=== PATIENT | female | born 1955 | race Caucasian/White ===

== ENCOUNTER 2018-04-19 16:49 | Inpatient (IN) ==
[2018-04-19] MEDS ORDERED: DUONEB (A & A) INH ONE (17:56)
[2018-04-19] MEDS ORDERED: NS 1,000 ML IV ONE (17:56)
[2018-04-19] MEDS ORDERED: LEVAQUIN 500 MG/D5W 500 MG/100 ML IVPB IV ONE (17:57)
[2018-04-19] MEDS ORDERED: SOLU-MEDROL IV ONE (17:58)
--- NOTE | 2018-04-19 19:28 | Diag Imaging Result Doc PS360 ---
EXAM: CHEST-2 VIEWS INDICATION: cough TECHNIQUE: 2 views COMPARISON: 03/04/2018 FINDINGS: The right chest port is in stable position. There is an old central line on the left that is unchanged in position. There is an opacity projecting of the posterior lung bases. It is unclear if this represents a focal consolidation or a sclerotic lesion within the lower thoracic spine. There is no discrete pleural fluid collection or pneumothorax. The cardiomediastinal silhouette and central vasculature are grossly unremarkable. IMPRESSION: Focal consolidation at the lung bases posteriorly on the lateral view versus a sclerotic lesion in the spine. Electronically signed by Abhay Baer 04/19/2018 7:26 PM
[2018-04-19 20:20] LABS: BASO# 0.01 X1000 (0.0-0.2); BASO% 0.1 % (0.0-0.8); EOS# 0.05 X1000 (0.0-0.7); EOS% 0.5 % (0.0-10.0); HEMATOCRIT 42.1 % (37.0-47.0); HEMOGLOBIN 13.7 g/dL (12.0-16.0); IMM GRAN# 0.03 X1000 (0.0-0.04); IMM GRAN% 0.3 % (0.0-0.5); LYMPH# 0.75 X1000 (1.2-3.4); MCH 28.9 PG (27-31); MCHC 32.5 g/dL (33-37); MCV 88.8 FL (81-99); MONO# 0.81 X1000 (0.11-0.59); MONO% 8.7 % (1.7-9.3); MPV 10.9 FL (7.4-10.4); NEUT# 7.69 X1000 (1.4-6.5); NEUT% 82.4 % (42.2-75.2); PLT 140 X1000 (130-400); RBC 4.74 XMIL (4.2-5.4); RDW 14.8 % (11.5-14.5); WBC 9.34 X1000 (4.8-10.8)
[2018-04-19 20:33] LABS: AGAP 11; ALB/GLOB RATIO 0.6; ALBUMIN 2.7 g/dL (3.5-5.0); ALKALINE PHOSPHATASE 204 U/L (32-104); BUN 11 mg/dL (8-22); CALCIUM 8.3 mg/dL (8.8-10.2); CHLORIDE 94 mmol/L (98-107); COSMO 267; CREATININE 0.6 mg/dL (0.5-0.9); ESTIMATED GFR > 60; GLUCOSE 121 mg/dL (70-104); GOT 37 U/L (10-30); GPT 25 U/L (10-36); SODIUM 133 mmol/L (136-145); TCO2 28 mmol/L (25-35); TOTAL BILIRUBIN 1.12 mg/dL (0.20-1.00); TOTAL PROTEIN 7.6 g/dL (6.3-8.3)
--- NOTE | 2018-04-19 21:15 | PROVIDER DOCUMENTATION ---
This chart was entered by Rosario Heath Scribe, acting as scribe for Kelvin Sutton MD. HPI-General Adult - General Chief Complaint: Shortness of Breath Stated Complaint: NAUSEA/ACCERATED HR/LOW O2 Time Seen by Provider: 04/19/18 17:35 Source: patient Allergies/Adverse Reactions: Patient Allergies Allergy/AdvReac Type Severity Reaction Status Date / Time morphine AdvReac ITCHING Verified 04/19/18 17:13 Home Medications: Home Medication List Medication Instructions Recorded Confirmed Last Taken Type Atenolol 50 mg PO DAILY MDD 50 08/02/14 05/06/17 05/05/17 10:00 History Citalopram [Celexa] 40 mg PO DAILY MDD 40 08/02/14 05/06/17 05/05/17 10:00 History Clonazepam [Klonopin] 1 mg PO BID 08/02/14 05/06/17 05/05/17 22:00 History Eszopiclone [Lunesta] 3 mg PO QHS 08/02/14 05/06/17 05/05/17 22:00 History Omeprazole [Prilosec] 20 mg PO DAILY PRN 08/06/16 05/06/17 1 Week Ago History ~04/29/17 Polyethylene Glycol 3350 [Miralax] 1 cap PO DAILY PRN 08/06/16 05/06/17 10:00 History Amphet Asp/Amphet/D-Amphet 10 mg PO BID 05/06/17 05/06/17 05/05/17 10:00 History [Adderall 10 mg Tablet] Promethazine [Phenergan] 25 mg PO Q6H PRN PRN 05/06/17 05/06/17 05/05/17 22:00 History Levofloxacin [Levaquin] 500 mg PO DAILY #20 tab 05/08/17 Unknown Rx Nicotine Patch [Nicoderm Patch] 21 mg TD DAILY #14 patch.td24 05/11/17 Unknown Rx Sulfamethoxazole/Tmp D.s. [Septra 1 ea PO 0800,1999 #50 tab 05/11/17 Unknown Rx Ds] Sulfamethoxazole/Tmp D.s. [ 1 ea PO BID #40 tab 05/11/17 Unknown Rx Ds] - History of Present Illness -Gen Adult Nature of Presenting Problems: 62 y/o female presents to ED with weakness, productive cough, SOB, and nausea onset 1 week ago. Pt reports she has adrenal cancer and lung cancer. Pt is alert and oriented. Location of Pain/Injury: reports: none Pain Radiation: reports: no radiation Quality of Pain: reports: none Severity: reports: mild Onset/Duration: reports: 1 week ago Timing: reports: still present Context/Activities at Onset: reports: none Modifying Factors: improves with: nothing Associated Symptoms: reports: cough (prod), nausea, shortness of breath, weakness Similar Symptoms Previously?: No Recently seen or treated by another doctor?: No Review of Systems - Adult - REVIEW OF SYSTEMS - ADULT Constitutional: denies: chills, fever Eyes: reports: no symptoms reported Ears, Nose, Mouth & Throat: reports: no symptoms reported Cardiovascular: denies: chest pain, palpitations Respiratory: reports: cough (prod), pleurisy Gastrointestinal: reports: nausea. denies: abdominal pain, diarrhea, vomiting Genitourinary: reports: no symptoms reported Musculoskeletal: denies: back pain, joint pain Integumentary: reports: no symptoms reported Neurological: reports: other (weakness). denies: dizziness/vertigo, seizure Psychiatric: reports: no symptoms reported Endocrine: reports: no symptoms reported Hematologic/Lymphatic: reports: no symptoms reported Allergic/Immunologic: reports: no symptoms reported All Other Systems: Reviewed and Negative Past History - Adult - PAST MEDICAL HISTORY-ADULT Review of Records: reports: Old Records Reviewed, Nursing Assessment Review, Medications Reviewed Major Childhood Illnesses: reports: denies history Cardiovascular: reports: HTN Respiratory: reports: asthma, COPD, cancer (Stage IV Lung ca) Gastrointestinal: reports: cancer (liver), liver disease (liver cancer) Obstetrical/Gynecological: reports: denies history Genitourinary: reports: denies history Musculoskeletal: reports: other (broken right knee) Neurological: reports: Seizures/Epilepsy Endocrine/Immune: reports: denies history, cancer (adrenal) Other Conditions: reports: other cancer (adrenal cancer) Additional History: non small cell lung ca 5 years out - PRIOR SURGERIES/PROCEDURES Surgical/Procedure History: reports: BTL, indwelling device (port insertion), other (lung biopsy) - IMMUNIZATION STATUS Childhood Immunizations: UTD Flu Vaccine: UTD - FAMILY HISTORY Family History: reviewed, not pertinent - SOCIAL HISTORY Smoking: less than 1 pack/day Provider spent 3-5 mins advising pt. on dangers of tobacco.: Discussed manners to quit use, and f/u contacts for add'l counseling. Substance Use: none/never Alcohol Use Frequency: never Living Situation: family Physical Exam-General - PHYSICAL EXAM-ADULT Initial Vital Signs Reviewed: Yes - CONSTITUTIONAL General Appearance: alert, no apparent distress, other (ill appearing) - EYES Eyes: PERRL/EOMI, pink conjunctivae - HEAD, EARS, NOSE, MOUTH & THROAT HENMT: normocephalic/atraumatic, moist mucous membranes, normal ENT inspection - NECK Neck: non-tender, full range of motion - RESPIRATORY Respiratory: chest non-tender, no respiratory distress, decreased breath sounds , rales, rhonchi. negative: lungs clear, normal breath sounds, no pleuratic chest pain - CARDIOVASCULAR Cardiovascular: normal peripheral pulses, regular rate, rhythm - GASTROINTESTINAL (ABDOMEN) Abdominal Exam: normal bowel sounds, non tender, soft. negative: guarding, rigid, rebound, tenderness - MUSCULOSKELETAL Back Exam: normal inspection, no CVA tenderness Extremity: normal range of motion, non-tender, normal gait - SKIN Integumentary: normal color, warm/dry - NEUROLOGIC Neurologic: grossly normal - PSYCHIATRIC Psych/Mental Status: normal mood/affect, normal thought content, normal thought process Progress - PLAN OF CARE/RESULTS Progress/Plan/Lab Results: Vital Signs - 8 hr 04/19/18 17:08 Temperature 99.2 F Pulse Rate 121 H Respiratory Rate 20 Blood Pressure 124/60 O2 Sat by Pulse Oximetry 89 L Result Diagrams: 04/19/18 20:08 04/19/18 20:08 - CONSULTS/PCP/HOSPITALIST Notification #1 *Consult/PCP/Hospitalist*: Dr Trujillo Time Discussed: 21:14 Consult Disposition: Admit Departure - Departure Date of Disposition Decision: 04/19/18 Time of Disposition Decision: 21:14 DIAGNOSIS: Pneumonia Disposition: ADMITTED INPATIENT 09 Certified Medical Emergency: Emergent Condition: Fair Referrals and Follow-Ups: None,PCP [Primary Care Provider] - Discharge Education: Steps to Quit Smoking, [id number] - Critical Care Note This patient required my direct & personal management of CC.: No Attestation - Physician/ NUBIA Attestation Patient care was provided by Advanced Practice Provider:: No The physician spent face to face time with patient:: Yes Advanced Practice Provider documentation review:: Supervising physician onsite and consulted in the evaluation and care of this patient. The physician did have a face to face encounter with the patient. This chart was documented by the indicated scribe, (Rosario Heath, Eugenia) and accurately reflects the services I performed and decisions made by me, Kelvin Sutton MD, as attested by the provider's signature.
[2018-04-19] MEDS ORDERED: DUONEB (A & A) INH PRN (23:01)
[2018-04-20] MEDS: MAXIPIME 1 GM in NS 50 ML IV SCH ×2 (00:55→14:21)
[2018-04-20] MEDS: NICODERM PATCH TD SCH (00:55)
[2018-04-20 01:25] LABS: INR 1.11; PROTIME 15.2 Seconds (11.0-16.0)
[2018-04-20 01:26] LABS: PTT 44.5 Seconds (22.3-41.8)
--- NOTE | 2018-04-20 01:50 | HISTORY AND PHYSICAL ---
ADDENDUM: CHIEF COMPLAINT: Cough, congestion. HISTORY: The patient was seen and examined by myself. Full note dictated and discussed with nurse practitioner while the patient was in the ER. The patient states she has got a several day history of cough, congestion, shortness of breath continues to worsen. She has a known history of adrenal cancer and lung cancer. She is currently receiving treatments and is also on a pain pump secondary to chronic pain. She has stage IV lung disease. She was noted to be febrile. She does have pneumonia. We will admit her to the hospital, place her on antibiotics. I did discuss with the patient the importance of stopping smoking as well as the importance of attempting to wean down her chronic pain medication. Please see full note. cc: Sid Berg MD
[2018-04-20] MEDS: DUONEB (A & A) INH SCH ×6 (03:36→20:02)
--- NOTE | 2018-04-20 06:40 | HISTORY AND PHYSICAL ---
PRIMARY CARE PROVIDER: Dr. Bari Molina. DATE AND TIME: 04/19/2018 at 2230. CHIEF COMPLAINT: Productive cough. HISTORY OF PRESENT ILLNESS: Ms. Georges is a 62-year-old, female, who has a history of metastatic lung cancer with metastases to liver and adrenal glands. She is followed by Dr. Molina for this. She is receiving chemotherapy at this time. She reports her last treatment was last 04/09/2018. She denies any recent diagnosis of pneumonia or being admitted to the hospital in the last 3-4 months. She reports that for approximately a week now that she has had productive cough with yellowish sputum. She states it started out thin though has worsened and has become more thick. She also reports associated fever and some weakness as well. She stated that her fever at home had been as high as 103.0 degrees Fahrenheit. She also has had body aches and chills. She had reported some dizziness as well. The patient does have COPD and does wear 2 L nasal cannula at home as needed. She is denying any shortness of breath at this time. She also denies any chest pain. The patient does have chronic abdominal pain secondary to her cancer that she has been on long-term pain medications for. Currently at this time she is on a Dilaudid pain pump. She also reports that she has chronic constipation secondary to this. Her last bowel movement was approximately [id number]. She states this is a little longer than her normal, though she did say that she had not been taking her MiraLAX since she has been sick. She has had some nausea. She denied any vomiting. Denies any hematochezia or melena, dysuria, urinary retention, or any pain, numbness, tingling or swelling in extremities. Upon evaluation in the ER, she did have a low grade fever upon arrival of 99.2 degrees Fahrenheit and was tachycardic at 121, and did have an oxygen saturation of 89% nasal cannula at 2 L. Chest x-ray did show focal consolidation at the lung bases posteriorly. The lateral view there is a sclerotic lesion of the spine. Though given the patient's reported symptoms, we will go ahead and admit her for treatment and evaluation of pneumonia. REVIEW OF SYSTEMS: A 14 point review of systems was conducted with the patient and all were negative except pertinent positives mentioned above in HPI. PAST MEDICAL HISTORY: 1. Metastatic lung cancer with metastases to liver and adrenal glands. Followed by Dr. Molina. Receiving chemotherapy at this time. 2. Chronic obstructive pulmonary disease. On home oxygen as needed nasal cannula at 2 L. 3. Obstructive sleep apnea. 4. Hypertension. 5. Nicotine dependence. 6. Chronic pain. 7. Chronic constipation. PAST SURGICAL HISTORY: 1. Hysterectomy. 2. Lung biopsy. 3. Left chest port placement. SOCIAL HISTORY: The patient is currently still smoking. She states that she has smoked since she was a teenager at approximately a pack a day. At this time, she did not express that she had any plans to quit. She denied any alcohol or illicit drug use. FAMILY HISTORY: Positive for mother having a history of heart failure. Her dad secondary to brain cancer. ALLERGIES: Morphine. HOME MEDICATIONS: We are still awaiting her home medications to be reconciled at this time. The patient could tell me that she does take: 1. Adderall. 2. Klonopin. 3. Lunesta. 4. MiraLAX. 5. Phenergan at home. 6. She is also on a Dilaudid pain pump. She does have a bag with the pump at bedside, which reports that she gets 4.6 mg of Dilaudid per hour with a possible bolus of 1.2 mg every 20 minutes. DIAGNOSTIC DATA/LABORATORY RESULTS: White blood cell count 9340, hemoglobin 13.7, hematocrit 42.1, platelet count 140,000. Sodium 133, potassium 4.0, chloride 94, BUN 11, creatinine 0.6, glucose 121, calcium 8.3. Total bilirubin is 1.12, AST 37, ALT 25, alkaline phosphatase 204. Chest x-ray did show focal consolidation at the lung bases posteriorly on the lateral view versus a sclerotic lesion inside. We are awaiting EKG to be performed at this time. Other pending diagnostic studies include blood cultures and sputum culture. PHYSICAL EXAMINATION: VITAL SIGNS: Temperature 99.2 degrees Fahrenheit, heart rate 100, respirations 18, blood pressure 106/54. Oxygen saturation 92% nasal cannula at 2 L. GENERAL: Ms. Georges is a pleasant 62-year-old, female. She was resting on the ER stretcher. She was in no acute distress. She was awake, alert, and able to answers questions appropriately. Though she was somewhat of a poor historian pertaining to her medical history and medications. HEENT: Head: Atraumatic, normocephalic. Eyes: Pupils are equal, round and reactive to light and 3 mm bilaterally and brisk. ENT: Oral mucosa is moist, though she did have oral thrush noted as well. NECK: Supple. Trachea is midline. CARDIOVASCULAR: The patient has S1, S2 present. She does have a systolic murmur noted as well. She does have a regular rate and rhythm. PULMONARY: The patient has symmetrical chest expansion bilaterally. Lung sounds in bilateral full rust did sound slightly coarse. She does have an expiratory wheeze. ABDOMEN: Soft, nontender. Does not appear to be distended, but the patient does have a protuberant abdomen noted. Bowel sounds are present though were hypoactive. EXTREMITIES: No cyanosis, clubbing or edema noted. Pulse, motor and sensory intact in all extremities. Radial pulses and pedal pulses were 2+ bilaterally. Capillary refill less than 3. INTEGUMENTARY: The patient's skin is pink, warm and dry. NEUROLOGIC: The patient is alert and oriented to person, place, time and situation. There does not appear to be any focal neurological deficits noted. IMPRESSION AND PLAN: 1. Pneumonia. Chest x-ray did note there was a focal consolidation at the lung bases posteriorly on the lateral view versus a sclerotic lesion in the spine. Though the patient has had fever and reported productive cough that has worsened. She has had body aches, chills, nausea and weakness. Given this we are going to go ahead and cover with antibiotic of Maxipime 1 g q.12 hours. We have obtained blood cultures and sputum cultures. One of these will be drawn off her port. We will continue with aggressive pulmonary toilet with scheduled DuoNeb treatments, incentive spirometry. Encouragement of frequent turns, cough, and deep breathing - as well as Mucinex. She will also be placed on continuous cardiac telemetry and pulse oximetry given her symptoms. As well, the patient does have a Dilaudid pain pump. We will continue to follow. 2. Metastatic lung cancer with metastases to liver and adrenal glands. Receiving chemotherapy. Followed by Dr. Molina. We have placed a consult with Dr. Molina and we await their evaluation and further recommendations for management. 3. Chronic obstructive pulmonary disease. We will continue the treatment as mentioned above for #1. 4. Nicotine dependence. We have counseled the patient on the importance of smoking cessation for several minutes, though at this time the patient did not express that she had any plans to quit. We will continue to encourage her to stop smoking. We have placed an order for a nicotine patch. 5. Hypertension. At this time, the patient's blood pressure is within normal limits. We will continue to monitor this. We are awaiting her home medications to be reconciled at this time. 6. Chronic pain. This is secondary to her cancer. The patient is on Dilaudid pump at 4.6 mg per hour with a possible 1.2 mg every 20 minute bolus. We have continued this. As previously mentioned, the patient will be placed on continuous cardiac telemetry and pulse oximetry. 7. Chronic constipation. This is likely secondary to her pain medication. We will continue her MiraLAX. And we will add on Colace as well. 8. Oral candidiasis. We have placed the patient with Nystatin solution. 9. DVT prophylaxis. She will be provided with Lovenox 40 mg subcutaneous q.24 hours. The patient has been placed on the medical floor with telemetry. She will have vital signs q.4 hours. We will do strict intake and output. We will repeat a chest x-ray in the morning as well as CBC and BMP. Further orders and recommendations pending hospital course, diagnostic studies, and physician evaluation. Dictated by RAMILA Posey for Sid Berg MD cc: MD Bari Hayward MD [facility]
[2018-04-20] MEDS: LOVENOX SUBQ SCH (07:01)
[2018-04-20 07:07] LABS: BASO# 0.01 X1000 (0.0-0.2); BASO% 0.2 % (0.0-0.8); HEMATOCRIT 41.9 % (37.0-47.0); HEMOGLOBIN 13.4 g/dL (12.0-16.0); LYMPH# 0.51 X1000 (1.2-3.4); MCH 28.6 PG (27-31); MCV 89.3 FL (81-99); MONO# 0.15 X1000 (0.11-0.59); MONO% 3.2 % (1.7-9.3); NEUT# 3.96 X1000 (1.4-6.5); NEUT% 85.6 % (42.2-75.2); PLT 157 X1000 (130-400); RBC 4.69 XMIL (4.2-5.4); RDW 14.7 % (11.5-14.5); WBC 4.63 X1000 (4.8-10.8)
[2018-04-20] MEDS ORDERED: PATIENT'S OWN MED SCH (07:15)
[2018-04-20 07:30] LABS: AGAP 8; BUN 9 mg/dL (8-22); CALCIUM 8.3 mg/dL (8.8-10.2); CHLORIDE 101 mmol/L (98-107); COSMO 278; CREATININE 0.4 mg/dL (0.5-0.9); ESTIMATED GFR > 60; GLUCOSE 189 mg/dL (70-104); POTASSIUM 4.2 mmol/L (3.5-5.1); SODIUM 137 mmol/L (136-145); TCO2 28 mmol/L (25-35)
[2018-04-20 07:31] LABS: BANDS 14 % (0-1); HYPOCHROM 1+; LYMPHS 2 % (21-51); MONO 2 % (1-9); SEGS 82 % (42-75)
--- NOTE | 2018-04-20 08:17 | Diag Imaging Result Doc PS360 ---
EXAM: CHEST-PORTABLE INDICATION: PNA,Metastatic Lung CA TECHNIQUE: One view COMPARISON: 04/19/2018 FINDINGS: Support tubes and lines are in stable positions. The lungs are grossly clear. The opacity at the posterior lung base that was seen on the lateral projection of the previous radiograph is not visible on this single frontal radiograph. No new consolidation is identified. Cardiac silhouette is stable. IMPRESSION: Grossly stable chest given differences in technique. Electronically signed by Abhay Baer 04/20/2018 8:14 AM
--- NOTE | 2018-04-20 09:21 | EKG Report ---
Test Performed on : 04/20/2018 01:36:46 AM Test Reason : PNA,Metastatic Lung CA Blood Pressure : / mmHG Vent. Rate : 080 BPM Atrial Rate : 080 BPM P-R Int : 134 ms QRS Dur : 084 ms QT Int : 374 ms P-R-T Axes : 080 058 058 degrees QTc Int : 431 ms Normal sinus rhythm. Normal ECG When compared with ECG of 06-AUG-2016 13:05, No significant change was found Confirmed by Stephen NEELY, Mehran Fitzgerald ([id number]) on 04/20/2018 1:12:26 PM
[2018-04-20] MEDS: MUCINEX PO SCH ×2 (11:03→22:21)
[2018-04-20] MEDS: MYCOSTATIN SUSP PO SCH ×4 (11:03→22:21)
[2018-04-20] MEDS: COLACE PO SCH ×2 (11:04→22:21)
[2018-04-20] MEDS: MIRALAX PO SCH (11:04)
--- NOTE | 2018-04-20 14:23 | HEMO/ONC CONSULTATION ---
DATE: 04/20/2018 REQUESTING PHYSICIAN: Hospitalist service. REASON FOR CONSULTATION: Metastatic lung cancer, patient known. HISTORY OF PRESENT ILLNESS: Ms. Georges is a 62-year-old, female who is known to our practice as she is currently being treated for metastatic lung cancer by Dr. Molina. It appears that the patient actually contacted our office on 04/19/2018 via her home health nurse for low O2 saturations as well as a fever and tachycardia. The patient was advised to go to the emergency department for further evaluation. Upon presentation she is found to have pneumonia. She has now been admitted to receive care and treatment. Patient has been receiving Opdivo in our clinic now. She has actually received 17 cycles. She is due for cycle #18 on 04/19/2018. The patient is also due to have a PET scan earlier in March 2018, but was unable to get that done. Seems to be tolerating Opdivo relatively well according to her latest office note. The patient currently reports that she is feeling better than upon presentation. She is resting comfortably and is in no acute distress. PAST MEDICAL HISTORY: 1. Metastatic lung cancer. Currently receiving Opdivo. Past due for restaging scans and those will have to be rescheduled once she is discharged. 2. COPD. Patient is on home O2 as needed. 3. Obstructive sleep apnea. 4. Hypertension. 5. Nicotine dependence. 6. Chronic pain. 7. Chronic constipation. PAST SURGICAL HISTORY: 1. Hysterectomy. 2. Lung biopsy. 3. Left chest port placement. SOCIAL HISTORY: Patient is a daily smoker and has been smoking for several years. She denies any alcohol or illicit drug use. She has home health coming to her home. FAMILY HISTORY: Positive for heart failure and brain cancer. REVIEW OF SYSTEMS: Twelve point review of systems has been completely negative except for as in HPI. PHYSICAL EXAMINATION: Vital Signs: Temperature 97.4, heart rate 81, respirations 15, blood pressure 104/78, O2 saturation 94% on 2 L nasal cannula. General: This is a pleasant female lying in hospital bed. There is no one at bedside. She is in no acute distress. HEENT: Head normocephalic, atraumatic. Eyes: Pupils equal, round, reactive. Ears, Nose, Throat, Neck and Mouth: Oral mucosa is normal. Cardiovascular: S1, S2 heard. Regular rate and rhythm. Respiratory: Coarse breath sounds bilaterally. Some scant wheezing. No rhonchi or rales noted. Gastrointestinal: Abdomen is obese. Positive bowel sounds noted. Nontender. Musculoskeletal: No bony abnormalities. Extremities: Trace ankle edema noted. Neurologic: Patient is alert and oriented, with no focal motor deficits noted. LABS AND STUDIES: White blood cells 4.63, hemoglobin 13.4, hematocrit 41.9, platelet count 157,000. Sodium 137, potassium 4.2, chloride 101, BUN 9, creatinine 0.4, glucose 189. Chest x-ray done on 04/19/2018 shows focal consolidation at the lung base posteriorly on the lateral view. Repeat scan done today is essentially stable. ASSESSMENT AND PLAN: 1. Metastatic non-small cell lung cancer. Patient is currently receiving Opdivo. She is past due for cycle #18. She is also past due for restaging PET scan. Both will be rescheduled once patient is out of the hospital. 2. Pneumonia. Patient's symptoms have already improved since her admission. Continue current management with IV steroids, inhaled steroids, IV antibiotics and supplemental O2. 3. Tobacco dependence. The patient expresses no interest in smoking cessation. NicoDerm patch has been ordered. 4. Chronic obstructive pulmonary disease with acute exacerbation. Treatment as per above. 5. Chronic pain. Seems to be well managed. She will continue with her Dilaudid pump as prescribed. Thank you for consulting us on Ms. Georges while she is here at [facility]. We will continue to follow along and adjust our treatment plan per her hospital course. Dictated by FARHAD Brasher for Azalia Huber MD cc: Azalia Huber MD I have seen and examined the patient and the above note reflects my history, physical, assessment and plan. Azalia SHAIKH
--- NOTE | 2018-04-20 15:26 | PROGRESS NOTE ---
DATE: 04/20/2018 SUBJECTIVE: Patient resting comfortably in bed. OBJECTIVE: Vital Signs: Temperature 97.4, pulse 101, blood pressure 104/78. Oxygen saturation 94%. HEENT: Patient is atraumatic, normocephalic. Cardiovascular: S1, S2. Respiratory: Has evidence of good entry bilaterally. Abdomen is soft, nontender. No masses felt. Extremities: No evidence of edema. Central Nervous System. No obvious focal deficits noted. LABORATORY DATA: Labs are as follows: hematocrit is 41.9 with a platelet count of 157,000. INR 1.11. Sodium is 137, potassium 4.2, chloride 101, bicarb 28. BUN is 9, creatinine 0.4. Today's chest x-ray shows lungs grossly clear. Opacity in the posterior lung base that was seen on the posterior projection of the previous radiograph is not visible on today's x-ray. ASSESSMENT AND PLAN: 1. Probable community-acquired pneumonia. Continue antibiotics. Follow up on blood cultures as well as sputum cultures. 2. Metastatic lung cancer with metastasis to liver and adrenal glands. Oncology consulted. 3. Chronic obstructive pulmonary disease. Use nebulized bronchodilators as needed. No need for steroids at this time. 4. Nicotine dependence. I recommend nicotine patch. 5. Hypertension. Optimize blood pressure control using current antihypertensive medications. 6. Deep vein thrombosis prophylaxis; Lovenox. 7. Gastrointestinal prophylaxis; proton pump inhibitor. cc: Ta Cortez MD [facility]
[2018-04-21] MEDS: DUONEB (A & A) INH SCH ×7 (00:08→23:40)
[2018-04-21] MEDS: MAXIPIME 1 GM in NS 50 ML IV SCH ×2 (01:30→13:24)
[2018-04-21] MEDS: NICODERM PATCH TD SCH (03:08)
[2018-04-21] MEDS: LOVENOX SUBQ SCH (06:46)
[2018-04-21] MEDS: PROTONIX PO SCH (06:46)
[2018-04-21] MEDS ORDERED: NARCAN IV PRN (09:05)
[2018-04-21] MEDS: COLACE PO SCH ×2 (09:19→21:45)
[2018-04-21] MEDS: MYCOSTATIN SUSP PO SCH ×4 (09:19→21:45)
[2018-04-21] MEDS: MUCINEX PO SCH ×2 (09:19→21:45)
[2018-04-21] MEDS: MIRALAX PO SCH (09:19)
[2018-04-21] MEDS ORDERED: LR 1,000 ML ONE (09:57)
[2018-04-21] MEDS: DILAUDID PCA VIAL IV PRN ×3 (10:12→22:38)
--- NOTE | 2018-04-21 14:22 | PROGRESS NOTE ---
DATE: 04/21/2018 SUBJECTIVE: The patient resting comfortably in bed. OBJECTIVE: Vital Signs: Vital signs as follows: Temperature 97.6 degrees, pulse 126, respirations 22, blood pressure 106/51, oxygen saturation 97%. HEENT: Atraumatic, normocephalic. Cardiovascular system: S1, S2. Respiratory system: Has evidence of good air entry bilaterally. Abdomen: Soft, nontender. No masses felt. Extremities: No evidence of significant edema in the lower extremities. Central nervous system: No obvious focal deficits noted. LABS: Labs as follows: None. ASSESSMENT AND PLAN: 1. Community-acquired pneumonia. Continue antibiotics. Follow up on blood, as well as follow up on sputum cultures. 2. Metastatic lung cancer with metastasis to liver and adrenal glands. Oncology consult. 3. Chronic obstructive pulmonary disease. Use nebulized bronchodilators. Dialysis as needed. 4. Nicotine dependence. I recommend nicotine patch. 5. Hypertension. Optimize blood pressure control using current antihypertensive regimen. 6. Deep vein thrombosis prophylaxis with Lovenox. 7. Gastrointestinal prophylaxis with proton pump inhibitor. cc: Ta Cortez MD
[2018-04-22] MEDS: MAXIPIME 1 GM in NS 50 ML IV SCH ×2 (00:29→13:15)
[2018-04-22] MEDS: NICODERM PATCH TD SCH ×2 (02:36→23:21)
[2018-04-22] MEDS: DILAUDID PCA VIAL IV PRN ×2 (05:16→20:49)
[2018-04-22] MEDS: DUONEB (A & A) INH SCH ×6 (06:07→22:59)
[2018-04-22] MEDS: LOVENOX SUBQ SCH (06:13)
[2018-04-22] MEDS: PROTONIX PO SCH (06:13)
[2018-04-22] MEDS: MIRALAX PO SCH (10:41)
[2018-04-22] MEDS: MYCOSTATIN SUSP PO SCH ×4 (10:41→22:18)
[2018-04-22] MEDS: MUCINEX PO SCH ×2 (10:42→22:18)
[2018-04-22] MEDS: COLACE PO SCH ×2 (10:42→22:18)
--- NOTE | 2018-04-22 11:27 | HEMO/ONC PROGRESS NOTE ---
DATE: 04/21/2018 CHIEF COMPLAINT: "I'm breathing better now." OBJECTIVE: Vital signs: Temp 99.0, blood pressure is 91/50, heart rate 122, respirations are 20, O2 saturation is 98% on 2 L nasal cannula O2. HEENT: Normocephalic, atraumatic. Mucous membranes pink and moist. Sclera is anicteric. Extraocular movements intact. Neck: Supple. Lungs: Clear to auscultation bilaterally with decreased breath sounds in the bases. CV: S1, S2 is heard without murmur, rub, or gallop. Abdomen: Nondistended. Extremities: Without clubbing or cyanosis. The patient does have trace bilateral lower extremity edema. Dermatologic: No rashes, bruises, or lesions. Neuro: The patient is awake, alert, oriented x3. She has no focal motor deficit. LABORATORY DATA: Hemoglobin 13.4, hematocrit 41.9, white blood cell count 4.6, platelets are 157. Sodium 137, potassium 4.2, chloride 101, and CO2 is 28, BUN 9, creatinine 0.4, and glucose is 189, calcium is 8.3, and bilirubin 1.12, alkaline phosphatase 204, AST 37, ALT is 25. ASSESSMENT AND PLAN: 1. Metastatic [id number]-rxrb lung cancer, currently on Opdivo. The patient is past due cycle 18, and she is also past due restaging PET scan. Both will be scheduled after the patient's acute illness resolves. 2. Bilateral lower lobe pneumonia. The patient is currently on intravenous antibiotics with supplemental O2. 3. Tobacco dependence. The patient continues to express no interest in cessation. 4. Chronic obstructive pulmonary disease with acute exacerbation, treatment per primary care, stable at this time. 5. Chronic pain. The patient is on a Dilaudid pump at home. She will continue with Dilaudid as an inpatient. 6. We will follow along with you and make further recommendations pending outcomes. The above reflects the history, exam, assessment, and plan of Dr. Huber. Dictated by RAMILA Caballero for Azalia Huber MD cc: RAMILA Caballero MD I have seen and examined the patient and the above note reflects my history, physical , and assessment and plan. Azalia SHAIKH
--- NOTE | 2018-04-22 14:48 | PROGRESS NOTE ---
DATE: 04/22/2018 SUBJECTIVE: Patient resting in bed. OBJECTIVE: Vital signs are as follows: Temperature 98.2, pulse is 130, respirations 17, blood pressure is 190/68, oxygen is 98%. HEENT: Atraumatic, normocephalic. Cardiovascular System: S1, S2. Respiratory System has evidence of good air entry bilaterally. Abdomen is soft, nontender. No masses felt. Extremities: No evidence of edema. Central Nervous System No obvious focal deficits noted. LABORATORIES: Blood cultures positive for gram-negative rods. ASSESSMENT AND PLAN: 1. Community-acquired pneumonia. Continue antibiotics. 2. Gram-negative bacteremia. Maintain patient on antibiotics and schedule the patient for transesophageal echo to rule out any vegetations involving the heart valves. 3. Chronic obstructive pulmonary disease. Use nebulized bronchodilators. 4. Nicotine dependence. Nicotine patch recommended. 5. Hypertension. Continue current antihypertensive regimen. 6. Deep vein thrombosis prophylaxis; Lovenox. 7. Gastrointestinal prophylaxis; proton pump inhibitor. cc: Ta Cortez MD
[2018-04-22] MEDS ORDERED: NS 250 ML IV ONE (15:55)
[2018-04-23] MEDS ORDERED: TORADOL IV ONE
[2018-04-23] MEDS: MAXIPIME 1 GM in NS 50 ML IV SCH ×2 (00:15→13:27)
[2018-04-23] MEDS: DILAUDID PCA VIAL IV PRN ×4 (02:35→23:04)
[2018-04-23] MEDS: DUONEB (A & A) INH SCH ×6 (03:33→23:35)
--- NOTE | 2018-04-23 04:42 | CARDIOLOGY CONSULTATION ---
DATE: 04/22/2018 CHIEF COMPLAINT ON PRESENTATION: Fever and cough. HISTORY OF PRESENT ILLNESS: Ms. Georges is a 62-year-old female with a history of lung cancer, followed by Dr. Molina. Apparently over the last 3 to 4 days, to possibly a week, she has had a productive cough and fever at home. The patient is not able to provide much history as there seems to be some confusion about her recent symptoms. Granddaughter says she has had productive cough, shortness of breath, and a fever up to 100.3 at home. The patient has been compliant with her medications. She was admitted to the hospital and a chest x-ray was obtained that demonstrates bibasilar infiltrates suggesting pneumonia. There was no mention of any sort of embolic type phenomenon. PAST MEDICAL HISTORY: 1. Significant for metastatic lung cancer, currently on Opdivo. 2. COPD. 3. Sleep apnea. 4. Hypertension. SOCIAL HISTORY: The patient is a daily smoker and she continues to do so. No alcohol or illicit drugs. FAMILY HISTORY: Significant for heart failure and some sort of neurologic malignancy. REVIEW OF SYSTEMS: A 10-system review of systems is negative except for those things mentioned in the HPI. PHYSICAL EXAMINATION: Vital signs: She is afebrile. Her heart rates have been quite erratic, jumping anywhere from the 70s to the 120s. Blood pressure 97/49. Systolics are anywhere from the 90s to the 110s. General: She is in no acute distress. HEENT: Oropharynx moist. Poor dentition. Eye examination shows pink conjunctivae, white sclerae. Neck: Examination shows no obvious thyromegaly or thyroid tenderness. Cardiovascular: She sounds to be in a regular rate and rhythm. She has no murmurs. She has no S3. She has no lower extremity edema. Chest: Exam demonstrates bibasilar rales with mild reduction in breath sounds. She has no increased work of breathing. Abdomen: Soft, nontender, nondistended. She has no obvious organomegaly. Skin Exam: Warm and dry throughout without any rashes. Neurological: She is moving all extremities well. She has no lateralizing deficits. Psychiatric: She is alert, oriented, and pleasant. Normal mood and affect. PERTINENT DATA: Chest x-ray shows evidence for focal consolidation at the lung bases posteriorly suggesting pneumonia. Lab data shows a white count of 4.6, hematocrit 41, platelet count 157,000. Sodium 137, potassium 4.2, BUN 9, creatinine 0.4. ASSESSMENT: Ms. Georges is a 62-year-old female with a history of lung cancer who presented with what sounds like bibasilar pneumonia. PLAN: At this point, the patient's cultures have shown gram-negative rods in the blood. This is only 1 set. This is suggested to have a pulmonary source. She does not have a chest x-ray or any sort of imaging study that suggests embolic type phenomenon. She has not been febrile during this hospitalization. Her white count has been relatively unremarkable, although she does have a 14% bandemia. At this point, I would not recommend pursuing a transesophageal echo as the patient does not seem to have convincing evidence of endocarditis. She seems to have a clear infectious source being her pneumonia. She has not had repetitive fevers nor has she had repetitively positive cultures. If we can be of further assistance with the patient, please contact us. cc: Scott Wheat MD MTDD
[2018-04-23] MEDS: PHENERGAN IV PRN (06:30)
[2018-04-23] MEDS: PROTONIX PO SCH (06:30)
[2018-04-23] MEDS: LOVENOX SUBQ SCH (06:30)
[2018-04-23] MEDS: LR 1,000 ML IV SCH (06:36)
--- NOTE | 2018-04-23 06:51 | Diag Imaging Result Doc PS360 ---
EXAM: CHEST-1 VIEW HISTORY: pneumonia TECHNIQUE: Chest single view COMPARISON: 04/20/2018 FINDINGS: No change in the right jugular line or left subclavian line. No pneumothoraces. The heart is not enlarged. The lungs are well expanded. No pulmonary edema. Minimal atelectasis versus a small infiltrate in the lung bases. No pleural effusions identified. IMPRESSION: Development of atelectasis versus small basilar infiltrates. Electronically signed by Houston Caldera 04/23/2018 6:48 AM
[2018-04-23 07:48] LABS: BASO# 0.04 X1000 (0.0-0.2); BASO% 0.3 % (0.0-0.8); EOS# 0.19 X1000 (0.0-0.7); EOS% 1.6 % (0.0-10.0); HEMATOCRIT 37.3 % (37.0-47.0); HEMOGLOBIN 11.7 g/dL (12.0-16.0); IMM GRAN# 0.09 X1000 (0.0-0.04); IMM GRAN% 0.7 % (0.0-0.5); LYMPH% 10.8 % (20.5-51.1); MCH 28.6 PG (27-31); MCHC 31.4 g/dL (33-37); MCV 91.2 FL (81-99); MONO# 0.61 X1000 (0.11-0.59); MPV 11.3 FL (7.4-10.4); NEUT# 9.85 X1000 (1.4-6.5); NEUT% 81.6 % (42.2-75.2); PLT 160 X1000 (130-400); RBC 4.09 XMIL (4.2-5.4); RDW 15.2 % (11.5-14.5); WBC 12.08 X1000 (4.8-10.8)
[2018-04-23 07:50] LABS: AGAP 8; ALB/GLOB RATIO 0.7; ALBUMIN 2.4 g/dL (3.5-5.0); ALKALINE PHOSPHATASE 154 U/L (32-104); BUN 9 mg/dL (8-22); CALCIUM 8.2 mg/dL (8.8-10.2); CHLORIDE 93 mmol/L (98-107); COSMO 267; CREATININE 0.8 mg/dL (0.5-0.9); ESTIMATED GFR > 60; GLUCOSE 135 mg/dL (70-104); GOT 25 U/L (10-30); GPT 33 U/L (10-36); POTASSIUM 3.8 mmol/L (3.5-5.1); SODIUM 133 mmol/L (136-145); TCO2 32 mmol/L (25-35); TOTAL BILIRUBIN 1.36 mg/dL (0.20-1.00); TOTAL PROTEIN 5.7 g/dL (6.3-8.3)
[2018-04-23 08:18] LABS: BANDS 7 % (0-1); LYMPHS 10 % (21-51); MONO 3 % (1-9); OVALOCYTES 1+; SEGS 80 % (42-75)
[2018-04-23] MEDS: MIRALAX PO SCH (09:26)
[2018-04-23] MEDS: MUCINEX PO SCH ×2 (09:27→20:46)
[2018-04-23] MEDS: COLACE PO SCH ×2 (09:27→20:46)
[2018-04-23] MEDS: MYCOSTATIN SUSP PO SCH ×4 (09:27→20:46)
[2018-04-23] MEDS ORDERED: DILAUDID PCA VIAL IV PRN (13:35)
--- NOTE | 2018-04-23 14:01 | PROGRESS NOTE ---
DATE: 04/23/2018 SUBJECTIVE: The patient is resting comfortably in bed. Not in any obvious distress. OBJECTIVE: Vital signs: Temperature is 97.4, pulse 112, respirations 18, blood pressure 101/52, oxygen saturation is 95%. HEENT: Atraumatic and normocephalic. Cardiovascular: S1, S2. Respiratory: Has evidence of good air entry bilaterally. Abdomen: Soft, nontender. No masses felt. Extremities: No evidence of edema. Central nervous system: No obvious focal deficits noted. DIAGNOSTIC DATA: WBC is 12.08, hematocrit 37.3 with a platelet count of 160. Sodium is 133, potassium 3.8, chloride is 93, bicarb 32, BUN is 9, creatinine 0.8. Blood cultures 2 of 2 sets positive for gram-negative rods. X-ray of chest shows development of atelectasis with a small basilar infiltrate. ASSESSMENT AND PLAN: 1. Community acquired pneumonia. Continue antibiotics. Follow up on sputum cultures as well as a chest x-ray. 2. Gram-negative bacteremia. Continue antibiotics. The patient will need transesophageal echocardiogram. The patient does have 2 of 2 sets of blood cultures positive, and she has been febrile, temperature of 100.8 degrees Fahrenheit recorded on 04/22/2018. In addition, the patient's white count has been elevated at 12.08. We will need to ensure that the patient does not have any vegetations involving the cardiac valves. 3. Chronic obstructive pulmonary disease. Continue use of nebulized bronchodilators as needed. 4. Nicotine dependence. Nicotine patch recommended. 5. Hypertension. Continue current antihypertensive regimen. 6. Deep vein thrombosis. Lovenox. 7. GI prophylaxis. PPI. cc: Ta Cortez MD
--- NOTE | 2018-04-23 14:22 | HEMO/ONC PROGRESS NOTE ---
DATE: 04/23/2018 CHIEF COMPLAINT: "I'm feeling better." OBJECTIVE: Vital signs: Temperature 97.9, blood pressure 101/52, heart rate 112, respirations 17, O2 saturation 94% on nasal cannula O2. HEENT: Normocephalic, atraumatic. Mucous membranes are pink and moist. Sclerae anicteric. Extraocular movements intact. Neck: Supple. Lungs: Clear to auscultation bilaterally with decreased breath sounds in the bases. Chest expansion equal bilaterally. CV: S1, S2 is heard. No murmurs, rubs or gallops. Abdomen: Nondistended. Extremities: No clubbing, cyanosis. She does have trace bilateral lower extremity edema. Dermatologic: No rashes, bruises or lesions. Neurologic: The patient is awake, alert, and oriented x3. She has no focal deficits. LABORATORY DATA: Hemoglobin 11.7, hematocrit 37.3, white blood cell count of 12.08, platelets 160. Sodium 133, potassium 3.8, chloride 93, CO2 is 32. BUN 9, creatinine 0.8 , and glucose is 135. ASSESSMENT AND PLAN: 1. Metastatic non-small cell lung cancer currently on Opdivo. She will be scheduled cycle 18 and a PET scan for restaging upon discharge. 2. Bilateral lower lobe pneumonia on intravenous antibiotics and supplemental oxygen. 3. Chronic obstructive pulmonary disease with acute exacerbation, improved at this time. 4. Chronic pain. The patient is on a Dilaudid pump at home. She will continue Dilaudid pump as an inpatient. 5. We will follow along with you and make further recommendations pending outcomes. The above reflects the history, exam, assessment and plan of Dr. Huber. Dictated by RAMILA Caballero for Azalia Huber MD cc: RAMILA Caballero MD I have seen and examined the patient and the above note reflects my history, physical exam and assessment and plan. Azalia Huber MD [facility]OSPITALBrittany
[2018-04-24] MEDS: MAXIPIME 1 GM in NS 50 ML IV SCH ×2 (01:06→13:30)
[2018-04-24] MEDS: DUONEB (A & A) INH SCH ×6 (03:40→23:12)
[2018-04-24] MEDS: PHENERGAN IV PRN ×4 (04:32→23:01)
[2018-04-24] MEDS: SODIUM CHLORIDE 0.9% INJ PRN ×2 (04:35→23:04)
[2018-04-24] MEDS: LOVENOX SUBQ SCH (05:12)
[2018-04-24] MEDS: NICODERM PATCH TD SCH (05:12)
[2018-04-24] MEDS: PROTONIX PO SCH (06:57)
[2018-04-24] MEDS: MUCINEX PO SCH ×2 (08:32→20:04)
[2018-04-24] MEDS: COLACE PO SCH ×2 (08:32→20:04)
[2018-04-24] MEDS: MYCOSTATIN SUSP PO SCH ×4 (08:32→20:04)
[2018-04-24] MEDS: MIRALAX PO SCH (08:33)
[2018-04-24] MEDS: DILAUDID PCA VIAL IV PRN ×2 (08:51→18:24)
[2018-04-24] MEDS: LR 1,000 ML IV SCH (11:51)
[2018-04-24] MEDS: LEVAQUIN 750 MG in NS 150 ML IV SCH (11:51)
--- NOTE | 2018-04-24 13:22 | PROGRESS NOTE ---
DATE: 04/24/2018 SUBJECTIVE: Patient notes overall that she is okay. She denies any current chest pains or palpitations. She is currently sitting up in the chair. EXAM: Vital Signs: Temperature 98, pulse 102, respiratory rate 20, BP 105/50. General: Patient is very pleasant to talk with. HEENT: Normocephalic. Neck: Supple. CARDIOVASCULAR: Regular rate, no murmurs. Chest: Positive rhonchi, no crackles, no wheezing. Abdomen: Soft, nondistended. Extremities: Moves all extremities. Neurologic: No focal deficit. She is awake, alert, oriented. ASSESSMENT: 1. Community-acquired pneumonia. 2. Bacteremia with Burkholderia, sensitive to Levaquin and cephalosporins. 3. Chronic obstructive pulmonary disease. 4. Mild hyponatremia. 5. Metastatic non-small cell lung cancer. 6. Hypertension. 7. Chronic nicotine abuse. PLAN: We will continue cefepime. Continue physical therapy. Continue to follow. Further orders as needed. cc: Sid Berg MD
[2018-04-24] MEDS ORDERED: CALMOSEPTINE OINTMENT TOP PRN (22:20)
[2018-04-25] MEDS: DILAUDID PCA VIAL IV PRN ×4 (00:36→21:47)
[2018-04-25] MEDS: MAXIPIME 1 GM in NS 50 ML IV SCH ×3 (02:02→13:47)
[2018-04-25] MEDS: DUONEB (A & A) INH SCH ×6 (03:25→22:54)
[2018-04-25] MEDS: PHENERGAN IV PRN ×2 (06:18→18:13)
[2018-04-25] MEDS: SODIUM CHLORIDE 0.9% INJ PRN (06:20)
[2018-04-25] MEDS: PROTONIX PO SCH (06:21)
[2018-04-25] MEDS: LOVENOX SUBQ SCH (06:21)
[2018-04-25] MEDS: NICODERM PATCH TD SCH (06:21)
[2018-04-25] MEDS: MUCINEX PO SCH ×2 (08:15→20:32)
[2018-04-25] MEDS: MYCOSTATIN SUSP PO SCH ×4 (08:15→20:32)
[2018-04-25] MEDS: MIRALAX PO SCH (08:15)
[2018-04-25] MEDS: LR 1,000 ML IV SCH (08:15)
[2018-04-25] MEDS: COLACE PO SCH ×2 (08:15→20:32)
[2018-04-25] MEDS: LEVAQUIN 750 MG in NS 150 ML IV SCH (10:39)
--- NOTE | 2018-04-25 19:33 | PROGRESS NOTE ---
DATE: 04/25/2018 INTERVAL HISTORY: Dyspnea, much improved. No new complaints. No acute events overnight. Afebrile. REVIEW OF SYSTEMS: Twelve point review of systems negative except as per interval history. VITALS: T-max 98.3, pulse 93, respirations 16, blood pressure 119/51, O2 sat 100% on 2 L by nasal cannula. PHYSICAL EXAMINATION: General: No acute distress. VITALS: As above. HEENT: Normocephalic, atraumatic. Moist mucous membranes. No JVD, no cervical adenopathy. Cardiovascular: Regular rate and rhythm. No murmurs, rubs or gallops. Pulmonary: Clear to auscultation bilaterally at this point. Abdomen: Soft, nontender, nondistended. Bowel sounds positive. Extremities: Peripheral pulses intact. No clubbing, cyanosis or edema. Neurologic: Cranial nerves 2-12 are grossly intact. No focal motor sensory deficits. Psychiatric: Normal mood and affect. Awake, alert and oriented x 3. Skin: No new rashes or lesions identified. ASSESSMENT AND PLAN: 1. Community acquired pneumonia. Symptomatically essentially resolved at this point on antibiotics with cefepime and Levaquin. We will likely discharge on Levaquin if repeat blood cultures remain negative. 2. Bacteremia. Initial blood cultures growing out Burkholderia sensitive to cefepime, ceftazidime, Levaquin, Bactrim. Repeat blood cultures drawn and pending. On Levaquin and cefepime as above. Will likely discharge on Levaquin if repeat blood cultures remain negative. Likely pulmonary source. 3. Chronic obstructive pulmonary disease. No wheezing and no signs of exacerbation at this time. Continue nebulizer treatments as needed. 4. Nicotine abuse. Nicotine patch offered. Counseled on cessation. 5. Hypertension, reasonable control off of home medication. Will consider restarting home atenolol if elevation in blood pressure develops. 6. Hyponatremia, mild asymptomatic. Continue to monitor labs. 7. Chronic pain. Patient on Dilaudid pump at home. 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 8. Stage IV lung cancer with mets, followed by Dr. Molina. No acute intervention at this time. 9. DVT prophylaxis. Lovenox.
[2018-04-26] MEDS: MAXIPIME 1 GM in NS 50 ML IV SCH (01:03)
[2018-04-26] MEDS: DUONEB (A & A) INH SCH ×4 (03:22→19:40)
[2018-04-26] MEDS: NICODERM PATCH TD SCH (05:58)
[2018-04-26] MEDS: LOVENOX SUBQ SCH (05:58)
[2018-04-26] MEDS: PROTONIX PO SCH (06:00)
[2018-04-26] MEDS: LR 1,000 ML IV SCH (06:01)
[2018-04-26] MEDS: DILAUDID PCA VIAL IV PRN ×3 (06:56→23:35)
[2018-04-26] MEDS: MIRALAX PO SCH (08:56)
[2018-04-26] MEDS: MUCINEX PO SCH ×2 (08:56→21:06)
[2018-04-26] MEDS: COLACE PO SCH ×2 (08:57→21:06)
[2018-04-26] MEDS: MYCOSTATIN SUSP PO SCH ×4 (08:57→21:06)
[2018-04-26] MEDS ORDERED: NS 1,000 ML IV SCH (11:30)
[2018-04-26] MEDS: NS 1,000 ML IV SCH (12:31)
[2018-04-26] MEDS: LEVAQUIN 750 MG in NS 150 ML IV SCH (12:31)
--- NOTE | 2018-04-26 13:07 | PROGRESS NOTE ---
DATE: 04/26/2018 SUBJECTIVE: Patient resting. The patient would like to be discharged home. OBJECTIVE: Vital signs: Temperature 97.7 degrees, pulse 95, respiratory rate 17, blood pressure 122/58, oxygen saturation 98%. HEENT: Atraumatic, normocephalic. Cardiovascular: S1, S2. Respiratory: Evidence of good air entry bilaterally. Abdomen: Soft, nontender. No masses felt. Extremities: No evidence of edema. Central nervous system: No obvious focal deficits noted. LABORATORY DATA: None. ASSESSMENT AND PLAN: 1. Community-acquired pneumonia. Continue antibiotics. 2. Burkholderia cepacia bacteremia. Continue antibiotics. Consult with Infectious Disease. 3. Chronic obstructive pulmonary disease. Nebulized bronchodilators as needed. 4. Hypertension. Continue current antihypertensive regimen. 5. Nicotine dependence. Continue nicotine patch. 6. Deep vein thrombosis prophylaxis. Lovenox. 7. Gastrointestinal prophylaxis. Proton pump inhibitor. cc: Ta Cortez MD
[2018-04-26] MEDS: MAXIPIME 2 GM in NS 100 ML IV SCH (15:12)
--- NOTE | 2018-04-26 15:19 | INFECTIOUS DISEASE CONSULT REP ---
DATE: 04/26/2018 CONCLUSION: I agree with Dr. Cortez that the patient has a Burkholderia cepacia bacteremia which originates from the patient's right-sided Port-A-Cath. RECOMMENDATIONS: I agree with treating with both cefepime and Levaquin. I have increased the dose of cefepime to 2 g IV every 12 hours. Again, I also agree with Dr. Cortez that the patient's Port-A-Cath needs to be removed. I have put in a consult for Dr. Hopkins, who is the surgeon social professionals today, to remove the Port-A-Cath and culture the tip. I suggest waiting 2 days after the Port-A-Cath has been removed and then we can repeat the patient's blood cultures. If they are negative, then the patient can have another long-term vascular catheter inserted. I ordered a UA and urine C&S. DISCUSSION: The patient initially came in the hospital with some cough and fever. She initially was coughing up some green sputum but that has all cleared. She has had blood cultures drawn which grew Burkholderia cepacia. That was on the april. Repeat blood cultures drawn yesterday, on the 25 of April, 1 of the 2 is growing a gram-negative zayra which I think will be identified as Burkholderia. Chest x-ray shows small bibasilar atelectasis vs.infiltrates. PAST MEDICAL HISTORY/REVIEW OF SYSTEMS: Eyes and ears: She does not have any problem hearing or seeing. Neck: No stiffness. Respiratory: See present illness. GI: No nausea, vomiting, or diarrhea. : No dysuria or flank pain. Bones, joints, muscles: No swollen joints or muscle aches. Endocrine: The patient does not have diabetes or thyroid disease. Neurologic: Patient does not have seizures or loss of motor function. 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 PREVIOUS HOSPITALIZATIONS AND OPERATIONS: Patient has had 4 labor and deliveries, 2 miscarriages, a Port-A-Cath placed on the left side which required removal because bacteremia originated from it. She has had a new Port-A-Cath placed on the right side. The patient also was admitted the hospital because of carbon monoxide poisoning. She also had a fracture of her right leg and she has had a Port-A-Cath placed in the hospital. MEDICAL DISEASES: Positive for metastatic lung cancer. Negative for diabetes mellitus and hypertension. INFECTIOUS DISEASE HISTORY: Positive for pneumonia and infected Port-A-Cath and urinary tract infection. FAMILY HISTORY: Positive for diabetes mellitus, hypertension, and cancer. SOCIAL HISTORY: [place] is [place]. She lives with some of her family members. She does not have any pets. ALLERGIES: She is allergic to morphine. HOME MEDICATIONS: Include the following. Adderall, atenolol, Celexa, Klonopin , Lunesta, Prilosec, MiraLAX, and Phenergan. PHYSICAL EXAMINATION: Vital Signs: Temperature is 97.7 degrees, pulse 95, respirations 17, blood pressure 122/58. General: This is a somewhat ill-appearing, middle-aged female. She is in no acute distress. Head, eyes, ears, nose, and throat: She can hear my spoken words and see near objects. No drainage noted from the nose or ears. She does not have any white patches on her tongue. Neck: No meningismus. Thorax: The patient has a Port-A-Cath present on the right side. The site is not erythematous or draining. The left side where she previously had a Port-A-Cath removed is not swollen or tender. Cardiovascular: Heart rate is regular. Lungs: Clear to auscultation. Abdomen: Soft and nontender. Neurologic: The patient is alert. She can move her extremities. There is no tremor. Her sensation is intact to touch. Her memory as regarding her medical history appears intact. Integument: No rash noted. Thank you for the consult. cc: Arsalan Robertson MD [facility]
[2018-04-26] MEDS: PHENERGAN IV PRN ×2 (17:17→21:06)
[2018-04-26] MEDS: SODIUM CHLORIDE 0.9% INJ PRN (21:07)
--- NOTE | 2018-04-26 23:35 | GENERAL SURGERY CONSULTATION ---
DATE: 04/26/2018 HPI: This is a 62-year-old female known to me. She has a history of small cell lung carcinoma, been treated for this chronically. She had 1 year ago bacteremia related to a left subclavian indwelling port. This was removed but was lodged between the clavicle and a rib and sternum. This catheter was placed at an outside facility. We had to leave the distal aspect. Her blood cultures cleared and we replaced a port on the right side and she has done well for a year, developed respiratory symptoms been treated for pneumonia been bacteremic now with a different organism it was Acinetobacter now it is Burkholderia and cultures from the 1st were positive x2 and she has had cultures again drawn on the 6th that are positive for gram-negative rods. She is afebrile. She is feeling better. She reports been functioning normally. She has no upper extremity swelling and really has done okay last year. I do not see any fevers documented last 24 hours, pulse 92, blood pressure 125, oxygen saturation 93%. MEDICAL HISTORY: 1. Small cell lung carcinoma. 2. Diabetes. 3. Hypertension. SURGICAL HISTORY: History pneumonia, history of left Port-A-Cath infection, urinary tract infection. FAMILY HISTORY: Diabetes, hypertension. SOCIAL HISTORY: History of smoking, single. MEDICATIONS: Negative for anticoagulants. EXAM: General: She is alert. HEENT: No scleral icterus. No cervical masses. Cardiovascular: Normal rate. Pulmonary: She is on nasal cannula O2 but no increased work of breathing. Somewhat of a cachectic thorax. Abdomen: Soft, nontender, nondistended. Integument: Warm, dry without jaundice. Psychiatric: Appropriate affect. Neurologic: No gross deficits . Peripheral vascular: No upper extremity swelling. Her left subclavian incision is healed. Her right port is in place. It is access with no erythema, no purulence. Lymphatic: I do not feel any cervical, supra, infraclavicular adenopathy. LAB: White count elevated at 12, hematocrit 37, INR is 1.11, creatinine 0.8, glucose is 135, bilirubin is 1.36, AST and ALT are normal alkaline phosphatase 154,, albumin is 2.4. ASSESSMENT AND PLAN: A 62-year-old female with bacteremia. She has indwelling catheter in her left subclavian as well as well as a right-sided port. We discussed these matters, is complicated by the fact she has a lodged catheter in the left subclavian location. Will remove her port tomorrow and possibly place central line based off her access and follow her blood cultures. She is able to clear this will replace the port but in all likelihood she will need Interventional Radiology to remove the residual catheter left subclavian location. We discussed risk of bleeding, infection, vascular injury, pneumothorax, catheter fracture, dislodgement. She understands all this and consents. We made her NPO at midnight. cc: Shaista Hopkins MD
[2018-04-27] MEDS: DUONEB (A & A) INH SCH ×7 (00:43→23:11)
[2018-04-27] MEDS: MAXIPIME 2 GM in NS 100 ML IV SCH ×2 (02:32→19:17)
[2018-04-27] MEDS: NICODERM PATCH TD SCH (05:38)
[2018-04-27] MEDS: LOVENOX SUBQ SCH (05:38)
[2018-04-27 07:42] LABS: BASO# 0.01 X1000 (0.0-0.2); BASO% 0.1 % (0.0-0.8); EOS# 0.33 X1000 (0.0-0.7); EOS% 4.9 % (0.0-10.0); HEMATOCRIT 36.5 % (37.0-47.0); HEMOGLOBIN 11.1 g/dL (12.0-16.0); IMM GRAN# 0.04 X1000 (0.0-0.04); IMM GRAN% 0.6 % (0.0-0.5); LYMPH# 1.12 X1000 (1.2-3.4); LYMPH% 16.5 % (20.5-51.1); MCH 27.8 PG (27-31); MCHC 30.4 g/dL (33-37); MCV 91.5 FL (81-99); MONO# 0.76 X1000 (0.11-0.59); MONO% 11.2 % (1.7-9.3); MPV 10.2 FL (7.4-10.4); NEUT# 4.53 X1000 (1.4-6.5); NEUT% 66.7 % (42.2-75.2); PLT 259 X1000 (130-400); RBC 3.99 XMIL (4.2-5.4); RDW 14.9 % (11.5-14.5); WBC 6.79 X1000 (4.8-10.8)
[2018-04-27 08:08] LABS: AGAP 9; ALB/GLOB RATIO 0.8; ALBUMIN 2.5 g/dL (3.5-5.0); ALKALINE PHOSPHATASE 118 U/L (32-104); BUN 6 mg/dL (8-22); CALCIUM 8.2 mg/dL (8.8-10.2); CHLORIDE 103 mmol/L (98-107); COSMO 284; CREATININE 0.5 mg/dL (0.5-0.9); ESTIMATED GFR > 60; GLUCOSE 115 mg/dL (70-104); GOT 17 U/L (10-30); GPT 21 U/L (10-36); POTASSIUM 3.8 mmol/L (3.5-5.1); SODIUM 143 mmol/L (136-145); TCO2 31 mmol/L (25-35); TOTAL BILIRUBIN 0.39 mg/dL (0.20-1.00); TOTAL PROTEIN 5.7 g/dL (6.3-8.3)
[2018-04-27] MEDS: MYCOSTATIN SUSP PO SCH ×4 (09:00→20:48)
[2018-04-27] MEDS: MUCINEX PO SCH ×2 (09:00→20:48)
[2018-04-27] MEDS: COLACE PO SCH ×2 (09:00→20:48)
[2018-04-27] MEDS: PROTONIX PO SCH (09:00)
[2018-04-27] MEDS: MIRALAX PO SCH (09:00)
[2018-04-27] MEDS: DILAUDID PCA VIAL IV PRN ×2 (09:08→19:45)
[2018-04-27] MEDS: NS 1,000 ML IV SCH ×2 (09:13→19:11)
[2018-04-27] MEDS: SODIUM CHLORIDE 0.9% INJ PRN (11:50)
[2018-04-27] MEDS: PHENERGAN IV PRN (11:50)
[2018-04-27] MEDS ORDERED: XYLOCAINE 1%/EPI 1:100,000 ONE (12:00)
[2018-04-27] MEDS ORDERED: XYLOCAINE-MPF 2% ONE (12:14)
[2018-04-27] MEDS ORDERED: DIPRIVAN 1% ONE (12:14)
[2018-04-27] MEDS: LEVAQUIN 750 MG in NS 150 ML IV SCH (12:34)
[2018-04-27] MEDS ORDERED: FENTANYL ONE (12:38)
[2018-04-27] MEDS ORDERED: VERSED ONE (12:39)
--- NOTE | 2018-04-27 14:04 | OPERATIVE NOTE ---
PROCEDURE DATE: 04/27/2018 PREOPERATIVE DIAGNOSIS: 1. Bacteremia. 2. Small cell lung cancer. POSTOPERATIVE DIAGNOSES: 1. Bacteremia. 2. Small cell lung cancer. PROCEDURES PERFORMED: 1. Ultrasound-guided right femoral vein triple-lumen catheter placement. 2. Removal of right internal jugular vein port. ESTIMATED BLOOD LOSS: 5 mL. SPECIMEN: Catheter tip for culture. ANESTHESIA: MAC with local. INDICATIONS FOR PROCEDURE: This is a 62-year-old female who has a history of metastatic small- cell lung cancer. She has had a port in place approximately 1 year ago and has developed bacteremia refractory to antibiotics. OPERATIVE FINDINGS: There was a well encapsulated port. There was a small perforation in the skin overlying it related to her chronic access at this site with some exposure of the port itself, but it was removed intact with no gross purulence. Ultrasound of the right groin showed a compressible femoral vein with no evidence of intraluminal thrombus. Otherwise, normal vascular anatomy. OPERATIVE NOTE: The risks, benefits, and alternatives were discussed with the patient. She consented to the procedure. She was seen preoperatively. Surgical site was confirmed and marked. She was taken to the operating room and placed in the supine position. IV anesthesia was administered. Her right groin was prepped with chlorhexidine solution and draped in the usual fashion. After a time out, focused ultrasound of the right groin was performed. Local anesthetic was infiltrated, and the femoral vein was accessed on first pass. Dark nonpulsatile venous blood was noted on return. The wire threaded easily and was confirmed to course directly into the vein with ultrasound. A skin talat was made. The tract was dilated. A pre-flushed 7-[place] catheter was advanced. All ports withdrew blood and flushed without resistance. It was secured with a silk suture. A sterile dressing was applied. She tolerated this well with no identified complications. At this point, her right neck and chest were prepped with Betadine and draped in the usual fashion. Another time out was performed. We made an incision through the previous scar after injecting local anesthetic, and I removed the port in its entirety, holding pressure at the venotomy site in the neck for several minutes. Hemostasis was noted. We closed the deep dermis loosely with interrupted 3-0 Vicryl sutures. A gauze Medipore dressing was applied. She tolerated it well, was woken and transferred to recovery. There was no family available. cc: Shaista Hopkins MD
[2018-04-27 17:45] LABS: URINE SOURCE VOIDED
[2018-04-27 17:51] LABS: BILIRUBIN URINE NEGATIVE (NEGATIVE); BLOOD URINE NEGATIVE (NEGATIVE); COLOR YELLOW; GLUCOSE URINE NEGATIVE (NEGATIVE); KETONE URINE NEGATIVE (NEGATIVE); LEUKOCYTES URINE NEGATIVE (NEGATIVE); NITRITE URINE NEGATIVE (NEGATIVE); PROTEIN URINE NEGATIVE (NEGATIVE); TURBIDITY URINE CLEAR (CLEAR); UR EPITHELIAL CELLS <10 /HPF (<10); URINE BACTERIA NEGATIVE /HPF; URINE RBC <10 /HPF (<10); URINE WBC <10 /HPF (<10); UROBILINOGEN URINE NORMAL (NORMAL)
--- NOTE | 2018-04-27 19:19 | PROGRESS NOTE ---
DATE: 04/27/2018 SUBJECTIVE: The patient is resting comfortably. No acute events noted. OBJECTIVE: Vital signs: Temperature 98.6 degrees, blood pressure 129/65, heart rate 100, respirations 22, O2 saturation 99% on room air. General: An elderly female lying in bed in no acute distress. Heart: S1, S2 normal. Tachycardic. Lungs: Clear to auscultation bilaterally. Abdomen: Positive bowel sounds. Soft, nontender, nondistended. Extremities: No edema, no cyanosis. Neuro: The patient is alert and oriented x3. LABS: Reviewed. ASSESSMENT AND PLAN: 1. Bacteremia. Continue with antibiotic therapy as directed by Dr. Robertson. 2. Status post infected Port-A-Cath removal. Aware. 3. Pneumonia. Continue with antibiotic therapy as directed by Dr. Robertson. 4. Chronic obstructive pulmonary disease. Stable. Continue with bronchodilator therapy. 5. Metastatic lung cancer. Management as per the oncologist. 6. Chronic pain syndrome. Continue with the Dilaudid FIELD REPRESENTATIVE/HEALTH EDUCATION. 7. Hypertension. Stable. cc: Marie Cleveland MD
--- NOTE | 2018-04-27 19:29 | INFECTIOUS DISEASE PROGRESS NO ---
DATE: 04/27/2018 PRESENT ILLNESS: The patient has a Burkholderia cepacia bacteremia which I think originates from the patient's right-sided Port-A-Cath. The Port-A-Cath was removed yesterday by Dr. Hopkins. MEDICATIONS: The patient is receiving a combination of cefepime and Levaquin. PHYSICAL EXAMINATION: Vital Signs: Temperature is 97.8 degrees, pulse 97, respirations 19, blood pressure 124/85. General: This is a fairly healthy-appearing middle-aged female. She is in no acute distress. Head, eyes, ears, nose, and throat: She can hear my spoken words and see near objects. She does not have any white coating on her tongue. Neck: No meningismus. Thorax: The patient's site where the Port-A-Cath removed has a dressing over it. The dressing is intact. Lungs: Clear to auscultation. Cardiovascular: Regular heart rate. Abdomen: Soft and nontender. Pelvis: The patient in the right groin area has a triple lumen IV catheter placed. The site is not erythematous or draining. Neurologic: The patient is awake. She can move her extremities. There is no tremor. LAB AND X-RAY: There is no new radiographic study. CBC shows a white count of 6790, hemoglobin 11.1 and platelet count 259,000. Creatinine is 0.5. GFR is greater than 60. Liver function studies are normal. ASSESSMENT AND PLAN: The patient has focal heard and has Burkholderia bacteremia. I plan to continue treatment with both cefepime and Levaquin and repeat the blood cultures tomorrow. If the repeat blood cultures are sterile then the patient will be able to have a more permanent IV access implanted. COMORBIDITIES: The patient has metastatic lung cancer. She also uses a pain pump continuously. cc: Arsalan Robertson MD
[2018-04-28] MEDS: DUONEB (A & A) INH SCH ×7 (02:55→23:15)
[2018-04-28] MEDS: DILAUDID PCA VIAL IV PRN ×3 (03:00→18:54)
[2018-04-28] MEDS: MAXIPIME 2 GM in NS 100 ML IV SCH ×2 (03:00→15:20)
[2018-04-28] MEDS: PROTONIX PO SCH (06:20)
[2018-04-28] MEDS: NICODERM PATCH TD SCH (06:20)
[2018-04-28] MEDS: LOVENOX SUBQ SCH (06:20)
[2018-04-28 07:33] LABS: BASO# 0.02 X1000 (0.0-0.2); BASO% 0.3 % (0.0-0.8); EOS# 0.23 X1000 (0.0-0.7); EOS% 3.4 % (0.0-10.0); HEMATOCRIT 34.6 % (37.0-47.0); HEMOGLOBIN 10.5 g/dL (12.0-16.0); IMM GRAN# 0.04 X1000 (0.0-0.04); IMM GRAN% 0.6 % (0.0-0.5); LYMPH# 1.21 X1000 (1.2-3.4); LYMPH% 17.9 % (20.5-51.1); MCH 27.9 PG (27-31); MCHC 30.3 g/dL (33-37); MONO# 0.73 X1000 (0.11-0.59); MONO% 10.8 % (1.7-9.3); MPV 10.1 FL (7.4-10.4); NEUT# 4.52 X1000 (1.4-6.5); PLT 258 X1000 (130-400); RBC 3.76 XMIL (4.2-5.4); RDW 14.9 % (11.5-14.5); WBC 6.75 X1000 (4.8-10.8)
[2018-04-28 07:42] LABS: AGAP 6; BUN 6 mg/dL (8-22); CALCIUM 8.3 mg/dL (8.8-10.2); CHLORIDE 102 mmol/L (98-107); COSMO 276; CREATININE 0.5 mg/dL (0.5-0.9); ESTIMATED GFR > 60; GLUCOSE 147 mg/dL (70-104); POTASSIUM 4.2 mmol/L (3.5-5.1); SODIUM 138 mmol/L (136-145); TCO2 30 mmol/L (25-35)
[2018-04-28] MEDS: MUCINEX PO SCH ×2 (10:59→20:01)
[2018-04-28] MEDS: COLACE PO SCH ×2 (10:59→20:01)
[2018-04-28] MEDS: NS 1,000 ML IV SCH ×2 (11:01→18:49)
[2018-04-28] MEDS: LEVAQUIN 750 MG in NS 150 ML IV SCH (11:02)
[2018-04-28] MEDS: MYCOSTATIN SUSP PO SCH ×4 (11:04→20:01)
[2018-04-28] MEDS: MIRALAX PO SCH (11:04)
--- NOTE | 2018-04-28 11:40 | GENERAL SURGERY PROGRESS NOTE ---
DATE: 04/28/2018 SUBJECTIVE: Doing okay, feels well, no wound issues. Central line is functioning well. OBJECTIVE: Vital signs: No fevers. Pulse 92, blood pressure 112/49. Her dressing is clean. LABORATORY DATA: Her catheter tip cultures are pending. Repeat blood cultures have not been drawn. I have reviewed her labs. ASSESSMENT AND PLAN: A 62-year-old female status post port removal for bacteremia. She does have residual catheter on the left side from a prior port. We will monitor this for now. Otherwise, continue antibiotics per Infectious Disease. cc: Shaista Hopkins MD
[2018-04-28] MEDS: PHENERGAN IV PRN ×2 (14:28→20:08)
[2018-04-28] MEDS: SODIUM CHLORIDE 0.9% INJ PRN (20:08)
[2018-04-29] MEDS: DILAUDID PCA VIAL IV PRN ×3 (02:36→19:11)
--- NOTE | 2018-04-29 02:57 | PROGRESS NOTE ---
DATE: 04/28/2018 SUBJECTIVE: The patient is resting comfortably. No acute events noted overnight. OBJECTIVE: Vital Signs: Temperature 97.9 degrees, blood pressure 116/52, heart rate 100, respirations 18, O2 saturation is 97% on 3 L nasal cannula. General: This is an elderly female sitting up in bed in no acute distress. Heart: S1, S2 normal. Tachycardic. Lungs: Clear to auscultation bilaterally. Abdomen: Positive bowel sounds. Soft, nontender, and nondistended. Extremities: No edema, no cyanosis. Neurologic: The patient is alert and oriented x3. LABORATORY DATA: Reviewed. ASSESSMENT AND PLAN: 1. Bacteremia. The 2nd set of blood cultures are growing out Burkholderia cepacia. Further management as per Dr. Robertson. 2. Status post Port-A-Cath removal. Stable. 3. Pneumonia. Continue with intravenous antibiotic therapy. 4. Chronic obstructive pulmonary disease. Stable. Continue with bronchodilator therapy. 5. Chronic pain syndrome. Continue with the Dilaudid patient controlled analgesia pump. 6. Metastatic lung cancer. Aware. Management as per the oncologist. 7. Hypertension. Stable. 8. Deep vein thrombosis prophylaxis. Continue on Lovenox. cc: Marie Cleveland MD
--- NOTE | 2018-04-29 03:25 | INFECTIOUS DISEASE PROGRESS NO ---
DATE: 04/28/2018 PRESENT ILLNESS: Ms. Georges has a Burkholderia cepacia bacteremia that most likely originates from her right Port-A-Cath, which has been removed by Dr. Hopkins. MEDICATIONS: She is receiving cefepime 2 g IV every 12 hours and Levaquin 750 mg IV every 24 hours. PHYSICAL EXAMINATION: Vital Signs: Temperature is 97.9 degrees, pulse rate 100 , respiratory rate 18, blood pressure 116/52, O2 saturation is 97% on room air. General: This is a chronically ill- appearing, middle-aged female. She is sitting up in bed, in no acute distress. HEENT: Atraumatic, normocephalic. Oral mucous membranes are pink and moist. Conjunctivae are pink. Neck: Supple. Trachea is midline. Cardiovascular: Heart rate and rhythm are regular. Pedal and radial pulses are palpable bilaterally. Respiratory: Lung sounds are clear to auscultation. Abdomen: Soft, round, and nontender. Bowel sounds are active. There is a right groin triple- lumen catheter with an occlusive dressing. No apparent edema, erythema, or drainage. Neurologic: She is awake, alert, oriented, and able to move her extremities independently without tremor or focal deficit. Integumentary: She has a dressing in place to the right chest where the previous Port-A-Cath has been removed. LABORATORY AND X-RAY: Today, her white count is 6.75, hemoglobin 10.5, platelet count 258,000. Creatinine is 0.5. Estimated GFR is greater than 60. Two separate blood cultures have grown Burkholderia cepacia group. Her urine culture done yesterday so far has shown no growth but it is preliminary. Also, no growth to the right chest from yesterday's surgery to remove the Port-A- Cath. These are also preliminary results. No imaging reports today. ASSESSMENT AND PLAN: Ms. Georges has a Burkholderia bacteremia and has had her Port-A-Cath on the right removed. Unfortunately, she does have some residual parts of the previous Port-A-Cath on the left side which could not be removed. It is possible that this area has been seeded with Burkholderia. We are hoping for negative blood cultures, which we have yet to obtain. I have put in a set of blood cultures to be drawn tomorrow afternoon, which is approximately 48 hours after the Port-A -Cath on the right was removed. For now, we will continue the cefepime and Levaquin as ordered. These plans have been discussed with and recommended by Dr. Robertson. COMORBIDITIES: For Ms. Georges include metastatic lung cancer with metastasis to the liver and adrenal glands, cigarette smoking with COPD, obstructive sleep apnea, and chronic pain. Dictated by RAMILA Thakur for Arsalan Robertson MD This chart was documented by, RAMILA Thakur and accurately reflects the services performed, treatment plan and medical decisions as attested by the providers signature Arsalan Robertson MD. cc: Arsalan Robertson MD [facility] HOSPITALBrittany
[2018-04-29] MEDS: DUONEB (A & A) INH SCH ×6 (03:48→23:18)
[2018-04-29] MEDS: MAXIPIME 2 GM in NS 100 ML IV SCH ×2 (04:00→16:23)
[2018-04-29] MEDS: SODIUM CHLORIDE 0.9% INJ PRN (05:08)
[2018-04-29] MEDS: PHENERGAN IV PRN ×2 (05:08→11:41)
[2018-04-29] MEDS: NICODERM PATCH TD SCH (05:09)
[2018-04-29] MEDS: PROTONIX PO SCH ×2 (05:09→06:04)
[2018-04-29] MEDS: LOVENOX SUBQ SCH (06:48)
[2018-04-29 07:09] LABS: BASO# 0.02 X1000 (0.0-0.2); BASO% 0.3 % (0.0-0.8); EOS# 0.24 X1000 (0.0-0.7); EOS% 3.5 % (0.0-10.0); HEMATOCRIT 37.9 % (37.0-47.0); HEMOGLOBIN 11.5 g/dL (12.0-16.0); IMM GRAN# 0.04 X1000 (0.0-0.04); IMM GRAN% 0.6 % (0.0-0.5); LYMPH# 1.23 X1000 (1.2-3.4); LYMPH% 18.1 % (20.5-51.1); MCH 28.3 PG (27-31); MCHC 30.3 g/dL (33-37); MCV 93.1 FL (81-99); MONO# 0.67 X1000 (0.11-0.59); MONO% 9.9 % (1.7-9.3); MPV 9.9 FL (7.4-10.4); NEUT# 4.59 X1000 (1.4-6.5); NEUT% 67.6 % (42.2-75.2); PLT 309 X1000 (130-400); RBC 4.07 XMIL (4.2-5.4); RDW 14.9 % (11.5-14.5); WBC 6.79 X1000 (4.8-10.8)
--- NOTE | 2018-04-29 07:09 | Diag Imaging Result Doc PS360 ---
EXAM: CHEST-PORTABLE 04/29/2018 HISTORY: pneumonia TECHNIQUE: AP portable at 0536 COMMENT: There are ill-defined opacities present in the lung bases bilaterally which have not changed significantly since 04/23/2018. The left-sided opacity is worse than on 04/20/2018. IMPRESSION: Bibasilar atelectasis versus bronchopneumonia. Electronically signed by Uday Del Cid 04/29/2018 7:07 AM
[2018-04-29 07:29] LABS: AGAP 8; BUN 5 mg/dL (8-22); CALCIUM 8.7 mg/dL (8.8-10.2); CHLORIDE 103 mmol/L (98-107); COSMO 283; CREATININE 0.5 mg/dL (0.5-0.9); ESTIMATED GFR > 60; GLUCOSE 119 mg/dL (70-104); POTASSIUM 4.5 mmol/L (3.5-5.1); SODIUM 143 mmol/L (136-145); TCO2 32 mmol/L (25-35)
[2018-04-29] MEDS: LEVAQUIN 750 MG in NS 150 ML IV SCH (11:17)
[2018-04-29] MEDS: MIRALAX PO SCH (11:38)
[2018-04-29] MEDS: MYCOSTATIN SUSP PO SCH ×4 (11:38→20:21)
[2018-04-29] MEDS: MUCINEX PO SCH ×2 (11:38→20:21)
[2018-04-29] MEDS: COLACE PO SCH ×2 (11:38→20:21)
[2018-04-29] MEDS: NS 1,000 ML IV SCH (11:52)
--- NOTE | 2018-04-29 13:56 | PROGRESS NOTE ---
DATE: 04/29/2018 SUBJECTIVE: The patient is resting comfortably in bed. No acute events noted overnight. OBJECTIVE: Vital Signs: Temperature 97.2, blood pressure 127/60, heart rate 102 , respiratory rate 22, O2 saturation is 100% on room air. General: This is an elderly female lying in bed in no acute distress. Heart: S1, S2 normal. Regular rate and rhythm. Lungs: Coarse breath sounds. Abdomen: Positive bowel sounds. Soft, nontender, nondistended. Extremities: No edema. No cyanosis. Neurologic: The patient is alert and oriented x3. LABORATORY DATA: Reviewed. ASSESSMENT AND PLAN: 1. Bacteremia. Continue with IV antibiotic therapy as directed by Dr. Robertson. 2. Pneumonia. Continue with IV antibiotic therapy and bronchodilator therapy. 3. Chronic obstructive pulmonary disease, stable. 4. Metastatic lung cancer. Aware. 5. Hypertension. Stable. 6. Status post Port-A-Cath removal. Stable. 7. Deep vein thrombosis prophylaxis. Continue on Lovenox. cc: Marie Cleveland MD MTDD
[2018-04-30] MEDS: MAXIPIME 2 GM in NS 100 ML IV SCH ×2 (02:31→16:07)
[2018-04-30] MEDS: DUONEB (A & A) INH SCH ×6 (03:31→23:13)
[2018-04-30] MEDS: DILAUDID PCA VIAL IV PRN ×3 (03:51→20:48)
--- NOTE | 2018-04-30 04:53 | INFECTIOUS DISEASE PROGRESS NO ---
DATE: 04/29/2018 PRESENT ILLNESS: Ms. Georges has a Burkholderia cepacia bacteremia most likely originating from the right Port-A-Cath, which has been removed. There was also bibasilar atelectasis versus bronchopneumonia on her chest x-ray. MEDICATIONS: Today is day 3 of cefepime 2 g IV every 12 hours and Levaquin 750 mg IV every 24 hours. PHYSICAL EXAMINATION: Vital Signs: Temperature is 97.2 degrees, pulse rate 85 , respiratory rate 18, blood pressure 127/60. O2 saturation is 95% on room air. General: This is a chronically ill-appearing, middle-aged female. She is sitting up in the bed, currently in no acute distress. HEENT: Atraumatic, normocephalic. Oral mucous membranes are pink and moist. Conjunctivae are pink. Neck: Supple. Trachea is midline. Respiratory: Lung sounds are clear in the upper lobes, diminished in the bases. Respiratory excursion is normal and symmetric. Cardiovascular: Heart rate and rhythm are regular. Pedal and radial pulses are palpable bilaterally. There is 1+ edema noted pretibially. Abdomen: Soft, round, and nontender. Bowel sounds are active. Integumentary: There is a right groin triple-lumen catheter with an occlusive dressing in place, without any apparent edema, erythema, or drainage around that site. She also has a dressing dry and intact to the right chest where her Port-A-Cath has been removed. Neurologic: She is awake, alert, and oriented and able to move her extremities independently in the bed. No tremor is noted. LABORATORY AND X-RAY: Today her white count is 6.79, hemoglobin 11.5, platelet count 309,000. Creatinine is 0.5. Estimated GFR is greater than 60. She has had blood cultures drawn this afternoon which are preliminary. Previously, her 2 other blood cultures have grown a Burkholderia cepacia. Urine culture has shown no growth on the final report. Chest x-ray today shows bibasilar atelectasis versus bronchopneumonia. ASSESSMENT AND PLAN: Ms. Georges has a Burkholderia cepacia bacteremia and has had her right Port- A-Cath removed. At this point, we are just hoping for a set of negative blood cultures after 2 sets have been positive. Unfortunately, it is possible that she has had some seeding from the left Port-A-Cath that was had been removed previously where part of the catheter is still in her chest. For now, we will continue her on the cefepime and Levaquin until we see the results of these cultures. These plans have been discussed with and recommended by Dr. Robertson. COMORBIDITIES: for Ms. Georges include metastatic lung cancer with metastasis to the liver and adrenal glands, obstructive sleep apnea, cigarette smoking with COPD, and chronic pain with narcotic use. Dictated by RAMILA Thakur for Arsalan Robertson MD This chart was documented by, RAMILA Thakur and accurately reflects the services performed, treatment plan and medical decisions as attested by the providers signature Arsalan Robertson MD. cc: Arsalan Robertson MD MTDD
[2018-04-30] MEDS: LOVENOX SUBQ SCH (06:13)
[2018-04-30] MEDS: PROTONIX PO SCH (06:13)
[2018-04-30] MEDS: NICODERM PATCH TD SCH (06:13)
[2018-04-30] MEDS: MIRALAX PO SCH (10:58)
[2018-04-30] MEDS: MYCOSTATIN SUSP PO SCH ×4 (10:58→21:48)
[2018-04-30] MEDS: COLACE PO SCH ×2 (10:58→21:48)
[2018-04-30] MEDS: MUCINEX PO SCH ×2 (10:58→21:48)
[2018-04-30] MEDS: LEVAQUIN 750 MG in NS 150 ML IV SCH (11:29)
--- NOTE | 2018-04-30 11:59 | PROGRESS NOTE ---
DATE: 04/30/2018 SUBJECTIVE: The patient is sitting up in bed. She has no complaints at this time. No acute events noted overnight. OBJECTIVE: Vital Signs: Temperature 98.1, blood pressure 118/53, heart rate 99, respirations 17, O2 saturations 100% on room air. General: This is an elderly female sitting up in bed in no acute distress. Heart: S1, S2 normal. Tachycardic. Lungs: Equal air entry bilaterally. No crackles. No rales. Abdomen: Positive bowel sounds. Soft, nontender, nondistended. Extremities: No edema. No cyanosis. Neurologic: The patient is alert and oriented x3. LABORATORY DATA: White blood cell count 6.7, hemoglobin 11, hematocrit 37, platelets 309,000. Sodium 143, potassium 4.5, chloride 103, CO2 of 32. BUN 5, creatinine 0.5. Glucose 119. ASSESSMENT AND PLAN: 1. 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 Continue on antibiotic therapy as directed by Dr. Robertson. Repeat blood cultures were drawn yesterday. 2. Pneumonia. Continue with antibiotic therapy. 3. Chronic obstructive pulmonary disease, stable. 4. Metastatic lung cancer, aware. Management as per the oncologist. 5. Hypertension, stable. 6. Status post infected Port-A-Cath removal. Stable. 7. Gastrointestinal prophylaxis. The patient is on Protonix. 8. Deep vein thrombosis prophylaxis. The patient is on Lovenox. cc: Marie Cleveland MD
[2018-04-30] MEDS: SODIUM CHLORIDE 0.9% INJ PRN (12:29)
[2018-04-30] MEDS: PHENERGAN IV PRN ×2 (12:29→20:48)
[2018-04-30] MEDS: ZOFRAN IV PRN (16:05)
[2018-04-30] MEDS: NS 1,000 ML IV SCH (16:54)
--- NOTE | 2018-04-30 21:59 | INFECTIOUS DISEASE PROGRESS NO ---
DATE: 04/30/2018 PRESENT ILLNESS: Ms. 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 The source of her infection was most likely the right Port-A-Cath which has been removed. There is also a possible bronchopneumonia on the chest x-ray. MEDICATIONS: She is on day 4 of cefepime 2 g IV every 12 hours and Levaquin 750 mg IV every 24 hours. PHYSICAL EXAMINATION: Vital Signs: Temperature is 98 degrees, pulse rate 107, respiratory rate 17, blood pressure 127/92, O2 saturation 95% on room air. General: This is a chronically ill- appearing middle-aged female. She is lying in bed currently in no acute distress. HEENT: Atraumatic, normocephalic. Oral mucous membranes are pink and moist. Conjunctivae are pink. Neck: Supple. Trachea is midline. Cardiovascular: Heart rate is regular. Radial and pedal pulses are palpable bilaterally. There is a 1+ edema noted pretibially. Respiratory: Lung sounds are clear in the upper lobes, diminished with some mild rhonchi noted in bases. Abdomen: Soft, round, and mildly tender, bowel sounds are active. Integumentary: The dressing is dry and intact to her right chest and right groin where she has a triple-lumen catheter. Neurologic: She is awake, alert, and oriented and able to move all extremities independently in the bed. LABORATORY AND X-RAY: No blood work today. Blood cultures are still preliminary, previous blood cultures grew a Burkholderia cepacia. No imaging reports today. ASSESSMENT AND PLAN: Ms. Georges has a Burkholderia bacteremia. She is receiving Levaquin and cefepime which we will continue. We are hoping that the most recent blood cultures will be negative in order to have a baseline start of treatment. For now we will continue the cefepime and Levaquin as ordered. She is complaining of multiple sticks and would rather have the nurses take the blood out of her central line. I will put an order in to that affect. These plans have been discussed with and recommended by Dr. Robertson. COMORBIDITIES: Include metastatic lung cancer, obstructive sleep apnea, cigarette smoking with COPD and chronic pain with narcotic use. Dictated by RAMILA Thakur for Arsalan Robertson MD This chart was documented by, RAMILA Thakur and accurately reflects the services performed, treatment plan and medical decisions as attested by the providers signature Arsalan Robertson MD. cc: Arsalan Robertson MD [facility]
[2018-05-01] MEDS: DUONEB (A & A) INH SCH ×6 (03:27→23:44)
[2018-05-01] MEDS: PHENERGAN IV PRN ×2 (03:56→18:03)
[2018-05-01] MEDS: PROTONIX PO SCH ×2 (03:56→06:32)
[2018-05-01] MEDS: NICODERM PATCH TD SCH ×2 (03:56→05:05)
[2018-05-01] MEDS: MAXIPIME 2 GM in NS 100 ML IV SCH ×3 (03:56→17:52)
[2018-05-01] MEDS: LOVENOX SUBQ SCH ×2 (03:56→05:04)
[2018-05-01] MEDS: DILAUDID PCA VIAL IV PRN ×3 (05:15→21:39)
[2018-05-01 07:12] LABS: BASO# 0.03 X1000 (0.0-0.2); BASO% 0.5 % (0.0-0.8); EOS# 0.17 X1000 (0.0-0.7); IMM GRAN# 0.04 X1000 (0.0-0.04); IMM GRAN% 0.7 % (0.0-0.5); LYMPH# 0.77 X1000 (1.2-3.4); LYMPH% 13.8 % (20.5-51.1); MCH 28.7 PG (27-31); MCHC 31.4 g/dL (33-37); MCV 91.4 FL (81-99); MONO# 0.66 X1000 (0.11-0.59); MONO% 11.8 % (1.7-9.3); NEUT# 3.91 X1000 (1.4-6.5); NEUT% 70.2 % (42.2-75.2); PLT 299 X1000 (130-400); RBC 3.83 XMIL (4.2-5.4); RDW 14.6 % (11.5-14.5); WBC 5.58 X1000 (4.8-10.8)
--- NOTE | 2018-05-01 10:32 | Diag Imaging Result Doc PS360 ---
CHEST-2 VIEWS - 05/01/2018 INDICATION: pneumonia COMPARISON: 04/29/2018 FINDINGS: Stable left central catheter. Stable trace left pleural effusion. Stable hazy infiltrate in the left base. No new infiltrates. Heart size and pulmonary vascularity is normal. IMPRESSION: Stable minimal left basilar infiltrate and trace pleural effusion. Electronically signed by Cassius Carter 05/01/2018 10:29 AM
[2018-05-01] MEDS: MYCOSTATIN SUSP PO SCH ×4 (12:30→21:18)
[2018-05-01] MEDS: MUCINEX PO SCH ×2 (12:40→21:18)
[2018-05-01] MEDS: COLACE PO SCH ×2 (12:40→21:18)
[2018-05-01] MEDS: LEVAQUIN 750 MG in NS 150 ML IV SCH (12:40)
[2018-05-01] MEDS: MIRALAX PO SCH (12:40)
--- NOTE | 2018-05-01 13:37 | PROGRESS NOTE ---
DATE: 05/01/2018 SUBJECTIVE: The patient is sitting up in bed. She states that she did not sleep well yesterday. OBJECTIVE: Vital Signs: Temperature 98.6, blood pressure 107/52, heart rate 99 , respirations 17, O2 sat 92% on room air. General: This is a chronically ill-appearing elderly female sitting up in bed in no acute distress. Heart: S1, S2 normal. Tachycardic. Lungs: Equal air entry bilaterally. No crackles. Abdomen: Positive bowel sounds. Soft, nontender, nondistended. Extremities: No edema. No cyanosis. Neuro: The patient is alert and oriented x3. LABORATORY DATA: White blood cell count 5.5, hemoglobin 11, hematocrit 35, platelets 299,000. ASSESSMENT AND PLAN: 1. 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 Continue on IV antibiotic therapy. So far, the repeat blood cultures remain negative. 2. Pneumonia. Continue with antibiotic therapy. This appears to be improving. 3. Chronic obstructive pulmonary disease, stable. 4. Metastatic lung cancer, aware. 5. Hypertension, controlled. 6. Removal of infected Port-A-Cath, stable. 7. Gastrointestinal prophylaxis. Continue on Protonix. 8. Deep vein thrombosis prophylaxis. Continue on Lovenox. cc: Marie Cleveland MD MTDD
[2018-05-01] MEDS ORDERED: NS 1,000 ML ONE (14:37)
[2018-05-01] MEDS: MUCOMYST 20% INH SCH (20:25)
[2018-05-01] MEDS: ZOFRAN IV PRN (21:18)
[2018-05-02] MEDS: DUONEB (A & A) INH SCH ×6 (03:28→23:05)
[2018-05-02] MEDS: DILAUDID PCA VIAL IV PRN ×3 (05:00→22:02)
[2018-05-02] MEDS: LOVENOX SUBQ SCH (06:29)
[2018-05-02] MEDS: MAXIPIME 2 GM in NS 100 ML IV SCH ×2 (06:29→16:02)
[2018-05-02] MEDS: NICODERM PATCH TD SCH (06:29)
[2018-05-02] MEDS: PROTONIX PO SCH (06:29)
[2018-05-02] MEDS: MUCOMYST 20% INH SCH ×3 (08:06→19:40)
[2018-05-02] MEDS: MIRALAX PO SCH (08:18)
[2018-05-02] MEDS: MUCINEX PO SCH ×2 (08:18→20:19)
[2018-05-02] MEDS: MYCOSTATIN SUSP PO SCH ×4 (08:18→20:19)
[2018-05-02] MEDS: COLACE PO SCH ×2 (08:19→20:19)
[2018-05-02 08:45] LABS: HEMATOCRIT 34.4 % (37.0-47.0); HEMOGLOBIN 10.7 g/dL (12.0-16.0); MCH 28.5 PG (27-31); MCHC 31.1 g/dL (33-37); MCV 91.5 FL (81-99); MPV 9.8 FL (7.4-10.4); RBC 3.76 XMIL (4.2-5.4); RDW 15.1 % (11.5-14.5); WBC 4.55 X1000 (4.8-10.8)
[2018-05-02 09:09] LABS: AGAP 7; BUN 7 mg/dL (8-22); CALCIUM 8.3 mg/dL (8.8-10.2); CHLORIDE 98 mmol/L (98-107); COSMO 271; CREATININE 0.5 mg/dL (0.5-0.9); ESTIMATED GFR > 60; GLUCOSE 122 mg/dL (70-104); POTASSIUM 4.6 mmol/L (3.5-5.1); SODIUM 136 mmol/L (136-145); TCO2 31 mmol/L (25-35)
[2018-05-02] MEDS: LEVAQUIN 750 MG in NS 150 ML IV SCH ×2 (11:23→12:00)
[2018-05-02 11:45] LABS: ALBUMIN 2.8 g/dL (3.5-5.0); DIRECT BILIRUBIN 0.1 mg/dL (0.00-0.20); TOTAL BILIRUBIN 0.24 mg/dL (0.20-1.00); TOTAL PROTEIN 5.7 g/dL (6.3-8.3)
--- NOTE | 2018-05-02 16:00 | INFECTIOUS DISEASE PROGRESS NO ---
DATE: 05/02/2018 PRESENT ILLNESS: The patient has a Burkholderia cepacia bacteremia with the source being most likely the right-sided Port-A-Cath which has been removed. This is day 3 of treatment of the infection with day 1 being the first day that the repeat blood cultures were sterile. The patient also has a minimal left lower lobe infiltrate and effusion. MEDICATIONS: This is day 3 of treatment with cefepime and Levaquin both being given intravenously with day 1 being the first day that the patient's blood cultures were sterile. PHYSICAL EXAMINATION: Vital Signs: Temperature is 98.4 degrees, pulse 101, respirations 16, blood pressure 110/41. General: This is a ill-appearing middle-aged female. She is in no acute distress. Head/eyes/ears/nose/throat: She can hear my spoken words and see near objects. She does not have any white coating of her tongue. Neck: No stiffness. Thorax: The patient's Port- A-Cath sites are not swollen or red. Lungs: Clear to auscultation. Cardiovascular: Regular heart rate. Abdomen: Soft and nontender. Neurologic: Patient is awake. She can move her extremities. There is no tremor. Integument: The right groin the patient has a triple-lumen catheter placed. The site is not swollen or tender. LAB AND X-RAY: The patient's CBC today shows a white count of 4550, hemoglobin 10.7, and platelet count 280,000. Creatinine is 0.5. GFR is greater than 60. Alkaline phosphatase is 121. Repeat blood cultures from 3 days ago are negative. Chest x-ray shows a minimal left lower lobe infiltrate and effusion. ASSESSMENT AND PLAN: Patient has Burkholderia bacteremia. The plan is to continue Levaquin and cefepime for a total of 14 days. She has had 3 days of treatment so far. I am going to notify Dr. Hopkins that he can reinsert another Port-A-Cath for the patient since her repeat blood cultures are sterile. COMORBIDITIES: Metastatic lung cancer, obstructive sleep apnea, cigarette smoking, chronic obstructive pulmonary disease, chronic pain with narcotic use. cc: Arsalan Robertson MD
[2018-05-02] MEDS ORDERED: NS 1,000 ML ONE (16:12)
--- NOTE | 2018-05-02 18:54 | PROGRESS NOTE ---
DATE: 05/02/2018 SUBJECTIVE: The patient is sitting up in bed, she complains of abdominal pain but otherwise she has been having regular bowel movements. OBJECTIVE: Vital Signs: Temperature 98.8 degrees, blood pressure 94/49, heart rate 95, respirations 16, O2 saturation 92% on room air. General: This is a chronically ill-appearing elderly female sitting up in bed in no acute distress. Heart: S1, S2 normal. Regular rate and rhythm. Lungs: Equal air entry bilaterally. No crackles, no rales. Abdomen: Positive bowel sounds, soft, nontender, nondistended. Extremities: No edema, no cyanosis. Neuro: The patient is alert and oriented x3. LABS: White blood cell count 4.5, hemoglobin 10, hematocrit 34, platelets 280,000, sodium 136, potassium 4.6, chloride 98, CO2 31, BUN 7, creatinine 0.5, glucose 122, alkaline phosphatase 121. ASSESSMENT AND PLAN: 1. Bacteremia secondary to be Burkholderia cepacia. The patient's repeat blood cultures remain negative. Continue with IV antibiotic therapy. Further management as per Dr. Robertson. 2. Pneumonia. Improved. Continue with antibiotic therapy as ordered. 3. Chronic obstructive pulmonary disease. Stable. 4. Metastatic lung cancer. Aware. 5. Hypertension. Controlled. 6. Removal of the infected Port-A-Cath. Stable. The patient is ready for a new Port-A-Cath to be inserted. 7. Gastrointestinal prophylaxis. Continue on Protonix. 8. Deep vein thrombosis prophylaxis. Will hold the Lovenox. cc: Marie Cleveland MD
[2018-05-02] MEDS: PHENERGAN IV PRN (21:55)
[2018-05-02 22:18] LABS: URINE SOURCE CLEAN CATCH
[2018-05-02 22:21] LABS: BILIRUBIN URINE NEGATIVE (NEGATIVE); BLOOD URINE NEGATIVE (NEGATIVE); COLOR YELLOW; GLUCOSE URINE NEGATIVE (NEGATIVE); KETONE URINE NEGATIVE (NEGATIVE); LEUKOCYTES URINE NEGATIVE (NEGATIVE); NITRITE URINE NEGATIVE (NEGATIVE); PH URINE 6.5; PROTEIN URINE NEGATIVE (NEGATIVE); SP GRAVITY URINE 1.001; TURBIDITY URINE CLEAR (CLEAR); UR EPITHELIAL CELLS <10 /HPF (<10); URINE BACTERIA NEGATIVE /HPF; URINE RBC <10 /HPF (<10); URINE WBC <10 /HPF (<10); UROBILINOGEN URINE NORMAL (NORMAL)
[2018-05-03] MEDS: DUONEB (A & A) INH SCH ×6 (03:35→23:15)
[2018-05-03] MEDS: NICODERM PATCH TD SCH (05:53)
[2018-05-03] MEDS: MAXIPIME 2 GM in NS 100 ML IV SCH ×2 (05:53→18:17)
[2018-05-03] MEDS: PROTONIX PO SCH (06:04)
[2018-05-03] MEDS: PHENERGAN IV PRN ×2 (06:44→21:16)
[2018-05-03 07:10] LABS: HEMATOCRIT 34.7 % (37.0-47.0); HEMOGLOBIN 10.8 g/dL (12.0-16.0); MCH 28.6 PG (27-31); MCHC 31.1 g/dL (33-37); MCV 91.8 FL (81-99); MPV 9.7 FL (7.4-10.4); RBC 3.78 XMIL (4.2-5.4); RDW 15.2 % (11.5-14.5); WBC 4.61 X1000 (4.8-10.8)
[2018-05-03 07:51] LABS: AGAP 9; BUN 8 mg/dL (8-22); CALCIUM 8.3 mg/dL (8.8-10.2); CHLORIDE 95 mmol/L (98-107); COSMO 266; CREATININE 0.5 mg/dL (0.5-0.9); ESTIMATED GFR > 60; GLUCOSE 90 mg/dL (70-104); POTASSIUM 4.3 mmol/L (3.5-5.1); SODIUM 134 mmol/L (136-145); TCO2 30 mmol/L (25-35)
[2018-05-03] MEDS: MUCOMYST 20% INH SCH ×2 (07:59→19:35)
[2018-05-03] MEDS: DILAUDID PCA VIAL IV PRN ×2 (08:19→21:04)
[2018-05-03] MEDS: MYCOSTATIN SUSP PO SCH ×4 (08:20→21:18)
[2018-05-03] MEDS: MIRALAX PO SCH (08:20)
[2018-05-03] MEDS: MUCINEX PO SCH ×2 (08:20→21:18)
[2018-05-03] MEDS: COLACE PO SCH ×2 (08:20→21:17)
[2018-05-03] MEDS: LEVAQUIN 750 MG in NS 150 ML IV SCH (11:18)
--- NOTE | 2018-05-03 12:18 | PROGRESS NOTE ---
DATE: 05/03/2018 SUBJECTIVE: The patient is sitting up in bed. No acute events noted overnight. OBJECTIVE: Vital Signs: Temperature 98.4 degrees, blood pressure 108/58, heart rate 98, respirations 16, O2 saturation 95% on 2 L nasal cannula. General: This is a chronically ill- appearing elderly female lying in bed in no acute distress. Heart: S1, S2 normal. Tachycardic. Lungs: Clear to auscultation. No wheezing. No rales. No rhonchi. Abdomen: Positive bowel sounds. Soft, nontender, nondistended. Extremities: No edema, no cyanosis. Neurologic: The patient is alert and oriented x4. LABS: Reviewed. ASSESSMENT AND PLAN: 1. 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 We will continue with intravenous antibiotic therapy. The patient is scheduled to undergo insertion of a Port-A-Cath today. Further management as per Dr. Robertson. 2. Pneumonia. Continue with antibiotic therapy. 3. Chronic obstructive pulmonary disease. Stable. 4. Metastatic lung cancer. Aware. 5. Hypertension. Controlled. 6. Status post removal of an infected Port-A-Cath. Stable. 7. Gastroesophageal reflux disease. Continue on Protonix. 8. Deep vein thrombosis prophylaxis. The patient's Lovenox is on hold. cc: Marie Cleveland MD
[2018-05-03] MEDS: NS 1,000 ML ONE (18:22)
--- NOTE | 2018-05-03 23:44 | INFECTIOUS DISEASE PROGRESS NO ---
DATE: 05/03/2018 PRESENT ILLNESS: Ms. Georges has a Burkholderia cepacia bacteremia, with the origin most likely being her right sided Port-A-Cath, which has been removed. There was also a mild left lower lobe infiltrate noted on previous chest x-ray. MEDICATIONS: Based on her sterile blood cultures, today is day 4 of treatment with cefepime 2 g IV every 12 hours, and Levaquin 750 mg IV daily. PHYSICAL EXAMINATION: Vital Signs: Temperature is 97.9, pulse rate 102, respiratory rate 16, blood pressure 111/52, oxygen saturation 95% on 2 L nasal cannula. General: This is a chronically ill-appearing, middle-aged female. She is sitting up in the bed, in no acute distress. HEENT: Atraumatic, normocephalic. Oral mucous membranes are pink and moist. Conjunctivae are pink. Neck: Supple. Trachea is midline. Cardiovascular: Heart rate is regular. Radial and pedal pulses are palpable bilaterally. She has edema pretibially, which is 1+. Respiratory: Lung sounds are clear in the upper lobes. Some rales and diminished to the bases. Abdomen: Soft, round, and nontender. Bowel sounds are active. Integumentary: She has a dressing which is dry and intact to her right chest, and the dressing to her right groin central line has a small amount of bloody drainage, but no erythema or edema. Neurologic: She is awake, alert, and oriented, able to move independently in the bed. LABORATORY AND X-RAY: Today, her white count is 4.61, hemoglobin 10.8, platelet count 266,000. Creatinine is 0.5. Estimated GFR is greater than 60. A urinalysis done yesterday was negative for bacteria, and less than 10 WBCs. Blood cultures have been sterile since April 29. No imaging reports today. ASSESSMENT AND PLAN: Ms. Georges is being treated for a Burkholderia bacteremia and a mild pneumonia. She will need to continue cefepime and Levaquin for a total of 14 days. Today is day 4. The patient states that the plan is for her to have her Port-A-Cath put back in on Thursday of this week. At that point, she should be able to be discharged home to finish the IV antibiotics on the of this month. Tomorrow I will put in orders for [facility] to be consulted for IV therapy at home. These plans have been discussed with and recommended by Dr. Robertson. COMORBIDITIES: Metastatic lung cancer, cigarette smoking and COPD, obstructive sleep apnea, and chronic pain with narcotic use. Dictated by RAMILA Thakur for Arsalan Robertson MD This chart was documented by, RAMILA Thakur and accurately reflects the services performed, treatment plan and medical decisions as attested by the providers signature Arsalan Robertson MD. cc: Arsalan Robertson MD [facility]
[2018-05-04] MEDS: DUONEB (A & A) INH SCH ×6 (03:20→23:41)
[2018-05-04] MEDS: PROTONIX PO SCH (06:25)
[2018-05-04] MEDS: NICODERM PATCH TD SCH (06:25)
[2018-05-04] MEDS: MAXIPIME 2 GM in NS 100 ML IV SCH ×2 (06:25→17:36)
[2018-05-04] MEDS: LOVENOX SUBQ SCH (06:43)
[2018-05-04 07:14] LABS: AGAP 6; BUN 7 mg/dL (8-22); CALCIUM 7.3 mg/dL (8.8-10.2); CHLORIDE 100 mmol/L (98-107); COSMO 273; CREATININE 0.6 mg/dL (0.5-0.9); ESTIMATED GFR > 60; GLUCOSE 118 mg/dL (70-104); POTASSIUM 4.4 mmol/L (3.5-5.1); SODIUM 137 mmol/L (136-145); TCO2 31 mmol/L (25-35)
[2018-05-04 07:32] LABS: HEMATOCRIT 33.8 % (37.0-47.0); HEMOGLOBIN 10.4 g/dL (12.0-16.0); MCH 28.3 PG (27-31); MCHC 30.8 g/dL (33-37); MCV 92.1 FL (81-99); RBC 3.67 XMIL (4.2-5.4); RDW 15.2 % (11.5-14.5); WBC 3.11 X1000 (4.8-10.8)
[2018-05-04] MEDS: DILAUDID PCA VIAL IV PRN ×2 (07:35→16:25)
[2018-05-04] MEDS: MUCOMYST 20% INH SCH ×2 (07:57→19:54)
[2018-05-04] MEDS: ZOFRAN IV PRN (08:05)
[2018-05-04] MEDS: MIRALAX PO SCH (08:05)
[2018-05-04] MEDS: COLACE PO SCH ×2 (08:05→20:31)
[2018-05-04] MEDS: MUCINEX PO SCH ×2 (08:05→20:30)
[2018-05-04] MEDS: MYCOSTATIN SUSP PO SCH ×4 (10:05→20:31)
[2018-05-04] MEDS: LEVAQUIN 750 MG in NS 150 ML IV SCH (11:05)
--- NOTE | 2018-05-04 13:30 | PROGRESS NOTE ---
DATE: 05/04/2018 SUBJECTIVE: Patient of Dr. Bari Molina, does not have a primary care physician, came in with productive cough. A 62-year-old female with history of metastatic lung cancer with metastasis to the liver and adrenal glands. She is followed by Dr. Molina. She is receiving chemotherapy. Reports treatment was the Thursday before admission, 04/09/2018. Denied any diagnosis of pneumonia or admitted in the hospital recently. But admission diagnosis, she looked like she had pneumonia. Chest x-ray focal consolidation at the lung bases posterior on the lateral view versus sclerotic lesions, metastatic lung cancer, metastasis to liver and adrenal glands, and chemotherapy and underlying COPD, nicotine dependence. OBJECTIVE: General: Today, she seems to be comfortable and breathing comfortably. Vital signs: Temp 97.1 degrees, pulse 103, respirations 18, blood pressure 91/48. Eyes: Pupils are equal and round. Lungs: Clear in all lung rust. Cardiovascular: Regular rate without murmur or S3. Abdomen: Soft. Skin: Warm and dry. Understanding is that she is supposed to get a port today or tomorrow. ASSESSMENT AND PLAN: 1. She has Burkholderia cepacia bacteremia, origin most likely right-sided Port-A-Cath, which has been removed. She has a middle and left lower lobe infiltrate on previous chest x-ray. Based on sterile blood cultures, today is day 5 of cefepime 2 grams q.12 and Levaquin 750 mg IV daily. I think plan is to put in a new port tomorrow and then see if she can maybe go home. 2. Chronic obstructive pulmonary disease exacerbation. 3. Metastatic colon cancer. 4. Hypertension. 5. Status post removal of infected Port-A-Cath. 6. Continue gastrointestinal prophylaxis and deep venous thrombosis prophylaxis. 7. She has metastatic avt-rjnue-zutl-lung cancer. She is currently on Opdivo, past due cycle 18, and she is also past do restaging PET scan. cc: Mehran Mitchell MD
[2018-05-04] MEDS: PHENERGAN IV PRN (18:04)
[2018-05-04] MEDS: NS 1,000 ML ONE (20:32)
[2018-05-04] MEDS ORDERED: NS 1,000 ML ONE (20:42)
--- NOTE | 2018-05-04 20:59 | GENERAL SURGERY CONSULTATION ---
DATE: 05/04/2018 SUBJECTIVE: Doing well. Blood cultures have been clear. No fevers documented. OBJECTIVE: On exam she is alert and moving about the room. Her right chest dressing is intact. LABS: White count 3, hematocrit 33, creatinine 0.6. ASSESSMENT AND PLAN: A 62-year-old female with bacteremia related to a right port infection. We removed this and we will plan on replacing it tomorrow. We discussed risks of bleeding, infection, damage to surrounding structures, she consents to ports placement,. She is being set up for home health antibiotics. cc: Shaista Hopkins MD MTDD
--- NOTE | 2018-05-04 21:06 | INFECTIOUS DISEASE PROGRESS NO ---
DATE: 05/04/2018 PRESENT ILLNESS: The patient has a Burkholderia cepacia bacteremia which originated from her right-sided Port-A-Cath which has been removed. The patient also has a left lower lobe pneumonia. MEDICATIONS: The patient is receiving a combination of cefepime and Levaquin. This is day 5 of treatment with both agents. PHYSICAL EXAMINATION: Vital Signs: Temperature is 97.1 degrees, pulse 103, respirations 20, blood pressure 91/48. General: This is an ill-appearing middle-aged female she is in no acute distress. Head/eyes/ears/nose/throat: She can hear my spoken words and see near objects. She does not have any white coating on her tongue. Neck: No meningismus. Lungs: Clear to auscultation. Cardiovascular: Regular heart rate. Thorax: The patient's right-sided chest wound where she previously had her Port-A-Cath is not swollen or draining. Abdomen: Soft and nontender. The patient has a triple-lumen catheter in the right groin area. The site is not tender and there is no drainage coming from it. Neurologic: Patient is alert. She can walk without difficulty. There is no tremor. LAB AND X-RAY: The CBC for today shows a white count of 3110, hemoglobin 10.4, and platelet count 233,000. Creatinine is 0.6. GFR is greater than 60. The patient's does not have any new microbiology results. There also is no new radiographic study today. ASSESSMENT AND PLAN: Tomorrow patient is to get her Port-A-Cath put back in. Hopefully she will be discharged tomorrow on the combination of intravenous cefepime and the Levaquin this time will be taken p.o. and the dose will be 500 mg per day. This is day 5 of treatment with both agents and will be seeing the patient in the office around the 13 of May which will complete her 2 week treatment. COMORBIDITIES: Metastatic lung cancer, cigarette smoking, COPD, obstructive sleep apnea, and chronic pain and use of narcotics. cc: Arsalan Robertson MD
[2018-05-05] MEDS: DILAUDID PCA VIAL IV PRN ×2 (02:40→14:55)
[2018-05-05] MEDS: DUONEB (A & A) INH SCH ×4 (03:36→17:42)
[2018-05-05] MEDS: MAXIPIME 2 GM in NS 100 ML IV SCH (04:25)
[2018-05-05] MEDS: PROTONIX PO SCH (05:59)
[2018-05-05] MEDS: MUCOMYST 20% INH SCH (07:44)
--- NOTE | 2018-05-05 09:10 | GENERAL SURGERY CONSULTATION ---
DATE: 05/05/2018 SUBJECTIVE: No events overnight. No fevers. OBJECTIVE: On exam, her right subclavian incision is healing well with no erythema. LABORATORY DATA: I reviewed her labs and her blood cultures. ASSESSMENT AND PLAN: This is a 62-year-old female with bacteremia, history of lung cancer, and recent port removal. She is doing well. Since her cultures have been negative, we will replace her port today. We discussed risks of bleeding, infection, damage to surrounding structures, and malfunction of the catheter. She understands and consents, and will go to the operating room. cc: Shaista Hopkins MD
[2018-05-05] MEDS: PHENERGAN IV PRN (09:47)
[2018-05-05] MEDS: SODIUM CHLORIDE 0.9% INJ PRN (09:47)
[2018-05-05] MEDS: LEVAQUIN 750 MG in NS 150 ML IV SCH (10:01)
[2018-05-05] MEDS: MUCINEX PO SCH (10:02)
[2018-05-05] MEDS: COLACE PO SCH (10:02)
[2018-05-05] MEDS: MIRALAX PO SCH (10:03)
[2018-05-05] MEDS: NICODERM PATCH TD SCH (10:06)
[2018-05-05] MEDS: MYCOSTATIN SUSP PO SCH ×3 (10:06→14:41)
[2018-05-05] MEDS ORDERED: XYLOCAINE-MPF 2% ONE (10:13)
[2018-05-05] MEDS ORDERED: DIPRIVAN 1% ONE (10:13)
[2018-05-05] MEDS ORDERED: XYLOCAINE 1%/EPI 1:100,000 ONE (11:34)
[2018-05-05] MEDS ORDERED: NS 250 ML ONE (11:34)
[2018-05-05 13:15] VITALS: BP 115/74
--- NOTE | 2018-05-05 13:17 | DISCHARGE SUMMARY ---
ADMISSION DATE: 04/19/2018 DISCHARGE DATE: 05/05/2018 HISTORY: Came with productive cough. She is followed by Dr. Bari Molina. No primary care physician. This is a 62-year-old female with a history of metastatic lung cancer, metastatic to liver and adrenal glands, followed by Dr. Molina, receiving chemotherapy. She reports the last treatment was last 04/09/2018. Denies any recent diagnosis of pneumonia or being admitted to the hospital for the last 3 or 4 months. Reports that approximately a week before this she had a productive cough, yellow sputum. States it started out thin and then worsened, became more thick. PAST MEDICAL HISTORY: Review again. 1. Metastatic lung cancer with metastasis to liver and adrenal glands, followed by Dr. Molina, receiving chemotherapy. 2. Chronic obstructive pulmonary disease, on home oxygen nasal cannula 2 L. 3. Obstructive sleep apnea. 4. Hypertension. 5. Nicotine dependence. 6. Chronic pain. 7. Chronic constipation. PAST SURGICAL HISTORY: 1. Hysterectomy. 2. Lung biopsy. 3. Left chest port placement. ADMISSION DIAGNOSES: 1. Pneumonia. Chest x-ray did note there was focal consolidation in the lung bases posterior on the lateral view versus sclerotic lesion on the spine with underlying metastatic lung cancer to liver and adrenals. 2. Exacerbation of chronic obstructive pulmonary disease. 3. Nicotine dependence. 4. History of hypertension. 5. Chronic pain. 6. Chronic constipation. 7. Oral candidiasis. 8. She has metastatic non-small cell lung cancer, receiving Opdivo in the past. She is due for cycle #18 and also needs restaging PET scan. HOSPITAL COURSE: Pneumonia has been treated. IV steroids and was given a inhaled steroids. She has a Port-A-Cath that was being placed this morning. Her cultures grew out Burkholderia cepacia bacteremia which is probably from the right-sided Port-A-Cath, so that was pulled. She continued to get treatment and is scheduled to get a Port-A-Cath today on the left. The patient is receiving a combination of cefepime and Levaquin, so we are trying to get her eligibility. This is day 6 of those antibiotics. I am going to see if we can try to arrange for her to go home. DISCHARGE MEDICATIONS: She will continue back on her home medicines. Adderall 10 mg b.i.d., atenolol 50 mg a day, Celexa 40 mg a day, Klonopin 1 mg b.i.d., Lunesta 3 mg at bedtime, and she will be on the IV antibiotics. Will not be on the Levaquin. Omeprazole 20 mg a day, MiraLAX 1 capsule p.r.n., and Phenergan 25 mg p.o. q.6 hours p.r.n.. cc: Mehran Mitchell MD
[2018-05-05] MEDS: LOVENOX SUBQ SCH (15:07)
--- NOTE | 2018-05-06 09:52 | OPERATIVE NOTE ---
PROCEDURE DATE: 05/05/2018 PREOPERATIVE DIAGNOSIS: Lung cancer. POSTOPERATIVE DIAGNOSIS: Lung cancer. PROCEDURE PERFORMED: Ultrasound-guided right internal jugular vein port placement with fluoroscopy less 1 hour. COMPLICATION: None. ANESTHESIA: General. ESTIMATED BLOOD LOSS: 5 mL. SPECIMENS: None. INDICATION: This is a 62-year-old female with metastatic lung cancer, who has an at-home pain pump needs port. She had bacteremia and had to remove her old port. OPERATIVE FINDINGS: Ultrasound of the right neck showed a compressible internal jugular vein with no evidence of thrombus. Final fluoroscopic image showed good position of the catheter superior vena cava-atrial junction. No kinking of the catheter. No pneumothorax. OPERATIVE NOTE: Risks, benefits, alternatives discussed patient. She consented to the procedure. She was seen preoperatively. Surgical site was confirmed. She was taken to the operating room, placed supine position. General anesthesia induced without complication, all bony pressure padded her right neck and chest prepped with Betadine and draped in usual fashion. After time-out, a focused ultrasound of the right neck was performed. We accessed the internal jugular vein on first pass. Dark nonpulsatile venous blood was noted on return. The wire was threaded and was confirmed to be in good position. We then created a pouch medial to her previous incision, created subcutaneous pouch and tunneled the catheter. Incision was made larger in the neck. A dilator and peel-away introducer was advanced. The wire and dilator were removed. The sheath was peeled away. We withdrew the catheter until it was in good position. We connected it a port with a grain elevator operator device, secured with Prolene suture, withdrew blood flushed without resistance. Final fluoroscopic image was appropriate. We closed the deep dermis with interrupted 3-0 Vicryl sutures. Skin was closed with 4-0 Monocryl in subcuticular fashion. Dermabond was applied. Counts correct. She was transferred to recovery. No family was available. cc: Shaista Hopkins MD
== END 2018-05-05 18:12 | disposition home health service (06) | DRG 981 ==
LOC: SUPCPDRO → ED 16:49 → 3N 23:37 → SUATTDRO 23:37 → 3N 04-21 07:56
PROVIDERS: ATTEND Emergency Medicine
CPT/HCPCS: 71010; 71020; 71045; 71046; 77001; 80048; 80053; 80076; 81001; 83690; 85025; 85027; 85610; 85730; 87040; 87070; 87075; 87077; 87088; 87186; 87205; 93005; 93010; 94640; 94761; 94762; 94799; 96365; 96366; 96375; 97162; 97530; 99285; A9270; C1788; J0692; J1170; J1650; J1885; J1956; J2250; J2405; J2550; J2930; J3010; J7030; J7040; J7050; J7120

== ENCOUNTER 2018-06-13 16:22 | Inpatient (IN) ==
[2018-06-13] MEDS ORDERED: NS 2,100 ML IV ONE (17:43)
--- NOTE | 2018-06-13 18:21 | Diag Imaging Result Doc PS360 ---
EXAM: CHEST-1 VIEW - 06/13/2018 HISTORY: SOB TECHNIQUE: Portable chest COMPARISON: 05/01/2018 FINDINGS: There is a right internal jugular central venous catheter with its tip at the distal superior vena cava. There are stable left subclavian catheter fragment with its tip of the distal superior vena cava. Heart size is normal. There are stable small right upper lobe nodular opacity. There is no acute consolidation, pleural effusion, or pneumothorax identified. IMPRESSION: Interval insertion of right internal jugular central venous catheter. Otherwise, no acute changes. Electronically signed by Yong Barry 06/13/2018 6:18 PM
[2018-06-13 18:27] LABS: INR 1.13; PROTIME 15.4 Seconds (11.0-16.0)
[2018-06-13 18:41] LABS: ALB/GLOB RATIO 0.9; BASO% 0.6 % (0.0-0.8); CALCIUM 8.2 mg/dL (8.8-10.2); CREATININE 1.1 mg/dL (0.5-0.9); EOS% 0.6 % (0.0-10.0); HEMATOCRIT 35.8 % (37.0-47.0); HEMOGLOBIN 11.4 g/dL (12.0-16.0); IMM GRAN# 0.05 X1000 (0.0-0.04); IMM GRAN% 0.3 % (0.0-0.5); LYMPH# 2.33 X1000 (1.2-3.4); LYMPH% 14.1 % (20.5-51.1); MCH 26.7 PG (27-31); MCHC 31.8 g/dL (33-37); MCV 83.8 FL (81-99); MONO# 1.77 X1000 (0.11-0.59); MONO% 10.7 % (1.7-9.3); MPV 10.3 FL (7.4-10.4); NEUT# 12.14 X1000 (1.4-6.5); NEUT% 73.7 % (42.2-75.2); PLT 310 X1000 (130-400); POTASSIUM 4.4 mmol/L (3.5-5.1); RBC 4.27 XMIL (4.2-5.4); RDW 16.2 % (11.5-14.5); TOTAL BILIRUBIN 0.39 mg/dL (0.20-1.00); TOTAL PROTEIN 6.3 g/dL (6.3-8.3); WBC 16.49 X1000 (4.8-10.8)
[2018-06-13 18:45] LABS: BANDS 2 % (0-1); LYMPHS 13 % (21-51); MONO 4 % (1-9); SEGS 81 % (42-75)
[2018-06-13 18:46] LABS: ANISOCYTOSIS 1+; LARGE PLATELETS OCCASIONAL; STOMATOCYTES OCCASIONAL
[2018-06-13] MEDS ORDERED: VANCOMYCIN 1 GM/NS 1 GM/250 ML IVPB IV ONE (19:21)
[2018-06-13] MEDS ORDERED: ZOSYN 3.375 GM in NS 50 ML IV ONE (19:24)
[2018-06-13 19:30] LABS: URINE SOURCE CLEAN CATCH
[2018-06-13 19:34] LABS: BILIRUBIN URINE NEGATIVE (NEGATIVE); BLOOD URINE TRACE (NEGATIVE); COLOR YELLOW; GLUCOSE URINE NEGATIVE (NEGATIVE); KETONE URINE NEGATIVE (NEGATIVE); LEUKOCYTES URINE NEGATIVE (NEGATIVE); NITRITE URINE NEGATIVE (NEGATIVE); PH URINE 5.5; PROTEIN URINE TRACE mg/dL (NEGATIVE); SP GRAVITY URINE 1.003; TURBIDITY URINE CLEAR (CLEAR); UROBILINOGEN URINE NORMAL (NORMAL)
[2018-06-13 19:35] LABS: UR EPITHELIAL CELLS <10 /HPF (<10); URINE BACTERIA NEGATIVE /HPF; URINE RBC <10 /HPF (<10); URINE WBC <10 /HPF (<10)
[2018-06-13 19:57] LABS: C REACTIVE PROT QUANT 114.98 mg/L (0.00-5.00)
--- NOTE | 2018-06-13 20:02 | Diag Imaging Result Doc PS360 ---
EXAM: CT ABD/PELVIS W/IV CONT ONLY - 06/13/2018 HISTORY: abdominal pain / hx stage 4 cancer lung with mets TECHNIQUE: CT abdomen/pelvis with intravenous contrast. No oral contrast administered per request of the referring provider. COMPARISON: 08/19/[address] renal stone search FINDINGS: There is ill-defined mild infiltrate at the visualized left lower lobe lung. There is mild hepatosplenomegaly. There are small low-density lesion at the inferior right lobe of liver. A couple of subtle small low-density lesions in the spleen. There are venous varicosities at the anterior mid and upper abdomen There is enlargement of the bilateral adrenal glands. There is no pancreatic mass or inflammation identified. There are no calcified gallstones or pericholecystic inflammation identified. There is mild upper abdominal retroperitoneal adenopathy. There are a few small low-density renal lesions which may represent cysts. There is no hydronephrosis. There are atherosclerotic calcifications noted. There are lumbar spine degenerative changes noted. There is no evidence of bowel obstruction. The appendix is unremarkable. There is no substantial bowel wall thickening identified. There is a large amount retained fecal debris in the colon suggesting constipation. There is no abscess identified. There is no free air identified. There is no substantial free fluid. There is an apparent 3.5 cm left ovarian cyst. IMPRESSION: Possible left lower lobe bronchopneumonia. Hepatosplenomegaly. A few small low-density liver and splenic lesions. Venous varicosities at anterior mid and upper abdomen, which can be seen with portal hypertension. Enlargement of bilateral adrenal glands. Mild upper abdominal retroperitoneal adenopathy. Constipation. No bowel obstruction. No abscess. No free air. Atherosclerotic calcifications. Lumbar spine degenerative changes. Apparent 3.5 cm left ovarian cyst. This exam was performed using automated exposure control, adjustment of mA or kV according to patient size, and/or use of iterative reconstruction technique. Electronically signed by Yong Barry 06/13/2018 8:00 PM
--- NOTE | 2018-06-13 20:24 | PROVIDER DOCUMENTATION ---
This chart was entered by Sindy Nugent Scribe, acting as scribe for Kelvin Sutton MD. HPI-Abdominal Pain/GI Problem - General Chief Complaint: Abdominal Pain Stated Complaint: HIGH TEMP/LOW 02 Time Seen by Provider: 06/13/18 17:03 Source: patient Allergies/Adverse Reactions: Patient Allergies Allergy/AdvReac Type Severity Reaction Status Date / Time morphine AdvReac ITCHING Verified 04/19/18 17:13 Home Medications: Home Medication List Medication Instructions Recorded Confirmed Last Taken Type Atenolol 50 mg PO DAILY MDD 50 08/02/14 04/20/18 05/05/17 10:00 History Citalopram [Celexa] 40 mg PO DAILY MDD 40 08/02/14 04/20/18 05/05/17 10:00 History Clonazepam [Klonopin] 1 mg PO BID 08/02/14 04/20/18 05/05/17 22:00 History Eszopiclone [Lunesta] 3 mg PO QHS 08/02/14 04/20/18 05/05/17 22:00 History Omeprazole [Prilosec] 20 mg PO DAILY PRN 08/06/16 04/20/18 1 Week Ago History ~04/29/17 Polyethylene Glycol 3350 [Miralax] 1 cap PO DAILY PRN 08/06/16 04/20/18 10:00 History Amphet Asp/Amphet/D-Amphet 10 mg PO BID 05/06/17 04/20/18 05/05/17 10:00 History [Adderall 10 mg Tablet] Promethazine [Phenergan] 25 mg PO Q6H PRN PRN 05/06/17 04/20/18 05/05/17 22:00 History Levofloxacin [Levaquin] 500 mg PO Q24H 8 Days #8 tab 05/04/18 Unknown Rx Docusate Sodium [Colace] 100 mg PO BID 30 Days #60 cap 05/05/18 Unknown Rx Guaifenesin E.r. [Mucinex] 600 mg PO Q12HR 30 Days #60 tab 05/05/18 Unknown Rx Nicotine Patch [Nicoderm Patch] 21 mg TD Q24H 14 Days #14 05/05/18 Unknown Rx patch.td24 Polyethylene Glycol 3350 [Miralax] 17 gm PO DAILY 30 Days #30 powder, 05/05/18 Unknown Rx packet - History of Present Illness-ABD Nature of Presenting Problems: 63 year old female presents to the ER with complaint of abdominal pain and fever since last pm. Epigastric, 7/10, sharp, comes and goes, non rad. Pt also complains of chest pressure and SOB with N/V since last night. Pt has history of stage 4 lung cancer with multiple mets, adrenals, liver, for the past 10 years and is being treated with bi monthly chemo by Dr. Polanco. Pt states her fever was 102 last pm. Abdominal Pain Onset Location: reports: epigastric Pain Radiation: reports: no radiation Quality of Pain: reports: pressure, sharp Severity in ED: reports: mild Onset/Duration: reports: last night Timing: reports: still present Activities at Onset: reports: none Exposure to sick contacts?: No Modifying Factors: improves with: nothing Associated Symptoms: reports: nausea, shortness of breath, vomiting Last BM: this morning Dark Stools Present?: reports: none noticed Rectal Bleeding: reports: none Rectal Pain: reports: none # of Vomiting Episodes: 4 Emesis Description: reports: clear Bruising or Bleeding Gums?: No Similar Symptoms Previously?: Yes Recently seen or treated by another doctor?: Yes Review of Systems - Adult - REVIEW OF SYSTEMS - ADULT Constitutional: reports: fever, fatique. denies: chills Eyes: reports: no symptoms reported Ears, Nose, Mouth & Throat: reports: no symptoms reported Cardiovascular: reports: chest pain. denies: palpitations Respiratory: reports: chronic cough, cough, dyspnea on exertion, shortness of breath Gastrointestinal: reports: abdominal pain, nausea, vomiting Genitourinary: reports: no symptoms reported Musculoskeletal: reports: no symptoms reported Integumentary: reports: no symptoms reported Neurological: reports: no symptoms reported Psychiatric: reports: no symptoms reported Endocrine: reports: no symptoms reported Hematologic/Lymphatic: reports: no symptoms reported Allergic/Immunologic: reports: no symptoms reported All Other Systems: Reviewed and Negative Past History - Adult - PAST MEDICAL HISTORY-ADULT Review of Records: reports: Old Records Reviewed, Nursing Assessment Review, Medications Reviewed, Social history reviewed & non-contributory. Major Childhood Illnesses: reports: denies history Cardiovascular: reports: HTN Respiratory: reports: asthma, COPD, cancer (Stage IV Lung ca) Gastrointestinal: reports: cancer (liver), liver disease (liver cancer) Obstetrical/Gynecological: reports: denies history Genitourinary: reports: denies history Musculoskeletal: reports: other (broken right knee) Neurological: reports: Seizures/Epilepsy Endocrine/Immune: reports: denies history, cancer (adrenal) Other Conditions: reports: other cancer (adrenal cancer) Additional History: non small cell lung ca 5 years out - PRIOR SURGERIES/PROCEDURES Surgical/Procedure History: reports: BTL, indwelling device (port insertion), other (lung biopsy) - IMMUNIZATION STATUS Childhood Immunizations: UTD Flu Vaccine: UTD - FAMILY HISTORY Family History: reviewed, not pertinent - SOCIAL HISTORY Smoking: cigarettes, greater than 1 pack/day Substance Use: none/never Alcohol Use Frequency: never Living Situation: family Physical Exam-General - PHYSICAL EXAM-ADULT Initial Vital Signs Reviewed: Yes - CONSTITUTIONAL General Appearance: mild distress - EYES Eyes: pink conjunctivae - HEAD, EARS, NOSE, MOUTH & THROAT HENMT: normocephalic/atraumatic, moist mucous membranes, normal ENT inspection - NECK Neck: non-tender, full range of motion - RESPIRATORY Respiratory: chest non-tender, rhonchi, stridor, wheezing. negative: accessory muscle use, crackles, rales, dull on percussion - CARDIOVASCULAR Cardiovascular: normal peripheral pulses, regular rate, rhythm, no edema. negative: no JVD, no murmur - GASTROINTESTINAL (ABDOMEN) Abdominal Exam: normal bowel sounds, soft, tenderness. negative: non tender, abnormal bowel sounds, distended, guarding, rigid, rebound, McBurney's point tenderness, 's sign, obturator sign - LYMPHATIC Lymphatic: no adenopathy - MUSCULOSKELETAL Back Exam: normal inspection Extremity: normal range of motion, non-tender, normal gait - SKIN Integumentary: normal color, normal turgor, warm/dry - NEUROLOGIC Neurologic: grossly normal - PSYCHIATRIC Psych/Mental Status: normal mood/affect, normal thought content, normal thought process Progress - PLAN OF CARE/RESULTS Progress/Plan/Lab Results: Vital Signs - 8 hr 06/13/18 16:22 Temperature 100.2 F H Pulse Rate 75 Respiratory Rate 18 Blood Pressure 138/115 O2 Sat by Pulse Oximetry 94 L Orders Category Date Time Status Cardiac Monitoring DIRECTED Care 06/13/18 17:42 Active IV Insertion ORDERED Care 06/13/18 17:42 Active Notify MD of + Sepsis Screen NOW Care 06/13/18 17:42 Active Notify Physician As Ordered Care 06/13/18 17:42 Active CHEST-1 VIEW [RAD] Stat Exams 06/13/18 17:42 Ordered BLOOD CULTURE [BLDCUL] Stat Lab 06/13/18 17:42 Uncollected CBC WITH DIFF [HEME] Stat Lab 06/13/18 17:42 Uncollected CK PROFILE [SP CHEM] Stat Lab 06/13/18 17:42 Uncollected COMPREHENSIVE METABOLIC PANEL [CHEM] Stat Lab 06/13/18 17:42 Uncollected LACTATE, PLASMA [CHEM] Q3H Lab 06/13/18 17:45 Uncollected LACTATE, PLASMA [CHEM] Q3H Lab 06/13/18 20:45 Uncollected LACTATE, PLASMA [CHEM] Q3H Lab 06/13/18 23:45 Uncollected MAGNESIUM [CHEM] Stat Lab 06/13/18 17:42 Uncollected PROTIME WITH INR [COAG] Stat Lab 06/13/18 17:42 Uncollected PTT [COAG] Stat Lab 06/13/18 17:42 Uncollected TROPONIN T Stat Lab 06/13/18 17:42 Uncollected TYPE & SCREEN [BBK] Stat Lab 06/13/18 17:42 Uncollected URINALYSIS W/POSS RFLX CULT [URINALYSIS] Stat Lab 06/13/18 17:42 Uncollected 0.9% Sodium Chloride Inj [Ns] 2,100 ml Med 06/13/18 17:43 Discontinued IV Wide Open Oxygen Device Stat Oth 06/13/18 17:42 Active A/P; Pneumonia. Hypotension, tachycardia, started NS 30 mg KG, Vanc/zosyn, elevated WBC, elevated lactate. Will admit. Pt has stage 4 cancer with mets to liver, adrenals Result Diagrams: 06/13/18 17:34 06/13/18 17:34 - EKG 1 Time of EKG reading by physician:: 17:20 EKG Read and Signed by:: Kelvin Sutton EKG Interpretation (*Must complete 3 of following elements*): Abnormal Rate: 113 Rhythm: sinus tachycardia [place]: normal QRS: normal - XRAY 1 XRAY Study: Chest Impression: Normal ([facility] [address] , [address], [place] [address] Department of Imaging Patient: STEFANIA OLIVA Date: #: [id number] : 1955DM Status: REG ERAcct#: [id number] Age/ Sex: 63/FRoom/Bed: Loc: ED Ordering Physician: Kelvin Sutton MD Family Physician: None,PCP Reason for Procedure: SOB Signed EXAM: CHEST-1 VIEW - 06/13/2018 HISTORY: SOB TECHNIQUE: Portable chest COMPARISON: 05/01/2018 FINDINGS: There is a right internal jugular central venous catheter with its tip at the distal superior vena cava. There are stable left subclavian catheter fragment with its tip of the distal superior vena cava. Heart size is normal. There are stable small right upper lobe nodular opacity. There is no acute consolidation, pleural effusion, or pneumothorax identified. IMPRESSION: Interval insertion of right internal jugular central venous catheter. Otherwise, no acute changes. Electronically signed by Yong Barry 06/13/2018 6:18 PM 06/13/181817 Interpreting Physician: Yong Barry MD Dictated Date/Time: 06/13/181814 cc: Kelvin Sutton MD; None,PCP) - CONSULTS/PCP/HOSPITALIST Notification #1 *Consult/PCP/Hospitalist*: Dr grove Time Discussed: 20:22 Consult Disposition: Admit Departure - Departure Date of Disposition Decision: 06/13/18 Time of Disposition Decision: 20:23 DIAGNOSIS: Pneumonia Disposition: HOME 01 Certified Medical Emergency: Emergent Condition: Stable Additional Freetext Instructions: ED Follow Up Instructions: You have been treated by a care provider in the Emergency Department. These instructions are being provided to you so you can have an understanding of how to care for yourself upon discharge. Upon discharge from the Emergency Department, you are responsible for making arrangements for follow-up care by a physician of your choice. Take all prescribed medications as directed. Return to the Emergency Department immediately for any new or worsening symptoms. You may call the Physician Referral phone number at [phone] to obtain a list of Physicians who are taking new patients. Referrals and Follow-Ups: None,PCP [Primary Care Provider] - - Critical Care Note This patient required my direct & personal management of CC.: No Attestation - Physician/ NUBIA Attestation Patient care was provided by Advanced Practice Provider:: No The physician spent face to face time with patient:: Yes Advanced Practice Provider documentation review:: Supervising physician onsite and consulted in the evaluation and care of this patient. The physician did have a face to face encounter with the patient. This chart was documented by the indicated scribe, (Sindy Nugent, [place]) and accurately reflects the services I performed and decisions made by me, Kelvin Sutton MD, as attested by the provider's signature.
[2018-06-13] MEDS ORDERED: DUONEB (A & A) INH ONE (20:41)
[2018-06-13] MEDS ORDERED: SOLU-MEDROL IV ONE (20:41)
--- NOTE | 2018-06-13 21:42 | HISTORY AND PHYSICAL ---
REASON FOR ADMISSION: One day history of fever, chills, cough productive of brownish sputum. HISTORY OF PRESENT ILLNESS: Ms. Bella Georges is a 61-year-old woman with past medical history of metastatic lung disease. She is followed by Dr. Molina for the management of her condition. She comes in today complaining of nausea and 7 episodes of nonbloody bilious vomiting and fever with chills and cough productive of brownish sputum. She denies any hemoptysis and has a long standing history of chronic dyspnea which has not worsened, nor has she required increased use of nebulizer treatments, which she has at home. She denies any leg swelling, any redness of her extremities, any chest pain or palpitations. She denies any orthopnea, PND. She has the cough and vomiting that have become progressively worse. Not sure she aspirated. No abdominal pain. No genitourinary complaints but she does have a long history of chronic constipation. No polyuria, polydipsia, no focal neurological complaints, or headaches or visual problems. No upper respiratory symptoms. REVIEW OF SYSTEMS: Review of 12 systems was done, positive findings as per HPI. ALLERGIES: Morphine. HOME MEDICATIONS: Have not been reconciled unfortunately. PAST MEDICAL HISTORY: Notable for metastatic lung cancer, COPD, hypertension, and she was recently admitted to our facility for pneumonia in March of last year. FAMILY HISTORY: Notable for prostate cancer, diabetes, and heart disease in first-degree relatives. SOCIAL HISTORY: She smokes less than half a pack a day. No alcohol or illicit drug use. She lives with her granddaughters. PAST SURGICAL HISTORY: She has had tubal ligation, lung biopsy, 2 chest port placements. LAB WORK: CT abdomen shows hepatosplenomegaly with venous varicosities suggestive of portal hypertension and bilateral enlarged renal glands with mild upper abdominal retroperitoneal adenopathy, constipation, and possible left lower lobe bronchopneumonia. White count 16,000, hemoglobin and hematocrit 11 and 35, platelets 310, normal differential. Sodium 132, BUN 12, creatinine 1.1, glucose 176, alkaline phosphatase 142, troponin negative, lactate 2.9. PT and PTT are normal. Urinalysis is clean. Chest x-ray does not show any gross infiltrate. PHYSICAL EXAMINATION: VITAL SIGNS: Blood pressure 113/96, heart rate 106, temperature 99.6, respiratory rate is 16, O2 saturation is 93% on 3 L. GENERAL APPEARANCE: She is a middle aged woman who is not in acute distress. She is alert and oriented x3 with normal mood and affect. HEENT: Head is normocephalic, atraumatic. Eyes: PERRL, EOMI. She is anicteric and mildly pale. ENT and oropharynx exam is grossly normal. No oropharyngeal exudates or erythema. No visual central cyanosis noted. NECK: Short and thick. No JVD or carotid bruit. No thyromegaly. No cervical or supraclavicular lymphadenopathy. CHEST: Decreased air entry in both lung rust with notable wheezes in the left lower lung field and right upper lobes. CARDIOVASCULAR: First and second heart sounds heard. There is a 2/6 ejection systolic murmur heard in the left lateral sternal border. Rhythm is regular. The patient also has a port in the right pectoral area. No tenderness noted. Site dressing is dry. ABDOMEN: Exam is notable for mild epigastric tenderness but no mass or megaly. No peritoneal signs. Bowel sounds are hypoactive. RECTAL : Exam is deferred. EXTREMITIES: The patient has slightly diminished pulse volume distally in all extremities. They are symmetrical and regular. No edema, clubbing peripheral cyanosis. NEUROLOGICAL: No gross focal deficits. No tremors. MUSCULOSKELETAL: Grossly normal. SKIN: Intact with no breakdown, lesion or erythema. ASSESSMENT: 1. Left lower lobe pneumonia. 2. Metastatic lung disease. 3. Chronic obstructive pulmonary disease. 4. History of hypertension. 5. Anemia related to neoplasm. 6. Nicotine dependence. 7. Chronic constipation. PLAN: The patient will be admitted and treated for nosocomial pathogens, being that she has been in the hospital within the last 90 days. Also, in terms of coverage of antibiotics for anaerobic coverage due to the fact that the patient may have a component of post-obstructive pneumonia and aspiration from vomiting that occurred before the fever and cough. We will also treat the patient for mild exacerbation of COPD with short and long-acting bronchodilators and a moderate dose of steroids. The patient is borderline for early sepsis and she is currently being hydrated with fluids. Lactate levels could be falsely elevated due to the use of albuterol, though her blood pressure is marginal and her heart rate is mildly elevated. We will check lactate levels to see if the patient responds to crystalloid therapy. Medications need to be reconciled once the list is available. DVT prophylaxis will be instituted using Lovenox due to the patient's increased risk for this. The patient has no immediate desire to stop smoking at this point in time. (allergies plain, not caps, meds-don't number) cc: MD Bari Guy MD
[2018-06-13] MEDS ORDERED: NS 1,000 ML IV ONE (22:17)
[2018-06-13] MEDS ORDERED: VANCOMYCIN IV PER PHARMACY MISC SCH (22:17)
[2018-06-13] MEDS: MIRALAX PO SCH (22:35)
[2018-06-13] MEDS: PERICOLACE PO SCH (22:35)
[2018-06-13] MEDS: LOVENOX SUBQ SCH (22:35)
[2018-06-13] MEDS ORDERED: NS IV ONE (23:00)
[2018-06-13] MEDS ORDERED: VANCOMYCIN IV ONE (23:00)
[2018-06-13] MEDS ORDERED: PATIENT'S OWN MED IV SCH (23:45)
[2018-06-13] MEDS ORDERED: NARCAN IV PRN (23:57)
[2018-06-14] MEDS: ZOSYN 3.375 GM in NS 50 ML IV SCH ×4 (02:15→23:27)
[2018-06-14] MEDS: DUONEB (A & A) INH SCH ×4 (03:33→22:45)
[2018-06-14 07:24] LABS: BASO# 0.02 X1000 (0.0-0.2); BASO% 0.2 % (0.0-0.8); HEMATOCRIT 31.7 % (37.0-47.0); HEMOGLOBIN 9.8 g/dL (12.0-16.0); IMM GRAN# 0.02 X1000 (0.0-0.04); IMM GRAN% 0.2 % (0.0-0.5); LYMPH# 1.06 X1000 (1.2-3.4); LYMPH% 12.2 % (20.5-51.1); MCH 26.1 PG (27-31); MCHC 30.9 g/dL (33-37); MCV 84.5 FL (81-99); MONO# 0.18 X1000 (0.11-0.59); MONO% 2.1 % (1.7-9.3); MPV 9.9 FL (7.4-10.4); NEUT# 7.41 X1000 (1.4-6.5); NEUT% 85.3 % (42.2-75.2); PLT 256 X1000 (130-400); RBC 3.75 XMIL (4.2-5.4); RDW 16.1 % (11.5-14.5); WBC 8.69 X1000 (4.8-10.8)
[2018-06-14 07:30] LABS: AGAP 7; BUN 11 mg/dL (8-22); CALCIUM 7.9 mg/dL (8.8-10.2); CHLORIDE 103 mmol/L (98-107); COSMO 277; CREATININE 0.7 mg/dL (0.5-0.9); ESTIMATED GFR > 60; GLUCOSE 175 mg/dL (70-104); SODIUM 137 mmol/L (136-145); TCO2 27 mmol/L (25-35)
[2018-06-14] MEDS ORDERED: NARCAN IV PRN (08:04)
[2018-06-14] MEDS ORDERED: NS 0 ML ONE (08:55)
[2018-06-14] MEDS: DILAUDID-HP 30 MG in NS 27 ML IV PRN ×3 (09:01→21:50)
[2018-06-14] MEDS: LR 1,000 ML IV SCH (09:03)
[2018-06-14] MEDS: PERICOLACE PO SCH ×2 (09:17→23:26)
[2018-06-14] MEDS: MIRALAX PO SCH ×2 (09:17→23:27)
[2018-06-14] MEDS: PREDNISONE PO SCH (09:17)
[2018-06-14] MEDS: BROVANA NEB INH SCH ×2 (09:46→22:35)
[2018-06-14 10:05] LABS: BANDS 6 % (0-1); LYMPHS 7 % (21-51); MONO 2 % (1-9); SEGS 85 % (42-75)
--- NOTE | 2018-06-14 11:22 | EKG Report ---
Test Performed on : 06/13/2018 5:16:01 PM Test Reason : ED. No order in [place] Blood Pressure : / mmHG Vent. Rate : 113 BPM Atrial Rate : 113 BPM P-R Int : 128 ms QRS Dur : 070 ms QT Int : 314 ms P-R-T Axes : 071 045 068 degrees QTc Int : 430 ms Sinus tachycardia. Otherwise normal ECG When compared with ECG of 20-APR-2018 01:36, No significant change was found Unconfirmed Result
[2018-06-14] MEDS: NICODERM PATCH TD SCH (17:00)
--- NOTE | 2018-06-14 19:31 | PROGRESS NOTE ---
DATE: 06/14/2018 INTERVAL HISTORY: The patient's dyspnea much improved. Still with some dry cough but not as bad as previously. No other new complaints. Called with preliminary blood culture results positive for gram-negative rods and later gram-positive cocci were also obtained on blood culture. The patient remains afebrile. REVIEW OF SYSTEMS: Twelve point review except as per interval history. LABORATORY DATA: WBC 8.69, hemoglobin 9.8, hematocrit 31.7, platelet 56,000. Sodium 137, potassium 4, BUN 11, creatinine 0.7, glucose 175, calcium 7.9. Last albumin 3. OBJECTIVE: Vital Signs: T-max 100.2 degrees yesterday afternoon. T-max today 98.1, pulse 82, respirations 18, blood pressure 106/48, O2 saturation 94% via 2 L nasal cannula. General: No acute distress. Vitals as above. HEENT: Normocephalic, atraumatic. Moist mucous membranes. No cervical adenopathy. Cardiovascular: Regular rate and rhythm. No murmurs, rubs or gallops noted. Port in right upper chest noted. Pulmonology: Moderately decreased air entry throughout with no wheezing, rales, or rhonchi noted. Abdomen: Soft, nontender, nondistended. Bowel sounds positive. Extremities: Peripheral pulses decreased but intact. No clubbing or cyanosis. Neurologic: Cranial nerves grossly intact. No focal deficits identified. Psychiatric: Normal with good affect. Awake, alert, and oriented x3. Skin: No new rashes or lesions identified. ASSESSMENT/PLAN: 1. Pneumonia (HCAP). Patient with underlying metastatic lung cancer for the last several year. Presented with nausea, vomiting, cough, dyspnea. Imaging suggestive of pneumonia. On antibiotics, vancomycin and Zosyn. Blood culture growing out gram-negative rods and gram- positive cocci. Antibiotics as above. Repeat blood cultures in the morning. Will await speciation and if blood cultures are not suggestive of contaminant then we will likely consult Infectious Disease. 2. The patient with chronic obstructive pulmonary disease, but no wheezing to suggest exacerbation at this time. Continue nebulizers as needed. Continue steroids as patient reportedly had some mild wheezing on admission. Initial lactate mildly elevated at 2.9, but repeat within normal at 1.2. Further nausea or vomiting. Cough much improved. 3. Metastatic lung cancer. Patient follows with Dr. Molina. Outpatient follow-up as previously planned. 4. Hypertension. Patient hypertensive by history. Blood pressure has been on the low side of normal here. We will monitor. 5. Anemia of chronic disease. Blood count is fairly stable. 6. Tobacco abuse. Patient given nicotine patch and counseled on cessation. 7. Chronic constipation. Hillary-Colace available as needed. 8. Deep venous thrombosis prophylaxis. Lovenox. 9. Hyponatremia, mild, asymptomatic and largely resolved. No need for acute intervention at this time. 10. Hyperglycemia, likely steroid induced. No previous diagnosis of diabetes. A1c pending.
[2018-06-14] MEDS: LOVENOX SUBQ SCH (23:27)
[2018-06-14] MEDS: VANCOMYCIN 1 GM/NS 1 GM/250 ML IVPB IV SCH (23:32)
[2018-06-15] MEDS: DUONEB (A & A) INH SCH ×4 (03:35→22:00)
[2018-06-15] MEDS: TYLENOL PO PRN (03:51)
[2018-06-15] MEDS: DILAUDID-HP 30 MG in NS 27 ML IV PRN ×4 (03:54→21:45)
[2018-06-15] MEDS: ZOSYN 3.375 GM in NS 50 ML IV SCH ×3 (06:02→17:16)
[2018-06-15] MEDS: BROVANA NEB INH SCH ×2 (07:53→22:00)
[2018-06-15 08:10] LABS: HEMOGLOBIN A1C 5.3 % (4.8-6.0)
[2018-06-15] MEDS: PERICOLACE PO SCH ×2 (09:24→22:21)
[2018-06-15] MEDS: NICODERM PATCH TD SCH (09:24)
[2018-06-15] MEDS: CELEXA PO SCH (09:25)
[2018-06-15] MEDS: MIRALAX PO SCH ×2 (09:25→23:57)
[2018-06-15] MEDS: PREDNISONE PO SCH (09:25)
[2018-06-15] MEDS: LR 1,000 ML IV SCH (11:16)
--- NOTE | 2018-06-15 13:11 | HEMO/ONC CONSULTATION ---
DATE: 06/15/2018 ADMITTING PHYSICIAN: Dr. Hewitt. REQUESTING PHYSICIAN: Dr. Hewitt. We appreciate this consultation. CHIEF COMPLAINT: Metastatic swg-wshwa-rrdy lung cancer. HISTORY OF PRESENT ILLNESS: Ms. Georges is a 63-year-old, female well known to Dr. Molina with a history of metastatic sfc-vzsks-prtw lung cancer. The patient has been maintained on Opdivo. Recent PET scan on 06/02/2018 revealed right adrenal nodule was smaller but with increased metabolic activity. No other FDG avidity was noted. The patient was hospitalized at the end of 2018 for pneumonia. She had improvement and was discharged. However, the patient presented to [facility] Emergency Department with nausea and 7 episodes of nonbloody bilious vomiting. Additionally, the patient reported fever and chills with cough productive of brownish sputum. The patient does have a long history of chronic dyspnea secondary to severe COPD. Chest x-ray was obtained which revealed stable small right upper lobe nodular opacities. The patient had no acute consolidation or pleural effusion. Additionally, the patient underwent CT of the abdomen and pelvis which revealed hepatosplenomegaly and venous varicosities at the anterior, mid, and upper abdomen secondary to portal hypertension. Enlargement of bilateral adrenal glands was noted with mid upper retroperitoneal adenopathy. Additionally, constipation was observed. The patient had atherosclerotic calcifications and lumbar spine degenerative changes and a 3.5 cm left ovarian cyst. The patient is admitted secondary to left lower pneumonia and metastatic lung disease with COPD exacerbation. We are consulted as the patient is well known to us. PAST MEDICAL HISTORY: 1. Metastatic lung cancer. 2. COPD. 3. Hypertension. 4. Recent pneumonia. PAST SURGICAL HISTORY: 1. Tubal ligation. 2. Lung biopsy. 3. Two chest port placements. FAMILY HISTORY: Significant for prostate cancer in the patient's father. SOCIAL HISTORY: The patient smokes less than 1/2 pack cigarettes daily. She does not use alcohol or illicit drugs. MEDICATIONS ON ADMISSION: 1. Adderall. 2. Albuterol sulfate. 3. Celexa. 4. Compazine. 5. Dilaudid. 6. EpiPen. 7. Flonase. 8. Klonopin. 9. Lidoderm patches. 10. Lunesta. 11. Magic Mouthwash. 12. Marinol. 13. Polyethylene glycol. 14. Relistor. 15. Spiriva. 16. Urea cream. 17. Venelex topical ointment. 18. Zofran. ALLERGIES: Astepro and Rocephin. REVIEW OF SYSTEMS: A 14-point review of systems was obtained and is negative except for as mentioned in HPI. PHYSICAL EXAMINATION: General: Ms. Georges is a 63-year-old female, who appears quite ill. She is in no acute distress. Vital Signs: Temperature 97.6, blood pressure 92/50, heart rate 74, respirations 15, O2 saturation 98% on 2 L nasal cannula O2. HEENT: Normocephalic, atraumatic. Mucous membranes pale and somewhat dry. Sclerae anicteric. Extraocular movements intact. Neck: Supple. Lungs: Clear to auscultation bilaterally. Chest expansion equal bilaterally. CV: S1, S2 is heard. No murmurs, rubs or gallops. Abdomen: Nondistended. Extremities: No clubbing, cyanosis. The patient does have 1+ bilateral lower extremity edema. Dermatologic: No rashes, bruises, or lesions. Neurologic: The patient is somnolent. She is oriented x3 and has no focal deficits. LABORATORY DATA: Hemoglobin 9.8. Hematocrit 31.7. White blood cell count is 8.69. Platelets 256,000. Sodium 137, potassium 4, chloride 103, CO2 is 27, BUN 11, creatinine 0.7, and glucose is 175. Calcium 7.9. IMAGING STUDIES: CT of the abdomen and pelvis reveals possible left lower bronchopneumonia with hepatosplenomegaly with low-density liver and splenic lesions and venous varicosities probably secondary to portal hypertension. Bilateral adrenal gland enlargement and retroperitoneal adenopathy was observed with constipation. ASSESSMENT AND PLAN: 1. Metastatic bvp-mntjw-zuki lung cancer on Opdivo. PET scan on 06/02/2018 revealed right adrenal nodule was smaller but had increased metabolic activity. No other FDG avidity was noted. 2. Left lower lobe pneumonia on vancomycin and Zosyn. 3. Chronic obstructive pulmonary disease unstable at this time. Would continue nebulizers and O2 p.r.n. 4. Anemia. Hemoglobin is stable at 9.8. Would continue to monitor CBC. 5. Chronic pain. The patient remains on a Dilaudid pump continuously. 6. We will follow along with you and make further recommendations pending outcomes. The above reflects the history, exam, assessment, and plan of Dr. Molina. Dictated by RAMILA Caballero for Bari Molina MD cc: RAMILA Caballero MD
--- NOTE | 2018-06-15 17:11 | PROGRESS NOTE ---
DATE: 06/15/2018 SUBJECTIVE: The patient reports breathing better. Denies any fever or chills. OBJECTIVE: Vital signs: Temperature 97.8 degrees, heart rate 87, respiratory rate 18, blood pressure 105/47, O2 saturation 93% on room air. On general examination this is a chronically ill- looking, 63-year-old female lying in bed, in no acute distress. HEENT: Head is normocephalic, atraumatic. Mucous membranes moist. Neck: No JVD noted. No carotid bruits. No lymphadenopathy. No thyromegaly. Cardiovascular exam: S1, S2 heard. No murmurs, gallops or rubs. Regular rate and rhythm. Respiratory exam: Decreased air entry globally, but there is no rhonchi, wheezing or rales noted. Port in right upper chest noted. The patient is not using any accessory muscles or having work of breathing. Abdomen is soft, nontender to palpation. Nondistended. Bowel sounds present. No organomegaly. Extremities: No clubbing, cyanosis, or edema. Peripheral pulses present in both legs. Neurological: The patient is alert and oriented x3. Moves all 4 extremities. LABORATORY DATA: White cell count 8, from yesterday was 8.69. No labs from today. ASSESSMENT AND PLAN: 1. Healthcare-associated pneumonia. The patient is on vancomycin and Zosyn. Clinically, this patient is doing better. Infectious Disease has been consulted because we do have gram- negative bacteremia and gram-positive bacteremia as well. We will continue with both antibiotics. We will see what Infectious Disease has to say. 2. Chronic obstructive pulmonary disease, not in exacerbation. We will provide breathing treatment as needed only. 3. Metastatic bone disease. The patient is following with Oncology. The patient to follow up as needed now. 4. Hypertension. Blood pressure is under control. We will continue with the same management. 5. Anemia of chronic disease. At least from tests the hemoglobin is 9.8 which is stable. We will check CBC tomorrow. 6. Tobacco abuse. Patient advised to stop smoking. 7. Chronic constipation. We will provide Hillary-Colace as needed. 8. Hyponatremia. The sodium from yesterday was normal. We will check it tomorrow. 9. Disposition. At this point we will continue with intravenous antibiotics. We will see what Infectious Disease has to say. cc: Dave Escobar MD
[2018-06-15] MEDS: MAXIPIME 2 GM in NS 100 ML IV SCH (18:31)
--- NOTE | 2018-06-15 18:53 | INFECTIOUS DISEASE CONSULT REP ---
DATE: 06/15/2018 CONCLUSION: The patient is admitted the hospital. She has a right lower lobe pneumonia. She has positive blood cultures for gram-positive cocci and gram-negative rods. Most likely the origin of the bacteremia is the patient's pneumonia, especially in view of the fact that the urinalysis showed no white cells or bacteria. It is also possible that the gram-positive coccus could be a contaminant if it turns out to be Staph epidermidis. RECOMMENDATIONS: I agree with treating the patient with vancomycin. I have discontinued Zosyn and placed the patient on cefepime. DISCUSSION: The patient tells me approximately 3 to 4 days ago she had nausea and vomiting. She started coughing beige sputum. She did not check her temperature. Her CT scan of the abdomen and pelvis shows that there is a left lower lobe pneumonia present. The patient's blood cultures as mentioned above are growing gram-positive cocci and gram-negative rods. Repeat blood cultures were ordered today. Creatinine is 0.7. GFR is greater than 60. Alkaline phosphatase is 142. Urinalysis shows no white cells or bacteria. CBC shows a white count of 8690, hemoglobin 9.8, and platelet count 256,000. PAST MEDICAL HISTORY/REVIEW OF SYSTEMS: Eyes and ears: She does not have any problem hearing or seeing. Neck: No stiffness. Respiratory: See present illness. GI: See present illness. Genitourinary: No dysuria or flank pain. Bone, joints, muscles: No swollen joints or myalgias. Endocrine: The patient does not have diabetes or thyroid disease. Neurologic : The patient does not have seizures. She has not recently lost motor or sensory function. HEAD CAGER HISTORY: She is a 6, para 4, AB 2. PREVIOUS HOSPITALIZATIONS AND OPERATIONS: Patient has had 4 labor and deliveries and 2 miscarriages, patient has had [id number]-[id number] placed and they have been removed because of infections. The patient also was admitted once the hospital because of carbon monoxide poisoning. She has had a fracture of her right leg. MEDICAL DISEASES: Positive for metastatic lung cancer. PREVIOUS HOSPITALIZATIONS/OPERATIONS: The patient has had labor and deliveries , 2 miscarriages, placement and removal of [id number], she has also been admitted with carbon monoxide poisoning. She has had a fracture of her right leg. MEDICAL DISEASES: Positive for metastatic cancer. Negative for diabetes mellitus and hypertension. INFECTIOUS DISEASE HISTORY: Positive for urinary tract infections, pneumonia and Port-A-Cath infections. FAMILY HISTORY: Positive for diabetes mellitus, hypertension and cancer. SOCIAL HISTORY: [place] She is [place]. She lives with some of her family. She does not have any pets. The patient smokes cigarettes but does not drink or abuse drugs. ALLERGIES: The only allergy listed is morphine. HOME MEDICATIONS: Adderall, Celexa, Klonopin, Lunesta, Prilosec, MiraLAX, and Phenergan. PHYSICAL EXAMINATION: Vital Signs: Temperature is 97.8 degrees, pulse 87, respirations 16, blood pressure 105/47. The patient is 5 feet 3 inches tall, weighs 157 pounds. General: This is a fairly healthy-appearing, middle-aged female. She is in no acute distress. Head, eyes, ears, nose, and throat: She can hear my spoken words and see near objects. She does not have any white patches on her tongue. Thorax: Patient has a slightly increased AP diameter of the chest. She has a right-sided Port-A-Cath in place. The site is not erythematous or swollen. Lungs: Clear to auscultation. Cardiovascular: Regular heart rate. Abdomen: Soft and nontender. Neurologic: The patient is alert. She can move her extremities. She does not have any tremors. Her sensation is intact to touch. Her memory as regarding her medical history is intact. Integument: No rash noted. Thank you for the consult. cc: Arsalan Robertson MD MTDD
[2018-06-15] MEDS: LOVENOX SUBQ SCH (22:21)
[2018-06-15] MEDS: VANCOMYCIN 1 GM/NS 1 GM/250 ML IVPB IV SCH (22:21)
[2018-06-16] MEDS: MAXIPIME 2 GM in NS 100 ML IV SCH ×3 (02:30→18:50)
[2018-06-16] MEDS: DUONEB (A & A) INH SCH ×4 (03:22→21:14)
[2018-06-16] MEDS: DILAUDID-HP 30 MG in NS 27 ML IV PRN ×4 (03:57→21:13)
[2018-06-16 06:59] LABS: BASO# 0.01 X1000 (0.0-0.2); BASO% 0.1 % (0.0-0.8); EOS# 0.02 X1000 (0.0-0.7); EOS% 0.2 % (0.0-10.0); HEMOGLOBIN 9.7 g/dL (12.0-16.0); IMM GRAN# 0.06 X1000 (0.0-0.04); IMM GRAN% 0.5 % (0.0-0.5); LYMPH# 1.42 X1000 (1.2-3.4); LYMPH% 11.7 % (20.5-51.1); MCHC 30.3 g/dL (33-37); MCV 85.8 FL (81-99); MONO# 0.82 X1000 (0.11-0.59); MONO% 6.8 % (1.7-9.3); MPV 9.9 FL (7.4-10.4); NEUT# 9.78 X1000 (1.4-6.5); NEUT% 80.7 % (42.2-75.2); PLT 275 X1000 (130-400); RBC 3.73 XMIL (4.2-5.4); RDW 16.1 % (11.5-14.5); WBC 12.11 X1000 (4.8-10.8)
[2018-06-16 07:27] LABS: AGAP 7; BUN 10 mg/dL (8-22); CALCIUM 8.5 mg/dL (8.8-10.2); CHLORIDE 107 mmol/L (98-107); COSMO 278; CREATININE 0.6 mg/dL (0.5-0.9); ESTIMATED GFR > 60; GLUCOSE 83 mg/dL (70-104); POTASSIUM 4.3 mmol/L (3.5-5.1); SODIUM 140 mmol/L (136-145); TCO2 26 mmol/L (25-35)
[2018-06-16] MEDS: BROVANA NEB INH SCH ×2 (07:53→21:14)
[2018-06-16] MEDS: PERICOLACE PO SCH ×2 (08:23→20:16)
[2018-06-16] MEDS: NICODERM PATCH TD SCH (08:24)
[2018-06-16] MEDS: CELEXA PO SCH (08:24)
[2018-06-16] MEDS: MIRALAX PO SCH (08:24)
[2018-06-16] MEDS: PREDNISONE PO SCH (08:24)
[2018-06-16] MEDS ORDERED: CALMOSEPTINE OINTMENT TOP PRN (11:29)
--- NOTE | 2018-06-16 12:54 | Diag Imaging Result Doc PS360 ---
EXAM: CHEST-2 VIEWS 06/16/2018 HISTORY: pna TECHNIQUE: PA and lateral chest COMMENT: There is pleural fluid bilaterally. This was not the case on 06/13/2018. There may be atelectasis or pneumonia in the right lower lobe. IMPRESSION: Bilateral pleural effusions. Atelectasis versus pneumonia right lower lobe. Electronically signed by Uday Del Cid 06/16/2018 12:51 PM
--- NOTE | 2018-06-16 14:13 | PROGRESS NOTE ---
DATE: 06/16/2018 SUBJECTIVE: Patient reports feeling fine. No cough. No fever. No chills. OBJECTIVE: Vital Signs: Temperature 98.2 degrees, heart rate 94, respiratory rate 18, blood pressure 134/76 and O2 saturation 99% on room air. General: This is a chronically ill-looking 63- year-old female lying in bed in no acute distress. HEENT: Head is normocephalic, atraumatic. Neck: No carotid bruits. No lymphadenopathy. No thyromegaly. Cardiovascular: S1, S2 heard. No murmurs, gallops, or rubs. Regular rate and rhythm. Respiratory: Decreased air entry globally, but there are no rhonchi, rales or wheezing noted. There is a port in the right upper chest noted. Patient is not using any accessory muscles or having work up breathing. Abdomen: Soft, nontender to palpation. Bowel sounds present. No organomegaly. Extremities: No clubbing, cyanosis, or edema. Peripheral pulses present in both legs. Neurological: Patient alert and oriented x3. Moves 4 extremities. LABORATORY DATA: Reviewed. ASSESSMENT AND PLAN: 1. Right lower lobe healthcare associated pneumonia. Patient is on vancomycin and Zosyn. The patient has bacteremia. Blood cultures for that was positive for Serratia marcescens, and 1 out of 4 was positive for staphylococcal epidermidis which I think is a contaminant. The patient has some medication as above. We will leave the decision to Infectious Disease to change antibiotics accordingly. It is important to remark that this Serratia is sensitive to Levaquin. 2. COPD. Patient is not in exacerbation. We will provide breathing treatments as needed only. 3. Metastatic bone disease. Patient following with Oncology. 4. Hypertension. Blood pressure is under control. We will continue with the same management. 5. Anemia of chronic disease. Hemoglobin is. 9.7. We will continue with the same management. 6. Hyponatremia resolved. 7. Disposition. At this point, I am planning to repeat one blood culture. Follow recommendations from Dr. Robertson regarding antibiotics. cc: Dave Escobar MD
--- NOTE | 2018-06-16 17:50 | INFECTIOUS DISEASE PROGRESS NO ---
DATE: 06/16/2018 PRESENT ILLNESS: Ms. Georges is being treated for right lower lobe pneumonia which may be the origin of her bacteremia. Her initial blood cultures grew a Serratia marcescens in 1 culture and a Staph epidermidis in the other. We believe that the Staph epidermidis is a contaminant. Her most recent blood cultures were both positive with a gram-negative zayra, which most likely will be Serratia. MEDICATIONS: She has been receiving IV vancomycin per pharmacy dosing and cefepime 2 g IV every 8 hours. PHYSICAL EXAMINATION: Vital Signs: Temperature is 98.2, pulse rate 92, respiratory rate 18, blood pressure 129/69, O2 saturation is 99% on room air. General: This is a chronically-ill- appearing, middle-aged female. She is sitting up in the bed, currently in no acute distress. HEENT: Atraumatic, normocephalic. Oral mucous membranes are pink and moist. Conjunctivae are pale. Neck: Supple. Trachea is midline. Cardiovascular: Heart rate is regular. Pedal and radial pulses are +2 bilaterally. She does have 1+ pretibial edema bilaterally. Respiratory: Lung sounds are clear in the upper lobes. Diminished in the bases. Abdomen: Soft, round and nontender. Bowel sounds are active. Neurologic: She is awake, alert, and oriented. Moves all extremities without difficulty in the bed. Integumentary: There is a Port-A- Cath in place to the right chest. The site is without edema, erythema, or drainage. LABORATORY AND X-RAY: Today her white count is 12.11, hemoglobin 9.7, platelet count 275,000. Creatinine is 0.6. Estimated GFR is greater than 60. As mentioned before, her initial blood cultures grew Serratia marcescens in one, and a Staph epidermidis in the other. Her most recent blood cultures are both positive with a gram-negative zayra that has yet to be identified. Chest x- ray done today shows bilateral pleural effusions and atelectasis versus pneumonia to the right lower lobe. ASSESSMENT AND PLAN: Ms. Georges has a Serratia bacteremia, the origin of which may be the right lower lobe pneumonia. The other blood culture that she had initially grew a Staph epidermidis which is considered to be a contaminant, and does not need treatment. At this point, we will await the most recent blood cultures which were both positive when drawn yesterday with a Gram-negative zayra. We will continue her cefepime as ordered and discontinue the vancomycin. We have also put in to draw another set of blood cultures 48 hours past the administration of cefepime. These plans have been discussed with and recommended by Dr. Robertson. COMORBIDITIES: For Ms. Georges, include metastatic lung cancer, cigarette smoking and previous pneumonias and Port-A-Cath infection. Dictated by RAMILA Thakur for Arsalan Robertson MD This chart was documented by, RAMILA Thakur and accurately reflects the services performed, treatment plan and medical decisions as attested by the providers signature Arsalan Robertson MD. cc: Arsalan Robertson MD [facility]
[2018-06-16] MEDS: LOVENOX SUBQ SCH (20:16)
[2018-06-16] MEDS: LR 1,000 ML IV SCH (21:14)
[2018-06-17] MEDS: MAXIPIME 2 GM in NS 100 ML IV SCH ×3 (03:00→17:24)
[2018-06-17] MEDS: DILAUDID-HP 30 MG in NS 27 ML IV PRN ×4 (03:10→21:57)
[2018-06-17] MEDS: MIRALAX PO SCH ×3 (03:19→22:07)
[2018-06-17] MEDS: DUONEB (A & A) INH SCH ×4 (03:30→20:30)
[2018-06-17] MEDS: LOVENOX SUBQ SCH ×2 (05:21→22:07)
[2018-06-17] MEDS ORDERED: BROVANA NEB ONE ×2 (07:30→20:36)
[2018-06-17] MEDS: BROVANA NEB INH SCH ×2 (07:54→20:30)
[2018-06-17 08:10] LABS: BASO# 0.06 X1000 (0.0-0.2); BASO% 0.5 % (0.0-0.8); EOS# 0.09 X1000 (0.0-0.7); EOS% 0.7 % (0.0-10.0); HEMATOCRIT 32.8 % (37.0-47.0); IMM GRAN# 0.19 X1000 (0.0-0.04); IMM GRAN% 1.5 % (0.0-0.5); LYMPH# 1.79 X1000 (1.2-3.4); MCH 26.2 PG (27-31); MCHC 30.5 g/dL (33-37); MCV 85.9 FL (81-99); MONO# 0.78 X1000 (0.11-0.59); MONO% 6.1 % (1.7-9.3); NEUT# 9.88 X1000 (1.4-6.5); NEUT% 77.2 % (42.2-75.2); PLT 253 X1000 (130-400); RBC 3.82 XMIL (4.2-5.4); RDW 16.5 % (11.5-14.5); WBC 12.79 X1000 (4.8-10.8)
[2018-06-17 08:29] LABS: AGAP 10; BUN 11 mg/dL (8-22); CALCIUM 8.4 mg/dL (8.8-10.2); CHLORIDE 105 mmol/L (98-107); COSMO 280; CREATININE 0.6 mg/dL (0.5-0.9); ESTIMATED GFR > 60; GLUCOSE 84 mg/dL (70-104); POTASSIUM 4.1 mmol/L (3.5-5.1); SODIUM 141 mmol/L (136-145); TCO2 26 mmol/L (25-35)
[2018-06-17] MEDS: PREDNISONE PO SCH (09:17)
[2018-06-17] MEDS: CELEXA PO SCH (09:17)
[2018-06-17] MEDS: PERICOLACE PO SCH ×2 (09:17→22:07)
[2018-06-17] MEDS: NICODERM PATCH TD SCH (09:17)
--- NOTE | 2018-06-17 14:48 | PROGRESS NOTE ---
DATE: 06/17/2018 SUBJECTIVE: Patient reports feeling fine, feeling a little bit nauseated. No fever or chills reported. OBJECTIVE: Vital Signs: Temperature 98.2, heart rate 92, respiratory rate 16, blood pressure 134/91. Oxygen saturation 97% on room air. General: This is a chronically ill appearing, 63-year- old female lying in bed, in no acute distress. HEENT: Head is normocephalic, atraumatic. Neck: No JVD noted. No carotid bruits. No lymphadenopathy. No thyromegaly. Cardiovascular: S1, S2 heard. No murmurs, gallops, or rubs. Regular rate and rhythm. Respiratory: Decreased breath sounds globally. No wheezing rhonchi or rales. Patient is not using any accessory muscles or having work of breathing. Abdomen: Soft, nontender to palpation. Bowel sounds present. No organomegaly. Extremities: No clubbing, cyanosis, or edema. Peripheral pulses present in both legs. Neurological: Patient is alert and oriented x3. Moves 4 extremities. LABORATORY DATA: Reviewed. ASSESSMENT AND PLAN: 1. Right lower lobe healthcare-associated pneumonia. Patient continues to be on cefepime as per Dr. Arsalan Robertson and the last blood culture that this patient has positive for serratia was on June 15. We have checked another culture today and what we are going to do is to wait at least 48 hours to see that culture is negative to consider releasing this patient from the hospital. At this time, we will follow recommendations from Dr. Robertson. 2. Chronic obstructive pulmonary disease. Patient is not having an exacerbation. We will provide breathing treatment as needed only. 3. Metastatic bony disease. Oncology following this patient. 4. Hypertension. Blood pressure is definitely much better today. We will continue with the same medications. 5. Anemia of chronic disease. Hemoglobin is 9.8. We will continue with the same management. 6. Hyponatremia resolved. 7. Disposition. I think the only thing pending is to make sure that this patient is eradicating this blood infection. We will follow recommendations from Dr. Robertson. cc: Dave Escobar MD
--- NOTE | 2018-06-17 18:46 | INFECTIOUS DISEASE PROGRESS NO ---
DATE: 06/17/2018 PRESENT ILLNESS: The patient has a serratia bacteremia. She appears to have a pneumonia also. She also has a Port-A-Cath in place. I think it is possible that the patient could have had a serratia pneumonia initially, especially in view of the fact that she is a smoker and has COPD, and then she developed a bacteremia. Another possibility, and one that I think is more likely, is that the patient could have had a serratia infection originating from the Port-A-Cath and then the lung infection was due to hematogenous seeding. MEDICATIONS: The patient is receiving cefepime and Zyvox has been discontinued. OBJECTIVE: Vital signs: Temperature is 98.2 degrees, pulse 96, respirations 16, blood pressure is 127/49. Generally this is a somewhat ill-appearing, middle-aged female. She is in no acute distress. Head, eyes, ears, nose and throat: She can hear my spoken words and see near objects. She does not have any white coating on her tongue. Neck: No meningismus. Thorax: The patient has a Port-A-Cath present on the right side. The site is not erythematous or swollen. Lungs clear to auscultation. Cardiovascular: Regular heart rate. Abdomen soft and nontender. Neurologic: The patient is alert. She can move her extremities. She is able to ambulate. There is no tremor. DIAGNOSTIC DATA: There is no new radiographic study. Chest x-ray from yesterday showed bilateral pleural effusions and atelectasis versus pneumonia in the right lower lobe. LABORATORY DATA: Today the CBC had a white count of 12,790, hemoglobin 12 and platelet count 253,000. Creatinine is 0.6. GFR is greater than 60. ASSESSMENT AND PLAN: 1. The patient has a serratia bacteremia and possible pneumonia. Repeat blood cultures have been drawn today. If the repeat blood cultures remain positive, then I think the Port-A-Cath will have to come out. If the repeat blood cultures are negative, I think it would be reasonable to treat her for 14 days with ceftazidime and then stop, and see if the infection recurs. If it does recur, then the patient definitely would need to have the Port-A-Cath removed. 2. Comorbidities: She has lung cancer and she is a cigarette smoker. cc: Arsalan Robertson MD
[2018-06-18] MEDS: DUONEB (A & A) INH SCH ×4 (03:30→21:00)
[2018-06-18] MEDS: DILAUDID-HP 30 MG in NS 27 ML IV PRN ×4 (04:05→21:21)
[2018-06-18] MEDS: MAXIPIME 2 GM in NS 100 ML IV SCH ×3 (04:15→18:30)
[2018-06-18] MEDS ORDERED: BROVANA NEB ONE (07:18)
[2018-06-18 08:09] LABS: BASO# 0.04 X1000 (0.0-0.2); BASO% 0.4 % (0.0-0.8); EOS# 0.14 X1000 (0.0-0.7); EOS% 1.3 % (0.0-10.0); HEMATOCRIT 31.4 % (37.0-47.0); HEMOGLOBIN 9.3 g/dL (12.0-16.0); IMM GRAN# 0.19 X1000 (0.0-0.04); IMM GRAN% 1.8 % (0.0-0.5); LYMPH# 1.44 X1000 (1.2-3.4); LYMPH% 13.3 % (20.5-51.1); MCH 25.8 PG (27-31); MCHC 29.6 g/dL (33-37); MCV 87.2 FL (81-99); MONO# 0.73 X1000 (0.11-0.59); MONO% 6.8 % (1.7-9.3); MPV 9.8 FL (7.4-10.4); NEUT# 8.25 X1000 (1.4-6.5); NEUT% 76.4 % (42.2-75.2); PLT 222 X1000 (130-400); RDW 16.6 % (11.5-14.5); WBC 10.79 X1000 (4.8-10.8)
[2018-06-18] MEDS: PERICOLACE PO SCH ×2 (08:40→20:16)
[2018-06-18] MEDS: CELEXA PO SCH (08:40)
[2018-06-18] MEDS: MIRALAX PO SCH ×2 (08:40→20:16)
[2018-06-18] MEDS: NICODERM PATCH TD SCH (08:40)
[2018-06-18 09:03] LABS: AGAP 8; BUN 11 mg/dL (8-22); CALCIUM 8.6 mg/dL (8.8-10.2); CHLORIDE 103 mmol/L (98-107); COSMO 283; CREATININE 0.6 mg/dL (0.5-0.9); ESTIMATED GFR > 60; GLUCOSE 138 mg/dL (70-104); POTASSIUM 3.8 mmol/L (3.5-5.1); SODIUM 141 mmol/L (136-145); TCO2 30 mmol/L (25-35)
[2018-06-18] MEDS: BROVANA NEB INH SCH ×2 (09:37→21:00)
--- NOTE | 2018-06-18 15:47 | PROGRESS NOTE ---
DATE: 06/18/2018 SUBJECTIVE: Patient reports feeling fine. Denies any nausea or vomiting today. OBJECTIVE: Vital Signs: Temperature 97.7 degrees, heart rate 81, respiratory rate 19, blood pressure 149/62. O2 saturation 97% on room air. General: This is a chronically ill-looking, 63- year-old female lying in bed, in no acute distress. Cardiovascular: S1, S2 heard. No murmurs, gallops, or rubs. Regular rate and rhythm. Respiratory: Decreased breath sounds globally. No wheezing or rhonchi or rales noted. Patient is not using any accessory muscles or having work of breathing. Abdomen: Soft, nontender to palpation. Bowel sounds present. No organomegaly. Extremities: No clubbing, cyanosis, or edema. Peripheral pulses present in both legs. Neurological: Patient is alert and oriented x3. Moves 4 extremities. LABORATORY DATA: Reviewed. Blood culture has been drawn yesterday and today. ASSESSMENT AND PLAN: 1. Right lower lobe healthcare associated pneumonia. Patient is on cefepime. Today is day #4 of treatment. We will continue with the same management. There has been two set of cultures checked today and yesterday that in case those turns out to be negative on Thursday, the patient can be sent home with IV antibiotics. Dr. Robertson from Infectious Disease following this patient. 2. Chronic obstructive pulmonary disease. The patient is not having any exacerbation. We will continue with breathing treatment as needed only. 3. Metastatic bony disease. Stable. 4. Hypertension. Blood pressure is under control. We will continue with the same medications. 5. Anemia of chronic disease. Hemoglobin is stable. We will continue to monitor. 6. Disposition I think we will keep this patient over the weekend on Thursday. If blood cultures are normal, then we can discharge this patient. cc: Dave Escobar MD
[2018-06-18] MEDS: LR 1,000 ML IV SCH (16:21)
[2018-06-18] MEDS: LOVENOX SUBQ SCH (20:16)
--- NOTE | 2018-06-18 21:17 | INFECTIOUS DISEASE PROGRESS NO ---
DATE: 06/18/2018 PRESENT ILLNESS: Ms. Georges is being treated for Serratia bacteremia. There is also a possible right lower lobe pneumonia, as well as a Port-A-Cath in place, either of which could be the origin of her bacteremia. MEDICATIONS: She is receiving cefepime 2 g IV every 8 hours. PHYSICAL EXAMINATION: Vital Signs: Temperature is 97.7 degrees, pulse rate 90 , respiratory rate 16, blood pressure 152/72, O2 saturations 95% on room air. General: This is a chronically ill- appearing, middle-aged female. She is sitting up in bed, in no acute distress. HEENT: Atraumatic, normocephalic. Oral mucous membranes are pink and moist. Conjunctivae are pale. Neck: Supple. Trachea is midline. Cardiovascular: Heart rate is regular. There is a 1+ pretibial edema bilaterally. Respiratory: Lung sounds are clear in the upper lobes, diminished in the bases. Abdomen: Soft, round, and nontender. Bowel sounds are active. Neurologic: She is awake, alert, oriented, and able to move around without difficulty. Integumentary: She has a Port-A-Cath in place to the right chest. The site has no edema, erythema, or drainage noted. LABORATORY AND X-RAY: Today, her white count is 10.79, hemoglobin 9.3, platelet count 222,000. Creatinine is 0.6. Estimated GFR is greater than 60. Blood cultures have been positive for Serratia marcescens. There was a previous Staph epi in 1/2 cultures, which is a contaminant. No imaging reports today. ASSESSMENT AND PLAN: Ms. Georges has a Serratia bacteremia, and a possible pneumonia. There are 2 sets of blood cultures which are pending. The plan will be to continue the cefepime as ordered for now. The first day of treatment will be the first day of negative blood cultures. If the cultures continue to be positive, she may end up having to have her Port-A-Cath removed again, as she has had done in the past. These plans have been discussed with and recommended by Dr. Robertson. COMORBIDITIES: Cigarette smoking, COPD, and metastatic lung cancer. Dictated by RAMILA Thakur for Arsalan Robertson MD This chart was documented by, RAMILA Thakur and accurately reflects the services performed, treatment plan and medical decisions as attested by the providers signature Arsalan Robertson MD. cc: Arsalan Robertson MD MTDD
[2018-06-19] MEDS: LOVENOX SUBQ SCH ×2 (02:01→20:54)
[2018-06-19] MEDS: MAXIPIME 2 GM in NS 100 ML IV SCH ×3 (02:12→18:16)
[2018-06-19] MEDS: DILAUDID-HP 30 MG in NS 27 ML IV PRN ×2 (02:42→10:50)
[2018-06-19] MEDS: DUONEB (A & A) INH SCH ×4 (04:31→22:00)
[2018-06-19] MEDS: LR 1,000 ML IV SCH (06:08)
[2018-06-19 07:19] LABS: BASO# 0.02 X1000 (0.0-0.2); BASO% 0.2 % (0.0-0.8); EOS# 0.36 X1000 (0.0-0.7); EOS% 3.6 % (0.0-10.0); HEMATOCRIT 31.2 % (37.0-47.0); HEMOGLOBIN 9.3 g/dL (12.0-16.0); IMM GRAN# 0.21 X1000 (0.0-0.04); IMM GRAN% 2.1 % (0.0-0.5); LYMPH# 1.31 X1000 (1.2-3.4); LYMPH% 13.2 % (20.5-51.1); MCH 25.6 PG (27-31); MCHC 29.8 g/dL (33-37); MONO# 0.55 X1000 (0.11-0.59); MONO% 5.6 % (1.7-9.3); NEUT# 7.45 X1000 (1.4-6.5); NEUT% 75.3 % (42.2-75.2); PLT 235 X1000 (130-400); RBC 3.63 XMIL (4.2-5.4); RDW 16.9 % (11.5-14.5)
[2018-06-19 07:41] LABS: AGAP 8; BUN 11 mg/dL (8-22); CALCIUM 8.6 mg/dL (8.8-10.2); CHLORIDE 101 mmol/L (98-107); COSMO 276; CREATININE 0.5 mg/dL (0.5-0.9); ESTIMATED GFR > 60; GLUCOSE 80 mg/dL (70-104); POTASSIUM 4.3 mmol/L (3.5-5.1); SODIUM 139 mmol/L (136-145); TCO2 30 mmol/L (25-35)
[2018-06-19] MEDS: BROVANA NEB INH SCH ×2 (07:45→20:01)
[2018-06-19] MEDS: NICODERM PATCH TD SCH (09:29)
[2018-06-19] MEDS: PERICOLACE PO SCH ×2 (09:29→20:54)
[2018-06-19] MEDS: MIRALAX PO SCH ×2 (09:30→20:53)
[2018-06-19] MEDS: CELEXA PO SCH (09:30)
[2018-06-19] MEDS ORDERED: DILAUDID-HP 30 MG in NS 27 ML IV PRN (11:00)
--- NOTE | 2018-06-19 14:29 | PROGRESS NOTE ---
DATE: 06/19/2018 SUBJECTIVE: The patient reports feeling fine. Denies any fever or chills. She actually reports feeling somehow with general malaise but no other complaints reported. OBJECTIVE: Vital Signs: Temperature 98.4 degrees, heart rate 92, respiratory rate 18, blood pressure 143/76, O2 saturation 94% on room air. General Examination: This is a chronically ill- appearing, 63-year-old female looking older than her stated age, lying in bed, in no acute distress. HEENT: Head is normocephalic, atraumatic. Neck: No JVD noted. No carotid bruits. No lymphadenopathy. Cardiovascular: S2 heard. No murmurs, gallops, or rubs. Regular rate and rhythm. Respiratory: Clear bilaterally to auscultation. No work of breathing or using accessory muscles. Abdomen: Soft, nontender to palpation. Bowel sounds present. No organomegaly. Extremities: No clubbing, cyanosis, or edema. Peripheral pulses present in both legs. Neurological: The patient is alert and oriented x3. Moves 4 extremities. LABORATORY DATA: Repeat BUN and blood cultures from day before yesterday are positive for gram negative. ASSESSMENT AND PLAN: 1. Right lower lobe associated pneumonia. Patient continues to be on cefepime today is day #4 of that medication. Blood culture from yesterday positive for gram-negative. At this point, we will leave the decision to change antibiotics to Dr. Robertson. At this point, considering that she is afebrile and no other complaints, we will continue with the same management. 2. COPD. Patient is not having any exacerbation. We will continue with same medications, in this case breathing treatment. 3. Metastatic bony disease, stable, not complaining of any pain at this point. 4. Hypertension. Blood pressure is under control. Continue with the same medication. 5. Anemia of chronic disease. Hemoglobin is stable. We will continue to monitor CBC. 6. Disposition. At this point, we will keep this patient in the hospital over the weekend and on Thursday, we will repeat a urine culture and blood cultures and will go from there. cc: Dave Escobar MD
[2018-06-19 22:36] LABS: URINE SOURCE CLEAN CATCH
[2018-06-19] MEDS: MERREM 1 GM in NS 50 ML IV SCH (23:07)
[2018-06-19 23:12] LABS: BILIRUBIN URINE NEGATIVE (NEGATIVE); BLOOD URINE TRACE (NEGATIVE); COLOR YELLOW; GLUCOSE URINE NEGATIVE (NEGATIVE); KETONE URINE NEGATIVE (NEGATIVE); LEUKOCYTES URINE NEGATIVE (NEGATIVE); NITRITE URINE NEGATIVE (NEGATIVE); PROTEIN URINE TRACE mg/dL (NEGATIVE); SP GRAVITY URINE 1.002; TURBIDITY URINE CLEAR (CLEAR); UROBILINOGEN URINE NORMAL (NORMAL)
[2018-06-19 23:13] LABS: UR EPITHELIAL CELLS <10 /HPF (<10); URINE BACTERIA NEGATIVE /HPF; URINE RBC <10 /HPF (<10); URINE WBC <10 /HPF (<10)
[2018-06-20] MEDS: LOVENOX SUBQ SCH ×2 (00:05→22:59)
[2018-06-20] MEDS: MAXIPIME 2 GM in NS 100 ML IV SCH (02:49)
[2018-06-20] MEDS: DUONEB (A & A) INH SCH ×5 (04:25→20:37)
[2018-06-20] MEDS: MERREM 1 GM in NS 50 ML IV SCH ×3 (05:35→20:19)
[2018-06-20] MEDS: ZOFRAN IV PRN ×3 (05:35→16:34)
[2018-06-20] MEDS: LR 1,000 ML IV SCH ×3 (05:41→07:37)
[2018-06-20 07:16] LABS: BASO# 0.04 X1000 (0.0-0.2); BASO% 0.3 % (0.0-0.8); EOS# 0.29 X1000 (0.0-0.7); EOS% 2.4 % (0.0-10.0); HEMATOCRIT 31.9 % (37.0-47.0); HEMOGLOBIN 9.9 g/dL (12.0-16.0); IMM GRAN# 0.21 X1000 (0.0-0.04); IMM GRAN% 1.7 % (0.0-0.5); LYMPH# 0.92 X1000 (1.2-3.4); LYMPH% 7.5 % (20.5-51.1); MCV 83.7 FL (81-99); MONO# 0.73 X1000 (0.11-0.59); MONO% 5.9 % (1.7-9.3); MPV 10.2 FL (7.4-10.4); NEUT# 10.15 X1000 (1.4-6.5); NEUT% 82.2 % (42.2-75.2); PLT 218 X1000 (130-400); RBC 3.81 XMIL (4.2-5.4); WBC 12.34 X1000 (4.8-10.8)
[2018-06-20] MEDS: BROVANA NEB INH SCH ×2 (07:33→20:36)
[2018-06-20] MEDS ORDERED: DUONEB (A & A) ONE (07:38)
[2018-06-20] MEDS ORDERED: BROVANA NEB ONE (07:38)
[2018-06-20 07:43] LABS: AGAP 9; BUN 9 mg/dL (8-22); CALCIUM 8.3 mg/dL (8.8-10.2); CHLORIDE 96 mmol/L (98-107); COSMO 266; CREATININE 0.5 mg/dL (0.5-0.9); ESTIMATED GFR > 60; GLUCOSE 80 mg/dL (70-104); POTASSIUM 3.7 mmol/L (3.5-5.1); SODIUM 134 mmol/L (136-145); TCO2 29 mmol/L (25-35)
[2018-06-20] MEDS: MIRALAX PO SCH ×3 (08:49→21:02)
[2018-06-20] MEDS: NICODERM PATCH TD SCH (08:50)
[2018-06-20] MEDS: CELEXA PO SCH (08:50)
[2018-06-20] MEDS: PERICOLACE PO SCH ×4 (08:50→21:00)
[2018-06-20] MEDS ORDERED: VANCOMYCIN IV PER PHARMACY MISC SCH (09:00)
[2018-06-20] MEDS: PHENERGAN IV PRN (09:01)
[2018-06-20] MEDS: SODIUM CHLORIDE 0.9% INJ PRN (09:01)
--- NOTE | 2018-06-20 10:20 | PROGRESS NOTE ---
DATE: 06/20/2018 SUBJECTIVE: Patient reports not feeling good. She started spiking fever and feeling more nauseated, having chills and fever as well. OBJECTIVE: Vital Signs: Temperature 100.4 degrees, heart rate 103, respiratory rate 18, blood pressure 156/66, O2 saturation 100% 2 L nasal cannula. General: This is a chronically ill- appearing, 63-year-old female looking older than her stated age, lying in bed in no acute distress. HEENT: Head is normocephalic, atraumatic. Neck: No JVD noted. No carotid bruits. No lymphadenopathy. No thyromegaly. Cardiovascular: S1, S2 heard. No murmurs, gallops, or rubs. Regular rate and rhythm. Respiratory: Minimal coarse breath sounds in both pulmonary bases. Patient not using any accessory muscles or having work of breathing. Abdomen: Soft, nontender to palpation. Bowel sounds present. No organomegaly. Extremities: No clubbing, cyanosis, or edema. Peripheral pulses present in both legs. Neurological: Patient is a little bit sleepy today, but responds to verbal stimuli. Moves 4 extremities. LABORATORY DATA: White cell count is 12.34, hemoglobin 9.9, hematocrit 31.9, platelets 218,000 with BMP remarkable for sodium 134, chloride 96. ASSESSMENT AND PLAN: 1. Persistent gram-negative bacteremia. Patient has had blood cultures drawn on June 13, June 15, June 17 and June 18, all of them positive for gram-negative bacteria. The 1st that we have isolated was the Serratia marcescens. From 06/17. 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 Considering that she is having fever, chills and elevation of white cell count with persistent bacteremia, I prefer to start broad-spectrum antibiotics with vancomycin and meropenem. We do not have any evidence of gram-positive infection, but considering that it is Thursday and Dr. Robertson not available, we will start those medications and we will wait for Dr. Robertson from Infectious Disease to see. We may need to do further adjustments to antibiotic therapy. Another blood culture has been drawn. The patient reports feeling some burning on urination, but the urine culture is pending at the time of dictation. We will continue with the plan outlined above. 2. Right lower lobe healthcare-associated pneumonia. We will continue with vancomycin and meropenem. Dr. Robertson will be following this patient tomorrow. 3. Chronic obstructive pulmonary disease. Patient is not on any exacerbation. Not having any shortness of breath. We will continue to monitor this patient. 4. Metastatic bony disease. Stable. Not complaining of pain at this time. 5. Hypertension. Blood pressure is under control. We will continue with the same medications. 6. Anemia of chronic disease. Hemoglobin is stable. We will continue to monitor CBC. 7. Disposition. We will transfer this patient to [facility] for better monitoring. cc: Dave Escobar MD
[2018-06-20] MEDS: LEVAQUIN 500 MG/D5W 500 MG/100 ML IVPB IV SCH (12:12)
--- NOTE | 2018-06-20 13:27 | INFECTIOUS DISEASE PROGRESS NO ---
DATE: 06/20/2018 PRESENT ILLNESS: The patient is being treated for a Serratia bacteremia, and most recently blood cultures now are growing Burkholderia. I agree with Dr. Estrada that most likely the bacteremias coming from the patient's Port-A-Cath. The patient also is complaining of abdominal pain, the exact etiology of which is uncertain to me. RECOMMENDATIONS: I agree with Dr. Estrada that the Port-A-Cath has to be removed. I have put in a consult for Dr. Govea to remove the Port-A-Cath in view of the fact that the patient has had a Serratia bacteremia and now a Burkholderia bacteremia. I have discontinued Zyvox and meropenem, and instead I put the patient on Levaquin which covers both Serratia and Burkholderia organisms. PHYSICAL EXAMINATION: Vital Signs: Temperature is 100.4 degrees, pulse is 103, respirations 18, blood pressure 156/56. General: This is an ill-appearing middle-aged female. She does not seem to be in acute distress. Head, eyes, ears, nose, and throat: She can hear my spoken words and see near objects. She does not have any white coating on her tongue. Neck: No meningismus patient has a Port-A-Cath on the right side. The site is not swollen or erythematous. Lungs: Clear to auscultation. Cardiovascular: Heart rate is regular. Abdomen: The abdomen is soft, and it is tender, but there is no guarding. Neurologic: The patient is awake. She can move her extremities. There is no tremor. DIAGNOSTIC STUDIES: The patient's newest blood culture as mentioned above is growing Burkholderia. The patient is creatinine is 0.5, GFR is greater than 60. CBC shows a white count of 12,370, hemoglobin 9.9, and platelet count 218,000. Urinalysis shows no white cells or bacteria. Urine culture is negative. Dr. Mitchell has ordered CT scan of the chest, abdomen, and pelvis with which I agree. ASSESSMENT AND PLAN: The patient is having bacteremia. It looks like it is coming from an infected [id number],and I have put in a consult for Surgery to remove the Port-A-Cath. PATIENT'S COMORBIDITIES: 1. She has lung cancer. 2. She is a cigarette smoker. cc: Arsalan Robertson MD
[2018-06-20] MEDS: VANCOMYCIN 1 GM/NS 1 GM/250 ML IVPB IV SCH (13:33)
[2018-06-20] MEDS ORDERED: NS 1,000 ML IV ONE (15:17)
[2018-06-20] MEDS ORDERED: NS 1,000 ML ONE (15:27)
[2018-06-20 15:43] LABS: ALLEN TEST YES; BE 6.6 mmoll (-3.0-3.0); BLOOD TYPE ARTERIAL; HCO3-(ACT) 29.9 mmoll (20.0-26.0); METHB 1.7 % (0.0-1.5); O2(CT) 12.9 mL/dL (15.0-23.0); PCO2(98.6) 40 mmHg (35-45); PO2(98.6) 60 mmHg (60-100); SAMPLE BLOOD; SAO2 93.7 % (95.0-100.0); THB 10.2 g/dL (11.5-17.4); pH(98.6) 7.49 (7.35-7.45)
[2018-06-20 15:47] LABS: MODALITY CANNULA; O2HB 89.9 % (95.0-99.0)
[2018-06-20] MEDS: TYLENOL PO PRN (17:06)
[2018-06-20] MEDS: NS 1,000 ML IV SCH ×3 (17:10→23:02)
[2018-06-20] MEDS ORDERED: LEVOPHED 8 MG in D5 1/2 NS 250 ML IV SCH (17:59)
[2018-06-20] MEDS ORDERED: OFIRMEV 1000 MG/ISOTONIC SOLN 1,000 MG/100 ML BOTTLE IV PRN (18:21)
--- NOTE | 2018-06-20 18:29 | Diag Imaging Result Doc PS360 ---
EXAM: CT THORAX/ABD/PELVIS W/CON INDICATION: persistent gram negative bacteremia TECHNIQUE: This exam was performed using automated exposure control, adjustment of mA or kV according to patient size, and/or use of iterative reconstruction technique. COMPARISON: CT abdomen and pelvis dated 06/13/[address] chest, abdomen, and pelvis dated 04/28/2013 FINDINGS: CHEST: There are bilateral moderate-sized pleural effusions and bibasilar atelectasis. There is diffuse moderate pulmonary emphysema. There are several dense patches of groundglass opacity involving both upper lobes suggesting nonspecific pneumonitis. Consider infectious and inflammatory etiologies. There is mild tree-in-bud opacities suggesting bronchiolitis in the left lower lobe. This is also seen on the previous abdominal CT but it is partially obscured on the current study by the superimposed atelectasis. There was a right middle lobe groundglass opacity on the previous abdominal CT, which has now resolved. There is a stable 1 cm nodule since 2013 in the right upper lobe on image 38 of series 4 that is assumed to represent a granuloma. The thyroid is heterogeneous with coarse calcifications and a low dense nodule in the right, nonspecific but statistically most likely multinodular goiter. There are calcified mediastinal lymph nodes indicating prior granulomatous disease. There are other mildly prominent noncalcified mediastinal lymph nodes that are probably reactive. ABDOMEN/PELVIS: The liver is stable. The small low dense foci in the inferior right hepatic lobe are unchanged. There is extremely vague low dense splenic foci seen on the previous study are stable. The pancreas is atrophic but stable. There is stable adrenal thickening. There is stable renal cortical scarring at the inferior aspect of the left kidney and there are several stable renal cysts bilaterally. The urinary bladder is nondistended and is grossly unremarkable, otherwise. There is a 3.6 cm left ovarian cyst that is approximately stable. The reproductive tract is grossly unremarkable as imaged, otherwise. The appendix is normal. The remainder of the GI tract is essentially unremarkable. There is less stool in the colon as compared to the previous study. There is now trace fluid in the pericolic gutters and in the pelvis. It is nonspecific. No free abdominal gas is identified. IMPRESSION: 1.Patchy groundglass infiltrates seen in both upper lobes and mild tree-in-bud opacities in the left lower lobe as detailed above. 2.Bilateral moderate-sized pleural effusions and bibasilar atelectasis. 3.Moderate pulmonary emphysema. 4.Development of trace fluid along the paracolic gutters and layering in the pelvis. 5.Improvement of constipation as compared to the previous study. 6.The abdomen and pelvis are essentially stable as compared to the recent prior study, otherwise. Electronically signed by Abhay Baer 06/20/2018 6:27 PM
[2018-06-20 18:54] LABS: URINE SOURCE CATH
[2018-06-20 18:57] LABS: BILIRUBIN URINE NEGATIVE (NEGATIVE); BLOOD URINE MODERATE (NEGATIVE); COLOR YELLOW; GLUCOSE URINE NEGATIVE (NEGATIVE); KETONE URINE 10 mg/dL (NEGATIVE); LEUKOCYTES URINE NEGATIVE (NEGATIVE); NITRITE URINE NEGATIVE (NEGATIVE); PROTEIN URINE 70 mg/dL (NEGATIVE); SP GRAVITY URINE > 1.050; TURBIDITY URINE CLEAR (CLEAR); UROBILINOGEN URINE NORMAL (NORMAL)
[2018-06-20 18:59] LABS: UR EPITHELIAL CELLS >10 /HPF (<10); URINE BACTERIA NEGATIVE /HPF; URINE RBC 20-40 /HPF (<10); URINE WBC <10 /HPF (<10)
[2018-06-20] MEDS: ATIVAN IV PRN ×2 (19:01→22:59)
[2018-06-20 19:13] LABS: URINE CASTS NONE SEEN; URINE CRYSTALS NONE SEEN; URINE SMALL ROUND CELLS NONE SEEN; URINE YEAST PRESENT
[2018-06-20] MEDS: DILAUDID IV PRN (20:52)
[2018-06-21] MEDS: DILAUDID IV PRN ×4 (00:07→14:58)
[2018-06-21] MEDS: VANCOMYCIN 1 GM/NS 1 GM/250 ML IVPB IV SCH (00:15)
[2018-06-21 04:36] LABS: BASO# 0.04 X1000 (0.0-0.2); BASO% 0.3 % (0.0-0.8); EOS# 0.14 X1000 (0.0-0.7); EOS% 1.2 % (0.0-10.0); HEMATOCRIT 29.7 % (37.0-47.0); HEMOGLOBIN 9.4 g/dL (12.0-16.0); IMM GRAN# 0.12 X1000 (0.0-0.04); LYMPH# 1.29 X1000 (1.2-3.4); LYMPH% 11.3 % (20.5-51.1); MCHC 31.6 g/dL (33-37); MCV 82.3 FL (81-99); MONO# 1.02 X1000 (0.11-0.59); MONO% 8.9 % (1.7-9.3); MPV 9.8 FL (7.4-10.4); NEUT# 8.84 X1000 (1.4-6.5); NEUT% 77.3 % (42.2-75.2); PLT 186 X1000 (130-400); RBC 3.61 XMIL (4.2-5.4); RDW 16.9 % (11.5-14.5); WBC 11.45 X1000 (4.8-10.8)
[2018-06-21] MEDS: MERREM 1 GM in NS 50 ML IV SCH (04:48)
[2018-06-21] MEDS: DUONEB (A & A) INH SCH ×4 (04:49→22:43)
[2018-06-21 04:59] LABS: AGAP 11; BUN 10 mg/dL (8-22); CALCIUM 7.6 mg/dL (8.8-10.2); CHLORIDE 103 mmol/L (98-107); COSMO 279; CREATININE 0.7 mg/dL (0.5-0.9); ESTIMATED GFR > 60; GLUCOSE 100 mg/dL (70-104); POTASSIUM 3.4 mmol/L (3.5-5.1); SODIUM 140 mmol/L (136-145); TCO2 26 mmol/L (25-35)
[2018-06-21] MEDS: NS 1,000 ML IV SCH ×3 (06:29→22:38)
[2018-06-21] MEDS: ATIVAN IV PRN ×2 (06:44→14:58)
[2018-06-21] MEDS: PERICOLACE PO SCH ×2 (08:16→20:17)
[2018-06-21] MEDS: MIRALAX PO SCH ×2 (08:16→20:17)
[2018-06-21] MEDS: NICODERM PATCH TD SCH (08:20)
--- NOTE | 2018-06-21 08:34 | GENERAL SURGERY CONSULTATION ---
DATE: 06/21/2018 REQUESTING PHYSICIAN: Dr. Robertson. REASON FOR CONSULTATION: Consult is concerning possible infected port. HISTORY OF PRESENT ILLNESS: A 63-year-old female, well known to my group, who, my partner, Dr. Hopkins, placed a port in for lung cancer almost a month ago. She has been readmitted to the hospital for what looks like pneumonia and a productive cough since the . She has grown out Serratia and Burkholderia in her blood. Concern that this might be related to her port. I have been asked to weigh an opinion. The patient is currently in the ICU. PAST MEDICAL HISTORY: Includes: 1. Metastatic lung cancer. 2. COPD. 3. Hypertension. 4. History of pneumonia. PAST SURGICAL HISTORY: Includes: 1. Previous port placement x2. 2. Lung biopsy. 3. Tubal ligation. ALLERGIES: Morphine. HOME MEDICATIONS: MAR Reviewed. FAMILY HISTORY: Positive for prostate cancer, diabetes, heart disease. SOCIAL HISTORY: Current smoker. REVIEW OF SYSTEMS: A full 10 point review of systems was obtained and negative as specified in the HPI. PHYSICAL EXAMINATION: Vital Signs: The patient is currently afebrile. Her vital signs are stable. General Examination: No acute distress. Alert, interactive, female. Looks older than stated age. HEENT: Normocephalic, atraumatic. Pupils equal, round, reactive to light. Mucous membranes moist. Oropharynx benign. Neck: Supple. Trachea midline. Cardiovascular: Regular rate and rhythm. Lungs: Some coarse sounds noted. Chest: Chest wall port site noted. It does not look erythematous. Abdomen: Soft, nontender, nondistended. Extremities: Moves all extremities. Neurologic: Grossly intact. Skin: No signs of jaundice or erythema. Vascular: All extremities perfused. LABORATORY: White blood cell count today is 11, hematocrit 29, platelet count 186,000. Remainder of labs reviewed. Microbiology as noted above. ASSESSMENT AND PLAN: A 63-year-old female with possible infected port. Infected port. At this time, she likely needs it removed. It was placed by my partner, Dr. Hopkins. I will discuss with him if he can remove it based off his schedule today or if I need to remove it. I have made her nothing per oral. We will try to have an answer by this morning. cc: Urbano Govea MD
--- NOTE | 2018-06-21 09:17 | PROGRESS NOTE ---
DATE: 06/21/2018 SUBJECTIVE: The patient is definitely more awake today. No other issues noted as per nursing staff overnight. OBJECTIVE: Vital Signs: Temperature 97.6 degrees, heart rate 94, respiratory rate 17, blood pressure 134/62, O2 saturation 100% on 2 L nasal cannula. General: This is a chronically ill- looking, 63-year-old, female, lying in bed in no acute distress. HEENT: Head is normocephalic, atraumatic. Neck: No JVD noted. No carotid bruits. No lymphadenopathy. No thyromegaly. Cardiovascular: S1, S2 heard. No murmurs, gallops, or rubs. Regular rate and rhythm. Respiratory: Minimal coarse breath sounds in both pulmonary bases. The patient is not using any accessory muscles or having work of breathing. Abdomen: Soft, nontender to palpation. Bowel sounds present. No organomegaly. Extremities: No clubbing, cyanosis, or edema. Peripheral pulses present in both legs. Neurological: The patient is alert, awake, moves all 4 extremities. LABORATORY DATA: White cell count 11.45, hemoglobin 9.4, hematocrit 29.7, platelets 186,000. BMP remarkable for potassium 3.4. ASSESSMENT AND PLAN: 1. Persistent gram-negative bacteremia. Yesterday, the patient started spiking fever. The high that we have documented was 102.4, and she was started on vancomycin and meropenem. All blood cultures, except one have been positive for gram-negative bacteria. We first have isolated Serratia marcescens. Last 2 blood cultures we have isolated Burkholderia cepacia. Plan is to remove the port that definitely is infected. General Surgery has been consulted. Dr. Robertson from Infectious Disease is following this patient and putting this patient on Levaquin, and will follow recommendations. 2. Right lower lobe healthcare-associated pneumonia. The patient is on antibiotics as above. Dr. Robertson following. 3. Chronic obstructive pulmonary disease. The patient is not in exacerbation. No shortness of breath. Will continue to monitor this patient closely, and provide breathing treatment as needed only. 4. Metastatic bony disease, stable, not complaining of any pain at this time. 5. Hypertension. Blood pressure is under control. Will continue with the same medications. 6. Anemia of chronic disease. Hemoglobin is stable. Will continue to monitor. 7. Disposition. At this point, after she has Porth a cath removed, she can be transferred to a normal room. The reason why she is in the unit is because blood pressure was trending down. We did think this patient may need vasopressors, but those were never started. Also, the patient was having encephalopathy because of this infection, but it is resolved as well. cc: Dave Escobar MD MTDD
[2018-06-21] MEDS: BROVANA NEB INH SCH ×2 (09:33→19:40)
[2018-06-21] MEDS ORDERED: BROVANA NEB ONE ×2 (09:34→19:16)
--- NOTE | 2018-06-21 10:26 | INFECTIOUS DISEASE PROGRESS NO ---
DATE: 06/21/2018 PRESENT ILLNESS: The patient is being treated for a Serratia and Burkholderia bacteremias. Both of the organisms most likely have originated from the patient's Port-A-Cath. The patient also had abdominal pain, but on CT scan about the only finding was that the patient has constipation. MEDICATIONS: The medication the patient currently is on Levaquin for the patient's bacteremias. PHYSICAL EXAMINATION: Vital Signs: Temperature is 97.6 degrees, pulse 100, respirations 18, blood pressure 117/59. General: This is an ill-appearing middle-aged female. She is lethargic currently. Head, Eyes, Ears, Nose and Throat: No drainage noted from the nose or ears. Neck: No meningismus. Lungs: Clear to auscultation. Thorax: The patient's Port-a-cath is in place. There is no swelling or erythema. Cardiovascular: Heart rate is regular. Abdomen: Soft and not tender. Neurologic: As mentioned above, the patient is very lethargic currently. There is no tremor. LAB AND X-RAY: CBC shows a white count of 11,450, hemoglobin 9.4, and platelet count 186,000. Creatinine is 0.7, GFR is greater than 60. The CT scan of the chest shows bilateral upper lung infiltrates and bibasilar pleural effusions and atelectasis. The CT scan of the abdomen and pelvis as mentioned above showed improvement in the patient's constipation. ASSESSMENT AND PLAN: The patient has a Serratia and Burkholderia bacteremias which are felt to originate from the Port-A-Cath and the patient is scheduled today to have the Port-A-Cath removed. I plan to continue with Levaquin. COMORBIDITIES: She has lung cancer and she is a cigarette smoker. cc: Arsalan Robertson MD
[2018-06-21] MEDS: LEVAQUIN 500 MG/D5W 500 MG/100 ML IVPB IV SCH (11:20)
[2018-06-21] MEDS: ZOFRAN IV PRN ×2 (13:11→18:55)
[2018-06-21] MEDS ORDERED: BLISTEX MEDICATED BERRY LIP BALM TOP PRN (13:29)
[2018-06-21] MEDS: PHENERGAN IV PRN ×2 (14:33→23:43)
[2018-06-21] MEDS: SODIUM CHLORIDE 0.9% INJ PRN (14:33)
[2018-06-21] MEDS ORDERED: ROBINUL ONE (15:45)
[2018-06-21] MEDS ORDERED: XYLOCAINE-MPF 2% ONE (15:45)
[2018-06-21] MEDS ORDERED: FENTANYL ONE (15:46)
[2018-06-21] MEDS ORDERED: DIPRIVAN 1% ONE ×2 (15:47→16:53)
[2018-06-21] MEDS ORDERED: VERSED ONE (15:47)
[2018-06-21] MEDS ORDERED: XYLOCAINE 1%/EPI 1:100,000 ONE (16:21)
[2018-06-21] MEDS ORDERED: MARCAINE 0.5% PF ONE (16:22)
--- NOTE | 2018-06-21 17:49 | OPERATIVE NOTE ---
PROCEDURE DATE: 06/21/2018 PREOPERATIVE DIAGNOSIS: Bacteremia. POSTOPERATIVE DIAGNOSIS: Bacteremia. PROCEDURE PERFORMED: Removal of right internal jugular vein port. ESTIMATED BLOOD LOSS: Less than 5 mL. ANESTHESIA: MAC with local. INDICATIONS: This is a 61-year-old female who has a chronic indwelling port for IV pain medication at home, who presented with bacteremia, multiple organisms on repeat cultures. OPERATIVE FINDINGS: Well-encapsulated port. No gross purulence. SPECIMEN: Catheter tip was sent for culture. OPERATIVE NOTE: Risks, benefits, alternatives were discussed with the patient and she consented to the procedure. She was seen preoperatively and the surgical site was confirmed. She was taken to operating room and placed in supine position. IV anesthesia was administered with good effect. Her right neck and chest were prepped with Betadine and draped in usual fashion. After a time- out, we injected local anesthetic. We made an incision through her previous scar, incised the capsule, contained the port, and removed it, holding pressure in the neck. We then placed her in reverse Trendelenburg position and closed the deep dermis loosely with interrupted 3-0 Vicryl sutures. A gauze dressing was applied after confirming hemostasis. She tolerated this well. She was awoken and transferred to recovery. cc: Shaista Hopkins MD
[2018-06-21] MEDS: LOVENOX SUBQ SCH (21:41)
[2018-06-22] MEDS: PERCOCET-10 PO PRN ×2 (00:22→08:00)
[2018-06-22] MEDS: DUONEB (A & A) INH SCH ×4 (03:04→21:44)
[2018-06-22] MEDS: MIRALAX PO SCH ×2 (07:59→20:44)
[2018-06-22] MEDS: PERICOLACE PO SCH ×2 (07:59→20:44)
[2018-06-22] MEDS: NS 1,000 ML IV SCH ×3 (08:00→23:04)
[2018-06-22] MEDS: NICODERM PATCH TD SCH (08:01)
[2018-06-22 08:36] LABS: BASO# 0.02 X1000 (0.0-0.2); BASO% 0.2 % (0.0-0.8); EOS# 0.14 X1000 (0.0-0.7); EOS% 1.6 % (0.0-10.0); HEMATOCRIT 29.4 % (37.0-47.0); HEMOGLOBIN 9.2 g/dL (12.0-16.0); IMM GRAN# 0.08 X1000 (0.0-0.04); IMM GRAN% 0.9 % (0.0-0.5); LYMPH# 0.92 X1000 (1.2-3.4); LYMPH% 10.6 % (20.5-51.1); MCH 26.1 PG (27-31); MCHC 31.3 g/dL (33-37); MCV 83.3 FL (81-99); MONO# 0.75 X1000 (0.11-0.59); MONO% 8.7 % (1.7-9.3); MPV 9.9 FL (7.4-10.4); NEUT# 6.74 X1000 (1.4-6.5); PLT 220 X1000 (130-400); RBC 3.53 XMIL (4.2-5.4); RDW 16.8 % (11.5-14.5); WBC 8.65 X1000 (4.8-10.8)
--- NOTE | 2018-06-22 08:44 | PROGRESS NOTE ---
DATE: 06/22/2018 SUBJECTIVE: The patient is a little bit sleepier because she received Phenergan, but overall according to nursing staff she has been awake, alert. No other issues noted as per nursing staff overnight. OBJECTIVE: Vital Signs: Temperature 98.9 degrees, heart rate 109, respiratory rate 26, blood pressure 133/98, O2 saturation 94% on room air. General Examination: This is a chronically ill- looking, 63-year-old female, lying in bed in no acute distress. HEENT: Head is normocephalic, atraumatic. Neck: No JVD noted. No carotid bruits. No lymphadenopathy. No thyromegaly. Cardiovascular exam: S1, S2 heard. No murmurs, gallops, or rubs. Regular rate and rhythm. Respiratory exam: Minimal coarse breath sounds in both pulmonary bases. Patient is not using any accessory muscles or having work of breathing. Abdomen: Soft. Nontender to palpation. Bowel sounds present. No organomegaly. Extremities: No clubbing, cyanosis, or edema. Peripheral pulses present in both legs. Neurological exam: Patient is a little bit sleepier today, but responds to verbal stimuli. Moves 4 extremities spontaneously. LABORATORY DATA: White cell count 11.45, hemoglobin 9.4, hematocrit 29.7, platelets 186. Potassium 3.4. The rest of the BMP is okay. Blood cultures from June 20 shows no growth after 48 hours. There is a culture from the tip of the port that has been ordered, but of course has not resulted yet. ASSESSMENT AND PLAN: 1. Persistent gram-negative bacteremia. He was admitted to be secondary to port infection. That right internal jugular vein port has been removed by Dr. Hopkins. No obvious purulence noted. Both bacterias isolated in this case; Serratia marcescens and Burkholderia cepacia are sensitive to Levaquin. So, Dr. Robertson from Infectious Disease has placed this patient on this medication. At this point, we are going to continue with the same management. The patient is not spiking any more fever during the last 48 hours. At this point, we are going to transfer this patient to a regular floor. 2. Right lower lobe healthcare-associated pneumonia. Patient on Levaquin as we mentioned above. Infectious Disease is following. 3. Chronic obstructive pulmonary disease. The patient is not on any exacerbation. We are going to continue with the same management. 4. Metastatic bony disease from lung cancer, stable. Not complaining of any pain at this time. 5. Anemia of chronic disease. Hemoglobin is stable. We will continue to monitor complete blood count. 6. Disposition: At this point, the patient is more stable. Port-A-Cath has been removed. Blood pressure is much better. So, at this point, we are going to transfer her to a regular floor. cc: Dave Escobar MD
[2018-06-22 09:09] LABS: AGAP 13; BUN 5 mg/dL (8-22); CALCIUM 7.4 mg/dL (8.8-10.2); CHLORIDE 106 mmol/L (98-107); COSMO 277; CREATININE 0.5 mg/dL (0.5-0.9); ESTIMATED GFR > 60; GLUCOSE 107 mg/dL (70-104); POTASSIUM 2.9 mmol/L (3.5-5.1); SODIUM 140 mmol/L (136-145); TCO2 21 mmol/L (25-35)
[2018-06-22] MEDS ORDERED: BROVANA NEB ONE (09:51)
[2018-06-22] MEDS: BROVANA NEB INH SCH ×2 (10:07→21:44)
--- NOTE | 2018-06-22 10:07 | INFECTIOUS DISEASE PROGRESS NO ---
DATE: 06/21/2018 PRESENT ILLNESS: The patient is being treated for a serratia and Burkholderia bacteremias both of which most likely originated from the patient's Port-A-Cath which has also been removed. MEDICATIONS: The patient is on Levaquin as a single agent. PHYSICAL EXAMINATION: Vital Signs: Temperature is 98.4 degrees, pulse 99, respiration 19, blood pressure 169/90. General: This is a ill-appearing middle-aged female. She is a little more awake today. Head/eyes/ears/nose/throat: No drainage noted from the nose or ears. She does not have any white patches on her tongue. Neck: No stiffness. Lungs: Clear to auscultation. Cardiovascular: Heart rate is regular. Thorax: The site where the Port-A-Cath was removed is not actively bleeding and it is not swollen. Abdomen: Soft and nontender. Neurologic: The patient is awake. She can move her extremities. There is no tremor. LAB AND X-RAY: The CBC today shows a white count of 8650, hemoglobin 9.2, and platelet count 220,000, creatinine is 0.5, GFR is greater than 60. Repeat blood cultures are sterile. ASSESSMENT AND PLAN: The patient has a serratia and Burkholderia bacteremias which were felt to have originated from the Port-A-Cath and the Port-A-Cath was removed yesterday. I plan on continuing Levaquin and when the patient is ready to be discharged, I will make it p.o. COMORBIDITIES: In this patient, she has lung cancer and she is a cigarette smoker. cc: Arsalan Robertson MD
[2018-06-22] MEDS: DILAUDID IV PRN ×2 (10:52→17:42)
[2018-06-22] MEDS: LEVAQUIN 500 MG/D5W 500 MG/100 ML IVPB IV SCH (12:26)
[2018-06-22] MEDS: ATIVAN IV PRN ×2 (16:36→20:43)
[2018-06-22] MEDS ORDERED: BLISTEX MEDICATED BERRY LIP BALM TOP PRN (17:17)
[2018-06-22] MEDS: LOVENOX SUBQ SCH (20:43)
[2018-06-23] MEDS: LOVENOX SUBQ SCH (01:42)
[2018-06-23] MEDS: ATIVAN IV PRN ×3 (02:00→08:50)
[2018-06-23] MEDS: DUONEB (A & A) INH SCH ×2 (03:21→11:13)
[2018-06-23] MEDS: DILAUDID IV PRN ×3 (03:44→09:56)
[2018-06-23] MEDS: ZOFRAN IV PRN (05:21)
[2018-06-23 06:33] LABS: BASO# 0.02 X1000 (0.0-0.2); BASO% 0.3 % (0.0-0.8); EOS# 0.14 X1000 (0.0-0.7); EOS% 1.9 % (0.0-10.0); HEMATOCRIT 28.5 % (37.0-47.0); HEMOGLOBIN 8.9 g/dL (12.0-16.0); IMM GRAN# 0.05 X1000 (0.0-0.04); IMM GRAN% 0.7 % (0.0-0.5); LYMPH# 0.96 X1000 (1.2-3.4); MCH 25.9 PG (27-31); MCHC 31.2 g/dL (33-37); MCV 83.1 FL (81-99); MONO# 0.69 X1000 (0.11-0.59); MONO% 9.4 % (1.7-9.3); MPV 10.5 FL (7.4-10.4); NEUT% 74.7 % (42.2-75.2); PLT 266 X1000 (130-400); RBC 3.43 XMIL (4.2-5.4); WBC 7.36 X1000 (4.8-10.8)
[2018-06-23 06:56] LABS: AGAP 10; BUN 4 mg/dL (8-22); CALCIUM 7.7 mg/dL (8.8-10.2); CHLORIDE 106 mmol/L (98-107); COSMO 276; CREATININE 0.4 mg/dL (0.5-0.9); ESTIMATED GFR > 60; GLUCOSE 123 mg/dL (70-104); POTASSIUM 3.8 mmol/L (3.5-5.1); SODIUM 139 mmol/L (136-145); TCO2 23 mmol/L (25-35)
[2018-06-23] MEDS ORDERED: BROVANA NEB ONE (07:44)
[2018-06-23 07:56] VITALS: BP 160/73
[2018-06-23] MEDS: BROVANA NEB INH SCH (08:12)
[2018-06-23] MEDS: PERICOLACE PO SCH (08:49)
[2018-06-23] MEDS: MIRALAX PO SCH (08:49)
[2018-06-23] MEDS: NICODERM PATCH TD SCH (08:50)
[2018-06-23] MEDS: NS 1,000 ML IV SCH (08:57)
--- NOTE | 2018-06-23 11:14 | DISCHARGE SUMMARY ---
ADMISSION DATE: 06/13/2018 DISCHARGE DATE: 06/23/2018 CONSULTATIONS: 1. Dr. Molina with Hematology/Oncology. 2. Dr. Arsalan Robertson with Infectious Disease. 3. Dr. Urbano Govea with General Surgery. PERTINENT PROCEDURES: 1. Abdomen and pelvis CT, possible left lower lobe bronchopneumonia, hepatosplenomegaly, a few small low-density liver ends, splenic lesions, venous varicosities at the anterior mid and upper abdomen. Enlargement of bilateral adrenal glands, mild upper abdominal retroperitoneal adenopathy, constipation, no bowel obstruction, no abscess, and no free air. Atherosclerotic calcifications. Lumbar spine degenerative changes. Apparent 3.5 cm left ovarian cyst. 2. Chest, abdomen and pelvis CT patchy ground-glass infiltrates in both upper lobes and mild tree- in-bud opacities in the left lower lobe, bilateral moderate sized pleural effusions, and bibasilar atelectasis, moderate pulmonary emphysema, development of trace fluid along the pericolic gutters and layering in the pelvis. Improvement in constipation compared to previous study. Abdomen and pelvis are essentially stable. 3. Removal of right internal jugular vein port performed by Dr. Hopkins. DISCHARGE DIAGNOSES: 1. Serratia and Burkholderia bacteremias which most likely originated from the patient's Port-A- Cath that has since been removed. She will continue on Levaquin at discharge p.o. under the direction of Dr. Arsalan Robertson. 2. Right lower lobe healthcare associated pneumonia. The patient will continue on Levaquin improved. 3. Chronic obstructive pulmonary disease without exacerbation. 4. 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 Molina. 5. Anemia of chronic disease. Blood counts have been stable. HOSPITAL COURSE: Briefly, Chanel Georges is a 63-year-old female who carries a past medical history of metastatic lung cancer, COPD, and hypertension. She had a port placed a little over a month ago for her lung cancer. She was admitted to the hospital initially for pneumonia, and a productive cough since the . Her cultures have grown out Serratia and Burkholderia in her blood, concerned that she might have a port related infection. She was followed by Infectious Disease, Oncology, as well as General Surgery who removed her port on 06/21/2018. Antibiotics have been under the direction of Dr. Arsalan Robertson. He plans on continuing her Levaquin p.o. when she is discharged. VITAL SIGNS: At time of discharge, temperature is 98.4 degrees, heart rate 93, respirations 20, blood pressure 160/73, and O2 is 95% on room air. DISCHARGE DIET: Regular. DISCHARGE MEDICATIONS: 1. Lunesta 3 mg p.o. at bedtime. 2. Adderall 10 mg p.o. b.i.d. 3. Celexa 40 mg p.o. daily. 4. Klonopin 1 mg p.o. b.i.d. 5. Prilosec 20 mg p.o. daily p.r.n. 6. Phenergan 25 mg p.o. q.6 hours p.r.n. 7. DuoNeb 3 mL inhaled q.4 hours p.r.n. 8. Levofloxacin 500 mg p.o. daily for 14 more days. 9. NicoDerm patch 21 mg TD daily. 10. Percocet 10 one tab p.o. t.i.d. p.r.n. 11. MiraLAX 17 g p.o. daily. FOLLOWUP: Ms. Georges is being discharged back home with [facility] at discharge which she previously had. She will need to complete her full course of antibiotics. Follow up with Dr. Robertson as indicated, and continue to follow along with her oncologist Dr. Molina. She can return to the ED or call 911 for any worsening of symptoms. Dictated by RAMILA Alvarez for Dave Escobar MD Addendum: Patient seen and examined by myself. Agree with RAMILA note. It reflects my assessment and plan. Patient is being discharged in stable condition. Will be seen by Dr. Robertson in the office upon completion of oral antibiotics and with Dr. Molina, her primary oncologist, as well. cc: MD Bari Light MD Leroy F. Harris, MD Dr. Harney MTDD
--- NOTE | 2018-06-23 11:35 | INFECTIOUS DISEASE PROGRESS NO ---
DATE: 06/23/2018 PRESENT ILLNESS: The patient is being treated for Serratia and Burkholderia bacteremias, both of which originated from the patient's Port-A-Cath which subsequently has been removed. MEDICATIONS: The patient is taking Levaquin as a single agent. PHYSICAL EXAMINATION: Vital Signs: Temperature is 98.4 degrees, pulse 89, respirations 20, blood pressure 160/73. General: This is an ill-appearing, middle-aged female. She is in no acute distress. Head, Eyes, Ears, Nose, and Throat: She can hear my spoken words and see near objects. She does not have any white coating on her tongue. Neck: No meningismus. Lungs: Clear to auscultation. Cardiovascular: Heart rate is regular. Thorax: The site where the Port-A-Cath was removed is not bleeding, swollen, or tender. Abdomen: Soft and nontender. Neurologic: The patient is awake. She can move her extremities. There is no tremor. LAB AND X-RAY: The catheter tip from the Port-A-Cath that was removed is growing a gram-negative zayra. The patient's CBC shows a white count of 7360, hemoglobin 8.9, and platelet count 266,000. Creatinine is 0.4. GFR is greater than 60. On June 20, the patient had negative blood cultures. ASSESSMENT AND PLAN: The patient has the Serratia and Burkholderia bacteremias which originated from the Port-A-Cath. The Port-A-Cath has been removed and the tip, as mentioned above, is growing gram-negative rods. The patient is going to be discharged on oral Levaquin 500 mg daily for 2 weeks and I have requested the patient to come to my office in 2 weeks for a followup appointment. I have told the patient and the family member who was with her that she should not take Celexa while she is taking Levaquin. The patient said she understood and would not take it. After the Levaquin is stopped, then I told the patient she can resume her Celexa. COMORBIDITIES: The patient has lung cancer and she is a cigarette smoker. cc: Arsalan Robertson MD
[2018-06-23] MEDS: LEVAQUIN 500 MG/D5W 500 MG/100 ML IVPB IV SCH (12:39)
== END 2018-06-23 13:02 | disposition home health service (06) | DRG 314 ==
LOC: ED 16:22 → 3N 21:48 → SUATTDRO 21:48 → 3N 23:32 → 3S 06-20 11:47 → ICU 06-20 17:57 → 4N 06-22 10:08
PROVIDERS: ATTEND Internal Medicine
CPT/HCPCS: 71010; 71020; 71045; 71046; 71260; 74177; 80048; 80053; 81001; 82550; 82805; 83036; 83605; 83690; 83735; 84484; 85025; 85610; 85730; 86140; 86850; 86900; 86901; 87040; 87070; 87077; 87088; 87186; 93005; 94640; 94761; 94799; 96361; 96365; 96368; 96375; 99285; A9270; J0131; J0692; J1170; J1650; J1956; J2060; J2185; J2250; J2405; J2543; J2550; J2930; J3010; J3370; J7030; J7120; J7506; J7512; Q9967; S0020

== ENCOUNTER 2018-07-05 08:10 | Inpatient (IN) ==
[2018-07-05] MEDS ORDERED: ATIVAN ONE (08:22)
[2018-07-05] MEDS ORDERED: ATIVAN IV ONE (08:26)
--- NOTE | 2018-07-05 08:54 | Diag Imaging Result Doc PS360 ---
EXAM: CT HEAD W/O CONTRAST INDICATION: SEIZURE TECHNIQUE: This exam was performed using automated exposure control, adjustment of mA or kV according to patient size, and/or use of iterative reconstruction technique. COMPARISON: 08/03/2014 FINDINGS: There is bilateral subcortical low-attenuation involving mainly the occipital lobes bilaterally but also, to a lesser degree, the posterior parietal lobe on the right. This pattern is suggestive of posterior reversible encephalopathy syndrome (PRES), especially if there has been a recent episode of malignant hypertension. There is no discrete intracranial mass, mass effect, or intracranial hemorrhage. There is no hydrocephalus. The surrounding soft tissues and bony structures are essentially unremarkable. IMPRESSION: Subcortical low-attenuation involving the occipital lobes, and to a lesser degree, the posterior parietal lobe on the right in a pattern that is highly suggestive of posterior reversible encephalopathy syndrome. Please correlate clinically. Electronically signed by Abhay Baer 07/05/2018 8:51 AM
[2018-07-05 09:26] LABS: BASO# 0.04 X1000 (0.0-0.2); BASO% 0.3 % (0.0-0.8); EOS# 0.45 X1000 (0.0-0.7); EOS% 3.1 % (0.0-10.0); HEMATOCRIT 40.1 % (37.0-47.0); IMM GRAN# 0.09 X1000 (0.0-0.04); IMM GRAN% 0.6 % (0.0-0.5); LYMPH# 2.35 X1000 (1.2-3.4); LYMPH% 16.1 % (20.5-51.1); MCH 25.8 PG (27-31); MCHC 29.9 g/dL (33-37); MCV 86.1 FL (81-99); MONO# 1.78 X1000 (0.11-0.59); MONO% 12.2 % (1.7-9.3); MPV 9.2 FL (7.4-10.4); NEUT# 9.92 X1000 (1.4-6.5); NEUT% 67.7 % (42.2-75.2); PLT 337 X1000 (130-400); RBC 4.66 XMIL (4.2-5.4); RDW 18.2 % (11.5-14.5); WBC 14.63 X1000 (4.8-10.8)
[2018-07-05] MEDS ORDERED: NARCAN ONE (09:40)
[2018-07-05 09:43] LABS: AGAP 9; ALB/GLOB RATIO 0.9; ALBUMIN 3.2 g/dL (3.5-5.0); ALKALINE PHOSPHATASE 195 U/L (32-104); BUN 9 mg/dL (8-22); CALCIUM 8.7 mg/dL (8.8-10.2); CHLORIDE 98 mmol/L (98-107); COSMO 283; CREATININE 0.7 mg/dL (0.5-0.9); ESTIMATED GFR > 60; GLUCOSE 122 mg/dL (70-104); GOT 38 U/L (10-30); GPT 19 U/L (10-36); POTASSIUM 3.7 mmol/L (3.5-5.1); SODIUM 142 mmol/L (136-145); TCO2 35 mmol/L (25-35); TOTAL BILIRUBIN 0.49 mg/dL (0.20-1.00); TOTAL PROTEIN 6.8 g/dL (6.3-8.3)
--- NOTE | 2018-07-05 10:19 | EKG Report ---
Test Performed on : 07/05/2018 08:23:22 AM Test Reason : SEIZURE Blood Pressure : / mmHG Vent. Rate : 108 BPM Atrial Rate : 108 BPM P-R Int : 138 ms QRS Dur : 072 ms QT Int : 316 ms P-R-T Axes : 070 048 069 degrees QTc Int : 423 ms Sinus tachycardia. Otherwise normal ECG When compared with ECG of 13-JUN-2018 17:16, (Unconfirmed) No significant change was found Unconfirmed Result
[2018-07-05] MEDS ORDERED: NARCAN IV ONE ×2 (10:25→11:13)
--- NOTE | 2018-07-05 10:36 | Diag Imaging Result Doc PS360 ---
CT HEAD W/CONTRAST - 07/05/2018 INDICATION: seizure in pt with metastatic lung ca - mets? TECHNIQUE: COMPARISON: Head CT from earlier today FINDINGS: There is no visible enhancing mass. IMPRESSION: No visible enhancing mass. Brain MRI recommended, preferably without and with intravenous contrast. This exam was performed using automated exposure control, adjustment of mA or kV according to patient size, and/or use of iterative reconstruction technique Electronically signed by Cassius Carter 07/05/2018 10:33 AM
[2018-07-05 10:57] LABS: URINE SOURCE CATH
[2018-07-05 11:06] LABS: BILIRUBIN URINE NEGATIVE (NEGATIVE); BLOOD URINE MODERATE (NEGATIVE); COLOR STRAW; GLUCOSE URINE NEGATIVE (NEGATIVE); KETONE URINE NEGATIVE (NEGATIVE); LEUKOCYTES URINE NEGATIVE (NEGATIVE); NITRITE URINE NEGATIVE (NEGATIVE); PROTEIN URINE 200 mg/dL (NEGATIVE); SP GRAVITY URINE < 1.001; TURBIDITY URINE CLEAR (CLEAR); UR EPITHELIAL CELLS <10 /HPF (<10); URINE BACTERIA NEGATIVE /HPF; URINE WBC <10 /HPF (<10); UROBILINOGEN URINE NORMAL (NORMAL)
--- NOTE | 2018-07-05 11:20 | PROVIDER DOCUMENTATION ---
This chart was entered by Bree Sagastume Scribe, acting as scribe for Hermann Flores MD. HPI-Neurological Disorder - General Chief Complaint: Seizure Stated Complaint: SEIZURE Time Seen by Provider: 07/05/18 08:35 Source: family, EMS Allergies/Adverse Reactions: Patient Allergies Allergy/AdvReac Type Severity Reaction Status Date / Time morphine AdvReac ITCHING Verified 07/05/18 09:23 Home Medications: Home Medication List Medication Instructions Recorded Confirmed Last Taken Type Citalopram [Celexa] 40 mg PO DAILY MDD 40 08/02/14 07/05/18 06/13/18 09:00 History Clonazepam [Klonopin] 1 mg PO BID 08/02/14 06/13/18 06/13/18 09:00 History Eszopiclone [Lunesta] 3 mg PO QHS 08/02/14 07/05/18 06/12/18 22:00 History Omeprazole [Prilosec] 20 mg PO DAILY PRN 08/06/16 06/13/18 06/13/18 09:00 History Amphet Asp/Amphet/D-Amphet 10 mg PO BID 05/06/17 06/13/18 06/13/18 09:00 History [Adderall 10 mg Tablet] Promethazine [Phenergan] 25 mg PO Q6H PRN PRN 05/06/17 07/05/18 06/12/18 09:00 History Polyethylene Glycol 3350 [Miralax] 17 gm PO DAILY 30 Days #30 powder, 05/05/18 06/13/18 06/13/18 09:00 Rx packet Albuterol 2.5MG/Ipratrop 0.5MG 3 ml INH Q4H PRN PRN #60 neb 06/23/18 Unknown Rx [Duoneb (A & A)] Levofloxacin [Levaquin] 500 mg PO DAILY #14 tab 06/23/18 07/05/18 Unknown Rx Nicotine Patch [Nicoderm Patch] 21 mg TD DAILY patch.td24 06/23/18 Unknown Rx Oxycodone/APAP 10 mg/325 mg 1 tab PO TID PRN PRN #30 tab 06/23/18 Unknown Rx [Percocet-10] Dicyclomine [Bentyl] 20 mg PO BID 07/05/18 07/05/18 Unknown History Fluconazole 100 mg PO DAILY PRN PRN 07/05/18 07/05/18 Unknown History - History of Present Illness-Neuro Nature of Presenting Problem: Pt is 63/F presenting to ED w/ seizure like activity that happened [employer]. It is reported that this is the first episode of seizure for PT. Pt has hx of lung cancer that has turned spread to kidneys. It was reported that pt had been doing better, after being in a somewhat catatonic st for a several days. pt has dilaudid pump as well as PIC line for chemo. Onset/Duration: reports: just prior to arrival Timing: reports: gone now (pt was having seizure activity upon arrival, was given 2mg ativan and seizure activity stopped.) Context: reports: seizure activity Character of Altered Mental Status: reports: seizure activity Any recent trauma/injury?: reports: none Cognitive Baseline: alert, oriented x3 Gait Baseline: walks without assistance Associated Symptoms: reports: seizures - Seizure First time to have a seizure?: Yes Witnessed seizure?: Yes How many seizure episodes?: 2 Duration of episode? (mins): 3 Episode Frequency: no prior episodes Status Epilepticus: No Preceding symptoms/context:: other Character of Seizure: reports: generalized shaking all over Seizure related injury: none Review of Systems - Adult - REVIEW OF SYSTEMS - ADULT ROS:: limited per condition Constitutional: denies: chills, fever Past History - Adult - PAST MEDICAL HISTORY-ADULT Review of Records: reports: Old Records Reviewed, Nursing Assessment Review, Medications Reviewed, Social history reviewed & non-contributory. Major Childhood Illnesses: reports: denies history Cardiovascular: reports: HTN Respiratory: reports: asthma, COPD, cancer (Stage IV Lung ca) Gastrointestinal: reports: cancer (liver), liver disease (liver cancer) Obstetrical/Gynecological: reports: denies history Genitourinary: reports: denies history Musculoskeletal: reports: other (broken right knee) Neurological: reports: Seizures/Epilepsy Endocrine/Immune: reports: denies history, cancer (adrenal) Other Conditions: reports: other cancer (adrenal cancer) Additional History: non small cell lung ca 5 years out - PRIOR SURGERIES/PROCEDURES Surgical/Procedure History: reports: BTL, indwelling device (port insertion), other (lung biopsy) - IMMUNIZATION STATUS Childhood Immunizations: UTD Flu Vaccine: UTD - FAMILY HISTORY Family History: reviewed, not pertinent - SOCIAL HISTORY Smoking: cigarettes, less than 1 pack/day Provider spent 3-5 mins advising pt. on dangers of tobacco.: Discussed manners to quit use, and f/u contacts for add'l counseling. Substance Use: none/never, denies Alcohol Use Frequency: sober (former use) Living Situation: family Physical Exam- Neurological - Physical Exam-Neuro Initial Vital Signs Reviewed: Yes General Appearance: severe distress Eye Exam: bilateral eye: normal inspection (unable to test due to seizure activity), PERRL (as above), EOMI (as above) HENMT: normocephalic/atraumatic, moist mucous membranes, TMs normal, dental decay Head Injury: no evidence of injury Neck: non-tender, supple Respiratory: decreased breath sounds, crackles, rales, rhonchi Progress - PLAN OF CARE/RESULTS Progress/Plan/Lab Results: Vital Signs - 8 hr 07/05/18 08:18 07/05/18 08:19 07/05/18 08:47 Temperature Pulse Rate 127 H Respiratory Rate 28 H Blood Pressure 237/121 O2 Sat by Pulse Oximetry 93 L 91 L 100 07/05/18 08:48 07/05/18 08:58 07/05/18 09:00 Temperature 97.0 F L Pulse Rate 130 H 99 H 125 H Respiratory Rate 28 H 14 31 H Blood Pressure 215/106 237/121 O2 Sat by Pulse Oximetry 100 88 L 99 07/05/18 09:02 07/05/18 09:15 07/05/18 09:17 Temperature Pulse Rate 127 H 119 H 112 H Respiratory Rate 22 27 H 25 H Blood Pressure 192/94 181/91 O2 Sat by Pulse Oximetry 99 96 89 L 07/05/18 09:30 07/05/18 09:32 07/05/18 09:45 Temperature Pulse Rate 116 H 119 H 146 H Respiratory Rate 18 21 40 H Blood Pressure 187/91 O2 Sat by Pulse Oximetry 97 97 97 07/05/18 09:47 07/05/18 10:10 07/05/18 10:15 Temperature Pulse Rate 138 H 122 H 123 H Respiratory Rate 33 H 37 H 27 H Blood Pressure 185/104 201/97 O2 Sat by Pulse Oximetry 99 100 100 07/05/18 10:17 07/05/18 10:30 07/05/18 10:32 Temperature Pulse Rate 123 H 119 H 122 H Respiratory Rate 28 H 37 H 37 H Blood Pressure 181/93 182/88 O2 Sat by Pulse Oximetry 100 99 99 07/05/18 10:45 07/05/18 10:47 07/05/18 11:00 Temperature Pulse Rate 122 H 121 H 120 H Respiratory Rate 29 H 33 H 30 H Blood Pressure 165/81 O2 Sat by Pulse Oximetry 98 98 98 07/05/18 11:02 Temperature Pulse Rate 120 H Respiratory Rate 26 H Blood Pressure 161/78 O2 Sat by Pulse Oximetry 98 Laboratory Results - last 24 hr 07/05/18 07/05/18 07/05/18 08:40 08:40 08:55 WBC 14.63 H RBC 4.66 Hgb 12.0 Hct 40.1 MCV 86.1 MCH 25.8 L MCHC 29.9 L RDW Std Deviation 18.2 H Plt Count 337 MPV 9.2 Immature Gran % (Auto) 0.6 H Neut % (Auto) 67.7 Lymph % (Auto) 16.1 L [place] % (Auto) 12.2 H Eos % (Auto) 3.1 Baso % (Auto) 0.3 Immature Gran # (Auto) 0.09 H Neut # (Auto) 9.92 H Lymph # (Auto) 2.35 [place] # (Auto) 1.78 H Eos # (Auto) 0.45 Baso # (Auto) 0.04 Sodium 142 Potassium 3.7 Chloride 98 Carbon Dioxide 35 Anion Gap 9 BUN 9 Creatinine 0.7 Estimated GFR/1.73 m2 > 60 BUN/Creatinine Ratio 13 Glucose 122 H Calculated Osmolality 283 Calcium 8.7 L Total Bilirubin 0.49 AST 38 H ALT 19 Alkaline Phosphatase 195 H Total Protein 6.8 Albumin 3.2 L Globulin 3.6 Albumin/Globulin Ratio 0.9 Urine Source CATH Urine Color STRAW Urine Turbidity CLEAR Urine pH 7.0 Ur Specific Jacobson < 1.001 Urine Protein 200 A Ur Glucose (Stick) NEGATIVE Ur Ketones (Stick) NEGATIVE Urine Blood MODERATE A Urine Nitrite NEGATIVE Urine Bilirubin NEGATIVE Urobilinogen Dipstick NORMAL Urine Leukocytes NEGATIVE Urine WBC (Auto) <10 Urine RBC (Auto) 10-20 A U Epithel Cells (Auto) <10 Urine Bacteria (Auto) NEGATIVE Orders Category Date Time Status [facility] Cath Insertion ORDERED Care 07/05/18 09:[address] HEAD W/CONTRAST [CT] Stat Exams 07/05/18 09:[address] HEAD W/O CONTRAST [CT] Stat Exams 07/05/18 08:15 Completed MRA BRAIN W/O CONTRAST [MRI] Stat Exams 07/05/18 10:52 Ordered MRI BRAIN W/O CONTRAST [MRI] Stat Exams 07/05/18 10:52 Ordered BC [BLOOD CULTURE] [BLDCUL] Stat Lab 07/05/18 09:48 Results CBC WITH ELECTRONIC DIFF [HEME] Stat Lab 07/05/18 08:40 Completed COMPREHENSIVE METABOLIC PANEL [CHEM] Stat Lab 07/05/18 08:40 Completed UA NIMS W/REFLEX CULT [URINALYSIS] Stat Lab 07/05/18 08:55 Completed Lorazepam [Ativan] Med 07/05/18 08:22 Discontinued 2 mg .ROUTE .STK-MED ONE Lorazepam [Ativan] Med 07/05/18 08:26 Discontinued 2 mg IV NOW ONE Naloxone [Narcan] Med 07/05/18 09:40 Discontinued 0.4 mg .ROUTE .STK-MED ONE Naloxone [Narcan] Med 07/05/18 10:25 Discontinued 0.4 mg IV NOW ONE Naloxone [Narcan] Med 07/05/18 11:13 Discontinued 1 mg IV NOW ONE EKG [EKG] Stat Ther 07/05/18 08:26 Draft Transfer/Admit Order [TRANSFER] Routine Transfer 07/05/18 10:44 Ordered Result Diagrams: 07/05/18 08:40 07/05/18 08:40 - REASSESSMENT Reassessment #1 Time Reassessed: 09:30 Status: improving (discussed situation with his son who wants pt to be a full code.) - CONSULTS/PCP/HOSPITALIST Notification #1 *Consult/PCP/Hospitalist*: Rodolfo Time Discussed: 10:30 Consult Disposition: Admit Departure - Departure Date of Disposition Decision: 07/05/18 Time of Disposition Decision: 10:40 DIAGNOSIS: Lung cancer, Seizure Disposition: ADMITTED INPATIENT 09 Certified Medical Emergency: Emergent Condition: Serious Referrals and Follow-Ups: None,PCP [Primary Care Provider] - - Critical Care Note This patient required my direct & personal management of CC.: Yes Attestation - Physician/ NUBIA Attestation Patient care was provided by Advanced Practice Provider:: No The physician spent face to face time with patient:: Yes Advanced Practice Provider documentation review:: Supervising physician onsite and consulted in the evaluation and care of this patient. The physician did have a face to face encounter with the patient. - NIH Stroke Scale NIH Type: Initial Evaluation This chart was documented by the indicated scribe, (Bree Sagastume, Scribe) and accurately reflects the services I performed and decisions made by me, Hermann Flores MD, as attested by the provider's signature.
[2018-07-05] MEDS ORDERED: ZOFRAN IV PRN (12:30)
[2018-07-05] MEDS ORDERED: LEVAQUIN 500 MG in NS 100 ML IV SCH (12:30)
--- NOTE | 2018-07-05 12:57 | HISTORY AND PHYSICAL ---
PRIMARY PHYSICIANS: Ms Georges has no primary care physician, but she is followed by Dr. Molina with Hematology/Oncology, Dr. Arsalan Robertson with Infectious Disease, and Dr. Urbano Govea of General Surgery. HISTORY OF PRESENT ILLNESS: She had been in the hospital back in May and was discharged on 06/23/2018. Today is 07/05/2018. At that time, an abdominal and pelvic CT showed possible left lower lobe bronchopneumonia, hepatosplenomegaly, a few small dense liver and splenic lesions, venous varicosities at the anterior mid and upper abdomen, enlargement of bilateral adrenal glands, mild upper abdominal retroperitoneal adenopathy, and constipation. CT of the chest, abdomen, and pelvis showed patchy ground infiltrates in both upper lobes. She had been discharged. Blood cultures revealed Serratia and Burkholderia bacteremias, which they thought originated from her Port-A-Cath. The Port-A-Cath was removed. She was on Levaquin and continues to get Levaquin. I think she was also getting Dilaudid with [employer]. She presented lethargic and difficult to arouse. Thick secretions. She was given 2 doses of Narcan, 1 mg and then followed by 0.4 mg. She seemed to be improving from her right lower lobe pneumonia. She has underlying COPD. She has metastatic bony disease from lung cancer followed by Dr. Molina. She has anemia of chronic disease. According to her daughter, they had just started back on her Dilaudid [employer] pump. She has been more lethargic and more confused and so was brought back here really for this confusion. ALLERGIES: Morphine. PAST MEDICAL HISTORY: 1. Metastatic lung cancer. 2. COPD. 3. Hypertension. 4. Recently admitted with treated for pneumonia. FAMILY HISTORY: Notable for prostate cancer, diabetes, heart disease in first-degree relatives. SOCIAL HISTORY: Used to smoke about half a pack a day. No alcohol or illicit drugs. PAST SURGICAL HISTORY: She has had tubal ligation, lung biopsies, 2 chest port placements. I think she had her port taken out at last admission. REVIEW OF SYSTEMS: Unable to give much from patient. PHYSICAL EXAMINATION: GENERAL: She is lethargic. She is moaning. She does acknowledge touch and pain. VITAL SIGNS: Temperature 97 degrees, pulse 130, respirations 25, blood pressure 153/77. HEENT: Pupils are equal and round. LUNGS: With scattered rhonchi, anterior and lateral chest. NECK: No distended neck veins. CARDIOVASCULAR: Regular rhythm and rate without murmur or S3. ABDOMEN: Soft. SKIN: Warm and dry. DIAGNOSTIC STUDIES: White blood cell count 14,630, hematocrit is 40, platelet count 337,000. Sodium 142, potassium 3.7, chloride 98, BUN 9, creatinine 0.6, blood sugar 122, calcium 8.7, AST 30, ALT was 19, alkaline phosphatase 195. Urinalysis unremarkable. CT of the head without contrast: Report was unremarkable. ASSESSMENT AND PLAN: 1. She has presented with metabolic and what probably is toxic encephalopathy. It seems to correlate with her recent increase in her pain medicines of Dilaudid. She has been given some Narcan. She still is pretty lethargic and has very weak cough. We will continue to suction her. She is at risk for aspiration. Her electrolytes and CBC are unremarkable. 2. They have been treating her for bronchopneumonia. I think Dr. Robertson is following and had her on Levaquin. They feel like it might have originated from Port-A-Cath that I think was removed last admission. We will culture her with blood cultures and get sputum culture. Urine looks pretty unremarkable. Continue her Levaquin for now. 3. Anemia of chronic disease. 4. Chronic obstructive pulmonary disease. 5. Pain. I assume this is from the metastatic cancer. We are going to have to back down on her sedation. Plan to move her to the unit. Continue to do pulmonary suction. Give her some DuoNeb q.4 h. while awake and give her q.2 h. as needed and give supplementary O2. 6. Reviewing her medications, we will hold the Lunesta. She is getting Adderall 10 mg b.i.d. and I think we will hold that for now. She is getting Celexa 40 mg a day and I guess we will continue that. She getting Klonopin 1 mg b.i.d., and I am concerned about withdrawal, so we will continue that. Prilosec 20 mg a day. She is getting the Levaquin 500 mg p.o. daily, and I think she has a couple more days left with that, but Dr. Robertson will evaluate. I think we will see how she does waking up as far as her pain medicine. She is also getting MiraLAX 17 g daily, and we will continue that. Note, the first CT they did in the emergency room today showed subcortical low attenuation involving the occipital lobes and to a lesser degree the posterior parietal lobe on the right and the pattern is highly suggestive for posterior reversible encephalopathy syndrome. I think they repeated the CT scan and no visible enhancing mass. They did recommend a brain MRI without and with intravenous contrast. Note that her blood pressures do not seem to be running high. Blood pressure at present 153/77. cc: Mehran Mitchell MD
[2018-07-05] MEDS: NS 1,000 ML IV SCH (13:19)
[2018-07-05] MEDS: SODIUM CHLORIDE 0.9% INJ SCH (13:20)
[2018-07-05] MEDS: PROTONIX IV SCH (13:20)
[2018-07-05 13:43] LABS: ALLEN TEST YES; BE 10.4 mmoll (-3.0-3.0); BLOOD TYPE ARTERIAL; O2(CT) 17.4 mL/dL (15.0-23.0); O2HB 95.1 % (95.0-99.0); PO2(98.6) 113 mmHg (60-100); SAMPLE BLOOD; SAO2 99.3 % (95.0-100.0); THB 12.9 g/dL (11.5-17.4); pH(98.6) 7.31 (7.35-7.45)
[2018-07-05 13:46] LABS: MODALITY VENTIMASK; PCO2(98.6) 79 mmHg (35-45)
[2018-07-05 14:40] LABS: FREE T4 1.32 ng/dL (0.93-1.70)
[2018-07-05] MEDS ORDERED: VANCOMYCIN IV PER PHARMACY MISC SCH (14:45)
[2018-07-05] MEDS ORDERED: CALMOSEPTINE OINTMENT TOP PRN (15:28)
--- NOTE | 2018-07-05 16:11 | Diag Imaging Result Doc PS360 ---
EXAM: CHEST-PORTABLE HISTORY: recent pneumonia TECHNIQUE: Chest single view COMPARISON: 06/16/2018 FINDINGS: The lungs are well expanded. The heart is not enlarged. The vessels are not distended. There are no definite infiltrates on the current study. No effusion identified. Interval placement of a right-sided PICC line. The tip overlies the mid superior vena cava. Catheter tip remains in the left subclavian vein and superior vena cava and is unchanged. Interval removal of the right sided portacatheter. IMPRESSION: The alignment of the PICC line overlies the mid superior vena cava. Electronically signed by Houston Caldera 07/05/2018 4:09 PM
[2018-07-05] MEDS: MAXIPIME 2 GM in NS 100 ML IV SCH (16:21)
--- NOTE | 2018-07-05 16:33 | Diag Imaging Result Doc PS360 ---
EXAM: MRI BRAIN W/O CONTRAST INDICATION: PRES COMPARISON: CT head dated 07/05/2018. No prior MRI brain is available for comparison. FINDINGS: There is cortical and subcortical T2/FLAIR hyperintensity involving both occipital lobes the posterior parietal lobes (more prominent on the right) and, to a lesser degree, the posterior aspect of the right frontal lobe and the posterior aspect of the temporal lobes bilaterally. This pattern is highly suggestive of edema related to posterior reversible encephalopathy syndrome. Aside from these regions of edema, the white matter signal is unremarkable. There is no discrete intracranial mass, mass effect, or intracranial hemorrhage. There is no hydrocephalus. The surrounding soft tissues and bony structures are essentially unremarkable. IMPRESSION: Bilateral multilobar edema and a pattern highly suggestive of posterior reversible encephalopathy syndrome. No evidence of acute infarct. Electronically signed by Abhay Baer 07/05/2018 4:31 PM
--- NOTE | 2018-07-05 16:45 | Diag Imaging Result Doc PS360 ---
EXAM: MRA BRAIN W/O CONTRAST INDICATION: PRES TECHNIQUE: 3-D [id number] images through the [place] and 3-D MIPS were obtained. COMPARISON: None. FINDINGS: Note that there is extensive motion artifact throughout the study, which significantly limits its diagnostic quality. There is complete signal dropout involving the distal ICA on the left suggesting occlusion, which may be chronic as there is no acute infarct on the accompanying MRI. Blood flow is reestablished via collateralization from the [place] in the GABRIELA and MCA. Although the finding details are significantly limited due to motion, the remaining arteries comprising the [place] including the MCAs, ACAs, and inspector multifocal lens appear to be grossly patent. No definite cerebral aneurysm or vascular malformation is identified given the limitations of this study. IMPRESSION: 1.Significantly limited study due to excessive motion artifact. 2.Occlusion of the left ICA. However, there is collateral flow via the [place]. Electronically signed by Abhay Baer 07/05/2018 4:42 PM
[2018-07-05] MEDS ORDERED: VANCOMYCIN 1.9 GM in NS 500 ML IV ONE (17:00)
--- NOTE | 2018-07-05 17:30 | INFECTIOUS DISEASE PROGRESS NO ---
DATE: 07/05/2018 PRESENT ILLNESS: Ms. Georges was discharged from the hospital 12 days ago and was being treated for pneumonia, as well as a Serratia and Burkholderia bacteremia, which originated from her Port-A-Cath, that was subsequently removed. She was sent home on Levaquin by mouth, and today, comes into the hospital with what her son describes as seizure-like activity that was seen at home. There was also altered mental status and lethargy, which could be post-ictal or a result of her Dilaudid pain pump. MEDICATIONS: She has been receiving Levaquin 500 mg p.o. daily at home which we will discontinue. PHYSICAL EXAMINATION: Vital Signs: Temperature is 97, pulse rate 93, respiratory rate 23, blood pressure 98/55. O2 saturation is 95%. General: This is a lethargic, chronically ill-appearing, middle-aged female. She is lying in the bed currently drowsy and mumbling unintelligibly. HEENT: Atraumatic, normocephalic. Oral mucous membranes are pink and dry. Conjunctivae are pink. Neck: Supple. Trachea is midline. Cardiovascular: Heart rate and rhythm are regular. Sinus rhythm on the monitor. Respiratory: Lung sounds have mild wheezing noted in the upper lobes. Diminished in the bases. Abdomen: Soft, round, nontender. Bowel sounds are active. Neurologic: The patient is not opening her eyes or following commands, but she will mumble words and turn her head side to side. LABORATORY AND X-RAY: Today, her white count is 14.63, hemoglobin 12, platelet count 337,000 on FiO2 of 50%. Her pH is 7.31, pCO2 of 79, pO2 of 113, HCO-3 of 33. Creatinine is 0.7, estimated GFR is greater than 60. Total bilirubin 0.49, AST 38. ALT 19, alkaline phosphatase 195. Cultures are pending. On the previous admission, she did have a Serratia marcescens in the catheter tip of her Port-A-Cath and Burkholderia cepacia in her blood. A head CT done today shows no visible enhancing mass, and there is no chest x-ray at this point. Her EKG has an unconfirmed report of sinus tachycardia from earlier today. ASSESSMENT AND PLAN: Ms. Georges previously had a pneumonia, so we will get a chest x-ray. We will discontinue Levaquin, since it can contribute to seizure activity. At this point, she has technically finished her 2 weeks of treatment for the bacteremia based on her previous sterile blood culture. There is another set of blood cultures pending. We will start her on IV vancomycin per pharmacy dosing, as well as cefepime 2 g IV every 12 hours pending x-ray and culture results. These plans have been discussed with and recommended by Dr. Robertson. COMORBIDITIES: For Ms. Georges include that she has metastatic lung cancer with cigarette smoking and COPD, recent treatment for pneumonia, and a remnant of a previous Port-a-cath, embedded in the left chest which could continue to predispose her to bacteremia. Dictated by RAMILA Thakur for Arsalan Robertson MD This chart was documented by, RAMILA Thakur and accurately reflects the services performed, treatment plan and medical decisions as attested by the providers signature Arsalan Robertson MD. cc: Arsalan Robertson MD [facility]
[2018-07-05] MEDS: D50W SYRINGE IV ONE (18:22)
--- NOTE | 2018-07-05 18:51 | CONSULTATION ---
DATE OF CONSULTATION: 07/05/2018 REASON FOR CONSULT: Seizures. HISTORY OF PRESENT ILLNESS: This is a 63-year-old, female, with metastatic lung cancer who was recently admitted and discharged, treated for pneumonia and bacteremia. She is admitted today following a witnessed seizure event at home. She has also been more lethargic and confused today. There was concern for a possible seizure event in the emergency department. By report, she has not had prior seizure episodes. Blood pressure on arrival was 237/121. Subsequently, throughout the hour, was still above 200/100. This has come down since her arrival and has been in the 110s systolic recently. There has not been further witnessed seizure activity. The patient is reported to wake up and follow some commands and have some moaning. Head CT showed question of posterior reversible encephalopathy syndrome. MRI this afternoon also showing bilateral multi-lobar edema, highly suggestive of posterior reversible encephalopathy syndrome. There is no evidence of acute stroke. The patient has been on chemotherapy for her metastatic cancer, though I am not certain she has been receiving therapy recently. She did receive 4 mg of lorazepam in the emergency department. None since. That was around 8:30 this morning. PAST MEDICAL HISTORY: 1. [id number] lung cancer with bony metastasis. 2. COPD. 3. Hypertension. 4. Recent pneumonia and bacteremia. FAMILY HISTORY: Positive for heart disease and diabetes. SOCIAL HISTORY: Previous smoker. No alcohol or illicits. ALLERGIES: Listed to morphine. HOME MEDICATIONS: I believe are still being reconciled. CURRENT MEDICATIONS: Reviewed in the chart. REVIEW OF SYSTEMS: Unobtainable due to patient's mental state. PHYSICAL EXAMINATION: Vital Signs: Afebrile, blood pressure 237/121 on admission. Current 118/59. Pulse 90s to low 100s. Respirations 21, 93% on room air. General: Ms. Georges is supine in bed with eyes closed. She has a left-sided nasal trumpet in place. Neurologic: She does not respond to loud voice. She does open her eyes a little and groan and mumble to noxious stimuli. She seems to briefly regard before drifting back to sleep. She does not follow commands. She mumbles incoherently at times. Pupils are equal, round, and reactive to bright light. There is some horizontal eye movement with passive head turning. She does attempt to resist passive eye opening. Corneals intact. No consistent blink to threat. Face symmetric with equal grimace. Tone is symmetric in the limbs. She localizes in her upper extremities. She flexes her lower extremities and is at least antigravity with noxious stimuli. Movements of the extremities are equal without obvious deficit. She responds to noxious stimuli x4 extremities. Reflexes are 1+ at the knees and ankles. No clonus. Plantar response is downgoing, 1 to 2+ at the wrists bilaterally. She is not attentive for coordination testing. I did not test her gait. DIAGNOSTICS: MRI of the brain was personally reviewed, showing bilateral multilobar edema in a pattern highly suggestive of PRES. No evidence of acute infarct. MRA of the brain was limited due to motion artifact and shows an occluded left ICA but with collateral flow via the [place]. Head CT showed subcortical low attenuation involving the occipital lobes and posterior parietal lobe on the right, highly suggestive of PRES. White count 14.6. PH of 7.31, pCO2 of 79, pO2 of 113, FiO2 of 50%. Normal sodium, BUN and creatinine. AST 38, ALT normal. Blood sugar 122. Calcium 8.7. ASSESSMENT AND PLAN: 1. PRES. Most likely related to hypertensive crisis given initial documented blood pressures. Certain chemotherapy or immunosuppressive agents also have been associated with development of PRES, and that may need to be considered as well, but again, most likely this event is related to BP. Blood pressure has come down since arrival. I would continue to monitor her pressures closely and treat as necessary, avoiding hypertension. Correct any underlying electrolyte abnormalities. She will need repeat noncontrasted MRI in 2 weeks to evaluate for resolution and thus definitive diagnosis of PRES. Continue neuro checks. Repeat head CT if clinical suspicion for worsening occurs. 2. Witnessed seizure with associated mental status changes in a patient with CT and MRI findings highly suggestive of posterior reversible encephalopathy syndrome. I will order a routine EEG to evaluate for subclinical seizures. We may elect to temporize with AED until symptoms and imaging findings resolve. Continue seizure precautions. 3. Non-small cell lung cancer with bony metastasis. This is being followed by Dr. Molina. I believe she was on some type of chemotherapy. Thank you for the consultation. cc: Arabella Lopez MD [facility]ITALBrittany
--- NOTE | 2018-07-05 19:26 | ED EKG INTERP ---
This chart was entered by Karey Baer Scribe, acting as scribe for Hermann Flores MD. EKG Interpretation - EKG Time of EKG reading by physician:: 08:23 EKG Read and Signed by:: Hermann Flores EKG Interpretation (*Must complete 3 of following elements*): Abnormal Rate: 108 Rhythm: Sinus Tachy [place]: normal QRS: normal [place] Interval: normal Attestation - Physician/ NUBIA Attestation The physician spent face to face time with patient:: No Advanced Practice Provider documentation review:: Supervising physician onsite and consulted in the evaluation and care of this patient. The physician did not have a face to face encounter with the patient. This chart was documented by the indicated scribe, (Karey Baer Scribe) and accurately reflects the services I performed and decisions made by me, Hermann Flores MD, as attested by the provider's signature.
[2018-07-05] MEDS: ATIVAN IV PRN (20:41)
[2018-07-06] MEDS: ATIVAN IV PRN (00:30)
[2018-07-06] MEDS: NS 1,000 ML IV SCH (02:28)
[2018-07-06] MEDS: MAXIPIME 2 GM in NS 100 ML IV SCH ×3 (02:29→18:03)
[2018-07-06 05:29] LABS: BASO# 0.03 X1000 (0.0-0.2); BASO% 0.3 % (0.0-0.8); EOS# 0.46 X1000 (0.0-0.7); EOS% 4.7 % (0.0-10.0); HEMATOCRIT 37.9 % (37.0-47.0); HEMOGLOBIN 11.4 g/dL (12.0-16.0); IMM GRAN# 0.04 X1000 (0.0-0.04); IMM GRAN% 0.4 % (0.0-0.5); LYMPH# 1.23 X1000 (1.2-3.4); LYMPH% 12.5 % (20.5-51.1); MCH 25.9 PG (27-31); MCHC 30.1 g/dL (33-37); MCV 85.9 FL (81-99); MONO# 1.05 X1000 (0.11-0.59); MONO% 10.7 % (1.7-9.3); MPV 9.5 FL (7.4-10.4); NEUT% 71.4 % (42.2-75.2); PLT 252 X1000 (130-400); RBC 4.41 XMIL (4.2-5.4); RDW 18.3 % (11.5-14.5); WBC 9.81 X1000 (4.8-10.8)
[2018-07-06 05:58] LABS: AGAP 10; ALB/GLOB RATIO 0.8; ALBUMIN 2.4 g/dL (3.5-5.0); ALKALINE PHOSPHATASE 152 U/L (32-104); BUN 11 mg/dL (8-22); CALCIUM 8.2 mg/dL (8.8-10.2); CHLORIDE 109 mmol/L (98-107); COSMO 300; CREATININE 0.7 mg/dL (0.5-0.9); ESTIMATED GFR > 60; GLUCOSE 79 mg/dL (70-104); GOT 16 U/L (10-30); GPT 10 U/L (10-36); MAGNESIUM 1.9 mg/dL (1.5-2.7); POTASSIUM 3.4 mmol/L (3.5-5.1); SODIUM 152 mmol/L (136-145); TCO2 33 mmol/L (25-35); TOTAL PROTEIN 5.4 g/dL (6.3-8.3)
--- NOTE | 2018-07-06 07:28 | Diag Imaging Result Doc PS360 ---
EXAM: CHEST-PORTABLE INDICATION: follow up TECHNIQUE: One view COMPARISON: 07/05/2018 FINDINGS: Support tubes and lines are in stable positions. There is suggestion of mild atelectasis at the lung bases. No other new consolidations are identified. Cardiac silhouette is stable. IMPRESSION: Slightly increased linear opacity at the lung bases most likely representing atelectasis. Electronically signed by Abhay Baer 07/06/2018 7:25 AM
--- NOTE | 2018-07-06 07:54 | EKG Report ---
Test Performed on : 07/06/2018 07:28:25 AM Test Reason : follow up Blood Pressure : / mmHG Vent. Rate : 109 BPM Atrial Rate : 109 BPM P-R Int : 122 ms QRS Dur : 076 ms QT Int : 362 ms P-R-T Axes : 077 057 072 degrees QTc Int : 487 ms Sinus tachycardia. Otherwise normal ECG When compared with ECG of 05-JUL-2018 08:23, (Unconfirmed) QT has lengthened Unconfirmed Result
[2018-07-06 08:07] LABS: ALLEN TEST YES; BLOOD TYPE ARTERIAL; HCO3-(ACT) 36.5 mmoll (20.0-26.0); METHB 1.2 % (0.0-1.5); O2(CT) 15.8 mL/dL (15.0-23.0); O2HB 92.4 % (95.0-99.0); PO2(98.6) 69 mmHg (60-100); SAMPLE BLOOD; SAO2 96.4 % (95.0-100.0); THB 12.1 g/dL (11.5-17.4); pH(98.6) 7.46 (7.35-7.45)
[2018-07-06 08:10] LABS: MODALITY CANNULA; PCO2(98.6) 58 mmHg (35-45)
--- NOTE | 2018-07-06 08:48 | INFECTIOUS DISEASE PROGRESS NO ---
DATE: 07/06/2018 PRESENT ILLNESS: The patient was admitted to the hospital with an altered mental status. This could be due to the antibiotic she was taking at home, namely Levaquin. She was being treated for pneumonia and bacteremia. MEDICATIONS: The patient is on a combination of vancomycin and cefepime. OBJECTIVE: Vital Signs: On physical examination, temperature is 98 degrees, pulse 112, respirations 17, blood pressure 166/82. General: This is a lethargic, chronically ill appearing and confused, middle-aged female. She is in no acute distress. Head/eyes/ears/nose/throat: No drainage noted from the nose or ears. Sinuses are not tender .The patient does not have any large white patches on her tongue. The patient appears to be able to hear my spoken words and see near objects. Neck: No meningismus. Lungs: Clear to auscultation. Cardiovascular: Heart rate is regular and rapid. Abdomen: Soft and nontender. Neurologic: The patient has an altered mental status. She seems confused. She sometimes did follow requests, such as moving her extremities on her own. She did, but at other times, she did not follow any requests. LABS AND X-RAYS: The patient's CBC today shows a white count of 9810, hemoglobin 11.4, and platelet count 252,000. Creatinine 0.7. GFR is greater than 60. Alkaline phosphatase is 152. Urinalysis showed no white cells or bacteria. It did show some blood, however. The patient's blood culture is growing a gram-negative zayra. Chest x-ray shows increased basilar opacities. MRI of the brain shows bilateral multilobar edema. ASSESSMENT AND PLAN: The patient has a gram-negative zayra bacteremia, the exact origin of which is uncertain to me at this time. My plan is to continue with cefepime, but discontinue vancomycin. COMORBIDITIES: The patient's comorbidities include chronic obstructive pulmonary disease and metastatic lung cancer. ADDENDUM: Just discovered blood cultures growing gram negative rods. Bacteremia most likely originated from PICC and may be causing seizures. Will remove PICC, increase cefepime dose, and stop vancomycin. cc: rAsalan Robertson MD MTDBrittany
--- NOTE | 2018-07-06 09:11 | INFECTIOUS DISEASE PROGRESS NO ---
DATE: 07/06/2018 ADDENDUM: I found out some new information. The patient's blood cultures are positive for gram- negative rods. I think this most likely originates from the patient's PICC, and the gram-negative zayra bacteremia could be responsible for the patient's altered mental status rather than the antibiotic, or the gram-negative zayra bacteremia and the antibiotic could be both responsible for the altered mental status. In any event, what I am going to do is to remove the patient's PICC and culture the tip, increase the patient's cefepime dose to 2 grams IV every 8 hours, and stop vancomycin. cc: Arsalan Robertson MD MTDD
[2018-07-06] MEDS: NORVASC PO SCH (09:30)
[2018-07-06] MEDS: 1/2 NS 1,000 ML IV SCH ×2 (09:33→21:57)
[2018-07-06] MEDS: PROTONIX IV SCH (11:57)
[2018-07-06] MEDS: SODIUM CHLORIDE 0.9% INJ SCH (11:57)
[2018-07-06] MEDS ORDERED: KEPPRA 500 MG in NS 100 ML IV SCH (12:00)
--- NOTE | 2018-07-06 12:32 | PROGRESS NOTE ---
DATE: 07/06/2018 SUBJECTIVE: No major overnight events. Patient is waking up more. She has been agitated and requiring bilateral soft wrist restraints because she is trying to pull out her lines. OBJECTIVE: Afebrile. Blood pressures 150s-180s/70s-80s diastolic. Pulse 90s to low 100s. Ms. Georges is supine in bed. Her eyes are open today. She briefly regards. She drifts back to sleep. She is aroused with verbal stimulus. She is not attentive. She does not answer questions or follow commands well. She says no name when asking her to state her name. She vigorously resists passive eye opening. Pupils appear to be equal. Gaze is conjugate and forward. I could not assess visual rust, though she did not consistently blink to threat while her eyes were open. Face is symmetric with equal activation. She was able to raise her hands on command. She did not demonstrate left/right or digit distinction. She gripped with both hands. She moved her lower extremities equally. She responded to noxious stimuli in all extremities. White count normalized today. Sodium of 152 today. BUN and creatinine normal. Magnesium normal. Calcium 8.2. She is growing gram-negative rods in blood culture. ASSESSMENT AND PLAN: 1. Posterior reversible encephalopathy syndrome (PRES), likely related to hypertensive crisis on arrival, though some chemotherapy or immunosuppressive agents have also been associated with with PRES. Imaging evidence of bilateral multilobar edema most prominent posteriorly and clinical presentation with encephalopathy and seizures is consistent with this. BPs are 150s-180s systolic today. I would continue to reduce those numbers. I would continue treating her underlying infectious conditions. She will need a repeat MRI in 2 weeks as previously discussed. Continue neurological checks and repeat head CT if clinical suspicion of worsening occurs. 2. Witnessed seizure. I believe there were two events, one prior to arrival and one in the emergency department. This would be consistent with PRES. EEG was performed this morning and I will read that once available. I have decided to start low-dose levetiracetam (LEV) 500 mg twice a day temporarily until symptoms and imaging findings resolve. Continue seizure precautions. 3. Non-small cell lung cancer with bony metastasis. Followed by Dr. Molina. ADDENDUM: EEG was personally reviewed. Very frequent interictal epileptiform discharges maximal within the left temporal head region with a field extending posteriorly and centrally, at times becoming periodic, PLEDs. No definite electrographic seizures. Moderate generalized slowing. Will increase LEV dose. Load instead with 1000mg iv now and continue q12h. Continue seizure precautions. cc: Arabella Lopez MD MTDD
[2018-07-06] MEDS: KEPPRA 1,000 MG in NS 100 ML IV SCH (13:05)
[2018-07-06] MEDS: PERCOCET-10 PO PRN ×2 (14:24→22:17)
--- NOTE | 2018-07-06 16:42 | PROGRESS NOTE ---
DATE: 07/06/2018 INTERVAL HISTORY: The patient remains significantly confused. Oriented to person at best. Speech content is incoherent, but individual words are clear without slurring. Admission blood cultures positive for gram-negative zayra. Following some commands. Afebrile overnight. No other acute events overnight. REVIEW OF SYSTEMS: Unable to obtain secondary to patient's mental status. LABORATORY DATA: WBC 9.8, hemoglobin 11.4, hematocrit 37.9, platelets 252,000. ABG with pH 7.46, pCO2 of 58, PO2 of 69, O2 saturation 92 on 32% FiO2. Sodium 152, potassium 3.4, chloride 109, BUN 11, creatinine 0.7, glucose 79, alkaline phosphatase 152, total protein 5.4, albumin 2.9. TSH 0.45, free T4 of 1.32. VITAL SIGNS: Temperature maximum 98.8 degrees, pulse 100, respirations 23, blood pressure 132/63, O2 saturation 92% on 3 L by nasal cannula. PHYSICAL EXAMINATION: General: No acute distress. Vitals: As above. HEENT: Normocephalic, atraumatic. Neck: No cervical adenopathy. Cardiovascular: Slightly tachycardic but regular. No murmurs noted. Pulmonary: Minimal rales at bilateral bases, but largely clear to auscultation. Abdomen: Soft, nontender, nondistended. Bowel sounds positive. Extremities: Peripheral pulses intact. No clubbing, cyanosis. Neurologic: Exam is somewhat limited by patient mental status, but face symmetric. Pupils equal, round, and reactive to light. Moves all extremities intermittently. Speech content incoherent, but individual words are clear without slurring. No focal deficits identified. Psychiatric: Quite confused. Oriented to person at best. Very difficult to understand when she tries to talk, but no slurring, as above. ASSESSMENT AND PLAN: 1. Metabolic encephalopathy. Likely multifactorial with bacteremia, underlying lung cancer, and evidence of PRES on MRI. Waking up, but remains quite confused. Blood pressure reportedly with systolic up to 230 on admission. It has been running moderately high here in the 160s to 180s. We will start some Norvasc and monitor. We will try to keep blood pressure relatively reasonably controlled. Some concern that PRES might be chemotherapy related. Oncology consulted and looking more into that end. On antibiotics with cefepime as per Infectious Disease. Continue to monitor closely in ICU. 2. Gram-negative bacteremia. The patient previously with bacteremia secondary to pneumonia and possibly Port-A-Cath. Port-A-Cath has been removed. Blood culture is again positive now. Removing PICC line and on cefepime as above. Repeat blood cultures in the morning and monitor closely. 3. Chronic obstructive pulmonary disease (COPD). No sign of exacerbation at this time. 4. Lung cancer with metastasis. No evidence of metastases to brain on MRI. Continue supportive care with DuoNeb and oxygen as needed. 5. Hyponatremia. Significant change from previous. We will change fluids to half-normal saline and monitor. 6. Hypokalemia. We will replete and monitor. 7. Anemia of chronic disease. Hemoglobin minimally decreased from admission, but stable from previous. We will continue to monitor. 8. Deep vein thrombosis (DVT) prophylaxis. [facility].
[2018-07-06] MEDS ORDERED: VANCOMYCIN 1.5 GM in NS 250 ML IV SCH (17:00)
[2018-07-06] MEDS ORDERED: D50W SYRINGE ONE (19:49)
[2018-07-06] MEDS: D50W SYRINGE IV ONE (19:51)
[2018-07-07] MEDS: KEPPRA 1,000 MG in NS 100 ML IV SCH ×2 (01:34→13:22)
[2018-07-07] MEDS: MAXIPIME 2 GM in NS 100 ML IV SCH ×3 (03:37→11:18)
[2018-07-07 04:42] LABS: ALLEN TEST YES; BE 2.7 mmoll (-3.0-3.0); BLOOD TYPE ARTERIAL; HCO3-(ACT) 26.9 mmoll (20.0-26.0); METHB 0.6 % (0.0-1.5); O2(CT) 19.9 mL/dL (15.0-23.0); O2HB 92.5 % (95.0-99.0); PCO2(98.6) 47 mmHg (35-45); PO2(98.6) 74 mmHg (60-100); SAMPLE BLOOD; SAO2 95.8 % (95.0-100.0); THB 15.3 g/dL (11.5-17.4); pH(98.6) 7.39 (7.35-7.45)
[2018-07-07 04:44] LABS: MODALITY CANNULA
[2018-07-07] MEDS: PERCOCET-10 PO PRN ×3 (05:13→22:13)
[2018-07-07 06:31] LABS: BASO# 0.04 X1000 (0.0-0.2); BASO% 0.4 % (0.0-0.8); EOS# 0.98 X1000 (0.0-0.7); EOS% 10.1 % (0.0-10.0); HEMATOCRIT 35.3 % (37.0-47.0); HEMOGLOBIN 10.6 g/dL (12.0-16.0); IMM GRAN# 0.05 X1000 (0.0-0.04); IMM GRAN% 0.5 % (0.0-0.5); LYMPH# 1.14 X1000 (1.2-3.4); LYMPH% 11.7 % (20.5-51.1); MCH 25.5 PG (27-31); MCV 84.9 FL (81-99); MONO# 0.97 X1000 (0.11-0.59); MONO% 9.9 % (1.7-9.3); MPV 9.8 FL (7.4-10.4); NEUT# 6.57 X1000 (1.4-6.5); NEUT% 67.4 % (42.2-75.2); PLT 268 X1000 (130-400); RBC 4.16 XMIL (4.2-5.4); RDW 18.2 % (11.5-14.5); WBC 9.75 X1000 (4.8-10.8)
[2018-07-07 07:06] LABS: AGAP 17; BUN 10 mg/dL (8-22); CALCIUM 8.1 mg/dL (8.8-10.2); CHLORIDE 110 mmol/L (98-107); COSMO 299; CREATININE 0.6 mg/dL (0.5-0.9); ESTIMATED GFR > 60; GLUCOSE 72 mg/dL (70-104); SODIUM 152 mmol/L (136-145); TCO2 25 mmol/L (25-35)
--- NOTE | 2018-07-07 08:38 | EEG REPORT ---
DATE: 07/06/2018 REFERRING PHYSICIAN: Dr. Arabella Lopez. SHOT CORE DRILL OPERATOR HELPER: Aleta Blank. BACKGROUND INFORMATION TECHNIQUE: This is a digitally recorded routine EEG portable with video. HISTORY: A 63-year-old female patient with witnessed seizure x2. EEG imaging evidence highly suggestive of posterior reversible encephalopathy syndrome. EEG is ordered to detect evidence of subclinical seizures. MEDICATIONS: Include clonazepam, p.r.n. lorazepam and Percocet. EEG FINDINGS: A posterior dominant alpha rhythm is not seen. The background consists of theta- delta slowing with intermixed faster frequencies. No definite persistent focal slowing. Frequent epileptiform discharges are seen maximal within the left temporal head region with a field extending posteriorly into the occipital regions as well as into the central head regions. At times, these become periodic lateralized epileptiform discharges (PLEDs). There are no definite epileptiform discharges seen within the right hemisphere. No seizures. Hyperventilation is not performed. Photic stimulation does not alter the record. No definite drowsiness patterns. Stage II sleep is not seen. The EKG demonstrates regular RR intervals. IMPRESSION AND CLINICAL CORRELATION: Abnormal routine EEG due to: 1. Left hemispheric epileptiform discharges as detailed above. These are indicative of cortical irritability and possess epileptogenic potential. 2. PLEDs. These are not strictly an ictal pattern, but represent cortical irritability and do suggest and increased likelihood of seizures. Periodic discharges can also contribute to a presentation of altered mental status. 3. Moderate generalized slowing indicative of a moderate nonspecific encephalopathy. cc: Arabella Lopez MD MTDD
[2018-07-07] MEDS: POTASSIUM CHLORIDE 20 MEQ/SWI 20 MEQ/100 ML IVPB IV SCH ×2 (09:04→11:18)
[2018-07-07] MEDS: NORVASC PO SCH (09:05)
[2018-07-07] MEDS ORDERED: D50W SYRINGE ONE (10:27)
[2018-07-07] MEDS: D5 1/2 NS 1,000 ML IV SCH ×2 (10:33→21:03)
[2018-07-07] MEDS: APRESOLINE IV PRN ×2 (11:34→23:09)
--- NOTE | 2018-07-07 11:35 | PROGRESS NOTE ---
DATE: 07/07/2018 SUBJECTIVE: Dr. Lopez saw Ms. Georges for initial neurology consultation. She had a few episodes consistent with seizure. Imaging shows features typical of posterior reversible encephalopathy syndrome. Family at the bedside reports to me that she has had some forgetfulness prior to current illness and her periods of confusion were worse when she had breathing difficulty, sometimes with documented increased CO2 levels, according to family. The EEG this admission showed posterior epileptiform discharges on the left. There was additional generalized slowing. She was started on levetiracetam. She has not had clinically apparent seizure today. OBJECTIVE: Today, she seems a little bit easier to get alert, but her attention is very inconsistent. She has full lateral eye movement with passive head turning. She vigorously resisted my attempts at keeping eyelids up, but I was able to look at her eyes and see reactive pupils and full lateral eye movement. When distracted, she seemed to open her eyes more consistently. Facial motility is symmetric. She did not follow any commands for me. Neck is supple without meningismus. Systolic blood pressures have ranged 140s to 170s since midnight. ASSESSMENT/PLAN: I do not have any new suggestions and nothing to add to Dr. Cheatham's recommendations. Will continue levetiracetam, follow clinically and consider repeat imaging later. Thanks for asking Neurology to see Ms. Georges. cc: MD HAWA Tidwell III
[2018-07-07] MEDS: ATIVAN IV PRN (12:24)
[2018-07-07] MEDS: PROTONIX IV SCH (12:24)
--- NOTE | 2018-07-07 13:18 | INFECTIOUS DISEASE PROGRESS NO ---
DATE: 07/07/2018 PRESENT ILLNESS: The patient has a Serratia bacteremia which I think originates from her PICC catheter. The PICC catheter that I am talking about is the one where the catheter broke and there is a retained piece of PICC in the vein. MEDICATIONS: The patient currently is on cefepime. PHYSICAL EXAMINATION: Vital Signs: Temperature is 98, pulse 102, respirations 19, blood pressure 159/90. General: This is an ill-appearing and confused, middle-aged female. She is in no acute distress. Head, Eyes, Ears, Nose, and Throat: She can hear my spoken words and is able to see near objects. There are no white patches on her tongue. Neck: No pain with movement. Lungs: Clear to auscultation. Cardiovascular: Regular heart rate. Abdomen: Soft and nontender. Extremities: The site where the PICC was removed is not swollen or red. Thorax: There is an increased AP diameter of the chest. Neurologic: The patient is in a delirium. She can sometimes thrash around in bed. She is not talking and she does not respond to verbal stimuli. LAB AND X-RAY: The blood culture is growing Serratia marcescens and the catheter tip was negative. I looked back in the patient's chart and previously she has grown Serratia from her blood which may be coming from the retained piece of PICC that broke off in the chest. CBC shows a white count of 9750, hemoglobin 10.6, platelet count 268,000. Creatinine is 0.6. GFR is greater than 60. Blood gases show a pH of 7.39, a PO2 of 74, and a pCO2 of 47. ASSESSMENT AND PLAN: The patient has a Serratia bacteremia. I have discontinued cefepime and put the patient on Rocephin 2 g intravenous every [address] Agosto is going to confer with [facility] invasive radiologist to see if he can remove the retained catheter. COMORBIDITIES: She has chronic obstructive pulmonary disease and metastatic lung cancer. cc: MD HAWA Manzano
[2018-07-07] MEDS: ROCEPHIN 2 GM in NS 50 ML IV SCH (13:51)
[2018-07-07] MEDS: KLONOPIN PO PRN ×2 (14:00→22:13)
--- NOTE | 2018-07-07 15:15 | HEMO/ONC CONSULTATION ---
DATE: 07/06/2018 ADMITTING PHYSICIAN: Dr. Mehran Mitchell. REQUESTING PHYSICIAN: Dr. Mehran Mitchell. We appreciate this consult. CHIEF COMPLAINT: Lung cancer. HISTORY OF PRESENT ILLNESS: Ms. Bella Georges is a 63-year-old female, well known to Dr. Molina with a history of metastatic non-small cell lung cancer. The patient has been maintained on Opdivo with last treatment being June 03, 2018. PET scan on June 02, 2018 revealed a right adrenal nodule was smaller but with increased metabolic activity. The patient had no other FDG avidity noted. The patient has had several hospitalizations for pneumonia. On last hospitalization blood cultures revealed Serratia and Burkholderia bacteremias which was thought to of originated from the patient's Port-A-Cath and the patient underwent Port-A-Cath removal. She was discharged on Levaquin. The day of presentation the patient was quite lethargic and difficult to arouse, with thick secretions. The patient had been restarted on her Dilaudid ROLLED SEAT TRIMMER pump. She was given 2 doses of Narcan in the emergency department. She is significantly lethargic and confused at this time. We are consulted as the patient is well known to us. PAST MEDICAL HISTORY: 1. Metastatic lung cancer. 2. COPD. 3. Hypertension. 4. Pneumonia/pneumonitis. FAMILY HISTORY: Significant for prostate cancer in the patient's father. SOCIAL HISTORY: The patient continues to smoke 1/2 pack cigarettes daily. She does not use alcohol or illicit drugs. PAST SURGICAL HISTORY: 1. Tubal ligation. 2. Lung biopsies. 3. Port placement x2 with removal. MEDICATIONS ON ADMISSION: 1. Flonase. 2. Zofran. 3. Lidoderm patch. 4. Relistor. 5. Venelex ointment. 6. EpiPen. 7. Dilaudid ROLLED SEAT TRIMMER pump. 8. Albuterol nebulizer. 9. Spiriva HandiHaler. 10. Polyethylene glycol. 11. Celexa. 12. Promethazine. 13. Compazine. 14. Marinol. 15. Adderall. 16. Lunesta. 17. Levaquin. ALLERGIES: Astepro and Rocephin. REVIEW OF SYSTEMS: A 14 point review of systems was attempted and is unable to be obtained as the patient is quite confused at this time. PHYSICAL EXAMINATION: General: Ms. Georges is a 63-year-old female, lying supine in bed, in no immediate distress. Vital Signs: Temperature 97.8 degrees, blood pressure 155/77, heart rate 110, respirations are 22, O2 saturation 94% on 3 L nasal cannula O2. HEENT: Normocephalic, atraumatic. Mucous membranes slightly pale and somewhat dry. Sclerae anicteric. Extraocular movements intact. Neck: Supple. Lungs: Clear to auscultation except for decreased breath sounds in the bases. CV: S1, S2 is heard. No murmurs, rubs, or gallops. Abdomen: Nondistended, nontender. Bowel sounds positive all quadrants. No rebound or guarding noted. Extremities: Without clubbing or cyanosis. She does have trace bilateral lower extremity edema. Dermatologic: No rashes, bruises, or lesions. Neurologic: The patient is awake, alert, and oriented x1. She has no overt focal motor deficits. LABORATORY DATA: Hemoglobin 11.4, hematocrit 37.9, white blood cell count 9.81, platelets 252,000. ANC 7.00. Sodium 152, potassium 3.4, chloride 109, CO2 is 33, BUN 11, creatinine is 0.7, glucose 79, calcium 8.2, magnesium 1.9. LFTs are within normal limits except for alkaline phosphatase which is 152. TSH is 0.45. Procalcitonin 0.78. ASSESSMENT AND PLAN: 1. Metastatic non-small cell lung cancer. Currently on Opdivo with last treatment being 06/03/2018. PET scan as in history of present illness. We will continue to monitor. 2. Metabolic encephalopathy of questionable etiology, status post seizure activity at home. Neurology has been consulted. 3. Questionable bronchopneumonia/sepsis. The patient is currently on broad- spectrum antibiotics. Chest x-ray reveals slightly increased linear opacity at the lung base, most likely representing atelectasis. 4. Anemia of chronic disease. Hemoglobin is currently 10.6. We will continue to monitor. We will transfuse packed red blood cells if hemoglobin drops below 8 or in the setting of bleeding. 5. Chronic obstructive pulmonary disease without exacerbation at this time. 6. Chronic pain secondary to significant degenerative disk disease. The patient has been maintained on a Dilaudid ROLLED SEAT TRIMMER pump at home. We will consult anesthesia for implementation of ROLLED SEAT TRIMMER pump to avoid withdrawal. 7. Posterior reversible encephalopathy syndrome. Again, Neurology has been consulted. 8. We will follow along with you and make further recommendations pending outcomes. The above reflects the history, exam, assessment, and plan of Dr. Huber. Dictated by RAMILA Caballero for Azalia Huber MD cc: RAMILA Caballero MD I have seen and examined the patient and the above note reflects my history, assessment and plan. Azalia Huber MD [facility] CENTERBrittany
--- NOTE | 2018-07-07 17:06 | PROGRESS NOTE ---
DATE: 07/07/2018 INTERVAL HISTORY: The patient remains quite encephalopathic and confused. Occasionally arouses enough to take some limited p.o., but generally difficult to arouse. Not really oriented at all. Otherwise, fairly stable. Afebrile overnight. No other acute events. REVIEW OF SYSTEMS: Unable to obtain secondary to patient's mental status. LABORATORY DATA: WBC 9.7, hemoglobin 10.6, hematocrit 35.3, platelets 268,000. ABG with pH 7.39, pCO2 of 47, PO2 of 74, O2 saturation 95 on 3 L by nasal cannula. Sodium 152, potassium 3.0, chloride 110, creatinine 0.6, glucose 112, calcium 8.1. VITALS: Temperature maximum 98.6 degrees, pulse 103, respirations 23, blood pressure 138/82, O2 saturation 98% on 3 L by nasal cannula. PHYSICAL EXAMINATION: General: No acute distress. Vitals: As above. HEENT: Normocephalic, atraumatic. Moist mucous membranes. No cervical adenopathy. Cardiovascular: Slightly tachycardic, but regular. No murmurs noted. Pulmonary: Minimal bibasilar crackles unchanged, but largely clear to auscultation otherwise. Abdomen: Soft, nontender, nondistended. Bowel sounds positive. Extremities: Peripheral pulses intact. No clubbing, cyanosis. Some slight mottling of the extremities, but good pulses. Good capillary refill. Neurologic: Limited by patient's mental status. Face symmetric. Pupils equal, round, reactive to light. Moves all extremities intermittently and withdraws to noxious stimuli. Nonverbal to me today. Psychiatric: Remains encephalopathic, but was reportedly oriented to person with nursing earlier, but oriented x0 with me today. ASSESSMENT AND PLAN: 1. Metabolic encephalopathy, multifactorial with bacteremia, underlying lung cancer, evidence of posterior reversible encephalopathy syndrome (PRES) on initial MRI, and some epileptiform spikes on EEG. Little improvement thus far. Continue monitoring closely. 2. Head press syndrome. Patient with markedly elevated systolic blood pressure to 230 on admission. MRI consistent with PRES. Blood pressure markedly improved with the addition of Norvasc. Largely normotensive to mildly elevated. Continue to monitor closely. 3. Gram-negative bacteremia. Initial blood cultures with Serratia marcescens which patient has had in the past. Discussed with Infectious Disease Dr. Robertson. He is concerned that a retained piece of a Port-A-Cath may be seeded and causing repeated bacteremia. This would be difficult to remove here. After discussion with Dr. Beaver and Surgery, they recommend transfer to [place] for Interventional Radiology to attempt to remove this. I called the transfer center, but [place] on ICU diversion. We will continue to touch base with [place] about potential transfer. Until this can be obtained, we will have the patient on antibiotics with Rocephin. 4. Seizure activity. Patient reportedly with some seizure activity prior to admission. No observed seizure activity here, but discussed with Neurology, and EEG did show some epileptiform spikes. Patient started on Keppra. Continue to closely. 5. Chronic obstructive pulmonary disease (COPD). No evidence of exacerbation at this time. Continue nebulizers as needed. Did have some hypercapnia initially, but this was favored to be secondary to her encephalopathy rather than a COPD exacerbation. This has now improved to at or near her baseline. 6. Lung cancer with metastasis. No evidence of metastases to brain on MRI. Continue with supportive care and monitor. 7. Hyponatremia, fairly mild, but still elevated. Also with mild hypoglycemia, so we will change fluids to D5 half-normal and monitor. 8. Hypokalemia. Continue to replete and monitor. 9. Anemia of chronic disease. Hemoglobin and hematocrit essentially stable. Continue to monitor. 10. Hypoglycemia, fairly mild with glucose in the 60s. Starting D5 half-normal saline as above. DISPOSITION: The patient remains critically ill in ICU. Attempting transfer to [place], but they have been unable to accept the patient as far. [facility]
[2018-07-08] MEDS: KEPPRA 1,000 MG in NS 100 ML IV SCH ×2 (00:18→13:40)
[2018-07-08] MEDS: ROCEPHIN 2 GM in NS 50 ML IV SCH ×2 (02:14→13:43)
[2018-07-08 06:05] LABS: BASO# 0.03 X1000 (0.0-0.2); BASO% 0.4 % (0.0-0.8); EOS# 0.66 X1000 (0.0-0.7); EOS% 8.5 % (0.0-10.0); HEMATOCRIT 34.7 % (37.0-47.0); HEMOGLOBIN 10.8 g/dL (12.0-16.0); LYMPH# 1.08 X1000 (1.2-3.4); MCH 25.7 PG (27-31); MCHC 31.1 g/dL (33-37); MCV 82.4 FL (81-99); MONO% 11.6 % (1.7-9.3); MPV 9.6 FL (7.4-10.4); NEUT# 5.06 X1000 (1.4-6.5); NEUT% 65.5 % (42.2-75.2); PLT 313 X1000 (130-400); RBC 4.21 XMIL (4.2-5.4); RDW 17.9 % (11.5-14.5); WBC 7.73 X1000 (4.8-10.8)
[2018-07-08 06:28] LABS: AGAP 11; BUN 6 mg/dL (8-22); CALCIUM 8.3 mg/dL (8.8-10.2); CHLORIDE 110 mmol/L (98-107); COSMO 285; CREATININE 0.4 mg/dL (0.5-0.9); ESTIMATED GFR > 60; GLUCOSE 113 mg/dL (70-104); SODIUM 144 mmol/L (136-145); TCO2 23 mmol/L (25-35)
[2018-07-08] MEDS: D5 1/2 NS 1,000 ML IV SCH ×2 (06:37→16:05)
[2018-07-08] MEDS: PERCOCET-10 PO PRN ×2 (08:00→20:53)
[2018-07-08] MEDS: KLONOPIN PO PRN ×2 (08:00→20:53)
[2018-07-08] MEDS ORDERED: POTASSIUM CHLORIDE 60 MEQ in NS 500 ML IV ONE (08:26)
[2018-07-08] MEDS: NORVASC PO SCH (09:00)
--- NOTE | 2018-07-08 09:32 | PROGRESS NOTE ---
DATE: 07/08/2018 SUBJECTIVE: No reported seizures. Tolerating levetiracetam 1000 mg q 12 hours. OBJECTIVE: Ms. Georges is more alert and more attentive today than when I saw her yesterday. She followed some simple commands, including holding up 2 fingers. She moved her limbs to command. She has full lateral eye movement. Facial motility is symmetric. She was a little bit inconsistent, but did count fingers correctly in the left and right visual field with both eyes open. IMPRESSION: Posterior reversible encephalopathy syndrome. Blood pressure is much improved. She is clinically improved on neurologic exam. Very encouraging to document some vision in right and left rust. No new suggestions from Neurology today. Will need followup imaging later, not urgent. Thanks for asking us to see Ms. Georges. cc: Odalys Smith III, MD [facility]
--- NOTE | 2018-07-08 11:56 | INFECTIOUS DISEASE PROGRESS NO ---
DATE: 07/08/2018 PRESENT ILLNESS: The patient has a Serratia marcescens bacteremia, which I think originates from the part of a previous PICC that broke off and is in the superior vena cava. MEDICATIONS: The patient is on Rocephin. Counting the treatment with cefepime and Rocephin, this will be day 2 of treatment with antibiotics. PHYSICAL EXAMINATION: Vital Signs: The temperature is 98.6 degrees, pulse 100, respirations 23, blood pressure 149/82. General: This is a ill-appearing middle-aged female. Today she is very lethargic. Head/eyes/ears/nose/throat: No drainage noted from the nose or ears. Lungs: Clear to auscultation. Cardiovascular: Heart rate is regular. Abdomen: Soft and nontender. Neurologic: The patient is lethargic today. She occasionally opens her eyes, but for the most part is just lying in bed, presumably sleeping. There is no tremor. She did not follow any requests that I made, such as moving her extremities. LAB AND X-RAY: The patient's procalcitonin level is 0.78. The creatinine is 0.4. GFR is greater than 60. The catheter tip culture is growing a gram-negative zayra which most likely will be identified as Serratia as well. CBC shows a white count of 7730, hemoglobin 10.8, and platelet count 313,000. ASSESSMENT AND PLAN: The patient has a Serratia bacteremia, which I think is caused by the retained piece of prior PICC in the superior vena cava. The plan now is to continue Rocephin. Dr. Agosto is trying to get the patient over to [facility] so that one of the interventional radiologists will be able to remove the retained piece of catheter without doing open surgery. COMORBIDITIES: Chronic obstructive pulmonary disease and metastatic lung cancer. cc: Arsalan Robertson MD
[2018-07-08] MEDS: PROTONIX IV SCH (13:41)
--- NOTE | 2018-07-08 15:19 | PROGRESS NOTE ---
DATE: 07/08/2018 INTERVAL HISTORY: The patient remains quite confused, but waking up somewhat more today. Still does not speak much, but is still slightly more interactive. No other acute events overnight. REVIEW OF SYSTEMS: Unable to obtain secondary to patient's mental status. LABORATORY DATA: WBC 7.7, hemoglobin 10.8, hematocrit 34.7, platelets 313,000. Sodium 144, potassium 3, chloride 110, bicarbonate 23, BUN 6, creatinine 0.4, glucose 113. VITALS: Temperature maximum 98.4 degrees, pulse is 100, respiratory rate 16, blood pressure 157/100, O2 saturation 95% on room air. PHYSICAL EXAMINATION: General: No acute distress. Vitals: As above. HEENT: Normocephalic, atraumatic. Moist mucous membranes. Neck: No cervical adenopathy. Cardiovascular: Minimally elevated heart rate but regular rhythm. No murmurs noted. Pulmonary: Minimal bibasilar crackles, somewhat improved. Moderately clear to auscultation otherwise. Abdomen: Soft, nontender, nondistended. Bowel sounds positive. Extremities: Peripheral pulses intact. No clubbing or cyanosis. Neurologic: Exam somewhat limited by patient's mental status, but face symmetric. Pupils are equal, round, and reactive to light. Intermittently tracks with eyes to all 4 quadrants. Intermittent largely nonpurposeful movement of all extremities. More awake today, but still largely nonverbal. Psychiatric: Still some encephalopathy, but arousing a little better today. Per Nursing, she is occasionally oriented to person. ASSESSMENT AND PLAN: 1. Metabolic encephalopathy, multifactorial with bacteremia, lung cancer, posterior reversible encephalopathy syndrome (PRES), and some epileptiform spikes on EEG. A little improvement in confusion, but somewhat more awake today. Multiple issues but relatively stable from a hemodynamic and respiratory standpoint so we will likely transfer to . 2. Posterior reversible encephalopathy syndrome (PRES). The patient with markedly elevated systolic blood pressure to 230 on admission. MRI consistent with PRES. The blood pressure markedly improved with the addition of Norvasc. Continue to monitor closely. May be slow to resolve. 3. Serratia bacteremia. Patient with previous blood cultures positive with Serratia which was cleared, but initial blood cultures on this admission again positive for Serratia, and repeat blood cultures are persistently positive. ID Dr. Robertson following. There is concern that a piece of a previously partially removed Port-A-Cath may be seeded and causing repeated bacteremia. After discussion with Surgery and Infectious Disease, this appears that it would be quite difficult to have removed here. The best option is likely Interventional Radiology. Attempting to transfer to [place], but have not been successful so far. Continue antibiotics with Rocephin, to which her blood cultures were sensitive. 4. Seizure activity. Patient reportedly with some seizure activity prior to admission. No observed seizure activity here, but did have some spikes on the EEG that were concerning. Patient was started on Keppra and has been stable. Continue to monitor from a neurologic perspective. 5. Chronic obstructive pulmonary disease (COPD). No evidence of exacerbation at this time. Continue nebulizers as needed. 6. 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 No evidence of metastasis to brain on MRI. Continue with supportive care and monitor. Follow up with Oncology as outpatient. 7. Hypernatremia. Now improved with D5 half-normal saline. We will continue D5 half-normal saline for one more day and consider changing tomorrow. 8. Hypokalemia. Potassium remains low. We will further replete and monitor. 9. Hypoglycemia: improved with D5. DISPOSITION: The patient remains quite ill, but stable. Moving to . Attempting to transfer to [place] when bed is available for IR intervention. [facility]
[2018-07-09] MEDS: KEPPRA 1,000 MG in NS 100 ML IV SCH ×2 (00:47→12:35)
[2018-07-09] MEDS: ROCEPHIN 2 GM in NS 50 ML IV SCH ×2 (01:59→14:10)
[2018-07-09] MEDS: D5 1/2 NS 1,000 ML IV SCH ×2 (01:59→14:10)
[2018-07-09 05:13] LABS: BASO# 0.03 X1000 (0.0-0.2); BASO% 0.5 % (0.0-0.8); EOS# 0.57 X1000 (0.0-0.7); EOS% 10.1 % (0.0-10.0); HEMATOCRIT 34.9 % (37.0-47.0); HEMOGLOBIN 10.8 g/dL (12.0-16.0); IMM GRAN# 0.03 X1000 (0.0-0.04); IMM GRAN% 0.5 % (0.0-0.5); LYMPH# 1.43 X1000 (1.2-3.4); LYMPH% 25.4 % (20.5-51.1); MCH 25.5 PG (27-31); MCHC 30.9 g/dL (33-37); MCV 82.5 FL (81-99); MONO% 10.6 % (1.7-9.3); MPV 9.8 FL (7.4-10.4); NEUT# 2.98 X1000 (1.4-6.5); NEUT% 52.9 % (42.2-75.2); PLT 314 X1000 (130-400); RBC 4.23 XMIL (4.2-5.4); RDW 18.1 % (11.5-14.5); WBC 5.64 X1000 (4.8-10.8)
[2018-07-09 05:38] LABS: AGAP 12; BUN 5 mg/dL (8-22); CALCIUM 7.8 mg/dL (8.8-10.2); CHLORIDE 111 mmol/L (98-107); COSMO 287; CREATININE 0.5 mg/dL (0.5-0.9); ESTIMATED GFR > 60; GLUCOSE 110 mg/dL (70-104); POTASSIUM 3.1 mmol/L (3.5-5.1); SODIUM 145 mmol/L (136-145); TCO2 22 mmol/L (25-35)
--- NOTE | 2018-07-09 08:16 | INFECTIOUS DISEASE PROGRESS NO ---
DATE: 07/09/2018 PRESENT ILLNESS: The patient has a serratia bacteremia which I think originated from the part of her previous PICC that broke off and is in the superior vena cava. MEDICATIONS: The patient is on Rocephin, day 1 of treatment with Rocephin will be the first day that the repeat blood cultures are sterile. PHYSICAL EXAMINATION: Vital Signs: Temperature is 97.5 degrees, pulse 94, respirations 16, blood pressure 148/60. General: This is a ill-appearing, middle-aged female, however today, she has made a remarkable recovery. She is alert and coherent. Head/eyes/ears/nose/throat: She can hear my spoken words and see near objects. She does not have any white patches on her tongue. Neck: No pain with movement. Lungs: Clear to auscultation. Cardiovascular: Regular heart rate. Abdomen: Soft and not tender. Neurologic: Patient is alert, she is talking in a coherent fashion. She can move her extremities. There is no tremor. LAB AND X-RAY: The patient's CBC shows a white count of 5640, hemoglobin 10.8, platelet count 314,000. Creatinine 0.5, GFR is greater than 60. Procalcitonin level is 0.78. Repeat blood cultures are pending. ASSESSMENT AND PLAN: My plan is to continue Rocephin and, hopefully, the repeat blood cultures will be sterile. Once they are, I plan to treat at least for 14 days with day 1 being the first day that the repeat blood cultures are sterile. Hopefully, in that time period the patient will be transferred to [facility] to see if 1 of the interventional radiologist can remove the retained piece of catheter. COMORBIDITIES: In this patient include chronic obstructive pulmonary disease and metastatic lung cancer. cc: Arsalan Robertson MD
[2018-07-09] MEDS: NORVASC PO SCH (09:06)
[2018-07-09] MEDS: PERCOCET-10 PO PRN ×2 (09:06→14:10)
[2018-07-09] MEDS: KLONOPIN PO PRN ×2 (09:06→21:21)
--- NOTE | 2018-07-09 12:12 | PROGRESS NOTE ---
DATE: 07/09/2018 SUBJECTIVE: Ms. Georges has made remarkable progress in the last 24 hours. She reports feeling much better. She has a little bit of headache. She does not recall much of the last several days. OBJECTIVE: General: She is awake, alert, attentive. She answered questions appropriately. Speech is minimally dysarthric but easily understood. Language function is intact on brief bedside testing. Head and neck: Unremarkable. Neurologic: She has full visual rust, tested carefully by confrontational finger counting. Facial motility is symmetric. She has good power in the limbs. She did well on [id number] testing bilaterally. She reports equal pinprick and light touch appreciation over the hands. I did not test her gait. IMPRESSION: Likely PRES, clinically much improved in the last 24 hours. I encouraged her to quit smoking cigarettes and to be aggressive with management of her blood pressure after discharge. I do not have any new suggestion from neurology standpoint today. She will need followup imaging when practical. cc: MD HAWA Tidwell III
[2018-07-09] MEDS: PROTONIX IV SCH (12:35)
[2018-07-09] MEDS: SODIUM CHLORIDE 0.9% INJ SCH (12:35)
--- NOTE | 2018-07-09 14:22 | PROGRESS NOTE ---
DATE: 07/09/2018 INTERVAL HISTORY: Patient with marked improvement in mental status. Far more awake and alert. Now conversing in complete sentences, although she remains somewhat confused. No other acute events overnight. No new complaints. REVIEW OF SYSTEMS: Twelve point review of systems negative, except as per interval history. LABS: WBC 5.6, hemoglobin 10.8, hematocrit 34.9, platelets 314. Sodium 145, potassium 3.1, BUN 5, creatinine 0.5, glucose 110. PHYSICAL EXAMINATION: Vitals: T-max 98.5 degrees, pulse 90, respirations 16, blood pressure 145/54, O2 saturation 97% on room air. General: On physical examination, no acute distress. Vitals as above. HEENT: Normocephalic, atraumatic. Moist mucous membranes. Neck: No cervical adenopathy. Cardiovascular: Regular rate and rhythm. No murmurs noted. Pulmonary: Largely clear to auscultation bilaterally. Abdomen: Soft, nontender, nondistended. Bowel sounds positive. Extremities: Peripheral pulses intact. No clubbing, cyanosis or edema. Neurologic: Cranial nerves grossly intact. No focal deficits identified. Psychiatric: The patient is awake and alert, far more so than previous. Oriented to person and place, but not time, but does show some significant confusion otherwise. Skin: No new rashes or lesions identified. ASSESSMENT AND PLAN: 1. Metabolic encephalopathy, multifactorial with bacteremia, lung cancer, posterior reversible encephalopathy syndrome, and some epileptiform spikes on electroencephalogram. Progress had been quite slow before today, but patient with massive improvement in mental status now. 2. Posterior reversible encephalopathy syndrome. Patient with markedly elevated systolic blood pressure to 230 on admission. MRI consistent with posterior reversible encephalopathy syndrome. Blood pressure is significantly improved with addition of Norvasc. Continue to monitor closely. Appears to be improving significantly. Neurology recommending repeat imaging when possible. We will clarify whether they want a CT or a repeat MRI. 3. Serratia bacteremia, retained port fragment. The patient with previous blood cultures positive with Serratia which was cleared, but initial blood culture on this admission again positive for Serratia and, after removing all central lines and repeating blood cultures, those were again persistently positive. Infectious Disease with Dr. Robertson following. There is concern that a piece of a previously-removed Port-A-Cath may have a retained piece in the vena cava, which has been seeded and is causing the persistent bacteremia. Surgery and Infectious Disease recommending transfer to [place] for interventional radiology evaluation and possibly intervention. Continuing to call [facility], but they have had no beds so far. Continue antibiotics with Rocephin. 4. Seizure activity. The patient reported some seizure activity prior to admission. No obvious seizure activity here, but did have some epileptiform spikes on the electroencephalogram. The patient was started on Keppra, has been doing well since. 5. Chronic obstructive pulmonary disease. No evidence of exacerbation at this time. Continue nebulizers as needed. 6. 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 No evidence of metastases to brain on MRI. Continue supportive care and monitor. Follow up with Oncology as outpatient. 7. Hypernatremia remains resolved on D 5 half-normal. Sodium still in the high normal range, so we will continue fluids for now, but as patient is now more alert and beginning to take oral, we may be able to discontinue them or at least decrease them tomorrow. 8. Hypokalemia, somewhat improved with repletion, but remains low. We will replete further and monitor. 9. Hypoglycemia, improved with half-normal saline as above. DISPOSITION: Patient with significant improvement in mental status. Trying to coordinate transfer to [place] for IR attempt at removal of retained port fragment, which may be causing persistent bacteremia.
[2018-07-10] MEDS: KEPPRA 1,000 MG in NS 100 ML IV SCH ×2 (01:24→13:44)
[2018-07-10] MEDS: ROCEPHIN 2 GM in NS 50 ML IV SCH ×2 (02:57→14:36)
[2018-07-10] MEDS: D5 1/2 NS 1,000 ML IV SCH (06:25)
[2018-07-10 07:35] LABS: BASO# 0.06 X1000 (0.0-0.2); BASO% 0.9 % (0.0-0.8); EOS% 9.1 % (0.0-10.0); HEMATOCRIT 36.9 % (37.0-47.0); HEMOGLOBIN 11.4 g/dL (12.0-16.0); IMM GRAN# 0.06 X1000 (0.0-0.04); IMM GRAN% 0.9 % (0.0-0.5); LYMPH# 1.84 X1000 (1.2-3.4); LYMPH% 27.9 % (20.5-51.1); MCH 25.3 PG (27-31); MCHC 30.9 g/dL (33-37); MONO# 0.66 X1000 (0.11-0.59); MPV 9.9 FL (7.4-10.4); NEUT# 3.38 X1000 (1.4-6.5); NEUT% 51.2 % (42.2-75.2); PLT 355 X1000 (130-400); RDW 17.6 % (11.5-14.5)
[2018-07-10 08:05] LABS: AGAP 14; BUN 4 mg/dL (8-22); CALCIUM 8.4 mg/dL (8.8-10.2); CHLORIDE 109 mmol/L (98-107); COSMO 283; CREATININE 0.5 mg/dL (0.5-0.9); ESTIMATED GFR > 60; GLUCOSE 86 mg/dL (70-104); POTASSIUM 3.1 mmol/L (3.5-5.1); SODIUM 144 mmol/L (136-145); TCO2 21 mmol/L (25-35)
[2018-07-10] MEDS ORDERED: POTASSIUM CHLORIDE 60 MEQ in NS 500 ML IV ONE (10:12)
[2018-07-10] MEDS: PERCOCET-10 PO PRN ×2 (11:19→21:40)
[2018-07-10] MEDS: PROTONIX IV SCH (13:44)
[2018-07-10] MEDS: NORVASC PO SCH (13:44)
--- NOTE | 2018-07-10 13:58 | PROGRESS NOTE ---
DATE: 07/10/2018 INTERVAL HISTORY: The patient's mental status continues to improve. He is still somewhat confused but definitely improving. No new complaints. No other acute events overnight. REVIEW OF SYSTEMS: Twelve point review of systems negative except as per interval history. LABORATORY DATA: WBC 6.6, hemoglobin 11.4, hematocrit 36.9, platelets 355,000. Sodium 144, potassium 3.1, bicarb 21, creatinine 0.5, glucose 86, calcium 8.4. PHYSICAL EXAMINATION: Vital signs: T-max 98.5 degrees, pulse 94, respirations 16, blood pressure 160/56, O2 saturation 99 on room air. General: No acute distress. Vitals as above. HEENT: Normocephalic, atraumatic. Moist mucous membranes. No cervical adenopathy. Cardiovascular: Regular rate and rhythm. No murmurs noted. Pulmonary: Lungs are clear to auscultation bilaterally. Abdomen: Soft,nontender, nondistended. Bowel sounds positive. Extremities: Intact no clubbing, cyanosis, or edema. Neurologic: Cranial nerves grossly intact. No focal deficits identified. Psychiatric: Patient awake, alert, oriented x3 but still appears to be mildly confused. Following commands well. Skin: No new rashes or lesions identified. ASSESSMENT AND PLAN: 1. Metabolic encephalopathy, multifactorial, bacteremia, lung cancer and posterior reversible encephalopathy syndrome and some epileptiform spikes on EEG. The patient now rapidly improving. Still with some relatively mild confusion, but beginning to approach baseline. 2. Posterior reversible encephalopathy syndrome. Patient with markedly elevated systolic blood pressure to 230 on admission. MRI consistent with posterior reversible encephalopathy syndrome. Blood pressure has significantly improved, now the encephalopathy resolving. Repeat imaging as per Neurology. 3. Serratia bacteremia. Patient with previous blood cultures positive with Serratia, which was cleared. Initial blood cultures on this admission positive for Serratia. Later PICC tip positive for Serratia again. Patient thought to have retained fragment of Port-A-Cath. Dr. Robertson is recommending transfer to [place] for evaluation by IR for possible removal. [place] has been consistently full for the last several days. If the patient continues to improve, then may have to consider discharge with outpatient planning for this procedure. 4. Seizure activity. Patient reportedly had some seizure activity prior to admission. No obvious seizure activity here, but did have some of blood performed spikes on EEG. The patient is started on Keppra which has been continued and doing well since then. 5. Chronic obstructive pulmonary disease. No evidence of aspiration at this time. Continue nebulizers as needed. 6. 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 No evidence of metastasis to brain on MRI. Continues supportive care and monitor. Follow up with oncologist as outpatient. 7. Hypernatremia, now resolved. As the patient's p.o. intake is much improved, we will stop fluids and monitor. 8. Hypokalemia. Potassium still low despite multiple rounds of repletion. Will further replete and monitor. Checking Mag. 9. Hyperglycemia, improved with D5 in the patient now with improved p.o. intake, so unlikely to be a further issue. DISPOSITION: Patient with mental and clinical status improving rapidly. Still trying to transfer to [place], but no luck so far. If this remains not an option and the patient continues to improve, then may be able to discharge home and arrange outpatient scheduling with IR for removal of retained piece of port.
[2018-07-10] MEDS: KLONOPIN PO PRN (21:41)
[2018-07-11] MEDS: KEPPRA 1,000 MG in NS 100 ML IV SCH ×2 (01:18→15:44)
[2018-07-11] MEDS: ROCEPHIN 2 GM in NS 50 ML IV SCH ×2 (02:17→18:02)
[2018-07-11] MEDS: NORVASC PO SCH (08:44)
[2018-07-11] MEDS: PERCOCET-10 PO PRN ×2 (08:44→18:02)
--- NOTE | 2018-07-11 10:25 | Diag Imaging Result Doc PS360 ---
EXAM: CHEST-PORTABLE INDICATION: cough TECHNIQUE: One view COMPARISON: 07/06/2018 FINDINGS: The right PICC line has been removed. There is a small right pleural effusion with adjacent atelectasis and infiltrate at the right lung base. No pneumothorax is appreciated. Cardiac silhouette and central vasculature are unremarkable. IMPRESSION: Right basilar opacity likely representing a small effusion with adjacent atelectasis and/or infiltrate. Electronically signed by Abhay Baer 07/11/2018 10:23 AM
[2018-07-11] MEDS: ATIVAN IV PRN ×2 (11:39→18:19)
[2018-07-11] MEDS: KLONOPIN PO PRN (11:39)
--- NOTE | 2018-07-11 12:18 | PROGRESS NOTE ---
DATE: 07/11/2018 INTERVAL HISTORY: The patient's mental status continues to improve, nearing normal at this point. No new complaints. No other acute events overnight. REVIEW OF SYSTEMS: So far, review of systems negative except as per interval history. LABS: Glucose 95. IMAGING: Chest x-ray, small right basilar effusion. What appears to be a retained port fragment is clearly visible on the imaging, although not commented on in the report. VITALS: T-max 98.1 degrees, pulse 86, respirations 20, blood pressure 171/69, O2 saturation 98% on room air. PHYSICAL EXAMINATION: General: No acute distress. Vitals: As above. HEENT: Normocephalic, atraumatic. Moist mucous membranes. No cervical adenopathy. Cardiovascular: Regular rate and rhythm. No murmurs noted. Pulmonary: Clear to auscultation bilaterally. No wheezing, rales, or rhonchi noted. Abdomen: Soft, nontender, nondistended. Bowel sounds positive. Extremities: Peripheral pulses intact. No clubbing, cyanosis, or edema. Neurologic: Cranial nerves grossly intact. No focal deficits identified. Psychiatric: Patient is awake, alert, oriented x3, following commands well. Conversant. Confusion appears to be largely resolved. Skin: No new rashes or lesions identified. ASSESSMENT AND PLAN: 1. Metabolic encephalopathy, multifactorial with bacteremia, lung cancer, and posterior reversible encephalopathy syndrome, also some epileptiform spikes on recent electroencephalogram. The patient now approaching baseline. 2. Posterior reversible encephalopathy syndrome. Patient with markedly elevated systolic blood pressure on admission to [facility]. MRI consistent with posterior reversible encephalopathy syndrome. Blood pressure still with some moderate elevations occasionally but improved from admission. Repeat imaging as per neurology. 3. Serratia bacteremia. The patient's previous blood cultures positive with Serratia, which was cleared. Initial blood cultures on this admission also positive for Serratia. The patient appears to have a large retained fragment of a Port-A-Cath in her vasculature. Dr. Robertson recommending transfer to [place] for evaluation by emergency room for possible removal. I have not been able to transfer the patient to [place] thus far but discussing with Dr. Robertson the possibility of setting up the patient with outpatient intravenous antibiotics and trying to get her in with interventional radiology on an outpatient basis. 4. Chronic obstructive pulmonary disease. No evidence of exacerbation at this time. Continue nebulizers as needed. 5. 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 No evidence of metastases to brain on MRI. Continue supportive care and monitor. Follow up with oncology as an outpatient. 6. Hypernatremia, now resolved. Doing okay off fluids. 7. Hypokalemia. Repeat labs pending. We will check labs and replete further if necessary. 8. Hypoglycemia, now resolved.
[2018-07-11] MEDS ORDERED: BENADRYL PO PRN (12:55)
[2018-07-11] MEDS: PROTONIX IV SCH (15:35)
[2018-07-11] MEDS: SODIUM CHLORIDE 0.9% INJ SCH (15:36)
[2018-07-11] MEDS: PRINIVIL PO SCH (16:37)
[2018-07-12] MEDS: ATIVAN IV PRN ×2 (00:58→02:07)
[2018-07-12] MEDS: PERCOCET-10 PO PRN ×2 (00:58→08:13)
[2018-07-12] MEDS: KEPPRA 1,000 MG in NS 100 ML IV SCH ×2 (01:19→15:38)
[2018-07-12] MEDS: ROCEPHIN 2 GM in NS 50 ML IV SCH ×2 (01:19→15:38)
[2018-07-12 06:53] LABS: BASO# 0.06 X1000 (0.0-0.2); EOS% 8.4 % (0.0-10.0); HEMATOCRIT 34.5 % (37.0-47.0); HEMOGLOBIN 10.5 g/dL (12.0-16.0); IMM GRAN# 0.05 X1000 (0.0-0.04); IMM GRAN% 0.8 % (0.0-0.5); LYMPH# 1.98 X1000 (1.2-3.4); LYMPH% 33.4 % (20.5-51.1); MCH 25.2 PG (27-31); MCHC 30.4 g/dL (33-37); MCV 82.7 FL (81-99); MONO# 0.55 X1000 (0.11-0.59); MONO% 9.3 % (1.7-9.3); MPV 9.2 FL (7.4-10.4); NEUT# 2.78 X1000 (1.4-6.5); NEUT% 47.1 % (42.2-75.2); PLT 367 X1000 (130-400); RBC 4.17 XMIL (4.2-5.4); RDW 17.4 % (11.5-14.5); WBC 5.92 X1000 (4.8-10.8)
[2018-07-12 07:20] LABS: AGAP 8; BUN 5 mg/dL (8-22); CALCIUM 8.7 mg/dL (8.8-10.2); CHLORIDE 110 mmol/L (98-107); COSMO 285; CREATININE 0.6 mg/dL (0.5-0.9); ESTIMATED GFR > 60; GLUCOSE 78 mg/dL (70-104); POTASSIUM 3.7 mmol/L (3.5-5.1); SODIUM 145 mmol/L (136-145); TCO2 27 mmol/L (25-35)
[2018-07-12] MEDS: PRINIVIL PO SCH (08:13)
[2018-07-12] MEDS: KLONOPIN PO PRN (08:14)
[2018-07-12] MEDS: NORVASC PO SCH (08:14)
--- NOTE | 2018-07-12 12:20 | PROGRESS NOTE ---
DATE: 07/12/2018 INTERVAL HISTORY: The patient's mental status remains slightly slow but confusion essentially resolved at this point. No acute events overnight. No new complaints. REVIEW OF SYSTEMS: Twelve point review of systems negative except as per interval history. LABS: WBC 5.9, hemoglobin 10.5, hematocrit 34.5, platelets 367,000. Sodium 145, potassium 3.7, BUN 5, creatinine 0.6, glucose 107. VITALS: T-max 98.1 degrees, pulse 93, respirations 15, blood pressure 122/74, O2 saturation 100% on room air. PHYSICAL EXAMINATION: General: No acute distress. Vitals: As above. HEENT: Normocephalic, atraumatic. Moist mucous membranes. No cervical adenopathy. Cardiovascular: Regular rate and rhythm. No murmurs. Pulmonary: Clear to auscultation bilaterally. No wheezing, rales, or rhonchi. Abdomen: Soft, nontender, nondistended. Bowel sounds positive. Extremities: Peripheral pulses intact. No clubbing, cyanosis, or edema. Neurologic: Cranial nerves grossly intact. Psychiatric: Patient awake, alert, oriented x3. Following commands well. Speech is sometimes a little slow but conversant and appropriate. Skin: No new rashes or lesions identified. ASSESSMENT AND PLAN: 1. Metabolic encephalopathy, largely resolved at this point, multifactorial with bacteremia, lung cancer, and posterior reversible encephalopathy syndrome, as well as epileptiform spikes on electroencephalogram. 2. Serratia bacteremia. Patient's blood cultures on previous admission positive with Serratia which cleared but then initial blood cultures here again positive x2. The patient appears to have a large retained fragment of her previous Port-A-Cath still in her vasculature. Dr. Robertson recommending evaluation by interventional radiology at [place] for possible removal. Discussing with Dr. Robertson whether this needs to be done on an urgent basis which would necessitate continued attempts at transfer or if we may be able to continue intravenous antibiotics and set this up as an outpatient. 3. Posterior reversible encephalopathy syndrome. Patient with markedly elevated systolic blood pressure to 230 on admission. MRI consistent with posterior reversible encephalopathy syndrome. Blood pressure now improved and encephalopathy resolved. 4. Chronic obstructive pulmonary disease. No evidence of exacerbation at this time. Continue nebulizers as needed. 5. 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 No evidence of metastasis to brain on MRI. Continue supportive care and monitor. Follow up with oncology as an outpatient. 6. Hypernatremia, now resolved, doing well off of fluids. 7. Hypokalemia, improved status post repletion. 8. Hypoglycemia, now resolved with improved oral intake. [facility]
--- NOTE | 2018-07-12 15:18 | PROGRESS NOTE ---
DATE: 07/12/2018 SUBJECTIVE: No major overnight events. The patient is eager for discharge. OBJECTIVE: Vital signs: She is afebrile, blood pressure today 120s to 143 systolic, pulse 90s, respirations 15, 100% on room air. General: Ms. Georges is awake, alert, sitting up in bed. She is pleasant and cooperative. Neurological: She is oriented to self, family, location, month, and year. She had some difficulty with concentration evident on exam. No language disturbance on bedside testing. No dysarthria. Gaze is conjugate. Face is symmetric with equal activation. She is using all 4 extremities equally without obvious deficit. DIAGNOSTICS: BUN and creatinine not elevated, blood sugars are good. White count normal. ASSESSMENT AND PLAN: 1. Likely posterior reversible encephalopathy syndrome (PRES) with encephalopathy and seizures on presentation and imaging evidence highly suggestive of this. She is much improved compared to last week and is almost baseline. There have been no further seizures witnessed. Blood pressures are improved. She will need repeat brain MRI noncontrast in about 2 weeks to document improving or resolution of the previous findings that would give a definitive diagnosis of PRES. 2. Seizures in the setting of likely posterior reversible encephalopathy syndrome (PRES). She also had frequent interictal discharges and PLEDs on the EEG this hospitalization. Continue Keppra 1 g b.i.d. for now. We will plan to attempt to come off the Keppra after complete resolution of symptoms and resolution of imaging findings. The patient will need to follow up in our office. Seizure precautions advised to patient and son. The patient should not be driving. They understand her responsibilities. She does not drive. Keppra side effects and benefits also discussed. They understand to contact our office should side effects arise. cc: Arabella Lopez MD [facility]
[2018-07-12 15:34] VITALS: BP 134/96
[2018-07-12] MEDS: PROTONIX IV SCH (15:38)
--- NOTE | 2018-07-12 15:50 | INFECTIOUS DISEASE PROGRESS NO ---
DATE: 07/12/2018 PRESENT ILLNESS: The patient present illness patient has a serratia bacteremia which originated from the patient's catheter that has broken off and is in the patient's chest. MEDICATIONS: This is day 4 of Rocephin treatment in a dose of 2 gram IV every 12 hours. Day 1 is the first day that the patient's blood cultures turned positive, which was July 08. OBJECTIVE: General this is an ill-appearing middle-aged female. She is in no acute distress. Head eyes ears, nose, throat: She can hear my spoken words and see near objects. She does not have any white coating on her tongue. Neck: No pain with movement. Lungs: Clear to auscultation. Cardiovascular: Regular heart rate. Neurologic: Patient is alert. She talks in a coherent way. She can move all of her extremities. There is no tremor. LABORATORY AND X-RAY: As mentioned above the repeat blood cultures drawn on July 08 are sterile. The CBC shows a white count of 5920, hemoglobin 10.5, and platelet count 367,000 creatinine is 0.6, GFR is greater than 60. ASSESSMENT AND PLAN: The patient has a serratia bacteremia as mentioned above. I think it there are a originates from the part of the patient's Port-A-Cath that broke off and is in the patient's chest. The plan is to continue Rocephin. Dr. Agosto has called [facility] repeatedly to try to get the patient transferred so that and radiology can see if they can remove the catheter. He is still going to try to get her transferred in if he can't get her transferred he will try to send her to an outpatient visit to the radiologist so that they can make plans to take out the patient's catheter. I have given the patient an appointment in my office in 2 weeks. COMORBIDITIES: Include chronic obstructive pulmonary disease, metastatic lung cancer and cigarette smoking. cc: Arsalan Robertson MD
[2018-07-12 16:02] LABS: INR 1.08; PROTIME 14.9 Seconds (11.0-16.0)
--- NOTE | 2018-07-17 19:27 | DISCHARGE SUMMARY ---
ADMISSION DATE: 07/05/2018 DISCHARGE DATE: 07/12/2018 HOSPITAL COURSE: The patient presented initially with encephalopathy. Initially thought that it might be due to taking too much her sedating medication at home, blood pressure was markedly elevated with systolic of 230, an MRI showed PRES syndrome with multilobar edema. Blood pressure was controlled. Patient was markedly encephalopathic for a prolonged period but did eventually wake up. The patient had a complicated hospital course. She initial blood cultures were positive for Serratia which patient had been positive for previously. Upon discussion with ID was felt that with the retained dissection of her previous port still in her superior vena cava was likely seeded and causing a persistent bacteremia. Patient also had some epileptiform spikes on the EEG which may have been related to PRES syndrome but she was started on antiepileptics which were continued. No evidence of new metastasis of her lung cancer was identified. As patient improved plans were began to be made initially for transfer [place] for to look at possibly removing this retained piece of port but beds never became available. Once patient's acute issues were largely resolved plan was further discussed with ID and we transitioned to attempting to get her set up with a PICC line and outpatient IV antibiotics until she could be assessed by [facility] [place] on an outpatient basis. However, before this could be set up patient left against medical advice. I personally discussed this with patient and she initially stated that she would stay until her PICC line and antibiotics could be set up given the potential severity of the issue but later in the day changed her mind and left against medical advice anyway. Blood pressure medications were sent into her pharmacy but I do not know if patient ever picked these up. Dr. Robertson was attempting to arrange antibiotics but this was still pending when patient left the hospital. I faxed over information to the [facility] at [place] to try to get patient seen there to be evaluated for removal of her retained port fragment but unknown if patient never followed up with them. DISCHARGE DIAGNOSES: 1. Metabolic encephalopathy. 2. Posterior reversible encephalopathy syndrome. 3. Seizure activity . 4. Hypertension. 5. Serratia bacteremia, recurrent. 6. Retained fragment of port. 7. Chronic obstructive pulmonary disease. 8. 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 9. Hypernatremia. 10. Hypokalemia. 11. Hypoglycemia. DISCHARGE DIET: Patient left AMA. Recommend cardiac. DISCHARGE MEDICATIONS: Lunesta, Bentyl, Celexa, Phenergan, omeprazole, Klonopin, MiraLAX, nicotine patch, Norvasc, lisinopril, Percocet, antibiotic as per Dr. Robertson. FOLLOWUP AND PLAN: I attempted to get patient set up with a PICC line at home IV antibiotics for her recurrent Serratia bacteremia but patient left against medical advice before this could be arranged. Recommend evaluation by [facility] at [place] or elsewhere for possible removal of her retained port fragment in her SVC. Greater than 30 minutes spent arranging discharge and counseling patient.
== END 2018-07-12 16:58 | disposition left against medical advice (07) | DRG 314 ==
LOC: SUPCPDRO → ED 08:10 → SUATTDRO 12:18 → ICU 12:18 → 3S 07-08 19:52 → 3N 07-09 16:03
PROVIDERS: ATTEND Internal Medicine
CPT/HCPCS: 51702; 70450; 70460; 70544; 70551; 71010; 71045; 80048; 80053; 81001; 82607; 82746; 82805; 82948; 83735; 84145; 84439; 84443; 85025; 85610; 87040; 87070; 87077; 87186; 93005; 93010; 94761; 95816; 96374; 96375; 96376; 99285; A9270; C9113; J0360; J0692; J0696; J1953; J1956; J2060; J2310; J3370; J3480; J7030; J7040; S0164; XXXXX

== ENCOUNTER 2018-07-17 14:52 | Inpatient (IN) ==
--- NOTE | 2018-07-17 18:18 | PROVIDER DOCUMENTATION ---
This chart was entered by Zohra Szymanski Scribe, acting as scribe for Main Vargas MD. HPI-General Adult - General Source: patient, family (Granddaughter) - History of Present Illness -Gen Adult Nature of Presenting Problems: 63 y/o female presents to the ED after she pulled out a peripheral IV from left arm which she was receiving antibiotic therapy. Granddaughter is the only family in the room and does not know details of the patient's problem other than she has been in and out of the hospital with infection/s since April and the patient has removed something that she should not have. <Main Vargas - Last Filed: 07/17/18 18:18> <Evan Rodriguez - Last Filed: 07/17/18 20:39> - General Chief Complaint: For Procedure Stated Complaint: REMOVED PIC LINES Time Seen by Provider: 07/17/18 15:11 Allergies/Adverse Reactions: Patient Allergies Allergy/AdvReac Type Severity Reaction Status Date / Time morphine AdvReac ITCHING Verified 07/17/18 18:11 Home Medications: Home Medication List Medication Instructions Recorded Confirmed Last Taken Type Citalopram [Celexa] 40 mg PO DAILY MDD 40 08/02/14 07/05/18 06/13/18 09:00 History Eszopiclone [Lunesta] 3 mg PO QHS 08/02/14 07/17/18 07/16/18 History Omeprazole [Prilosec] 20 mg PO DAILY PRN 08/06/16 07/12/18 06/13/18 09:00 History Promethazine [Phenergan] 25 mg PO Q6H PRN PRN 05/06/17 07/17/18 06/12/18 09:00 History Polyethylene Glycol 3350 [Miralax] 17 gm PO DAILY 30 Days #30 powder, 05/05/18 07/12/18 06/13/18 09:00 Rx packet Nicotine Patch [Nicoderm Patch] 21 mg TD DAILY patch.[id number] 06/23/18 07/12/18 Unknown Rx Oxycodone/APAP 10 mg/325 mg 1 tab PO TID PRN PRN #30 tab 06/23/18 07/12/18 Unknown Rx [Percocet-10] Dicyclomine [Bentyl] 20 mg PO BID 07/05/18 07/05/18 Unknown History Amlodipine [Norvasc] 10 mg PO DAILY #30 tab 07/12/18 Unknown Rx Clonazepam [Klonopin] 0.5 mg PO BID #0 07/12/18 07/17/18 07/17/18 Rx LISINOpril [Prinivil] 40 mg PO DAILY #30 tab 07/12/18 Unknown Rx Dextroamphetamine/Amphetamine 1 tab PO DAILY 07/17/18 07/17/18 07/17/18 History [Adderall 20 mg Tablet] Hydromorphone [Dilaudid] 2 mg PO Q4H PRN PRN 07/17/18 07/17/18 07/17/18 History Review of Systems - Adult - REVIEW OF SYSTEMS - ADULT ROS:: limited per condition Constitutional: reports: other (CONFUSION) Eyes: reports: no symptoms reported Ears, Nose, Mouth & Throat: reports: no symptoms reported Cardiovascular: reports: no symptoms reported Respiratory: reports: no symptoms reported Gastrointestinal: reports: no symptoms reported Genitourinary: reports: no symptoms reported Musculoskeletal: reports: no symptoms reported Integumentary: reports: no symptoms reported Neurological: reports: other (CONFUSION) Psychiatric: reports: no symptoms reported Endocrine: reports: no symptoms reported <Evan Rodriguez - Last Filed: 07/17/18 20:39> Past History - Adult - PAST MEDICAL HISTORY-ADULT Review of Records: reports: Old Records Reviewed, Nursing Assessment Review, Medications Reviewed Major Childhood Illnesses: reports: denies history Cardiovascular: reports: HTN Respiratory: reports: asthma, COPD, cancer (Stage IV Lung ca) Gastrointestinal: reports: cancer (liver), liver disease (liver cancer) Obstetrical/Gynecological: reports: denies history Genitourinary: reports: denies history Musculoskeletal: reports: other (broken right knee) Neurological: reports: Seizures/Epilepsy Endocrine/Immune: reports: denies history, cancer (adrenal) Other Conditions: reports: other cancer (adrenal cancer) Additional History: non small cell lung ca 5 years out - PRIOR SURGERIES/PROCEDURES Surgical/Procedure History: reports: BTL, indwelling device (port insertion), other (lung biopsy) - IMMUNIZATION STATUS Childhood Immunizations: UTD Flu Vaccine: UTD - FAMILY HISTORY Family History: reviewed, not pertinent <Main Vargas - Last Filed: 07/17/18 18:18> Physical Exam-General - CONSTITUTIONAL General Appearance: mild distress - EYES Eyes: PERRL/EOMI - HEAD, EARS, NOSE, MOUTH & THROAT HENMT: normocephalic/atraumatic, moist mucous membranes, normal ENT inspection - NECK Neck: non-tender, full range of motion, supple - RESPIRATORY Respiratory: chest non-tender, lungs clear, normal breath sounds, no pleuratic chest pain, no respiratory distress, no accessory muscle use - CARDIOVASCULAR Cardiovascular: normal peripheral pulses, regular rate, rhythm, no edema, no gallop, no JVD, no murmur - GASTROINTESTINAL (ABDOMEN) Abdominal Exam: normal bowel sounds, non tender, soft, no organomegaly, no pulsatile mass - MUSCULOSKELETAL Extremity: normal range of motion, non-tender, normal gait - SKIN Integumentary: normal color, normal turgor, warm/dry - NEUROLOGIC Neurologic: grossly normal - PSYCHIATRIC Psych/Mental Status: other (AOX 2) <Evan Rodriguez - Last Filed: 07/17/18 20:39> Progress - PLAN OF CARE/RESULTS Progress/Plan/Lab Results: Vital Signs - 8 hr 07/17/18 14:58 Temperature 98.7 F Pulse Rate 98 H Respiratory Rate 17 Blood Pressure 102/62 O2 Sat by Pulse Oximetry 97 <Main Vargas - Last Filed: 07/17/18 18:18> - PLAN OF CARE/RESULTS Progress/Plan/Lab Results: Vital Signs - 8 hr 07/17/18 14:58 07/17/18 16:50 07/17/18 19:59 Temperature 98.7 F 98.8 F 97.9 F Pulse Rate 98 H 109 H 102 H Respiratory Rate 17 18 18 Blood Pressure 102/62 135/70 112/72 O2 Sat by Pulse Oximetry 97 98 93 L Laboratory Results - last 24 hr 07/17/18 07/17/18 07/17/18 18:00 18:00 18:00 WBC 9.01 RBC 4.38 Hgb 11.4 L Hct 36.3 L MCV 82.9 MCH 26.0 L MCHC 31.4 L RDW Std Deviation 17.7 H Plt Count 306 MPV 9.9 Immature Gran % (Auto) 0.2 Neut % (Auto) 73.0 Lymph % (Auto) 14.0 L Harnett % (Auto) 7.5 Eos % (Auto) 5.1 Baso % (Auto) 0.2 Immature Gran # (Auto) 0.02 Neut # (Auto) 6.57 H Lymph # (Auto) 1.26 Harnett # (Auto) 0.68 H Eos # (Auto) 0.46 Baso # (Auto) 0.02 PT INR PTT (Actin FS) Sodium 141 Potassium 4.3 Chloride 101 Carbon Dioxide 26 Anion Gap 14 BUN 9 Creatinine 0.8 Estimated GFR/1.73 m2 > 60 BUN/Creatinine Ratio 11 Glucose 98 Calculated Osmolality 280 Calcium 9.3 Magnesium 2.1 Total Bilirubin 0.25 AST 19 ALT 8 L Alkaline Phosphatase 181 H Creatine Kinase 71 Troponin T Total Protein 6.8 Albumin 3.3 L Globulin 3.5 Albumin/Globulin Ratio 0.9 Plasma Lactate 1.0 Urine Source Urine Color Urine Turbidity Urine pH Ur Specific [place] Urine Protein Ur Glucose (Stick) Ur Ketones (Stick) Urine Blood Urine Nitrite Urine Bilirubin Urobilinogen Dipstick Urine Leukocytes Urine WBC (Auto) Urine RBC (Auto) U Epithel Cells (Auto) Urine Bacteria (Auto) Urine Crystals Small Round Cells Urine Casts Urine Yeast-like Cells 07/17/18 07/17/18 07/17/18 18:00 18:00 19:35 WBC RBC Hgb Hct MCV MCH MCHC RDW Std Deviation Plt Count MPV Immature Gran % (Auto) Neut % (Auto) Lymph % (Auto) Harnett % (Auto) Eos % (Auto) Baso % (Auto) Immature Gran # (Auto) Neut # (Auto) Lymph # (Auto) Harnett # (Auto) Eos # (Auto) Baso # (Auto) PT 16.0 INR 1.18 PTT (Actin FS) 34.3 Sodium Potassium Chloride Carbon Dioxide Anion Gap BUN Creatinine Estimated GFR/1.73 m2 BUN/Creatinine Ratio Glucose Calculated Osmolality Calcium Magnesium Total Bilirubin AST ALT Alkaline Phosphatase Creatine Kinase Troponin T < 0.010 Total Protein Albumin Globulin Albumin/Globulin Ratio Plasma Lactate Urine Source CLEAN CATCH Urine Color YELLOW Urine Turbidity CLEAR Urine pH 6.0 Ur Specific [place] 1.000 Urine Protein 30 A Ur Glucose (Stick) NEGATIVE Ur Ketones (Stick) NEGATIVE Urine Blood LARGE A Urine Nitrite NEGATIVE Urine Bilirubin NEGATIVE Urobilinogen Dipstick NORMAL Urine Leukocytes LARGE A Urine WBC (Auto) 10-20 A Urine RBC (Auto) 20-40 A U Epithel Cells (Auto) <10 Urine Bacteria (Auto) NEGATIVE Urine Crystals NONE SEEN Small Round Cells NONE SEEN Urine Casts GRANULAR PRESENT Urine Yeast-like Cells PRESENT Orders Category Date Time Status Cardiac Monitoring DIRECTED Care 07/17/18 18:08 Active IV Insertion ORDERED Care 07/17/18 18:08 Completed Notify MD of + Sepsis Screen NOW Care 07/17/18 18:08 Active Notify Physician As Ordered Care 07/17/18 18:08 Active CHEST-1 VIEW [RAD] Stat Exams 07/17/18 18:[address] HEAD W/O CONTRAST [CT] Stat Exams 07/17/18 20:36 Ordered BLOOD CULTURE [BLDCUL] Stat Lab 07/17/18 18:46 Results CBC WITH ELECTRONIC DIFF [HEME] Stat Lab 07/17/18 18:00 Completed CK PROFILE [SP CHEM] Stat Lab 07/17/18 18:00 Completed COMPREHENSIVE METABOLIC PANEL [CHEM] Stat Lab 07/17/18 18:00 Completed LACTATE, PLASMA [CHEM] Stat Lab 07/17/18 18:00 Completed MAGNESIUM [CHEM] Stat Lab 07/17/18 18:00 Completed PROTIME WITH INR [COAG] Stat Lab 07/17/18 18:00 Completed PTT [COAG] Stat Lab 07/17/18 18:00 Completed TROPONIN T Stat Lab 07/17/18 18:00 Completed URINALYSIS W/POSS RFLX CULT [URINALYSIS] Stat Lab 07/17/18 19:35 Completed URINE CULTURE [RM] Routine Lab 07/17/18 20:12 Received URINE MANUAL MICROSCOPIC [URINALYSIS] Stat Lab 07/17/18 19:35 Completed CefTRIAXONE [Rocephin] 2 gm Med 07/17/18 20:19 Active 0.9% Sodium Chloride Inj [Ns] 50 ml IV NOW Water, Sterile Inj [Sterile Water Inj] Med 07/17/18 20:19 Discontinued 1.2 ml INJ NOW ONE Ziprasidone [Geodon] Med 07/17/18 20:19 Discontinued 10 mg IM NOW ONE Oxygen Device Stat Oth 07/17/18 18:08 Active Result Diagrams: 07/17/18 18:00 07/17/18 18:00 - REASSESSMENT Reassessment #1 Time Reassessed: 20:36 Status: other (REVIEW OF LABS REVEALING UTI AND PATIENT DOES HAVE BACTEREMIA THAT'S SENSITIVE TO CEFTRIAXONE. SPOKE TO DR. SMART AND APPRECIATE HIS ASSISTANCE. I WILL ORDER CT HEAD FOR CONFUSION.) <Evan Rodriguez - Last Filed: 07/17/18 20:39> Departure <Main Vargas - Last Filed: 07/17/18 18:18> - Departure Date of Disposition Decision: 07/17/18 Time of Disposition Decision: 20:37 Certified Medical Emergency: Emergent - Critical Care Note This patient required my direct & personal management of CC.: No <Evan Rodriguez - Last Filed: 07/17/18 20:39> - Departure DIAGNOSIS: UTI (urinary tract infection), Bacteremia, Metabolic encephalopathy Disposition: ADMITTED INPATIENT 09 Condition: Fair Referrals and Follow-Ups: None,PCP [Primary Care Provider] - Attestation - Physician/ NUBIA Attestation Patient care was provided by Advanced Practice Provider:: No The physician spent face to face time with patient:: Yes Advanced Practice Provider documentation review:: Supervising physician onsite and consulted in the evaluation and care of this patient. The physician did have a face to face encounter with the patient. <Evan Rodriguez - Last Filed: 07/17/18 20:39> This chart was documented by the indicated scribe, (Zohra Szymanski, Eugenia) and accurately reflects the services I performed and decisions made by me, Main Vargas MD, as attested by the provider's signature.
[2018-07-17 18:27] LABS: BASO# 0.02 X1000 (0.0-0.2); BASO% 0.2 % (0.0-0.8); EOS# 0.46 X1000 (0.0-0.7); EOS% 5.1 % (0.0-10.0); HEMATOCRIT 36.3 % (37.0-47.0); HEMOGLOBIN 11.4 g/dL (12.0-16.0); IMM GRAN# 0.02 X1000 (0.0-0.04); IMM GRAN% 0.2 % (0.0-0.5); LYMPH# 1.26 X1000 (1.2-3.4); MCHC 31.4 g/dL (33-37); MCV 82.9 FL (81-99); MONO# 0.68 X1000 (0.11-0.59); MONO% 7.5 % (1.7-9.3); MPV 9.9 FL (7.4-10.4); NEUT# 6.57 X1000 (1.4-6.5); PLT 306 X1000 (130-400); RBC 4.38 XMIL (4.2-5.4); RDW 17.7 % (11.5-14.5); WBC 9.01 X1000 (4.8-10.8)
--- NOTE | 2018-07-17 18:28 | Diag Imaging Result Doc PS360 ---
EXAM: CHEST-1 VIEW - 07/17/2018 HISTORY: R/O SEPSIS TECHNIQUE: Portable chest COMPARISON: 07/11/2018 FINDINGS: Heart size is normal. There has been interval decrease in bibasilar opacities. There is a tiny right pleural effusion which is decreased. There is a tiny left pleural effusion. There is no dense consolidation or pneumothorax identified. Central venous catheter remains in place. IMPRESSION: Decrease in basilar opacities and right pleural effusion compared to prior. Electronically signed by Yong Barry 07/17/2018 6:26 PM
[2018-07-17 18:35] LABS: INR 1.18
[2018-07-17 18:36] LABS: PTT 34.3 Seconds (22.3-41.8)
[2018-07-17 18:49] LABS: AGAP 14; ALB/GLOB RATIO 0.9; ALBUMIN 3.3 g/dL (3.5-5.0); ALKALINE PHOSPHATASE 181 U/L (32-104); BUN 9 mg/dL (8-22); CALCIUM 9.3 mg/dL (8.8-10.2); CHLORIDE 101 mmol/L (98-107); CK PROFILE 71 U/L (24-173); COSMO 280; CREATININE 0.8 mg/dL (0.5-0.9); ESTIMATED GFR > 60; GLUCOSE 98 mg/dL (70-104); GOT 19 U/L (10-30); GPT 8 U/L (10-36); MAGNESIUM 2.1 mg/dL (1.5-2.7); POTASSIUM 4.3 mmol/L (3.5-5.1); SODIUM 141 mmol/L (136-145); TCO2 26 mmol/L (25-35); TOTAL BILIRUBIN 0.25 mg/dL (0.20-1.00); TOTAL PROTEIN 6.8 g/dL (6.3-8.3)
[2018-07-17 19:41] LABS: URINE SOURCE CLEAN CATCH
[2018-07-17 19:46] LABS: BILIRUBIN URINE NEGATIVE (NEGATIVE); BLOOD URINE LARGE (NEGATIVE); COLOR YELLOW; GLUCOSE URINE NEGATIVE (NEGATIVE); KETONE URINE NEGATIVE (NEGATIVE); LEUKOCYTES URINE LARGE (NEGATIVE); NITRITE URINE NEGATIVE (NEGATIVE); PROTEIN URINE 30 mg/dL (NEGATIVE); TURBIDITY URINE CLEAR (CLEAR); UROBILINOGEN URINE NORMAL (NORMAL)
[2018-07-17 19:59] LABS: URINE BACTERIA NEGATIVE /HPF; URINE RBC 20-40 /HPF (<10)
[2018-07-17 20:12] LABS: UR EPITHELIAL CELLS <10 /HPF (<10)
[2018-07-17] MEDS ORDERED: ROCEPHIN 2 GM in NS 50 ML IV ONE (20:19)
[2018-07-17] MEDS ORDERED: GEODON IM ONE (20:19)
[2018-07-17] MEDS ORDERED: STERILE WATER INJ. INJ ONE (20:19)
[2018-07-17 20:21] LABS: URINE CASTS GRANULAR PRESENT; URINE CRYSTALS NONE SEEN; URINE SMALL ROUND CELLS NONE SEEN; URINE YEAST PRESENT
[2018-07-17] MEDS ORDERED: TYLENOL PO PRN (21:17)
[2018-07-17] MEDS ORDERED: SODIUM CHLORIDE 0.9% INJ SCH (21:30)
--- NOTE | 2018-07-17 21:35 | Diag Imaging Result Doc PS360 ---
EXAM: CT HEAD W/O CONTRAST - 07/17/2018 HISTORY: CONFUSION TECHNIQUE: CT head without contrast COMPARISON: 07/05/2018 FINDINGS: There is low-density in the left occipital lobe which appears to be less extensive compared the prior exam and may relate to some residual change of posterior reversible encephalopathy syndrome. There is no other evidence of recent infarct, although acute infarcts may not be immediately visible. There is no evidence of intracranial hemorrhage, mass effect, midline shift, or hydrocephalus. IMPRESSION: Possible residual change of posterior reversible encephalopathy syndrome at left occipital lobe. No hemorrhage or mass effect. This exam was performed using automated exposure control, adjustment of mA or kV according to patient size, and/or use of iterative reconstruction technique. Electronically signed by Yong Barry 07/17/2018 9:33 PM
[2018-07-17] MEDS ORDERED: GEODON IM PRN (22:39)
[2018-07-17] MEDS ORDERED: STERILE WATER INJ. INJ PRN (22:39)
--- NOTE | 2018-07-17 23:11 | HISTORY AND PHYSICAL ---
CHIEF COMPLAINT: Pulled out PICC line, altered mental status. HISTORY OF PRESENT ILLNESS: Ms. Georges is a 63-year-old female who recently left our service AMA I believe on 07/12/2018. From what I understand, she has been in and out of the hospital with Serratia bacteremia which I believe was from fragments of an old Port-A-Cath. She left against medical advice on the . From what the son tells me, she did follow up with Home Health and she was receiving Rocephin infusions per her PICC line. However, today she removed the tip of the PICC line. The catheter was still in. Came into the emergency room and the nurses in the emergency room from what I understand removed the remaining portion of the PICC. She was disoriented times 3, was not able to give me any information. From what I understand, she also removed her Dilaudid pain pump. Son was at the bedside. However, he was unable to give me more information other than she has not been doing well since leaving and she has been getting her Rocephin treatments up until today. At any rate, she will be admitted for further evaluation and treatment. PAST MEDICAL HISTORY: 1. Metastatic lung cancer. 2. PRES. 3. COPD. 4. Hypertension. 5. Pneumonia. 6. Metabolic encephalopathy. SURGICAL HISTORY: Tubal ligation, lung biopsies, port placement and removal, PICC placement. SOCIAL HISTORY: Half pack a day smoker. Has not smoked in around a month. No alcohol or illicit drugs. FAMILY HISTORY: Notable for prostate cancer, diabetes, heart disease in first- degree relatives. ALLERGIES: Morphine. HOME MEDICATIONS: A list of home medications has not been reconciled. An order was placed for Nursing to reconcile home medications in the computer. I do know that she was receiving 2 g of Rocephin. REVIEW OF SYSTEMS: Unable to review at this time. Patient has been sedated with Geodon. PHYSICAL EXAMINATION: VITAL SIGNS: Temperature 97.9, pulse 101, respirations 15, blood pressure 142/72, oxygen saturation 100% on room air. GENERAL: Awake, disoriented female largely nonverbal, acknowledges touch and pain. She was very agitated and received Geodon, is in no acute distress. HEENT: Head is atraumatic, normocephalic. Pupils equal, round, reactive to light. Extraocular eye movement cannot be tested. However, the patient does track somewhat around the room. Sclerae are anicteric. Conjunctiva is not pale. Oral mucosa is dry. NECK: Supple. No JVD. No thyromegaly. Trachea is midline. No cervical lymphadenopathy. CARDIAC: S1, S2 appreciated. No murmurs, gallops, rubs. LUNGS: Decreased bilaterally. Scattered crepitations noted throughout the air rust. No wheezing. Symmetric rise and fall with respirations. ABDOMEN: Soft, nondistended, nontender. Bowel sounds present all 4 quadrants. Scabbing noted to the suprapubic portion of the abdomen. EXTREMITIES: No clubbing, cyanosis, or edema. Two-plus pedal pulses. DIAGNOSTIC DATA: CT of the head is pending. Chest x-ray was taken prior to removal of PICC line, still shows PICC line in good position, otherwise showed a decrease in right pleural effusion and basilar opacities from prior exam. LABORATORY DATA: Grossly normal. Hemoglobin and hematocrit 11.4 and 36.3 respectively. Urine: Leukocyte esterase positive, 10-20 WBCs, positive for hematuria. ASSESSMENT AND PLAN: 1. Bacteremia. I believe that her last blood cultures were Serratia which was sensitive to Rocephin. We will continue Rocephin [address] Arsalan Robertson, who was following her outpatient. 2. Urinary tract infection. As above, we will treat with Rocephin. 3. Anemia of chronic disease. 4. Metabolic encephalopathy, likely infectious. However, it is possible that it is toxic. The patient had a Dilaudid GIFT PACKER which she removed. She was agitated in the emergency room and received Geodon so I was unable to assess her baseline. Also, nobody in the room, her son or [id number], was able to give me a good baseline. They were somewhat poor historians. 5. Chronic obstructive pulmonary disease, aware. Patient does not appear to be in exacerbation. 6. Chronic pain syndrome. Assume this is from metastatic cancer. At this time, we will hold all pain medications. We will continue to monitor. Order was placed for Nursing to reconcile home medications. I believe that she was on multiple [employer]IST[employer] depressant medications, Klonopin, Celexa, Lunesta, but I am unsure of what doses. These can be restarted when appropriate. Further recommendations per patient clinical course. Dictated by RAMILA Tracey for Mayito Tiwari MD I have performed a face to face diagnostic evaluation. Labs / xrays reviewed. Exam chest- rhonchi, CV- regular A/P- Bactermia, UTI- Admit- IV ABX, Gentle hydration. Dr. Tiwari cc: RAMILA Tracey MD [facility]
[2018-07-18] MEDS: PROTONIX IV SCH ×2 (00:09→20:33)
[2018-07-18] MEDS: NS 1,000 ML IV SCH ×2 (00:09→13:49)
[2018-07-18] MEDS: LOVENOX SUBQ SCH ×2 (00:10→20:33)
[2018-07-18] MEDS ORDERED: BENADRYL IM ONE (03:38)
[2018-07-18] MEDS ORDERED: ATIVAN IM ONE (03:38)
[2018-07-18] MEDS ORDERED: PERCOCET-10 PO PRN (08:17)
[2018-07-18] MEDS ORDERED: DILAUDID PO PRN (08:17)
[2018-07-18] MEDS ORDERED: PHENERGAN PO PRN (08:17)
[2018-07-18] MEDS ORDERED: PRILOSEC PO PRN (08:17)
[2018-07-18] MEDS ORDERED: ADDERALL PO SCH (09:00)
--- NOTE | 2018-07-18 09:41 | INFECTIOUS DISEASE PROGRESS NO ---
DATE: 07/18/2018 HISTORY OF PRESENT ILLNESS: The patient was discharged on Rocephin, which the patient was receiving to clear the Serratia bacteremia that she had. It was felt that the bacteremia may have originated from part of the retained catheter in the patient's chest. She was readmitted to the hospital with altered mental status and she had also pulled out all of her IVs. The patient's chest x-ray shows a decrease in the patient's bibasilar opacities and right pleural effusion. MEDICATIONS: The patient is on Rocephin. When she when out she had 4 days of treatment and we managed to get her some more antibiotics, so she has probably had at most 5 days of treatment with Rocephin for the bacteremia. PHYSICAL EXAMINATION: Vital Signs: Temperature 97.7 degrees, pulse 105, respirations 16, and blood pressure 173/64. General: This is an ill-appearing middle-aged female who seems delirious. She did not respond to verbal stimuli. Head, eyes, ears, nose, and throat: There was no drainage from the nose or the ears. Neck: No pain with movement. Lungs: Clear to auscultation. Cardiovascular: Regular heart rate. Abdomen: Soft and nontender. Neurologic: The patient seems delirious. She moves but she does not follow requests to move her extremities. She does not answer questions. There is no tremor. LABS: The patient's CBC shows a white count of 9010, hemoglobin 11.4, and platelet count 306,000. Creatinine is 0.8. Alkaline phosphatase is 181. Urinalysis shows white cells but no bacteria. Blood and urine cultures are pending. IMAGING STUDIES: CT scan of the head shows posterior reversible encephalopathy. Chest x-ray shows a decrease in bibasilar opacities and right pleural effusion. ASSESSMENT AND PLAN: The patient left against medical advice (AMA), but we managed to get her set up for intravenous Rocephin for the Serratia bacteremia as an outpatient. Unfortunately, she pulled out her IV again and she has been delirious, the exact etiology is uncertain to me. I agree with treating the patient with Rocephin for her prior Serratia bacteremia pending culture results. Also, I have ordered a drug screen to be obtained from the urine. I ordered a procalcitonin to see if the patient's opacities are due to pulmonary venous congestion and/or pneumonia. The patient does have Serratia bacteremia thought to be secondary to her retained catheter. I plan on continuing Rocephin, pending the results of repeat cultures and also a urine culture. I have ordered a drug screen on the patient, as mentioned above and a procalcitonin level as well. COMORBIDITIES: She has lung cancer but is not currently receiving chemotherapy. She also has metastatic lung cancer, chronic obstructive pulmonary disease, and cigarette smoking. cc: Arsalan Robertson MD
[2018-07-18] MEDS: KLONOPIN PO SCH ×2 (10:20→20:33)
[2018-07-18] MEDS: MIRALAX PO SCH (10:21)
[2018-07-18] MEDS: NORVASC PO SCH (10:21)
[2018-07-18] MEDS: CELEXA PO SCH (10:21)
[2018-07-18] MEDS: PRINIVIL PO SCH ×2 (10:21→20:32)
[2018-07-18] MEDS: NICODERM PATCH TD SCH (10:21)
[2018-07-18 10:30] LABS: BASO# 0.05 X1000 (0.0-0.2); EOS# 0.31 X1000 (0.0-0.7); EOS% 6.4 % (0.0-10.0); HEMOGLOBIN 11.1 g/dL (12.0-16.0); LYMPH# 1.04 X1000 (1.2-3.4); LYMPH% 21.6 % (20.5-51.1); MCH 25.3 PG (27-31); MCHC 30.8 g/dL (33-37); MONO# 0.42 X1000 (0.11-0.59); MONO% 8.7 % (1.7-9.3); MPV 9.5 FL (7.4-10.4); NEUT# 2.99 X1000 (1.4-6.5); NEUT% 62.3 % (42.2-75.2); PLT 292 X1000 (130-400); RBC 4.39 XMIL (4.2-5.4); RDW 17.7 % (11.5-14.5); WBC 4.81 X1000 (4.8-10.8)
[2018-07-18 11:36] LABS: UR AMPHETAMINES QUAL NONE DETECTED (NONE DETECT); UR BARBITUATES QUAL NONE DETECTED (NONE DETECT); UR BENZODIAZEPIN QUAL NONE DETECTED (NONE DETECT); UR CANNABINOIDS QUAL NONE DETECTED (NONE DETECT); UR COCAINE QUAL NONE DETECTED (NONE DETECT); UR METHADONE QUAL NONE DETECTED (NONE DETECT); UR OPIATES QUAL PRESUMPTIVE POSITIVE (NONE DETECT); UR OXYCODONE QUAL NONE DETECTED (NONE DETECT); UR PCP QUAL NONE DETECTED (NONE DETECT)
[2018-07-18 11:47] LABS: AGAP 10; BUN 6 mg/dL (8-22); CHLORIDE 104 mmol/L (98-107); GLUCOSE 80 mg/dL (70-104); POTASSIUM 3.3 mmol/L (3.5-5.1); SODIUM 145 mmol/L (136-145); TCO2 31 mmol/L (25-35)
[2018-07-18 11:48] LABS: CALCIUM 8.9 mg/dL (8.8-10.2); COSMO 285; CREATININE 0.7 mg/dL (0.5-0.9); ESTIMATED GFR > 60
--- NOTE | 2018-07-18 17:32 | PROGRESS NOTE ---
DATE: 07/18/2018 SUBJECTIVE: Patient has no major complaints. She is a bit somnolent. She was very agitated all night, very confused but seems better now. OBJECTIVE: Vital signs: Blood pressure is 133/58, heart rate 87, respiratory rate 18, temperature 97.6 degrees, 99% on 2 L. Cardiovascular: Regular rate and rhythm. Pulmonary: Bilateral breath sounds. Clear to auscultation. GI: Soft, nontender, nondistended. Bowel sounds are positive. LABORATORY DATA: Potassium is 3.3. Microbiology is so far negative. PROBLEM LIST: 1. Encephalopathy, unclear etiology, possibly related to medications. She removed her Dilaudid ICT SUPPORT AND TEST ENGINEERS and we will re-evaluate. 2. Chronic obstructive pulmonary disease. Appears to be stable. Overall she seems improved. We will make sure she has some antipsychotics and follow. 3. Disposition. Pending improvement in her mental status. She is on amphetamine salts, but it is not in her system though and I am not sure we need to necessarily give that at this time. We will start some Seroquel at night and see how she does. 4. Metastatic cancer. Continue pain medication and follow. DISPOSITION: Pending her clinical status. cc: Tarik Foote MD
[2018-07-18] MEDS: ROCEPHIN 2 GM in NS 50 ML IV SCH (20:33)
[2018-07-18] MEDS: SEROQUEL PO SCH (20:33)
[2018-07-18] MEDS ORDERED: AMBIEN PO SCH (21:00)
[2018-07-19] MEDS: NS 1,000 ML IV SCH (02:26)
[2018-07-19 05:15] LABS: BASO# 0.05 X1000 (0.0-0.2); BASO% 1.1 % (0.0-0.8); EOS# 0.38 X1000 (0.0-0.7); EOS% 8.7 % (0.0-10.0); HEMATOCRIT 32.4 % (37.0-47.0); HEMOGLOBIN 10.1 g/dL (12.0-16.0); LYMPH# 1.17 X1000 (1.2-3.4); LYMPH% 26.7 % (20.5-51.1); MCH 26.6 PG (27-31); MCHC 31.2 g/dL (33-37); MCV 85.3 FL (81-99); MONO% 11.4 % (1.7-9.3); MPV 9.8 FL (7.4-10.4); NEUT# 2.29 X1000 (1.4-6.5); NEUT% 52.1 % (42.2-75.2); PLT 292 X1000 (130-400); RDW 18.1 % (11.5-14.5); WBC 4.39 X1000 (4.8-10.8)
[2018-07-19 05:33] LABS: AGAP 11; BUN 4 mg/dL (8-22); CALCIUM 8.1 mg/dL (8.8-10.2); CHLORIDE 105 mmol/L (98-107); COSMO 286; CREATININE 0.7 mg/dL (0.5-0.9); ESTIMATED GFR > 60; GLUCOSE 111 mg/dL (70-104); POTASSIUM 3.4 mmol/L (3.5-5.1); SODIUM 145 mmol/L (136-145); TCO2 29 mmol/L (25-35)
--- NOTE | 2018-07-19 07:31 | INFECTIOUS DISEASE PROGRESS NO ---
DATE: 07/19/2018 PRESENT ILLNESS: As regarding the patient's Serratia bacteremia, she has had 6 days of treatment with IV Rocephin and will require 8 more to complete a 2-week treatment course. As regarding her altered mental status, I think it has something to do with medications because this morning, she is perfectly alert and oriented. MEDICATIONS: The patient is on Rocephin for her bacteremia as mentioned above and she will need 8 more days of treatment. PHYSICAL EXAMINATION: Vital Signs: Temperature is 97.6 degrees, pulse 88, respirations 17, blood pressure 151/91. General: This is a somewhat ill-appearing, middle-aged female. She is in no acute distress. Head, Eyes, Ears, Nose, and Throat: She can hear my spoken words and see near objects. She does not have any white coating on her tongue. Neck: The patient is moving her neck without having any pain. Lungs: Clear to auscultation. Cardiovascular: Heart rate is regular. Abdomen: Soft and nontender. Thorax: There are no swollen areas where she previously had IV catheters. Neurologic: The patient is alert. She can move her extremities. There is no tremor. She is oriented. LAB AND X-RAY: The CBC today shows a white count of 4390, hemoglobin 10.1, and platelet count 292,000. Creatinine is 0.7. GFR is greater than 60. Drug screen is positive for opiates. Urine culture is negative. Blood cultures are pending. ASSESSMENT AND PLAN: The patient has Serratia bacteremia as mentioned above. She will need 8 more days of Rocephin. As regarding her altered mental status, as I said above, I think it has something to do with medication. Possibly, the patient is taking an overdose of something. From an infectious disease point of view, I think the patient could be discharged and my plan would be to continue Rocephin treatment for 8 more days. COMORBIDITIES: She has metastatic lung cancer, chronic obstructive pulmonary disease, cigarette smoking, and a portion of the IV catheter is still in the patient's chest and may be a source of recurrent infection. cc: Arsalan Robertson MD
[2018-07-19] MEDS ORDERED: KLOR-CON PO ONE (07:48)
[2018-07-19] MEDS: NICODERM PATCH TD SCH (08:31)
[2018-07-19] MEDS: MIRALAX PO SCH (08:31)
[2018-07-19] MEDS: PROTONIX IV SCH ×2 (08:31→19:51)
--- NOTE | 2018-07-19 08:31 | PROGRESS NOTE ---
DATE: 07/19/2018 SUBJECTIVE: This patient has no major complaints. She is awake. She is oriented x2. She is not oriented to time. She is answering most of my questions. She is following commands. I do not see any focal deficit but she has generalized weakness. Her son is at the bedside. As per the son, she has been a little bit confused for at least 1 month, mostly in the morning. She used to be on a SECURITIES SUPERVISOR pump which had been stopped 1 or 2 weeks ago. Also, she has a positive blood culture from 07/06/2018 that showed Serratia marcescens and, apparently, this has been treated by the infectious disease department but apparently also, this patient had a part of the PICC line or port inside still that was not removed. She has been told that probably she needs to be on antibiotics from now on so I will let the infectious disease department to evaluate this patient and recommend treatment. So far, her blood culture has been negative for 48 hours, as well as the urine culture. It is documented that this patient has a history of metastatic non-small cell lung cancer and also a history of seizure last month that was follow by the neurology department. Vital signs are stable. She is not on oxygen at this moment and her oxygen saturation is 95. I will consult hematology/oncology department, as well as physical therapy and occupational therapy. We discussed the resuscitation status and she is Do Not Resuscitate level 1. OBJECTIVE: HEENT: Head normocephalic. No trauma. PERRLA. Neck: Supple. No JVD. No masses. Central trachea. Chest: Clear to auscultation. No wheezing or rales. Cardiovascular: RRR. Abdomen: Soft, nontender, nondistended. Positive bowel sounds. Extremities: No edema. No clubbing. No cyanosis. Neurological Examination: The patient is alert. She is oriented x2. She is answering most of my questions. She has generalized weakness. Laboratory: WBC 4.3, hemoglobin 10.1, hematocrit 32.4, platelets 292,000. Sodium 145, potassium 3.4, chloride 105, bicarbonate 29, BUN 4, creatinine 0.7, glucose 111, calcium 8.1. ASSESSMENT AND PLAN: 1. Encephalopathy, unclear etiology. It looks like her SECURITIES SUPERVISOR pump was removed 1 or 2 weeks ago. She was bacteremic and septic I believe at the past admission. Also, she had a seizure at that time. As per the son, she has been confused on and off for the past month. We have an MRI done on 07/05/2018 that showed bilateral multilobar edema and highly suggestive of posterior reversible encephalopathy syndrome but no evidence of acute infarct. She seems to be doing better. She is answering to most of my questions. She is not oriented to time. She recognized family members at the bedside. We will continue with the same management for now. 2. Chronic obstructive pulmonary disease, not in exacerbation. 3. Metastatic non-small cell lung cancer. I will consult the hematology/oncology department to evaluate this patient. I am not quite sure if this patient has been getting more treatment or if she is a candidate to receive more chemotherapy. 4. Recent history of bacteremia with a positive blood culture and a peripherally inserted central catheter line tip culture that showed Serratia marcescens, treated by Dr. Robertson of the infectious disease department and followed by Dr. Robertson as an outpatient. He has been consulted. As per the son, when they removed the port or the peripherally inserted central catheter line, a piece of this catheter remained inside. They were told that probably she will need to be on antibiotics from that date on. 5. Hypokalemia. We will replace the potassium. 6. Generalized weakness. I have requested occupational therapy and physical therapy evaluation. 7. This patient is Do Not Resuscitate level 1. cc: Darin Bergman MD
[2018-07-19] MEDS: PRINIVIL PO SCH ×2 (08:32→19:52)
[2018-07-19] MEDS: KLONOPIN PO SCH ×2 (08:32→19:52)
[2018-07-19] MEDS: NORVASC PO SCH (08:32)
[2018-07-19] MEDS: CELEXA PO SCH (08:32)
[2018-07-19] MEDS: DILAUDID IV PRN ×3 (09:02→19:16)
[2018-07-19] MEDS: ZOFRAN IV PRN ×2 (12:06→19:51)
[2018-07-19] MEDS: LOVENOX SUBQ SCH (19:51)
[2018-07-19] MEDS: ROCEPHIN 2 GM in NS 50 ML IV SCH (19:51)
[2018-07-19] MEDS: SEROQUEL PO SCH (19:52)
[2018-07-20] MEDS: DILAUDID IV PRN ×3 (01:27→10:27)
[2018-07-20] MEDS: KLONOPIN PO SCH ×2 (01:35→08:27)
[2018-07-20] MEDS: SEROQUEL PO SCH (01:35)
[2018-07-20] MEDS: LOVENOX SUBQ SCH (01:35)
[2018-07-20] MEDS: PRINIVIL PO SCH ×2 (01:35→08:27)
[2018-07-20 05:34] LABS: BASO# 0.02 X1000 (0.0-0.2); BASO% 0.7 % (0.0-0.8); EOS# 0.31 X1000 (0.0-0.7); EOS% 10.2 % (0.0-10.0); HEMOGLOBIN 9.3 g/dL (12.0-16.0); LYMPH% 42.9 % (20.5-51.1); MCH 25.3 PG (27-31); MCV 81.7 FL (81-99); MONO# 0.32 X1000 (0.11-0.59); MONO% 10.6 % (1.7-9.3); MPV 9.5 FL (7.4-10.4); NEUT# 1.08 X1000 (1.4-6.5); NEUT% 35.6 % (42.2-75.2); PLT 270 X1000 (130-400); RBC 3.67 XMIL (4.2-5.4); WBC 3.03 X1000 (4.8-10.8)
[2018-07-20 05:48] LABS: AGAP 11; ALB/GLOB RATIO 0.8; ALBUMIN 2.5 g/dL (3.5-5.0); ALKALINE PHOSPHATASE 143 U/L (32-104); BUN 3 mg/dL (8-22); CALCIUM 8.3 mg/dL (8.8-10.2); CHLORIDE 108 mmol/L (98-107); COSMO 285; CREATININE 0.7 mg/dL (0.5-0.9); ESTIMATED GFR > 60; GLUCOSE 93 mg/dL (70-104); GOT 14 U/L (10-30); GPT 6 U/L (10-36); POTASSIUM 3.7 mmol/L (3.5-5.1); SODIUM 145 mmol/L (136-145); TCO2 26 mmol/L (25-35); TOTAL BILIRUBIN 0.19 mg/dL (0.20-1.00); TOTAL PROTEIN 5.7 g/dL (6.3-8.3)
[2018-07-20] MEDS: PROTONIX IV SCH (08:27)
[2018-07-20] MEDS: NICODERM PATCH TD SCH (08:27)
[2018-07-20] MEDS: CELEXA PO SCH (08:27)
[2018-07-20] MEDS: NORVASC PO SCH (08:27)
[2018-07-20] MEDS: MIRALAX PO SCH (08:27)
--- NOTE | 2018-07-20 08:44 | INFECTIOUS DISEASE PROGRESS NO ---
DATE: 07/20/2018 PRESENT ILLNESS: The patient has a Serratia bacteremia. She has had 7 days of antibiotic treatment with the first day being when the patient's blood cultures turned negative. The patient is developing oral candidiasis. She told me that her tongue does hurt and also on exam there white patches suggestive of it. MEDICATIONS: The patient is on Rocephin. She has had 7 days of treatment and will need 7 more to complete a 2-week treatment course. PHYSICAL EXAMINATION: Vital Signs: Temperature is 97.9 degrees, pulse 84, respirations 18, blood pressure 140/70. General: This is a somewhat ill-appearing, middle-aged female. She is in no acute distress. Head, eyes, ears, nose and throat: The patient has some white patches on her tongue, which I think represents oral candidiasis. There is no drainage from the nose or ears. Neck: The patient is not having any pain when she moves her neck. Lungs: Clear to auscultation. Cardiovascular: Heart rate is regular. Abdomen: Soft and not tender. Thorax: Patient does not have any swelling where the catheter is located in her chest. Neurologic: Patient is alert. She can move her extremities. There is no tremor. LABORATORY AND X-RAY: CBC today shows a white count of 3030, hemoglobin 9.3, and platelet count 270,000. Creatinine is 0.7. GFR is greater than 60. Alkaline phosphatase is down to 143. Blood and urine cultures are negative. ASSESSMENT AND PLAN: 1. The patient has Serratia bacteremia. I plan to treat her for 7 more days with IV Rocephin. I want to use a peripheral IV in the patient because if we put in another central line and she develops a bacteremia, we will not know for sure if it is coming from the IV tubing that is left in her chest or did it come from a new central line put in. Whereas, if we use a peripheral IV, it would be much less likely to get a bacteremia and if we did, the IV site would look erythematous and swollen. As regarding the patient's presumed oral candidiasis, I am going to start the patient on Mycostatin swish and swallow. Dr. Serrano and I plan to discharge the patient the patient today on 1 more week of Rocephin with a followup with my office in 2 weeks. The Rocephin will be given thru a peripheral IV. 2. Comorbidities: Metastatic lung disease, chronic obstructive pulmonary disease, cigarette smoking, and part of the patient's intravenous catheter is present in her chest and could be a source of recurrent bacteremia. cc: Arsalan Robertson MD MTDD
[2018-07-20] MEDS ORDERED: MYCOSTATIN SUSP PO SCH (09:00)
[2018-07-20 11:39] VITALS: BP 115/69
--- NOTE | 2018-07-20 17:38 | HEMO/ONC CONSULTATION ---
DATE: 07/19/2018 ADMITTING PHYSICIAN: Dr. Mayito Tiwari. REQUESTING PHYSICIAN: Dr. Mayito Tiwari. We appreciate this consult. CHIEF COMPLAINT: Non-small cell lung cancer. HISTORY OF PRESENT ILLNESS: Ms. Bella Georges is a very pleasant, 63-year-old female, well known to Dr. Molina for a history metastatic non-small cell lung cancer. The patient has been on Opdivo with last treatment being June 03. The patient has missed several treatments secondary to acute illnesses and hospitalizations. The patient's last PET scan was on June 02, 2018 which revealed stable disease. The patient has been admitted to [facility] several times in the last couple months secondary to Serratia bacteremia. She has been followed by Infectious Disease. The patient underwent port removal secondary to suspicious cause of bacteremia. However, it was ultimately discovered that the retained PICC catheter tip is the cause of her bacteremia. On last hospitalization she was referred to Dr. Pete Wheat of [facility] for removal of PICC catheter tip. However, catheter tip was unable to be removed. Ms Georges was placed on daily IV antibiotics as an outpatient. The patient presents to [facility] Emergency Department on this admission secondary to recurrent confusion and fevers. Ms Georges has been on Rocephin IV daily up until this time. We are consulted as the patient is well known to us. PAST MEDICAL HISTORY: 1. Metastatic non-small cell lung cancer. 2. Posterior reversible encephalopathy syndrome. 3. Chronic obstructive pulmonary disease. 4. Hypertension. 5. Recurrent pneumonia. 6. Metabolic encephalopathy. PAST SURGICAL HISTORY: 1. Tubal ligation. 2. Port placement and removal. 3. PICC catheter placement. SOCIAL HISTORY: The patient smokes 1/2 pack cigarettes daily. She has not smoked in about 1 month. She does not use alcohol or illicit drugs. FAMILY HISTORY: Significant for prostate cancer in the patient's father. MEDICATIONS ON ADMISSION: 1. Rocephin 2 g IV daily. 2. Dilaudid pump. 3. Adderall. 4. Albuterol sulfate for nebulization. 5. Compazine. 6. EpiPen. 7. Flonase. 8. Lidoderm adhesive patches. 9. Magic Mouthwash. 10. Phenergan gel. 11. Polyethylene glycol. 12. Prednisone. 13. Promethazine. 14. Relistor. 15. Spiriva HandiHaler. 16. Urea topical cream. 17. Venelex topical ointment. 18. Zofran. ALLERGIES: Astepro. REVIEW OF SYSTEMS: A 14 point review of systems is obtained and is negative except for as mentioned in HPI. PHYSICAL EXAMINATION: General: Ms. Georges is a 63-year-old female lying supine in bed, in no immediate distress. Vital Signs: Temperature 98.4 degrees, blood pressure 136/58, heart rate 85, respirations 16, O2 saturation 95% on room air. HEENT: Normocephalic, atraumatic. Mucous membranes are slightly pale and moist. Sclerae are anicteric. Extraocular movements intact. Neck: Supple. Lungs: Clear to auscultation bilaterally. Chest expansion is equal bilaterally. CV: S1, S2 is heard. No murmurs, rubs, or gallops. Abdomen: Nondistended, nontender. Bowel sounds positive in all quadrants. No rebound or guarding noted. Extremities: Without clubbing, cyanosis, or edema. Dermatologic: No rashes, bruises, or lesions. Neurologic: The patient is awake, alert, and oriented x3. However, she is disoriented to situation. She has no overt focal deficit. LABORATORY DATA: Hemoglobin 11.1, hematocrit 36.0, white blood cell count is 4.81, platelets 292,000. ANC is 2.99. INR 1.18. Sodium 145, potassium 3.3, chloride 104, CO2 is 31, BUN 6, creatinine 0.7, glucose is 80, calcium is 8.9, and magnesium 2.0. TSH is 0.44. UA is positive for urinary tract infection. Culture is currently pending. Urine drug screen is positive for opiates and negative for all other substances. IMAGING STUDIES: Chest x-ray reveals decrease in basilar opacities and right pleural effusion compared to prior. CT of the head reveals possible residual change of posterior reversible encephalopathy syndrome at the left occipital lobe with no hemorrhage or mass effect. ASSESSMENT AND PLAN: 1. Metastatic non-small cell lung cancer with last PET scan on 06/02/2018 being stable. The patient has been maintained on Opdivo. Her last treatment was June 03. She has missed several treatments since that time due to acute illnesses and hospitalizations. We will continue to follow and attempt to treat when the patient's acute illness improves. 2. Bacteremia/urinary tract infection. Currently on ceftriaxone. Infectious Disease is currently following. 3. Metabolic encephalopathy, infectious versus toxic. Neurology has been following. The patient does have remnants of residual PRES. 4. Anemia of chronic disease. Stable at this time. Hemoglobin is 10.1. Would continue to monitor CBC. 5. Chronic pain. Urine drug screen is negative for all substances except for opiates. The patient has been on a long-term Dilaudid pump but is reported to have discontinued her pump within the last couple of weeks. 6. Chronic obstructive pulmonary disease without exacerbation. 7. We will follow along with you and make further recommendations pending outcomes. The above reflects the history, exam, assessment, plan of Dr. Molina. Dictated by RAMILA Caballero for Bari Molina MD cc: RAMILA Caballero MD [facility]
--- NOTE | 2018-07-20 20:51 | DISCHARGE SUMMARY ---
ADMISSION DATE: 07/17/2018 DISCHARGE DATE: 07/20/2018 PRIMARY CARE PROVIDER: None. INFECTIOUS DISEASE: Arsalan Robertson MD ONCOLOGIST: Bari Molina MD PRIMARY PROCEDURES: Head CT: Possible residual change of posterior reversible encephalopathy syndrome at the left occipital lobe. No hemorrhage or mass effect. DISCHARGE DIAGNOSES: 1. Serratia bacteremia. Dr. Robertson plans to treat the patient with 7 more days of intravenous Rocephin. He wants to use a peripheral intravenous line in the patient because he did not want to put in another central line, given her bacteremia. She is being discharged home with home health and will receive intravenous treatment as an outpatient with [facility] and will follow up with Dr. Robertson as scheduled, as well as Dr. Molina. 2. Oral thrush. Continued on swish and swallow. 3. Encephalopathy of unclear etiology. Her patient-controlled analgesia pump was removed 1 or 2 weeks ago. She was bacteremic and septic on the past admission as well as had a seizure. Per her son, she had been confused for 1 month. An MRI done on 07/05/2018 showed bilateral multilobar edema highly suggestive of posterior reversible encephalopathy syndrome, but no evidence of acute infarct. She has improved somewhat, answering questions but not oriented to time. She did recognize family members at bedside. The patient is a DNR level 1 with home health. 4. Metastatic afi-eosmb-ksrx lung cancer, followed by Dr. Molina. 5. Hypokalemia, improved. 6. Generalized weakness. The patient has been evaluated by Occupational Therapy and Physical Therapy. The patient will be taken home to continue with home health and intravenous antibiotics. Again, she is a DNR level 1. HOSPITAL COURSE: Briefly, Ms. Georges is a 63-year-old female who had recently left our service AMA on 07/12/2018. She had been in and out of the hospital with a Serratia bacteremia from fragments of an old Port-A-Cath. She left against medical advice on 07/12. From the son's report, she did not follow up with home health and she was receiving Rocephin infusions per her PICC line; however, on the day of her admission she removed the tip of her PICC line. The catheter was still in. She came to the ED. She was disoriented and not able to give any information. She had also recently had a Dilaudid pain pump removed. She was admitted for further evaluation and treatment. She did have a head CT that showed PRES syndrome. She did have improvement in her mentation. She was once again followed by Dr. Arsalan Robertson and will be sent home with home health for IV infusions through her peripheral IV. She will follow up back with Dr. Robertson in his office in 2 weeks. VITAL SIGNS: At time of discharge, temperature is 97.8 degrees, heart rate 86, respirations 18, blood pressure 115/69, O2 is 99% on room air. DISCHARGE DIET: Healthy heart. DISCHARGE MEDICATIONS: 1. Adderall 20 mg p.o. daily. 2. Celexa 40 mg p.o. daily. 3. Phenergan 25 mg p.o. q.6 hours p.r.n. 4. Prilosec 20 mg p.o. daily p.r.n. 5. Prinivil 20 mg p.o. b.i.d. 6. Seroquel 25 mg p.o. at bedtime. 7. Dilaudid 2 mg p.o. q.4 hours p.r.n., x20 tablets. 8. Klonopin 0.5 mg p.o. b.i.d. 9. MiraLAX 17 g p.o. daily. 10. Clotrimazole 10 mg t.i.d. 11. NicoDerm patch 21 mg TD daily. 12. Norvasc 10 mg p.o. daily. FOLLOWUP: Ms. Georges is being discharged home with home health and antibiotic service through [facility] for 7 more days with Rocephin. She is to follow up with Dr. Arsalan Robertson in 2 weeks as well as continue with follow up with her oncologist Dr. Molina. She can return to the ED or call 911 for any worsening of symptoms. Dictated by RAMILA Alvarez for Darin Bergman MD cc: MD Bari Rose MD Leroy F. Harris, MD
== END 2018-07-20 13:13 | disposition home health service (06) | DRG 314 ==
LOC: ED 14:52 → SUATTDRO 22:43 → ICU 22:43 → 3S 23:55
PROVIDERS: ATTEND Internal Medicine
CPT/HCPCS: 70450; 71010; 71045; 80048; 80053; 80101; 80301; 80307; 80324; 80345; 80346; 80353; 80358; 80361; 80365; 81001; 82550; 83605; 83735; 83992; 84145; 84443; 84484; 85025; 85610; 85730; 87040; 87088; 96365; 96372; 97116; 97162; 97165; 99285; A9270; C9113; G0431; G0434; G0479; G0480; J0696; J1170; J1200; J1650; J2060; J2405; J3486; J7030; S0164

== ENCOUNTER 2019-02-21 13:15 | Inpatient (IN) ==
[2019-02-21 14:25] LABS: BASO# 0.19 X1000 (0.0-0.2); BASO% 0.5 % (0.0-0.8); EOS# 0.17 X1000 (0.0-0.7); EOS% 0.5 % (0.0-10.0); HEMATOCRIT 48.1 % (37.0-47.0); HEMOGLOBIN 16.6 g/dL (12.0-16.0); IMM GRAN# 1.14 X1000 (0.0-0.04); IMM GRAN% 3.2 % (0.0-0.5); LYMPH% 14.3 % (20.5-51.1); MCH 30.1 PG (27-31); MCHC 34.5 g/dL (33-37); MCV 87.1 FL (81-99); MONO% 3.4 % (1.7-9.3); NEUT# 27.87 X1000 (1.4-6.5); NEUT% 78.1 % (42.2-75.2); PLT 521 X1000 (130-400); RBC 5.52 XMIL (4.2-5.4); RDW 15.5 % (11.5-14.5); WBC 35.67 X1000 (4.8-10.8)
[2019-02-21] MEDS ORDERED: NS 1,000 ML IV ONE ×2 (14:30→16:29)
[2019-02-21] MEDS ORDERED: ZOSYN 4.5 GM in NS 100 ML IV ONE (14:31)
[2019-02-21] MEDS ORDERED: VANCOMYCIN 1 GM/NS 1 GM/250 ML IVPB IV ONE (14:31)
[2019-02-21 14:39] LABS: ESTIMATED GFR > 60
[2019-02-21 14:43] LABS: AGAP 14; ALB/GLOB RATIO 1.1; ALBUMIN 4.2 g/dL (3.5-5.0); ALKALINE PHOSPHATASE 171 U/L (32-104); AMYLASE 41 U/L (20-200); BUN 33 mg/dL (8-22); CALCIUM 10.2 mg/dL (8.8-10.2); CHLORIDE 82 mmol/L (98-107); COSMO 264; CREATININE 0.6 mg/dL (0.5-0.9); GLUCOSE 151 mg/dL (70-104); GOT 24 U/L (10-30); GPT 24 U/L (10-36); LIPASE 24 U/L (13-60); POTASSIUM 4.6 mmol/L (3.5-5.1); SODIUM 126 mmol/L (136-145); TCO2 30 mmol/L (25-35); TOTAL BILIRUBIN 0.33 mg/dL (0.20-1.00); TOTAL PROTEIN 7.9 g/dL (6.3-8.3)
--- NOTE | 2019-02-21 14:53 | Diag Imaging Result Doc PS360 ---
EXAM: CHEST-PORTABLE HISTORY: cough TECHNIQUE: Single view of the chest was performed portably. COMPARISON: None. FINDINGS: The cardiomediastinal silhouette is within normal limits. The pulmonary vasculature is not congested. There is a small infiltrate right costophrenic angle versus small effusion. There has been been interval improvement in the right upper lobe and right lower lobe infiltrates. No pneumothorax is appreciated. There is unchanged catheter fragment extending from the left subclavian vein to superior vena cava. IMPRESSION: New small infiltrate versus effusion right costophrenic angle. Improving right upper lobe and right lower lobe infiltrates, otherwise. Unchanged catheter fragment. Electronically signed by Radha Gomez 02/21/2019 2:51 PM
[2019-02-21 14:55] LABS: LYMPHS 12 % (21-51); MONO 4 % (1-9); SEGS 84 % (42-75)
[2019-02-21 16:09] LABS: URINE SOURCE CLEAN CATCH
[2019-02-21 16:12] LABS: BILIRUBIN URINE NEGATIVE (NEGATIVE); BLOOD URINE NEGATIVE (NEGATIVE); COLOR YELLOW; GLUCOSE URINE NEGATIVE (NEGATIVE); KETONE URINE NEGATIVE (NEGATIVE); LEUKOCYTES URINE NEGATIVE (NEGATIVE); NITRITE URINE NEGATIVE (NEGATIVE); PROTEIN URINE TRACE mg/dL (NEGATIVE); TURBIDITY URINE CLEAR (CLEAR); UR EPITHELIAL CELLS <10 /HPF (<10); URINE BACTERIA NEGATIVE /HPF; URINE RBC <10 /HPF (<10); URINE WBC <10 /HPF (<10); UROBILINOGEN URINE NORMAL (NORMAL)
--- NOTE | 2019-02-21 16:46 | PROVIDER DOCUMENTATION ---
This chart was entered by Chris Caicedo Scribe, acting as scribe for Emmett Kurtz MD. HPI-Abdominal Pain/GI Problem - General Chief Complaint: Abdominal Pain Stated Complaint: ABD PAIN,FEVER,BACK PAIN,LUNG CANCER Time Seen by Provider: 02/21/19 13:58 Source: patient Allergies/Adverse Reactions: Patient Allergies Allergy/AdvReac Type Severity Reaction Status Date / Time No Known Allergies Allergy Verified 02/21/19 14:13 Home Medications: Home Medication List Medication Instructions Recorded Confirmed Last Taken Type Citalopram [Celexa] 40 mg PO DAILY MDD 40 08/02/14 02/21/19 02/21/19 07:00 History Clonazepam [Klonopin] 0.5 mg PO BID #0 07/12/18 02/21/19 02/21/19 07:00 Rx Dexamethasone 4 mg PO QHS 02/21/19 02/21/19 02/20/19 21:00 History Morphine E.r. [Ms Contin] 15 mg PO BID 02/21/19 02/21/19 02/21/19 07:00 History Morphine E.r. [Ms Contin] 30 mg PO Q12HR 02/21/19 02/21/19 02/21/19 07:00 History Oxycodone HCl/Acetaminophen 1 tab PO BID 02/21/19 02/21/19 02/21/19 07:00 History [Oxycodon-Acetaminophen 7.5-325] Promethazine [Phenergan] 25 mg PO 3-4XDAY PRN PRN 02/21/19 02/21/19 02/20/19 07:00 History Levofloxacin [Levaquin] 500 mg PO DAILY 7 Days #7 tab 02/24/19 Unknown Rx - History of Present Illness-ABD Nature of Presenting Problems: Pt is a 63 yof who presents to the ED with a CC of abdominal pain. Pt also complains of nausea, shortness of breath, a cough, back pain, right flank pain, and generalized weakness. Pt reports she has had her symptoms for approximately two weeks. Pt reports a hx of lung and adrenal gland cancer. Pt reports currentl y being on chemotherapy. Pt reports she had a stroke in April. Pt reports taking 30mg Morphine 2x daily at home. Abdominal Pain Onset Location: reports: RLQ Pain Radiation: reports: flank Quality of Pain: reports: aching Severity in ED: reports: mild Onset/Duration: reports: other (Two weeks) Timing: reports: still present Associated Symptoms: reports: back/neck pain, nausea, weakness Dark Stools Present?: reports: none noticed Rectal Bleeding: reports: none Rectal Pain: reports: none Emesis Description: reports: none Bruising or Bleeding Gums?: No Similar Symptoms Previously?: Yes Recently seen or treated by another doctor?: No Review of Systems - Adult - REVIEW OF SYSTEMS - ADULT Constitutional: reports: see HPI Eyes: reports: no symptoms reported Ears, Nose, Mouth & Throat: reports: no symptoms reported Cardiovascular: reports: no symptoms reported Respiratory: reports: no symptoms reported Gastrointestinal: reports: see HPI, abdominal pain, nausea Genitourinary: reports: see HPI, flank pain Musculoskeletal: reports: see HPI, back pain Integumentary: reports: no symptoms reported Neurological: reports: no symptoms reported Psychiatric: reports: no symptoms reported Endocrine: reports: no symptoms reported Hematologic/Lymphatic: reports: no symptoms reported Allergic/Immunologic: reports: no symptoms reported All Other Systems: Reviewed and Negative Past History - Adult - PAST MEDICAL HISTORY-ADULT Review of Records: reports: Old Records Reviewed, Nursing Assessment Review, M edications Reviewed, Social history reviewed & non-contributory. Major Childhood Illnesses: reports: denies history Cardiovascular: reports: HTN Respiratory: reports: asthma, COPD, cancer (Stage IV Lung ca) Gastrointestinal: reports: cancer (liver), liver disease (liver cancer) Obstetrical/Gynecological: reports: denies history Genitourinary: reports: denies history Musculoskeletal: reports: other (broken right knee) Neurological: reports: Seizures/Epilepsy Endocrine/Immune: reports: denies history, cancer (adrenal) Other Conditions: reports: other cancer (adrenal cancer) Additional History: non small cell lung ca 5 years out - PRIOR SURGERIES/PROCEDURES Surgical/Procedure History: reports: BTL, indwelling device (port insertion), other (lung biopsy) - IMMUNIZATION STATUS Childhood Immunizations: UTD Flu Vaccine: UTD - FAMILY HISTORY Family History: reviewed, not pertinent - SOCIAL HISTORY Smoking: non-smoker, quit greater than 1 year Substance Use: none/never, denies Alcohol Use Frequency: never Physical Exam-General - PHYSICAL EXAM-ADULT Initial Vital Signs Reviewed: Yes - CONSTITUTIONAL General Appearance: appears well, no apparent distress, lethargic, slow to respond - EYES Eyes: PERRL/EOMI - HEAD, EARS, NOSE, MOUTH & THROAT HENMT: normocephalic/atraumatic, moist mucous membranes, normal ENT inspection - NECK Neck: supple - RESPIRATORY Respiratory: chest non-tender, no respiratory distress, no accessory muscle use, decreased breath sounds, rhonchi - CARDIOVASCULAR Cardiovascular: normal peripheral pulses, regular rate, rhythm, no murmur - GASTROINTESTINAL (ABDOMEN) Abdominal Exam: non tender, soft. negative: guarding, rigid - MUSCULOSKELETAL Back Exam: no CVA tenderness, no vertebral tenderness Extremity: no calf tenderness Peripheral Pulses: radial (R): 2+, radial (L): 2+ - SKIN Integumentary: normal color, warm/dry - NEUROLOGIC Neurologic: grossly normal, no motor/sensory deficits - PSYCHIATRIC Psych/Mental Status: normal mood/affect, normal thought content, normal thought process, oriented x 3 Progress - PLAN OF CARE/RESULTS Progress/Plan/Lab Results: Vital Signs - 8 hr 02/21/19 13:18 Temperature 96.9 F L Pulse Rate 98 H Respiratory Rate 18 Blood Pressure 105/74 O2 Sat by Pulse Oximetry 94 L Orders Category Date Time Status Saline Loc DIRECTED Care 02/21/19 13:25 Active NPO Diet 02/21/19 13:25 Active AMYLASE [CHEM] Stat Lab 02/21/19 13:25 Uncollected CBC WITH ELECTRONIC DIFF [HEME] Stat Lab 02/21/19 13:25 Uncollected COMPREHENSIVE METABOLIC PANEL [CHEM] Stat Lab 02/21/19 13:25 Uncollected LIPASE [CHEM] Stat Lab 02/21/19 13:25 Uncollected URINALYSIS W/POSS RFLX CULT [URINALYSIS] Stat Lab 02/21/19 13:25 Uncollected Result Diagrams: 02/24/19 05:30 02/24/19 05:30 - XRAY 1 XRAY: Bilateral XRAY Study: Chest Impression: See EMR Report ( EXAM: CHEST-PORTABLE HISTORY: cough TECHNIQUE: Single view of the chest was performed portably. COMPARISON: None. FINDINGS: The cardiomediastinal silhouette is within normal limits. The pulmonary vasculature is not congested. There is a small infiltrate right costophrenic angle versus small effusion. There has been been interval improvement in the right upper lobe and right lower lobe infiltrates. No pneumothorax is appreciated. There is unchanged catheter fragment extending from the left subclavian vein to superior vena cava. IMPRESSION: New small infiltrate versus effusion right costophrenic angle. Improving right upper lobe and right lower lobe infiltrates, otherwise. Unchanged catheter fragment. Electronically signed by Radha Gomez 02/21/2019 2:51 PM 02/21/19 1451 Interpreting Physician: Radha Gomez MD Dictated Date/Time: 02/21/19 1447 cc: Emmett Kurtz MD; Bari Molina MD) - CONSULTS/PCP/HOSPITALIST Notification #1 *Consult/PCP/Hospitalist*: Chhaya MCGRATH - Hospitalist Time Discussed: 16:45 Reason/Comments: Made aware of pt and accepts admission. Consult Disposition: Admit Departure - Departure Date of Disposition Decision: 02/21/19 Time of Disposition Decision: 16:49 DIAGNOSIS: Pneumonia, Sepsis Disposition: ADMITTED INPATIENT 09 Certified Medical Emergency: Emergent Condition: Stable - Critical Care Note This patient required my direct & personal management of CC.: No Attestation - Physician/ NUBIA Attestation Patient care was provided by Advanced Practice Provider:: No The physician spent face to face time with patient:: Yes Advanced Practice Provider documentation review:: Supervising physician onsite and consulted in the evaluation and care of this patient. The physician did have a face to face encounter with the patient. This chart was documented by the indicated scribe, (Chris Caicedo, Scribe) and accurately reflects the services I performed and decisions made by me, Emmett Kurtz MD, as attested by the provider's signature.
[2019-02-21] MEDS ORDERED: ZOFRAN IV PRN (16:52)
[2019-02-21] MEDS ORDERED: NS NEB INH SCH (17:00)
[2019-02-21] MEDS ORDERED: VANCOMYCIN IV PER PHARMACY MISC SCH (17:00)
[2019-02-21 17:43] LABS: ALLEN TEST NO; BE 1.6 mmoll (-3.0-3.0); BLOOD TYPE ARTERIAL; METHB 1.3 % (0.0-1.5); PCO2(98.6) 49 mmHg (35-45); PO2(98.6) 65 mmHg (60-100); SAMPLE BLOOD; SAO2 94.4 % (95.0-100.0); THB 11.2 g/dL (11.5-17.4); pH(98.6) 7.36 (7.35-7.45)
[2019-02-21 17:45] LABS: MODALITY ROOM AIR; O2HB 88.6 % (95.0-99.0)
[2019-02-21 18:20] LABS: HEMOGLOBIN A1C 5.8 % (4.8-6.0)
[2019-02-21] MEDS: MAXIPIME 1 GM in NS 50 ML IV SCH (18:34)
[2019-02-21] MEDS: NS 1,000 ML IV SCH (18:42)
[2019-02-21] MEDS: XOPENEX NEB INH SCH ×2 (19:48→23:10)
--- NOTE | 2019-02-21 19:51 | HISTORY AND PHYSICAL ---
ONCOLOGIST: Dr. Molina. CHIEF COMPLAINT: Shortness of breath with productive cough. HISTORY OF PRESENT ILLNESS: Ms. Bella Georges is a 63-year-old female with a medical history of metastatic lung cancer with metastasis to the adrenal glands on the left. Apparently, she was diagnosed 11 years ago and was only treated with chemotherapy, but has been treated with chemotherapy for 11 years. About a year ago or beginning of this year, she was initiated on immunotherapy and has been on that ever since. Also in April, she had a hemorrhagic stroke and had a seizure at that time. She states she feels that for the first 5 months of this year, she has been in a brain fog, but essentially it is like she just woke up one day. She is primarily here with complaints of having some shortness of breath with productive cough that is green and yellow phlegm. Apparently, it has been going on for at least 2 weeks, but had progressively gotten worse. She has fatigue and weakness along with it and a subjective fever. She states that at the beginning of the year, she was 170 pounds, and currently she weighs 100 pounds, but she feels like it was due to the fact that she had her stroke and was not eating well. She denies having any issues with swallowing. There are no complications there. Her most recent visit was back in June. Apparently, she had pulled out a PICC line and was here for altered mental status. She was found to have Serratia and bacteremia, and during that time she was followed by Dr. Robertson. Apparently, that has since resolved. She has had ports in and out and currently is afebrile. It does appear that she is a little bit on the septic side where she has a lactate of 4.0. She is receiving IV fluids and broad-spectrum antibiotics. Imaging reveals that she does have a new pneumonia on the right. PAST MEDICAL HISTORY: 1. Hemorrhagic stroke with seizure in April 2018. 2. Metastatic lung cancer with metastasis to the adrenal gland on the left, that she has had for 11 years. 3. PRES. 4. COPD. 5. Hypertension. 6. Pneumonia. 7. Metabolic encephalopathy. 8. Chronic pain syndrome. 9. Anemia. 10. Serratia bacteremia back in June 2018. SURGICAL HISTORY: 1. Multiple lung biopsies. 2. Two port placements with removals. 3. History of PICC line placement, but removed by herself. 4. Tubal ligation. SOCIAL HISTORY: Started smoking at the age of 17. She smokes a half pack per day. Denies alcohol or illicit drug use. She lives with her daughter who is paralyzed. FAMILY HISTORY: Father had prostate cancer. Daughter and father both had diabetes and heart disease. ALLERGIES: Morphine causes itching, but apparently she is on morphine, so she takes it twice a day, 45 mg. HOME MEDICATIONS: 1. 45 mg of MS Contin twice a day. 2. Phenergan 25 mg p.o. 3 to 4 times a day p.r.n. 3. Celexa 40 mg p.o. daily. 4. Klonopin 0.5 mg p.o. twice daily. 5. Dexamethasone 4 mg p.o. nightly. 6. Percocet 7.5 one tablet p.o. twice daily. REVIEW OF SYSTEMS: A 14 point review of systems are complete and all are negative except for those mentioned above in HPI. PHYSICAL EXAMINATION: VITAL SIGNS: Temperature 96.9 degrees, heart rate 99, respiratory rate 20, blood pressure 109/83, O2 saturation 98% on room air. She is 5 feet 3 inches tall, 100 pounds, BMI is 17.7. GENERAL: Ms. Bella Georges is a 63-year-old female. She is in no acute distress. She is able to answer questions appropriately. HEENT: Atraumatic, normocephalic. Pupils equal, round, reactive to light. Extraocular movements intact. Mucous membranes are moist. NECK: Trachea midline. CARDIOVASCULAR: S1, S2. Regular rate and rhythm. No rubs, gallops, murmurs. No lower extremity edema. +1 dorsalis pedal pulses, +1 radial pulses. Negative JVD or carotid bruits. PULMONARY: Inspiratory wheezes noted throughout, decreased in the bases. No accessory muscle use or work of breathing noted. GI: Soft, nontender, nondistended. Positive bowel sounds x4. EXTREMITIES: Decreased range of motion. 4/5 strength in all extremities. SKIN: Warm, dry, intact except she has almost like signs of Raynaud in the extremities, or peripheral vascular disease secondary to chemotherapy. NEUROLOGIC: Oriented x3. Follows commands. Decreased sensory in all extremities. LABORATORY DATA: White blood cells 35,000, hemoglobin 16, hematocrit 48, platelet count 521,000. ABGs on room air: PH 7.36, pCO2 of 49, pO2 65, bicarb 26, base excess 1.6, saturation 88.6%, lactate 0.9. This is on room air. Sodium 126, potassium 4.6, BUN 33, creatinine 0.6, glucose 151, hemoglobin A1c is 5.8, calcium 10.2, bilirubin 0.33, AST 24, ALT 24, CK 31, troponin less than 0.01. Albumin is 4.2, amylase 41, lipase 24. Serum lactate 4.0. Urinalysis: Trace protein. IMAGING: Chest x-ray: A small infiltrate versus effusion in the right costophrenic angle, improved right upper lobe and right lower lobe infiltrates otherwise; unchanged catheter fragment extending from the left subclavian vein to the superior vena cava. ASSESSMENT AND PLAN: 1. Pneumonia on the right, with sepsis and elevated lactate. She received intravenous fluids and broad-spectrum antibiotics per sepsis protocol. Vitals are stable. 2. History of metastatic lung cancer with metastasis to the left adrenal gland. Apparently, she has had it for 11 years. She states she was told that she is in remission and is currently on immunotherapy. Dr. Molina follows her and will reconsult him. 3. Chronic obstructive pulmonary disease. No exacerbation. Continue with Xopenex. 4. Chronic pain syndrome. Continue MS Contin. 5. Deep venous thrombosis prophylaxis. Continue Lovenox. 6. Depression. Continue Celexa. 7. Tobacco abuse. Cessation discussed. 8. History of Serratia bacteremia in June. Again, we will just see what the blood cultures show. 9. Hyponatremia. Could be secondary to the lung cancer. Dictated by RAMILA Gold for Marie Cleveland MD cc: RAMILA Gold MD I performed a face to face encounter on the patient. I reviewed all labs and imaging on the patient. I agree with the H&P as dictated. MTDD
[2019-02-21] MEDS: MS CONTIN PO SCH (22:11)
[2019-02-21] MEDS: KLONOPIN PO SCH (22:11)
[2019-02-21] MEDS: DECADRON PO SCH (22:12)
[2019-02-22] MEDS: MAXIPIME 1 GM in NS 50 ML IV SCH ×2 (04:43→17:50)
[2019-02-22] MEDS: XOPENEX NEB INH SCH ×5 (04:58→20:21)
[2019-02-22 06:14] LABS: BASO# 0.03 X1000 (0.0-0.2); BASO% 0.1 % (0.0-0.8); EOS# 0.01 X1000 (0.0-0.7); HEMOGLOBIN 11.2 g/dL (12.0-16.0); IMM GRAN# 0.49 X1000 (0.0-0.04); IMM GRAN% 1.6 % (0.0-0.5); LYMPH# 0.83 X1000 (1.2-3.4); LYMPH% 2.8 % (20.5-51.1); MCH 29.8 PG (27-31); MCHC 32.9 g/dL (33-37); MCV 90.4 FL (81-99); MONO# 0.41 X1000 (0.11-0.59); MONO% 1.4 % (1.7-9.3); MPV 8.9 FL (7.4-10.4); NEUT# 28.21 X1000 (1.4-6.5); NEUT% 94.1 % (42.2-75.2); PLT 375 X1000 (130-400); RBC 3.76 XMIL (4.2-5.4); WBC 29.98 X1000 (4.8-10.8)
[2019-02-22] MEDS: NS 1,000 ML IV SCH ×2 (06:39→21:19)
--- NOTE | 2019-02-22 06:58 | Diag Imaging Result Doc PS360 ---
CHEST-1 VIEW - 02/22/2019 INDICATION: pneumonia COMPARISON: 02/21/2019 FINDINGS: Stable left chest port in good position. Stable faint infiltrate or atelectasis in the lateral right lung base. No new infiltrates. Heart size is normal. IMPRESSION: No change from prior. Electronically signed by Cassius Carter 02/22/2019 6:56 AM
[2019-02-22 07:03] LABS: AGAP 8; ALBUMIN 2.7 g/dL (3.5-5.0); ALKALINE PHOSPHATASE 109 U/L (32-104); BUN 15 mg/dL (8-22); CALCIUM 8.2 mg/dL (8.8-10.2); CHLORIDE 98 mmol/L (98-107); COSMO 270; CREATININE 0.4 mg/dL (0.5-0.9); ESTIMATED GFR > 60; GLUCOSE 121 mg/dL (70-104); GOT 17 U/L (10-30); GPT 14 U/L (10-36); POTASSIUM 4.9 mmol/L (3.5-5.1); SODIUM 134 mmol/L (136-145); TCO2 28 mmol/L (25-35); TOTAL BILIRUBIN 0.31 mg/dL (0.20-1.00); TOTAL PROTEIN 5.3 g/dL (6.3-8.3)
[2019-02-22] MEDS: KLONOPIN PO SCH ×2 (08:39→21:18)
[2019-02-22] MEDS: CELEXA PO SCH (08:39)
[2019-02-22] MEDS: LOVENOX SUBQ SCH (08:39)
[2019-02-22] MEDS: MS CONTIN PO SCH ×2 (08:51→21:18)
--- NOTE | 2019-02-22 13:43 | PROGRESS NOTE ---
DATE: 02/22/2019 Ms. Georges presented yesterday with shortness of breath, productive cough, 63-year-old female with past medical history of metastatic lung cancer, metastasis to the adrenal gland on the left. Apparently, diagnosed 11 years ago, was treated with chemotherapy, and about a year ago beginning this year she was initiated on immunotherapy and has been on it ever sense. Also in April had hemorrhagic stroke, had a seizure at that time. States that for the first 5 months this year she has been kind of in a fog. She calls it a brain fog, but said it was like she woke up one day. Primarily here with complaints of having shortness of breath and productive cough and greenish phlegm, fatigue and weakness along with subjective fever. PAST MEDICAL HISTORY: 1. Again, hemorrhagic stroke and seizure in April 2018. 2. Metastatic lung cancer, metastasis to adrenal gland on the left. She has had cancer for 11 years and apparently had been actively treating it for that time, recently switched to immunotherapy. 3. COPD. 4. Hypertension. 5. Pneumonia. 6. Metabolic encephalopathy. 7. Chronic pain syndrome. 8. Anemia. 9. Serratia bacteremia back in June 2018. 10. PRES. SURGICAL HISTORY: 1. Multiple lung biopsies. 2. 2 port replacements and removals in the past. 3. History of PICC line placement but removed by herself. 4. Tubal ligation. ADMISSION DIAGNOSIS: Pneumonia on the right with sepsis, elevated lactate level. She has underlying history of metastatic lung cancer with metastasis to the left adrenal gland and treated for 11 years as which was recently switched to immunotherapy, underlying COPD, chronic pain syndrome. She has a history of Serratia bacteremia back in June. PHYSICAL EXAMINATION: General: Today she is sleeping and appears comfortable, breathing comfortably. Temp 98.2 degrees, pulse 74, respirations 14, blood pressure 112/57. Pupils are equal and round. Lungs: Clear in all lung rust. Cardiovascular: Regular rhythm and rate without murmur or S3. Abdomen: Soft. Skin: Warm and dry. REVIEW OF LABS: Her blood counts yesterday, white count when she came in it was 35,000, yesterday it was 29,000, hematocrit is 34, platelet count 375,000, sodium 134, potassium 4.9, chloride 98, BUN 15, creatinine 0.4. Note, her sodium was 126 when she presented. Chest x-ray from this morning, no change. Stable left chest. Port in good position. There is a faint infiltrate. Atelectasis in the lateral right lung base. No new infiltrates. ASSESSMENT AND PLAN: 1. Pneumonia on the right, looked like she presented with possible sepsis and elevated lactate. Continue IV fluids and broad-spectrum antibiotic. 2. Metastatic lung cancer with metastasis to left adrenal. Been on treatment for 11 years. Recently switched to immunotherapy. 3. Underlying COPD. I guess technically this would be an exacerbation because of pneumonia. 4. Chronic pain syndrome on MS Contin. 5. She will continue DVT prophylaxis. 6. History of depression. She is on Celexa. 7. History of tobacco use. Have counseled her on the importance of stopping smoking. 8. Distant history of Serratia bacteremia back in June. 9. Hyponatremia. Her sodium when she presented was 126, back up to 134. REVIEW OF ORDERS: She is on Celexa 40 mg a day, Klonopin 0.5 mg b.i.d., on Lovenox 40 mg subcutaneous q. 24 hours, cefepime 1 g IV q. 12 h., normal saline at 100 mL an hour, oxycodone 5 mg 1-1/2 tablet b.i.d. p.r.n., vancomycin 1.25 g IV q. 24 hours. cc: Mehran Mitchell MD
--- NOTE | 2019-02-22 14:43 | Diag Imaging Result Doc PS360 ---
EXAM: CT THORAX W/CONTRAST INDICATION: Lung ca ? pna TECHNIQUE: This exam was performed using automated exposure control, adjustment of mA or kV according to patient size, and/or use of iterative reconstruction technique. COMPARISON: 06/20/2018 FINDINGS: There is stable moderate pulmonary emphysema with an apical predominance. There are diffuse patchy groundglass consolidations and a few tree-in-bud opacities throughout the right lung suggesting pneumonia. There is a stable 1 cm noncalcified nodule in the right upper lobe on image 41 of series 3. There are small pleural fluid collections at both lung bases with mild adjacent atelectasis. This is milder than the previous study. There is no cardiomegaly. There is no new mediastinal or hilar lymphadenopathy. There are a few calcified mediastinal lymph nodes indicating prior granulomatous disease. Limited views of the upper abdomen reveals moderate hepatic steatosis. There is extensive aortic atherosclerotic disease. There are stable thyroid nodules with one being calcified. There is no evidence of acute osseous abnormality. IMPRESSION: 1.Moderate pulmonary emphysema. 2.Patchy airspace consolidation with a few tree-in-bud opacities throughout the right lung suggesting pneumonia, probably atypical. 3.A very small bilateral pleural effusions with adjacent atelectasis at the bases. 4.Other incidental/nonacute findings detailed above. Electronically signed by Abhay Baer 02/22/2019 2:41 PM
[2019-02-22] MEDS: VANCOMYCIN 1.25 GM in NS 250 ML IV SCH (15:55)
[2019-02-22] MEDS: DECADRON PO SCH (21:18)
[2019-02-23] MEDS: XOPENEX NEB INH SCH ×5 (00:16→23:05)
[2019-02-23] MEDS: PERCOCET-5 PO PRN ×2 (02:42→15:55)
[2019-02-23] MEDS: MAXIPIME 1 GM in NS 50 ML IV SCH ×2 (04:03→17:53)
[2019-02-23] MEDS: NS 1,000 ML IV SCH ×3 (06:01→22:33)
[2019-02-23] MEDS: CELEXA PO SCH (09:30)
[2019-02-23] MEDS: MS CONTIN PO SCH ×2 (09:30→20:51)
[2019-02-23] MEDS: LOVENOX SUBQ SCH (09:31)
[2019-02-23] MEDS: KLONOPIN PO SCH ×2 (09:31→20:50)
[2019-02-23] MEDS: BENADRYL PO PRN ×2 (09:55→15:56)
--- NOTE | 2019-02-23 12:47 | PROGRESS NOTE ---
DATE: 02/23/2019 SUBJECTIVE: Ms. Georges feels better. She slept some. She complains that she itches all over, but she does this at home. It is worse in the wintertime, dry skin. She also complains of restless legs syndrome. Her bowels feel like they are moving okay. She has not had a bowel movement in a couple of days, but feels like she may have to go today. OBJECTIVE: Vital Signs: Temp 97.6 degrees, remains afebrile, pulse 80, respirations 14, blood pressure 125/65. HEENT: Pupils are equal and round. Lungs: Clear in all lung rust. Cardiovascular: Regular rhythm and rate without murmur or S3. Abdomen: Soft. Skin: Warm and dry. Urine output is 2800 mL. ASSESSMENT AND PLAN: 1. Pneumonia on the right. It looked like it presented possible sepsis. She is getting intravenous fluids. Doing much better. Continue broad-spectrum antibiotic. 2. Metastatic lung cancer with metastasis to the left adrenal, and recently started immunotherapy. 3. Underlying chronic obstructive pulmonary disease. 4. Chronic pain syndrome, on MS Contin. This may account for some of her itching as well, the MS Contin. I did put her on some antihistamine to see if it would help. 5. Continue deep venous thrombosis prophylaxis. 6. Depression, on Celexa. 7. I have counseled her on the importance of stopping smoking. 8. History of Serratia bacteremia back in June. 9. Hyponatremia. Sodium looks pretty good. White count still elevated. Will check her counts again tomorrow. Renal function looks good. Lactate level came down from 4 to 1.3. cc: Mehran Mitchell MD
--- NOTE | 2019-02-23 13:31 | Diag Imaging Result Doc PS360 ---
EXAM: CHEST-2 VIEWS 02/23/2019 HISTORY: pneumonia TECHNIQUE: PA and lateral chest COMMENT: There is blunting of the costophrenic angles. This is worse on the left than on 02/22/2019. Otherwise the appearance the chest has not changed significantly. IMPRESSION: Bilateral pleural effusions. Electronically signed by dUay Del Cid 02/23/2019 1:29 PM
[2019-02-23] MEDS: VANCOMYCIN 1.25 GM in NS 250 ML IV SCH (15:33)
[2019-02-23] MEDS: DECADRON PO SCH (20:51)
--- NOTE | 2019-02-23 22:19 | HEMO/ONC CONSULTATION ---
DATE: 02/22/2019 REQUESTING PHYSICIAN: Marie Cleveland MD. We appreciate this consult. CHIEF COMPLAINT: Metastatic lung cancer. HISTORY OF PRESENT ILLNESS: Ms Sola Georges is a very pleasant, 63-year-old female well known to Dr. Molina with a history of metastatic lung cancer to the adrenal glands on the left. The patient is currently being treated with Opdivo since April of this year. The patient presented to [facility] Emergency Department with complaints of shortness of breath and productive cough with green sputum. The patient states that she has had progressive weakness and a subjective fever. The patient was admitted in June for Serratia bacteremia. She is followed by Dr. Arsalan Robertson of Infectious Disease as well. The patient underwent imaging in the emergency department and does have a new pneumonia on the right side. We are consulted as the patient is well known to us. PAST MEDICAL HISTORY: 1. Metastatic lung cancer to the left adrenal gland. 2. Hemorrhagic stroke with seizure in April 2018. 3. PRES. 4. COPD. 5. Hypertension. 6. Pneumonia. 7. Metabolic encephalopathy. 8. Chronic pain syndrome. 9. Anemia. 10. Serratia bacteremia in June 2018. PAST SURGICAL HISTORY: 1. Multiple lung biopsies. 2. Port placement with removal x2. 3. PICC line placement. 4. Tubal ligation. SOCIAL HISTORY: The patient has smoked 1/2 pack cigarettes daily since the age of 17. She does not use alcohol or illicit drugs. FAMILY HISTORY: Significant for father with prostate cancer. MEDICATIONS ON ADMISSION: 1. MS Contin. 2. Phenergan. 3. Celexa. 4. Klonopin. 5. Dexamethasone. 6. Percocet. ALLERGIES: Morphine. REVIEW OF SYSTEMS: A 14-point review of systems was obtained and is negative except for mentioned in HPI. PHYSICAL EXAM: General: Ms Georges is a pleasant 63-year-old female, lying supine in bed, very somnolent but in no immediate distress. Vital Signs: Temperature 97.4 degrees, blood pressure 110/63, heart rate 75, respirations 16, O2 saturation 98% on room air. HEENT: Normocephalic, atraumatic. Mucous membranes are pink and moist. Sclerae anicteric. Extraocular movements intact. Neck: Supple. Lungs: Clear to auscultation bilaterally. Chest expansion is equal bilaterally. Cardiovascular: S1, S2 is heard without murmur rub or gallop. Abdomen: Nondistended. Extremities: No clubbing, cyanosis, or edema. Dermatologic: No rashes bruises or lesions. Neurologic: The patient is very somnolent but oriented x3. She has no focal deficit. LABORATORY DATA: Hemoglobin 11.2, hematocrit 34.0, white blood cell count is 29.98, platelet count 375,000. Sodium 134, potassium 4.9, chloride 98, CO2 is 28, BUN 15, creatinine 0.4. Glucose is 121, calcium is 8.2. UA is negative for UTI. Blood cultures are currently pending. IMAGING STUDIES: Chest x-ray reveals a stable faint infiltrate with atelectasis at the right lung base. ASSESSMENT AND PLAN: 1. Questionable right lower lobe pneumonia, on antibiotics at this time. We will check a CT chest to rule out immunotherapy related pneumonitis. 2. Metastatic lung cancer to the left adrenal gland. We will check a CT chest. The patient is currently on Opdivo and we will hold treatment until the patient's acute illness improves. 3. Chronic obstructive pulmonary disease without exacerbation at this time. 4. Chronic pain. The patient is on MS Contin with continued treatment. 5. History of Serratia bacteremia in June. Will await blood cultures and consult Dr. Robertson, if appropriate. 6. We will follow along with you and make further recommendations pending outcomes. The above reflects the history, exam, assessment and plan of Dr. Molina. Dictated by RAMILA Caballero for Bair Molina MD cc: RAMILA Caballero MD
[2019-02-24] MEDS: XOPENEX NEB INH SCH ×5 (03:19→16:29)
[2019-02-24] MEDS: PERCOCET-5 PO PRN (03:57)
[2019-02-24] MEDS: MAXIPIME 1 GM in NS 50 ML IV SCH (05:21)
[2019-02-24 06:13] LABS: HEMATOCRIT 30.5 % (37.0-47.0); HEMOGLOBIN 9.7 g/dL (12.0-16.0); IMM GRAN# 0.18 X1000 (0.0-0.04); IMM GRAN% 1.2 % (0.0-0.5); LYMPH% 4.1 % (20.5-51.1); MCH 29.6 PG (27-31); MCHC 31.8 g/dL (33-37); MONO# 0.24 X1000 (0.11-0.59); MONO% 1.6 % (1.7-9.3); MPV 9.1 FL (7.4-10.4); NEUT# 13.79 X1000 (1.4-6.5); NEUT% 93.1 % (42.2-75.2); PLT 328 X1000 (130-400); RBC 3.28 XMIL (4.2-5.4); WBC 14.81 X1000 (4.8-10.8)
[2019-02-24 06:31] LABS: AGAP 14; BUN 9 mg/dL (8-22); CALCIUM 8.3 mg/dL (8.8-10.2); CHLORIDE 102 mmol/L (98-107); COSMO 283; CREATININE 0.5 mg/dL (0.5-0.9); ESTIMATED GFR > 60; GLUCOSE 247 mg/dL (70-104); MAGNESIUM 1.4 mg/dL (1.5-2.7); POTASSIUM 3.3 mmol/L (3.5-5.1); SODIUM 138 mmol/L (136-145); TCO2 22 mmol/L (25-35)
[2019-02-24 06:42] LABS: LYMPHS 2 % (21-51); MONO 2 % (1-9); SEGS 96 % (42-75)
[2019-02-24] MEDS: KLONOPIN PO SCH (08:53)
[2019-02-24] MEDS: MS CONTIN PO SCH (08:53)
[2019-02-24] MEDS: LOVENOX SUBQ SCH (08:53)
[2019-02-24] MEDS: CELEXA PO SCH (08:53)
[2019-02-24] MEDS: NS 1,000 ML IV SCH (08:54)
[2019-02-24] MEDS ORDERED: MILK OF MAGNESIA PO ONE (09:59)
--- NOTE | 2019-02-24 10:15 | DISCHARGE SUMMARY ---
ADMISSION DATE: 02/21/2019 DISCHARGE DATE: 02/24/2019 HOSPITAL COURSE: Patient of Dr. Faraz Molina, presented with shortness of breath, productive cough. Ms. Georges is a 63-year-old with history of metastatic lung cancer, metastasis to the adrenal gland on the left. Apparently was diagnosed 11 years ago and treated with chemotherapy. Recently switched to immunotherapy beginning this year. She was initiated on immunotherapy in April. She had a hemorrhagic stroke and a seizure at that time. Feels that for the first 5 months of the year, she has been in a brain fog, but essentially felt like that is improved, just woke up 1 day. Primary complaint coming in with shortness of breath, productive cough, greenish phlegm, been going on for a couple weeks. She had fatigue and weakness and subjective fever. She has lost from 170 pounds beginning in the year to 100 pounds, likely due to the fact of the stroke and not eating well and was having some issues with swallowing which she no longer complains about. PAST MEDICAL HISTORY: 1. Hemorrhagic stroke and seizure in April 2018. 2. Metastatic lung cancer with metastasis to left adrenal gland. 3. PRES. 4. COPD. 5. Hypertension. 6. Pneumonia. 7. Metabolic encephalopathy. 8. Chronic pain syndrome. 9. Anemia. 10. Serratia back in June 2018. ADMISSION DIAGNOSIS: 1. Pneumonia on the right, sepsis on presentation, put on broad-spectrum antibiotics. Clinically, she improved and wanted to go home on 02/24/2019. 2. History of metastatic lung cancer with metastasis to left adrenal gland. She is on immunotherapy, followed by Dr. Molina. 3. Underlying chronic obstructive pulmonary disease. 4. Chronic pain syndrome. She is on MS Contin. 5. Deep venous thrombosis. Prophylaxis was provided while she is here at the hospital. 6. Depression. Continue with Celexa. 7. History of tobacco use. Discussed the importance of cessation of tobacco. We will let her have some nicotine patches at her discretion. 8. She has a history of Serratia bacteremia back in June. PLAN: Plan to discharge her home. She is complaining of constipation. Give her some milk of magnesia and hopefully she can go home this afternoon. Have her on Celexa 40 mg a day, Klonopin 0.5 mg b.i.d., MS Contin 15 mg b.i.d. She has Percocet 5/1.5 mg p.o. b.i.d. p.r.n. Cultures: Blood cultures were negative. Chest x-ray from yesterday, she has some bilateral pleural effusions, no sign of infiltrate. So I will let her go home and keep her on Levaquin 500 mg a day p.o. for another 7 days. cc: Mehran Mitchell MD
[2019-02-24] MEDS: VANCOMYCIN 1.25 GM in NS 250 ML IV SCH ×2 (14:27→17:01)
[2019-02-24] MEDS ORDERED: FLU VACCINE IM ONE (14:28)
[2019-02-24] MEDS ORDERED: PNEUMOVAX 23 IM ONE (14:31)
[2019-02-24 15:48] VITALS: BP 131/55
== END 2019-02-24 17:09 | disposition home health service (06) | DRG 871 ==
LOC: ED 13:15 → EDIPHOLD 17:12 → SUATTDRO 17:12 → 2N 19:53
PROVIDERS: ATTEND Emergency Medicine

== ENCOUNTER 2019-03-23 14:56 | Inpatient (IN) ==
[2019-03-23] MEDS ORDERED: VANCOMYCIN 1 GM/NS 1 GM/250 ML IVPB IV ONE (15:20)
[2019-03-23] MEDS ORDERED: NS 1,000 ML IV ONE ×2 (15:20)
[2019-03-23] MEDS ORDERED: ZOSYN 4.5 GM in NS 100 ML IV ONE (15:20)
[2019-03-23 16:07] LABS: ALLEN TEST YES; BE -2.3 mmoll (-3.0-3.0); BLOOD TYPE ARTERIAL; METHB 1.3 % (0.0-1.5); O2(CT) 19.3 mL/dL (15.0-23.0); O2HB 92.1 % (95.0-99.0); PCO2(98.6) 34 mmHg (35-45); PO2(98.6) 70 mmHg (60-100); SAMPLE BLOOD; SAO2 96.3 % (95.0-100.0); THB 14.9 g/dL (11.5-17.4); pH(98.6) 7.41 (7.35-7.45)
[2019-03-23 16:08] LABS: MODALITY ROOM AIR
--- NOTE | 2019-03-23 16:35 | Diag Imaging Result Doc PS360 ---
EXAM: CHEST-1 VIEW INDICATION: cough TECHNIQUE: One view COMPARISON: 02/23/2019 FINDINGS: An old central venous catheter on the left is unchanged. There is very vague airspace consolidation in the right lung, mainly at the right mid and lower lung zone, suggesting pneumonia. The left lung appears clear. There is no discrete pleural fluid collection or pneumothorax. The cardiomediastinal silhouette and central vasculature are grossly unremarkable. IMPRESSION: Vague airspace consolidations on the right suggesting mild pneumonia. Electronically signed by Abhay Baer 03/23/2019 4:33 PM
[2019-03-23 16:41] LABS: URINE SOURCE CATH
[2019-03-23 16:53] LABS: BILIRUBIN URINE NEGATIVE (NEGATIVE); BLOOD URINE NEGATIVE (NEGATIVE); COLOR YELLOW; GLUCOSE URINE NEGATIVE (NEGATIVE); KETONE URINE 10 mg/dL (NEGATIVE); LEUKOCYTES URINE NEGATIVE (NEGATIVE); NITRITE URINE NEGATIVE (NEGATIVE); PROTEIN URINE TRACE mg/dL (NEGATIVE); TURBIDITY URINE CLEAR (CLEAR); UROBILINOGEN URINE 6 mg/dL (NORMAL)
[2019-03-23 16:57] LABS: UR EPITHELIAL CELLS <10 /HPF (<10); URINE BACTERIA NEGATIVE /HPF; URINE RBC <10 /HPF (<10); URINE WBC <10 /HPF (<10)
[2019-03-23 17:06] LABS: URINE CRYSTALS NONE SEEN
[2019-03-23 17:53] LABS: BASO# 0.07 X1000 (0.0-0.2); BASO% 0.2 % (0.0-0.8); EOS# 0.21 X1000 (0.0-0.7); EOS% 0.6 % (0.0-10.0); HEMATOCRIT 41.2 % (37.0-47.0); HEMOGLOBIN 13.5 g/dL (12.0-16.0); IMM GRAN# 0.48 X1000 (0.0-0.04); IMM GRAN% 1.3 % (0.0-0.5); LYMPH# 3.19 X1000 (1.2-3.4); LYMPH% 8.5 % (20.5-51.1); MCH 29.2 PG (27-31); MCHC 32.8 g/dL (33-37); MCV 89.2 FL (81-99); MONO# 2.95 X1000 (0.11-0.59); MONO% 7.8 % (1.7-9.3); MPV 9.6 FL (7.4-10.4); NEUT# 30.83 X1000 (1.4-6.5); NEUT% 81.6 % (42.2-75.2); PLT 525 X1000 (130-400); RBC 4.62 XMIL (4.2-5.4); RDW 15.1 % (11.5-14.5); WBC 37.73 X1000 (4.8-10.8)
[2019-03-23 17:56] LABS: INR 1.18; PROTIME 15.2 Seconds (11.0-16.0)
[2019-03-23 17:57] LABS: PTT 47.2 Seconds (22.3-41.8)
[2019-03-23 18:05] LABS: AGAP 21; ALB/GLOB RATIO 1.3; ALKALINE PHOSPHATASE 242 U/L (32-104); BUN 14 mg/dL (8-22); CALCIUM 9.1 mg/dL (8.8-10.2); CHLORIDE 91 mmol/L (98-107); CK PROFILE 17 U/L (24-173); COSMO 261; CREATININE 0.6 mg/dL (0.5-0.9); ESTIMATED GFR > 60; GLUCOSE 90 mg/dL (70-104); GOT 15 U/L (10-30); GPT 7 U/L (10-36); MAGNESIUM 1.8 mg/dL (1.5-2.7); POTASSIUM 4.7 mmol/L (3.5-5.1); SODIUM 130 mmol/L (136-145); TCO2 18 mmol/L (25-35); TOTAL BILIRUBIN 1.28 mg/dL (0.20-1.00); TOTAL PROTEIN 5.4 g/dL (6.3-8.3)
[2019-03-23 18:32] LABS: BANDS 1 % (0-1); LYMPHS 7 % (21-51); MONO 4 % (1-9); SEGS 86 % (42-75)
--- NOTE | 2019-03-23 18:37 | PROVIDER DOCUMENTATION ---
This chart was entered by Kiana Whipple Scribe, acting as scribe for Anish Becker MD. HPI-General Adult - General Stated Complaint: LOW BLOOD PRESSURE Time Seen by Provider: 03/23/19 15:11 Source: patient, EMS ([facility]) Allergies/Adverse Reactions: Patient Allergies Allergy/AdvReac Type Severity Reaction Status Date / Time No Known Allergies Allergy Verified 03/23/19 17:14 Home Medications: Home Medication List Medication Instructions Recorded Confirmed Last Taken Type Citalopram [Celexa] 40 mg PO DAILY MDD 40 08/02/14 03/23/19 03/22/19 History Clonazepam [Klonopin] 0.5 mg PO BID #0 07/12/18 03/23/19 03/22/19 Rx Dexamethasone 4 mg PO QHS 02/21/19 03/23/19 03/21/19 History Morphine E.r. [Ms Contin] 15 mg PO BID 02/21/19 02/21/19 02/21/19 07:00 History Morphine E.r. [Ms Contin] 30 mg PO Q12HR 02/21/19 03/23/19 03/22/19 History Oxycodone HCl/Acetaminophen 1 tab PO BID 02/21/19 03/23/19 03/22/19 History [Oxycodon-Acetaminophen 7.5-325] Promethazine [Phenergan] 25 mg PO 3-4XDAY PRN PRN 02/21/19 03/23/19 03/22/19 History - History of Present Illness -Gen Adult Nature of Presenting Problems: 63 yowf presents to the ed via ems for dehydration and hypotensive. pt was given 500 NS travel pta by ems. pt is ill appearing and a/o x3 but appears fatigued. per ems pt has a port cath that could not be fully removed in the past so pt is chronically fighting infection due to cath still being in place Location of Pain/Injury: reports: none Pain Radiation: reports: no radiation Quality of Pain: reports: none Severity: reports: moderate Onset/Duration: reports: unsure Timing: reports: still present Context/Activities at Onset: reports: light activity Modifying Factors: improves with: nothing Associated Symptoms: reports: cough, fatigue, malaise. denies: chest pain, nausea, shortness of breath, vomiting Similar Symptoms Previously?: Yes Recently seen or treated by another doctor?: No Review of Systems - Adult - REVIEW OF SYSTEMS - ADULT Constitutional: denies: chills, fever Eyes: reports: no symptoms reported Ears, Nose, Mouth & Throat: reports: no symptoms reported Cardiovascular: denies: chest pain, palpitations Respiratory: reports: see HPI, cough Gastrointestinal: denies: abdominal pain, diarrhea, nausea, vomiting Genitourinary: reports: no symptoms reported Musculoskeletal: reports: no symptoms reported Integumentary: reports: no symptoms reported Neurological: denies: dizziness/vertigo, headache/migraines Psychiatric: reports: no symptoms reported Endocrine: reports: no symptoms reported Hematologic/Lymphatic: reports: no symptoms reported Allergic/Immunologic: reports: no symptoms reported All Other Systems: Reviewed and Negative Past History - Adult - PAST MEDICAL HISTORY-ADULT Review of Records: reports: Old Records Reviewed, Nursing Assessment Review, Medications Reviewed, Social history reviewed & non-contributory. Major Childhood Illnesses: reports: denies history Cardiovascular: reports: HTN Respiratory: reports: asthma, COPD, cancer (Stage IV Lung ca) Gastrointestinal: reports: cancer (liver), liver disease (liver cancer) Obstetrical/Gynecological: reports: denies history Genitourinary: reports: denies history Musculoskeletal: reports: chronic pain, other (broken right knee) Hand Dominance: Right Handed Neurological: reports: Seizures/Epilepsy Psychiatric: reports: denies history Endocrine/Immune: reports: denies history, cancer (adrenal) Other Conditions: reports: other cancer (adrenal cancer) Additional History: non small cell lung ca 5 years out - PRIOR SURGERIES/PROCEDURES Surgical/Procedure History: reports: BTL, indwelling device (port insertion), other (lung biopsy) - IMMUNIZATION STATUS Childhood Immunizations: UTD Flu Vaccine: UTD - FAMILY HISTORY Family History: reviewed, not pertinent - SOCIAL HISTORY Smoking: cigarettes, greater than 1 pack/day Provider spent 3-5 mins advising pt. on dangers of tobacco.: Discussed manners to quit use, and f/u contacts for add'l counseling. Substance Use: denies Living Situation: family Physical Exam-General - PHYSICAL EXAM-ADULT Initial Vital Signs Reviewed: Yes (BP-108/84 HR-115) - CONSTITUTIONAL General Appearance: alert, mild distress, thin. negative: appears well (ill appearing) - EYES Eyes: PERRL/EOMI, pale conjunctivae - HEAD, EARS, NOSE, MOUTH & THROAT HENMT: negative: moist mucous membranes (dry oral) - NECK Neck: non-tender, full range of motion - RESPIRATORY Respiratory: decreased breath sounds (bilateral). negative: crackles, rales, rhonchi, wheezing - CARDIOVASCULAR Cardiovascular: normal peripheral pulses, tachycardia (115) - CHEST (BREASTS) Chest/Breast: other (multiple well healed scars bilaterally from multple central lines in the past) - GASTROINTESTINAL (ABDOMEN) Abdominal Exam: normal bowel sounds, non tender, soft - GENITOURINARY Female Genitalia/Pelvic Exam: deferred Rectal Exam: deferred Hemoccult Exam: deferred - LYMPHATIC Lymphatic: no adenopathy - MUSCULOSKELETAL Back Exam: no CVA tenderness, no vertebral tenderness Extremity: slow capillary refill - SKIN Integumentary: warm/dry, mottled. negative: normal color, normal turgor - NEUROLOGIC Neurologic: grossly normal - PSYCHIATRIC Psych/Mental Status: oriented x 3 Progress - PLAN OF CARE/RESULTS Result Diagrams: 03/23/19 17:20 03/23/19 17:20 - REASSESSMENT Reassessment #1 Time Reassessed: 18:32 Status: improving (Patient meets criteria for sepsis, has HCAP Pneumonia. Given IV Vanco/Zosyn and IVF bolus. Initial BP was hypotensive, but respond to IVF bolus and is no longer hypotensive. Lactate is negative. Old chart reviewed, multiple admissions for PNE/Sepsis.) - XRAY 1 XRAY: Bilateral XRAY Study: Chest Impression: See EMR Report (EXAM: CHEST-1 VIEW INDICATION: cough TECHNIQUE: One view COMPARISON: 02/23/2019 FINDINGS: An old central venous catheter on the left is unchanged. There is very vague airspace consolidation in the right lung, mainly at the right mid and lower lung zone, suggesting pneumonia. The left lung appears clear. There is no discrete pleural fluid collection or pneumothorax. The cardiomediastinal silhouette and central vasculature are gr ossly unremarkable. IMPRESSION: Vague airspace consolidations on the right suggesting mild pneumonia. Electronically signed by Abhay Baer 03/23/2019 4:33 PM 03/23/19 [id number] Interpreting Physician: Abhay Baer MD Dictated Date/Time: 03/23/19 0022 cc: Anish Becker MD; Bari Molina MD) - CONSULTS/PCP/HOSPITALIST Notification #1 *Consult/PCP/Hospitalist*: Sean Time Discussed: 18:35 Consult Disposition: Will see in ED Departure - Departure Date of Disposition Decision: 03/23/19 Time of Disposition Decision: 18:35 DIAGNOSIS: Severe sepsis without septic shock, Tobacco use disorder Right middle lobe pneumonia Qualifiers: Pneumonia type: due to unspecified organism Qualified Code(s): J18.1 - Lobar pneumonia, unspecified organism Right lower lobe pneumonia Qualifiers: Pneumonia type: due to unspecified organism Qualified Code(s): J18.1 - Lobar pneumonia, unspecified organism Opioid dependence Qualifiers: Substance use status: uncomplicated Qualified Code(s): F11.20 - Opioid dependence, uncomplicated Disposition: ADMITTED INPATIENT 09 Certified Medical Emergency: Emergent Condition: Fair Referrals and Follow-Ups: Bari Molina MD [Primary Care Provider] - Discharge Education: Steps to Quit Smoking, [id number] - Critical Care Note This patient required my direct & personal management of CC.: Yes Total Time (mins): 45 Critical Care Statement: This patient required my direct personal management to treat or rule out processes, the absence of which, could potentiallly result in sudden, clinically significant life or limb threatening deterioration. Attestation - Physician/ NUBIA Attestation Patient care was provided by Advanced Practice Provider:: No The physician spent face to face time with patient:: Yes Advanced Practice Provider documentation review:: Supervising physician onsite and consulted in the evaluation and care of this patient. The physician did have a face to face encounter with the patient. This chart was documented by the indicated scribe, (Kiana Whipple Scribe) and accurately reflects the services I performed and decisions made by me, Anish Becker MD, as attested by the provider's signature.
[2019-03-23 23:42] LABS: UR AMPHETAMINES QUAL PRESUMPTIVE POSITIVE (NONE DETECT); UR BARBITUATES QUAL NONE DETECTED (NONE DETECT); UR BENZODIAZEPIN QUAL NONE DETECTED (NONE DETECT); UR CANNABINOIDS QUAL NONE DETECTED (NONE DETECT); UR COCAINE QUAL NONE DETECTED (NONE DETECT); UR METHADONE QUAL NONE DETECTED (NONE DETECT); UR OPIATES QUAL PRESUMPTIVE POSITIVE (NONE DETECT); UR OXYCODONE QUAL PRESUMPTIVE POSITIVE (NONE DETECT); UR PCP QUAL NONE DETECTED (NONE DETECT)
[2019-03-24] MEDS ORDERED: VANCOMYCIN IV PER PHARMACY MISC SCH (01:29)
[2019-03-24] MEDS ORDERED: NICODERM PATCH TD PRN (01:29)
[2019-03-24] MEDS ORDERED: ZOFRAN IV PRN (01:29)
[2019-03-24] MEDS ORDERED: SODIUM CHLORIDE 0.9% INJ SCH (01:29)
[2019-03-24] MEDS ORDERED: TYLENOL PR PRN (01:29)
[2019-03-24] MEDS ORDERED: PERCOCET-5 PO PRN (01:30)
[2019-03-24] MEDS ORDERED: TYLENOL PO PRN (01:53)
[2019-03-24] MEDS ORDERED: PERCOCET-5 PO ONE (02:04)
[2019-03-24] MEDS: NS 1,000 ML IV SCH ×2 (03:18→13:49)
[2019-03-24] MEDS: ZOSYN 3.375 GM in NS 50 ML IV SCH ×4 (03:18→20:41)
[2019-03-24] MEDS: PROTONIX IV SCH (03:18)
[2019-03-24] MEDS: DUONEB (A & A) INH SCH ×6 (05:26→23:39)
--- NOTE | 2019-03-24 05:41 | EKG Report ---
Test Performed on : 03/24/2019 01:21:13 AM Test Reason : Sepsis, PNA Blood Pressure : / mmHG Vent. Rate : 122 BPM Atrial Rate : 122 BPM P-R Int : 138 ms QRS Dur : 048 ms QT Int : 330 ms P-R-T Axes : 083 072 090 degrees QTc Int : 470 ms Sinus tachycardia. Biatrial enlargement Septal infarct , age undetermined Abnormal ECG When compared with ECG of 06-JUL-2018 07:28, Septal infarct is now present Nonspecific T wave abnormality now evident in Lateral leads Confirmed by Matthieu NEELY, Shahbaz ([id number]) on 03/25/2019 11:34:23 AM
[2019-03-24 06:05] LABS: BASO# 0.03 X1000 (0.0-0.2); BASO% 0.1 % (0.0-0.8); EOS# 0.21 X1000 (0.0-0.7); EOS% 0.7 % (0.0-10.0); HEMATOCRIT 35.8 % (37.0-47.0); HEMOGLOBIN 11.6 g/dL (12.0-16.0); IMM GRAN# 0.45 X1000 (0.0-0.04); IMM GRAN% 1.5 % (0.0-0.5); LYMPH# 1.83 X1000 (1.2-3.4); LYMPH% 6.2 % (20.5-51.1); MCH 28.9 PG (27-31); MCHC 32.4 g/dL (33-37); MCV 89.1 FL (81-99); MONO# 2.23 X1000 (0.11-0.59); MONO% 7.5 % (1.7-9.3); MPV 9.8 FL (7.4-10.4); NEUT# 24.97 X1000 (1.4-6.5); PLT 488 X1000 (130-400); RBC 4.02 XMIL (4.2-5.4); RDW 14.9 % (11.5-14.5); WBC 29.72 X1000 (4.8-10.8)
[2019-03-24 06:27] LABS: AGAP 19; ALB/GLOB RATIO 0.9; ALBUMIN 2.3 g/dL (3.5-5.0); ALKALINE PHOSPHATASE 212 U/L (32-104); BUN 11 mg/dL (8-22); CALCIUM 8.1 mg/dL (8.8-10.2); CHLORIDE 98 mmol/L (98-107); COSMO 265; CREATININE 0.4 mg/dL (0.5-0.9); ESTIMATED GFR > 60; GLUCOSE 59 mg/dL (70-104); GOT 14 U/L (10-30); GPT 6 U/L (10-36); POTASSIUM 3.4 mmol/L (3.5-5.1); SODIUM 134 mmol/L (136-145); TCO2 17 mmol/L (25-35); TOTAL BILIRUBIN 0.65 mg/dL (0.20-1.00); TOTAL PROTEIN 4.9 g/dL (6.3-8.3)
[2019-03-24 06:38] LABS: LYMPHS 6 % (21-51); MONO 7 % (1-9); SEGS 87 % (42-75)
--- NOTE | 2019-03-24 07:23 | Diag Imaging Result Doc PS360 ---
EXAM: ABDOMEN FLAT/UPRIGHT 03/23/2019 HISTORY: Abdominal Pain,Nausea,Hx of Chronic Constipation TECHNIQUE: Flat and upright abdomen portable COMMENT: There is some gas in the stomach duodenal bulb and left colon. No evidence of small bowel dilatation is present. There is no evidence of organomegaly or mass. There is severe degenerative change in the left hip which is worse than on 06/10/2011. IMPRESSION: Nonspecific abdomen. Electronically signed by Uday Del Cid 03/24/2019 7:20 AM
[2019-03-24] MEDS: COLACE PO SCH ×2 (08:31→20:41)
[2019-03-24] MEDS: MIRALAX PO SCH (08:32)
[2019-03-24] MEDS: KLONOPIN PO SCH ×2 (08:32→22:25)
--- NOTE | 2019-03-24 11:25 | HISTORY AND PHYSICAL ---
ONCOLOGIST: Dr. Molina though he is also essentially her primary care provider as well. DATE AND TIME: 03/23/2019 at 2200. CHIEF COMPLAINT: Lethargy and hypotension. HISTORY OF PRESENT ILLNESS: Ms Georges is a 63-year-old female with a past medical history most notable for COPD, metastatic lung cancer with metastases to adrenal gland, chronic pain syndrome and recent admission for treatment of pneumonia. The patient according to the ER note, was brought in via EMS for dehydration and hypotension. According to the ER note, the patient was sent to the ER by home health nurse for lethargy and hypotension. The patient is lethargic. She was noted to be alert and oriented x3 upon arrival to the ED. She was complaining of lower abdominal pain which has been present for several weeks. The patient upon my examination was sleeping with her eyes closed though was arousable with verbal and light tactile stimulation though would drift very quickly back off to sleep. Sometimes did have ask questions more than once. Her daughter states the patient has not been feeling well and for the past couple of days has just been lying around and sleeping. She states that waking her up to give her morning and nighttime medications. The patient on further questioning reports that she takes a pain medication for her chronic low back pain. She also does have some abdominal pain that has been going on for several weeks. The patient does report she has chronic problems with constipation and her last bowel movement was 3 days ago. The patient states she has not had a bowel movement in 3 days. She does not report any fever, body aches, or chills. She denies any shortness of breath or cough. She denies any chest pain. She is reporting her lower abdominal pain with some nausea but denies any vomiting. She also denies any diarrhea. She denies any dysuria or urinary frequency. The patient's daughter stated she stated that she was complaining of some left knee pain. The patient does have a approximately half-dollar sized bruise noted to her left knee. The patient's daughter states that since she has been not feeling well and lying around that she has not been eating and drinking good either. She also reported that she has as recently had a couple falls at home. Upon evaluation in the ER, the patient was noted to have initial vital signs of temperature 98.4 degrees, heart rate 115, respirations 14, blood pressure is 91/77, oxygen saturation is 97% on room air. She was noted to have leukocytosis with a white blood cell count of 37,730. Sodium was slightly low at 130. Her CK 17, troponin was less than 0.01. Urinalysis was obtained via catheter, did not show any signs of infection. The urine drug screen was positive for amphetamines. Chest x-ray performed in the ER did show airspace consolidation on the right, suggesting mild pneumonia. She was given 2 L normal saline bolus, given antibiotics of vancomycin and Zosyn. Blood cultures and sputum culture have been obtained. Since receiving fluid boluses patient's blood pressure has improved and has remained good. Initially upon my examination, the patient was drowsy though was arousable. I did decide to make her nothing to eat or drink by mouth and was going to hold her regular prescribed medications just for the interim. Though per the patient's nurse, Carl did call and tell me that the patient was now awake, was very restless and was being very insistent on having pain medicine. She does take a long- acting pain medication as well as MS Castrejon, though given that she has had some lethargy and drowsiness, we will only do the Percocet 7.5 mg p.o. q.8 hours. We will hold all her other medication at this time. We can implement these back as her condition improves. She will be placed in PVC for close monitoring. REVIEW OF SYSTEMS: A 14 point review of systems was conducted with the patient. All were negative except for pertinent positives mentioned above HPI. PAST MEDICAL HISTORY: 1. Hemorrhagic stroke with seizure in April 2018. 2. Metastatic lung cancer with metastases to the adrenal gland on the left. This is followed by Dr. Molina. She does reportedly get treatment with Opdivo. 3. Chronic obstructive pulmonary disease. 4. Hypertension. 5. History of pneumonia. 6. Metabolic encephalopathy. 7. Chronic pain syndrome. 8. Anemia. 9. Serratia bacteremia in June 2018.. SURGICAL HISTORY: 1. Multiple lung biopsies. 2. Two port placements and removals. 3. History of PICC line placement which has since been removed. 4. Tubal ligation. SOCIAL HISTORY: The patient does still smoke 1 pack per day at this time she is started smoking at age 17. There is no known history of illicit drug use or alcohol. She does live with her daughter. FAMILY HISTORY: Positive for her father having history of prostate cancer. Her father had a history of diabetes mellitus and heart disease. ALLERGIES: The patient reports no known allergies at this time, though it was previously listed on a previous H P that morphine causes itching. The patient takes this as a home medication. HOME MEDICATIONS: 1. Celexa 40 mg p.o. daily. 2. Klonopin 0.5 mg p.o. b.i.d. 3. Dexamethasone 1 mg p.o. at bedtime. 4. Morphine extended release 30 mg p.o. q.12 hours. 5. Percocet 7.5 mg 1 tablet p.o. b.i.d. 6. Tenormin 25 mg p.o. 3 to 4 times a day p.r.n. DIAGNOSTIC DATA: White blood cell count is 37,730, hemoglobin 13.5, hematocrit 41.2, platelet count is 525,000. PT 15.2, INR 1.18, PTT 47.2. Sodium 130, potassium 4.7, chloride 91, serum bicarb is 18, BUN 14, creatinine 0.6 with a GFR greater than 60. Glucose is 90, calcium 9.1, magnesium 1.8, total bilirubin is 1.28. AST 15, ALT 7, alkaline phosphatase is 242. CK is 17. Troponin is less than 0.01. Plasma lactate was 1.5. Urinalysis obtained via catheter was positive for trace protein ketones though was negative for glucose, blood, nitrites, leukocytes, white blood cells, or bacteria. Urine drug screen was positive for opiates, oxycodone and amphetamine. Arterial blood gases were obtained on room air. The pH 7.41, pCO2 of 34, PO2 of 70, HC03 of 23, O2 saturation 96.3. We are awaiting for EKG to be completed at this time. Chest x-ray did show vague airspace consolidation in the right, suggesting mild pneumonia. This is per Radiology. Given the patient's constipation and lower abdominal pain for several weeks, we did go ahead and order an abdomen flat and upright. We are awaiting this to be completed at this time. We also are awaiting radiologist's over-read impression as well. PHYSICAL EXAMINATION: VITAL SIGNS: Temperature 98.9 degrees, heart rate 104, respirations 18, blood pressure is 111/64, oxygen saturation is 96% on room air. GENERAL: Ms. Georges is a frail appearing 63-year-old female. She was resting in the ER stretcher. She is in no acute distress. She was resting with her eyes closed. I was able to arouse her with verbal and light tactile stimulation. Once awoken she was alert and oriented to person, place, time, and situation, though would drift back off to sleep frequently and would have to be reawoken to answer question. HEENT: Head is atraumatic, normocephalic. Pupils are equal, round, reactive to light, were 3 mm bilaterally. They were sluggish. Oral mucosa is slightly dry. Oropharynx is clear. NECK: Supple, trachea midline. CARDIOVASCULAR: Patient has S1-S2 present. No murmurs, gallops, rubs appreciated with a slightly tachycardic rate that is regular. PULMONARY: Patient has symmetrical chest expansion bilaterally though lung sounds in bilateral upper rust did have expiratory rhonchi noted. She was clear in the left lung base though did have some diminished lung sounds in the right lung base. ABDOMEN: Soft, does not appear to be distended. The patient did report some tenderness in her periumbilical area, though she was reporting lower abdominal pain. Bowel sounds are present in all 4 quadrants, were slightly hypoactive. EXTREMITIES: Pulse, motor and sensory, no edema or cyanosis noted. The patient skin color is slightly pale. Her legs do appear to have what almost appears like mottling somewhat noted. Though radial and pedal pulses were 2+ bilaterally. INTEGUMENTARY: The patient's skin color is slightly pale though is warm and dry. NEUROLOGICAL: Patient was resting with her eyes closed upon my arrival to the room. I was able to awaken her with verbal and light tactile light tactile stimulation though once awoken she did drift frequently back off to sleep and had to be reawoken to answer questions though at this time her neurological status has slightly improved. The patient is awake, and actually asking for more pain medicine at this time. She is able move all extremities noted. There are no other focal neurological deficits noted. She did have equal hand grasps and full muscle strength bilaterally. ASSESSMENT AND PLAN: 1. Healthcare associated pneumonia. For treatment of this we have obtained blood cultures and sputum culture. We will go ahead and place her with antibiotic coverage of vancomycin and Zosyn. We will continue with aggressive pulmonary toilet with scheduled DuoNeb treatments, incentive spirometry and frequent encouragement to turn, cough and deep breathe. 2. Possible sepsis. The patient was mildly hypotensive upon arrival with a blood pressure of 91/77. She was tachycardic as well. She does have leukocytosis with blood cell count of 37,730. Though, she did receive 2 L normal saline bolus and since that time, her blood pressure has improved. She has not required any further fluid boluses or pressors. She did receive the adequate 30 mL/kg recommended fluid bolus for sepsis. Though capillary refill is 3 she does have radial and pedal pulses are 2+ bilateral time. Her start her perfusion is adequate at this time though we will continue to monitor this closely. We will continue treatment as mentioned above #1 well. 3. Leukocytosis is likely secondary to her pneumonia. Her urinalysis not show any signs of infection. She has been having some lower abdominal pain for the last several weeks. The patient does have chronic problems with constipation and has not had a bowel movement for approximately 3 to 4 days now. We are going to order abdominal x-ray, though we will continue to rule out any other sources of infection. 4. Chronic obstructive pulmonary disease. We will continue with scheduled DuoNeb treatments and incentive spirometry. 5. Metastatic lung cancer with metastases to her left adrenal gland. She is followed by Dr. Molina for this and reportedly receiving treatments of Opdivo for this. 6. History of hypertension. The patient has actually been mildly hypotensive. This did improve with fluids. I do not see her she takes any regularly prescribed blood pressure medication at this time. We will just continue to monitor this. 7. Chronic pain syndrome. The patient does report she has chronic back pain. She does take MS Contin as well as Percocet. Though given that she has been reported to be lethargic, and drowsy upon my examination we will not continue any long-acting pain medication at this time. Since my assessment, the patient has become more alert. Given this, I do feel comfortable going ahead and writing her back just her Percocet at this time though we will continue to monitor her condition closely. She will be on continuous cardiac telemetry and pulse oximetry. 8. Deep vein thrombosis prophylaxis provided with sequential compression devices. The patient has been placed on PVC for close monitoring. She is on telemetry with frequent vitals and neurological checks. We will repeat a CBC and CMP in the morning. The patient has been reporting some nausea as well. Given this, we will just start on a clear liquid diet at this time. The patient does have chronic constipation. We have started her on a oral bowel regimen of Colace twice a day as well as MiraLAX daily. The patient reports that she has not had a bowel movement in 3 days. Further orders and recommendations pending hospital course, diagnostic studies, and physician evaluation. Dictated by RAMILA Posey for Mayito Tiwari MD I have performed a face to face diagnostic evaluation. Labs/ Xray- reviewed, Exam- Chest- rhonchi, CV- regular. A/P- Pneumonia, sepsis- Admit, check blood culture, IV ABx. Dr. Tiwari cc: Mayito Tiwari MD [facility]
[2019-03-24] MEDS: PERCOCET-10 PO PRN (13:49)
[2019-03-24] MEDS: VANCOMYCIN 1,200 MG in NS 250 ML IV SCH (13:49)
--- NOTE | 2019-03-24 14:46 | PROGRESS NOTE ---
DATE: 03/24/2019 SUBJECTIVE: The patient is doing okay. She still seems a little somnolent to me. OBJECTIVE: Vital Signs: Blood pressure is 96/54, heart rate of 111, respiratory rate 16, temperature 97.5 degrees, 98% on 3 L. Cardiovascular: Regular rate and rhythm. Pulmonary: Bilateral breath sounds. Clear to auscultation. GI: Soft, nontender, nondistended. Bowel sounds were positive. LABORATORY DATA: White blood cell count is still high at 29,000 but that is down from 37,000. PROBLEM LIST: 1. Healthcare-associated pneumonia. We will continue vancomycin and Zosyn for the time being. She seems to be responding. 2. Early sepsis. She seems to be doing okay from that standpoint. 3. Chronic obstructive pulmonary disease with acute hypoxic respiratory failure. We will continue to wean her O2 as possible. 4. Chronic pain syndrome. She is on MS Contin and Percocet. We will continue her medications, but she is asking for more medications for which right now we really can't give her more in the setting of her hypoxia and altered mental status and things of that nature so we will continue to follow closely. Repeat her chest x-ray tomorrow. 5. Metastatic lung cancer. She is followed by Dr. Molina. I think he has been notified of her admission. We will continue to monitor. cc: Tarik Foote MD
[2019-03-24] MEDS ORDERED: DECADRON PO SCH (21:00)
[2019-03-24] MEDS: MS CONTIN PO SCH (22:25)
[2019-03-25] MEDS: PROTONIX IV SCH (01:52)
[2019-03-25] MEDS: ZOSYN 3.375 GM in NS 50 ML IV SCH ×2 (01:53→08:23)
[2019-03-25] MEDS: DUONEB (A & A) INH SCH ×6 (03:50→23:38)
[2019-03-25] MEDS: LOVENOX SUBQ SCH (05:23)
[2019-03-25 06:40] LABS: AGAP 22; BUN 6 mg/dL (8-22); CALCIUM 8.3 mg/dL (8.8-10.2); CHLORIDE 100 mmol/L (98-107); COSMO 270; CREATININE 0.5 mg/dL (0.5-0.9); ESTIMATED GFR > 60; GLUCOSE 133 mg/dL (70-104); POTASSIUM 4.1 mmol/L (3.5-5.1); SODIUM 135 mmol/L (136-145); TCO2 13 mmol/L (25-35)
[2019-03-25 06:46] LABS: BASO# 0.02 X1000 (0.0-0.2); HEMATOCRIT 34.9 % (37.0-47.0); HEMOGLOBIN 11.2 g/dL (12.0-16.0); IMM GRAN# 0.39 X1000 (0.0-0.04); IMM GRAN% 0.8 % (0.0-0.5); LYMPH# 0.49 X1000 (1.2-3.4); MCH 28.7 PG (27-31); MCHC 32.1 g/dL (33-37); MCV 89.5 FL (81-99); MONO# 0.56 X1000 (0.11-0.59); MONO% 1.1 % (1.7-9.3); MPV 9.8 FL (7.4-10.4); NEUT% 97.1 % (42.2-75.2); PLT 515 X1000 (130-400); WBC 50.96 X1000 (4.8-10.8)
[2019-03-25 07:29] LABS: BANDS 5 % (0-1); EOS 1 % (1-10); LYMPHS 1 % (21-51); MONO 1 % (1-9); SEGS 92 % (42-75)
--- NOTE | 2019-03-25 07:42 | Diag Imaging Result Doc PS360 ---
CHEST-PORTABLE - 03/25/2019 INDICATION: dyspnea COMPARISON: 03/23/2019 FINDINGS: Stable left central line or remnant. Stable trace atelectasis or infiltrate in the lateral right lung base. Heart size is normal. IMPRESSION: No change from prior. Electronically signed by Cassius Carter 03/25/2019 7:40 AM
[2019-03-25] MEDS: MIRALAX PO SCH (08:03)
[2019-03-25] MEDS: KLONOPIN PO SCH (08:03)
[2019-03-25] MEDS: COLACE PO SCH ×2 (08:03→21:12)
[2019-03-25] MEDS: MS CONTIN PO SCH ×2 (08:04→21:12)
[2019-03-25] MEDS: CELEXA PO SCH (08:23)
[2019-03-25 13:22] LABS: I-STAT BE -6 mmoll (-2-3); I-STAT GLUCOSE 213 mg/dL (70-105); I-STAT HEMOGLOBIN 10.5 g/dL (11.5-17.5); I-STAT K 3.5 mmoll (3.5-4.9); I-STAT SODIUM 133 mmoll (138-146); I-STAT TCO2 20 mmoll (23-27); I-STAT pH 7.381 (7.350-7.450)
--- NOTE | 2019-03-25 13:55 | Diag Imaging Result Doc PS360 ---
EXAM: CT HEAD W/O CONTRAST 03/25/2019 HISTORY: encephalopathy TECHNIQUE: This exam was performed using automated exposure control, adjustment of mA or kV according to patient size, and/or use of iterative reconstruction technique. COMMENT: There is no evidence of mass effect, bleed, or abnormal extra-axial fluid collection. There is some periventricular white matter lucency bilaterally. There is also cortical encephalomalacia in the occipital cortex on the left which was also present previously. Compared to 07/17/2018 the appearance the brain has not changed significantly. IMPRESSION: Chronic ischemic changes. No evidence of acute intracranial disease. Electronically signed by Uday Del Cid 03/25/2019 1:53 PM
[2019-03-25] MEDS: VANCOMYCIN 1,200 MG in NS 250 ML IV SCH (13:56)
--- NOTE | 2019-03-25 14:01 | Diag Imaging Result Doc PS360 ---
EXAM: CT THORAX W/CONTRAST 03/25/2019 HISTORY: R/O pneumonitis Pt on immunotherapy TECHNIQUE: This exam was performed using automated exposure control, adjustment of mA or kV according to patient size, and/or use of iterative reconstruction technique. COMMENT: The current study is compared with 02/22/2019. There are is calcific and noncalcified plaque in the thoracic aorta. There are calcifications in the left anterior descending coronary artery. There is a small pericardial effusion which was also present previously. There are bilateral pleural effusions as there were previously. The regional skeleton is stable in appearance. There is some apparent atelectasis in both posterior costophrenic sulci. There is a pleural-based opacity present in the anterolateral right lower lobe on image 96 which has diminished in size since the previous study. The tree-in-bud opacities which were present throughout much of the middle lobe upper lobe and lower lobe on the right at the time the previous study have improved in some areas and worsened in others but the overall distribution is similar. This is still restricted to the right lung. IMPRESSION: Residual alveolar opacities on the right some of which have improved since the previous examination of 02/22/2019 while others have worsened. Bilateral pleural effusions. Electronically signed by Uday Del Cid 03/25/2019 1:59 PM
--- NOTE | 2019-03-25 15:57 | Diag Imaging Result Doc PS360 ---
EXAM: MRI BRAIN W/WO CONTRAST 03/25/2019 HISTORY: mets TECHNIQUE: T1 sagittal, axial and coronal reformation, axial T2, FLAIR, DWI, and coronal gradient echo, coronal T2. COMMENT: Some of the images are apparently degraded by patient motion. This was also the case at the time the previous study of 07/05/2018. There is increased T2-weighted signal intensity in the left occipital lobe which has improved since the previous examination. There was previously a much more extensive abnormality in the medial portion of the posterior parietal lobe on the right and in both occipital lobes. There is no evidence of restricted diffusion. There is no definite evidence of abnormal gadolinium enhancement. IMPRESSION: Improvement in the T2-weighted abnormalities present on the previous examination which were believed to be related to posterior reversible encephalopathy syndrome. No evidence of acute ischemia or definite metastases. Electronically signed by Uday Del Cid 03/25/2019 3:55 PM
[2019-03-25] MEDS: MYCOSTATIN SUSP PO SCH ×2 (16:40→21:12)
[2019-03-25 18:06] LABS: FLOW CYTOMETERY SOURCE WHOLE BLOOD; LEUKEMIA LYMPHOMA BY FLOW REFERRED FOR TESTING
[2019-03-25 18:20] LABS: UR AMPHETAMINES QUAL NONE DETECTED (NONE DETECT); UR BARBITUATES QUAL NONE DETECTED (NONE DETECT); UR BENZODIAZEPIN QUAL NONE DETECTED (NONE DETECT); UR CANNABINOIDS QUAL NONE DETECTED (NONE DETECT); UR COCAINE QUAL NONE DETECTED (NONE DETECT); UR METHADONE QUAL NONE DETECTED (NONE DETECT); UR OPIATES QUAL PRESUMPTIVE POSITIVE (NONE DETECT); UR OXYCODONE QUAL PRESUMPTIVE POSITIVE (NONE DETECT); UR PCP QUAL NONE DETECTED (NONE DETECT)
[2019-03-25] MEDS: MAXIPIME 1 GM in NS 50 ML IV SCH (21:12)
--- NOTE | 2019-03-25 22:05 | PROGRESS NOTE ---
DATE: 03/25/2019 SUBJECTIVE: She seems more confused today to me, or at least more sedated. Nurses informed me her daughter seemed like she was intoxicated yesterday. Apparently there is a warrant for her arrest involving narcotic usage. That being said, I am a little concerned perhaps that the patient may be surreptitiously taking extra medications, but she is arousable. She is just very lethargic. OBJECTIVE: Vital signs: Blood pressure 136/61, heart rate 114, respiratory rate 16, temperature 97.8 degrees, 97% on 2 L. Cardiovascular: Regular rate and rhythm. Pulmonary: Bilateral breath sounds, diminished at the bases. GI: Soft, nontender, nondistended. Bowel sounds are positive. LABORATORY DATA: White count has jumped up to 50,000 from 29, hemoglobin and hematocrit 11 and 34, platelets 515,000. PH 7.38, pCO2 31, PaO2 139. Ionized calcium was only 1.23. PROBLEM LIST: 1. Healthcare associated pneumonia. She is on vancomycin and Zosyn. I have gone ahead and requested an infectious disease consult, so we will continue to monitor. She will probably get changed to cefepime and Zyvox, but we will continue to follow. 2. Sepsis. She is stable currently. No evidence of sepsis currently. 3. Acute hypoxic respiratory failure with chronic obstructive pulmonary disease. We will continue to wean her oxygen as tolerated. 4. Encephalopathy, possibly related to medications. I have stopped everything pretty much sedating. I do not want to completely stop her pain medications for fear of withdrawal, but I have cut back on her MS Contin. We will repeat her urine drug screen. We will get a head CT and follow. 5. Profound leukocytosis. She does have a history of metastatic lung cancer. She has been on steroids. I think I am going to try to stop those. I am not sure if we need to continue that right now. Hematology is evaluating as well as Infectious Disease. We will continue to follow closely. cc: Tarik Foote MD
--- NOTE | 2019-03-26 01:19 | INFECTIOUS DISEASE CONSULT REP ---
DATE: 03/25/2019 CONCLUSION: The patient has right lung pneumonia. She also has marked increase in her white blood cell count. I think the pneumonia is contributing to the leukocytosis. The patient also is on Decadron, which could be contributing to the leukocytosis. The patient has oral candidiasis. RECOMMENDATIONS: I agree with treating the patient with vancomycin. I have substituted cefepime for Zosyn because some new evidence suggests that in patients on vancomycin, if Zosyn is added it is more nephrotoxic than if another antibiotic such as cefepime were added to the vancomycin. The patient unfortunately is not producing any sputum, so we will not be able to get a sputum culture. I have started the patient on nystatin swish and swallow. DISCUSSION: The patient is lethargic and unable to provide a history. My history was taken from information in the computer. PAST MEDICAL HISTORY: Positive for stroke with a seizure and hemorrhage, metastatic lung cancer, chronic obstructive pulmonary disease, hypertension, metabolic encephalopathy, chronic pain syndrome and anemia. INFECTIOUS DISEASE HISTORY: Positive for pneumonia and bacteremia. PREVIOUS HOSPITALIZATIONS AND OPERATIONS: The patient has had multiple lung biopsies. She has also had 2 port placements with subsequent removal. She has had a history of having a PICC placed and also being removed. The patient also has had a tubal ligation. SOCIAL HISTORY: The patient continues to smoke cigarettes, one pack per day. She does not use illicit drugs or drink alcoholic beverages. She lives with her daughter. FAMILY HISTORY: Positive for prostate cancer, diabetes mellitus and heart disease. ALLERGIES: The patient has no known drug allergies. MEDICATIONS: Home medications include Celexa, Klonopin, dexamethasone, morphine, Percocet and Tenormin. LABORATORY DATA: The patient's CBC shows a white count of 50,960 with an absolute neutrophil count of 49,500, hemoglobin is 11.2, platelet count is 515,000. The creatinine is 0.5. GFR is greater than 60. Alkaline phosphatase is 212. Blood cultures are sterile. DIAGNOSTIC DATA: CT scan of the head shows chronic ischemic changes. CT scan of the chest shows bilateral pleural effusions and right lung opacities. PHYSICAL EXAMINATION: Vital signs: Temperature is 97.8 degrees, pulse is 114, respiratory rate is 16, blood pressure is 136/61. The patient is 5 feet 3 inches tall and she weighs 112 pounds. Generally, this is a chronically ill and cachectic-appearing middle-aged female. She is lethargic, but she does not seem to be in any acute distress. Head, eyes, ears, nose and throat: She apparently was able to hear my spoken words because she followed some requests I made. There is no drainage from the nose or ears. I did see some white coating on her tongue.Neck: No meningismus. Thorax: The patient has an increased AP diameter of the chest. Lungs: Distant breath sounds bilaterally. I did not hear any rales or wheezes. Cardiovascular: Heart rate is regular. Abdomen is soft and nontender. Neurologic: The patient is lethargic. She was able to sit up in bed. She was unable to answer my questions, but she could talk. There was no tremor. Integument: No rash noted. Thank you for the consult. cc: Arsalan Robertson MD
[2019-03-26] MEDS: MAXIPIME 1 GM in NS 50 ML IV SCH ×3 (04:10→21:42)
[2019-03-26] MEDS: DUONEB (A & A) INH SCH ×6 (05:43→22:29)
[2019-03-26] MEDS: PROTONIX IV SCH ×2 (05:58→06:23)
[2019-03-26] MEDS: LOVENOX SUBQ SCH (05:58)
[2019-03-26] MEDS: PERCOCET-10 PO PRN ×2 (05:59→18:26)
[2019-03-26 06:38] LABS: BASO# 0.01 X1000 (0.0-0.2); EOS# 0.01 X1000 (0.0-0.7); HEMATOCRIT 30.1 % (37.0-47.0); HEMOGLOBIN 9.9 g/dL (12.0-16.0); IMM GRAN# 0.18 X1000 (0.0-0.04); IMM GRAN% 0.5 % (0.0-0.5); LYMPH# 0.91 X1000 (1.2-3.4); LYMPH% 2.4 % (20.5-51.1); MCH 28.8 PG (27-31); MCHC 32.9 g/dL (33-37); MCV 87.5 FL (81-99); MONO# 1.26 X1000 (0.11-0.59); MONO% 3.3 % (1.7-9.3); MPV 9.3 FL (7.4-10.4); NEUT# 35.89 X1000 (1.4-6.5); NEUT% 93.8 % (42.2-75.2); PLT 442 X1000 (130-400); RBC 3.44 XMIL (4.2-5.4); RDW 14.8 % (11.5-14.5); WBC 38.26 X1000 (4.8-10.8)
[2019-03-26 07:02] LABS: AGAP 14; BUN 4 mg/dL (8-22); CALCIUM 8.9 mg/dL (8.8-10.2); CHLORIDE 102 mmol/L (98-107); COSMO 274; CREATININE 0.4 mg/dL (0.5-0.9); ESTIMATED GFR > 60; GLUCOSE 131 mg/dL (70-104); POTASSIUM 3.5 mmol/L (3.5-5.1); SODIUM 138 mmol/L (136-145); TCO2 22 mmol/L (25-35)
[2019-03-26 07:49] LABS: BANDS 6 % (0-1); LYMPHS 2 % (21-51); MONO 2 % (1-9); SEGS 88 % (42-75)
[2019-03-26] MEDS: MIRALAX PO SCH (09:12)
[2019-03-26] MEDS: MYCOSTATIN SUSP PO SCH ×4 (09:13→21:41)
[2019-03-26] MEDS: MS CONTIN PO SCH ×2 (09:13→21:41)
[2019-03-26] MEDS: CELEXA PO SCH (09:14)
[2019-03-26] MEDS: COLACE PO SCH ×2 (09:15→21:42)
[2019-03-26] MEDS: VANCOMYCIN 1,200 MG in NS 250 ML IV SCH (16:45)
--- NOTE | 2019-03-26 21:34 | PROGRESS NOTE ---
DATE: 03/26/2019 SUBJECTIVE: This patient seems to be better today. Her smqiqvck-my-qon is at the bedside. Apparently this patient was confused but today she is answering all of my questions. As per the [id number]-pi-azd, this is her baseline. She is following commands. I will advance her diet. OBJECTIVE: Vital signs: Temperature 97.4 degrees, pulse 92, respiratory rate 19, blood pressure 113/54, oxygen saturation 98% on 3 L of nasal cannula.HEENT: Head normocephalic, no trauma. PERRLA. Neck supple. No JVD. No masses. Central trachea. Chest: Decreased breath sounds at the bases with some crepitus. Abdomen is soft, nontender, nondistended. No hepatosplenomegaly. Extremities: No edema, no clubbing, no cyanosis. Decreased muscle mass. Neurological: The patient is awake, alert. She is following commands. She is answering most of my questions. She is oriented x3 and she is able to recognize family members at the bedside. LABORATORY DATA: WBC 38.2, hemoglobin 9.9, hematocrit 30.1, platelets 442,000. Sodium 148, potassium 3.5, chloride 102, bicarbonate 22, BUN 4, creatinine 0.4, glucose 131, calcium 8.9. ASSESSMENT AND PLAN: 1. Healthcare-associated pneumonia. Infectious Disease Department has been consulted. Continue with antibiotics including cefepime and vancomycin. She seems to be getting much better. Apparently she was coughing up some phlegm before, but not now. 2. Sepsis due to pneumonia. She is still having leukocytosis. Vital signs are more stable. She is not on home oxygen. 3. Acute hypoxemic respiratory failure, likely due to pneumonia and underlying chronic obstructive pulmonary disease. Continue with oxygen as tolerated. 4. Chronic obstructive pulmonary disease, not in exacerbation. Continue to monitor. Continue with oxygen supplementation. 5. Encephalopathy probably related to medication, but at this moment she is back to her baseline, basically resolved. She does have some baseline dementia probably. 6. Profound leukocytosis. As per the oclcqnis-jw-qzd, her white blood cell count has been high before during the consult with Hematology/Oncology Department. Probably this is related to medication on top of an infectious process. Better compared with yesterday. 7. History of metastatic lung cancer with metastasis to the adrenal gland on the left, followed by Dr. Molina. 8. Chronic pain syndrome, aware. Continue with the same management for now. 9. Anemia, normocytic. Hematology/Oncology Department on board. Her hemoglobin dropped from 11.2 to 9.9. I do not see any source of bleeding. 10. Hyponatremia, resolved. 11. Hypokalemia, resolved. 12. Nutritional status: We will advance her diet to a regular diet. cc: Darin Bergman MD
[2019-03-27] MEDS: DUONEB (A & A) INH SCH ×6 (03:26→23:32)
[2019-03-27] MEDS: PERCOCET-10 PO PRN ×3 (04:23→17:50)
[2019-03-27] MEDS: MAXIPIME 1 GM in NS 50 ML IV SCH ×3 (04:24→21:46)
[2019-03-27] MEDS: LOVENOX SUBQ SCH (05:22)
[2019-03-27] MEDS: PROTONIX IV SCH ×2 (05:22→06:07)
[2019-03-27 06:12] LABS: BASO# 0.01 X1000 (0.0-0.2); BASO% 0.1 % (0.0-0.8); EOS# 0.02 X1000 (0.0-0.7); EOS% 0.1 % (0.0-10.0); HEMATOCRIT 28.2 % (37.0-47.0); HEMOGLOBIN 8.7 g/dL (12.0-16.0); IMM GRAN# 0.05 X1000 (0.0-0.04); IMM GRAN% 0.3 % (0.0-0.5); LYMPH# 1.59 X1000 (1.2-3.4); LYMPH% 8.8 % (20.5-51.1); MCH 28.4 PG (27-31); MCHC 30.9 g/dL (33-37); MCV 92.2 FL (81-99); MONO# 0.95 X1000 (0.11-0.59); MONO% 5.3 % (1.7-9.3); MPV 9.2 FL (7.4-10.4); NEUT# 15.35 X1000 (1.4-6.5); NEUT% 85.4 % (42.2-75.2); PLT 344 X1000 (130-400); RBC 3.06 XMIL (4.2-5.4); WBC 17.97 X1000 (4.8-10.8)
[2019-03-27 06:22] LABS: AGAP 12; BUN 4 mg/dL (8-22); CALCIUM 8.9 mg/dL (8.8-10.2); CHLORIDE 100 mmol/L (98-107); COSMO 271; CREATININE 0.5 mg/dL (0.5-0.9); ESTIMATED GFR > 60; GLUCOSE 101 mg/dL (70-104); POTASSIUM 3.3 mmol/L (3.5-5.1); SODIUM 137 mmol/L (136-145); TCO2 25 mmol/L (25-35)
[2019-03-27] MEDS ORDERED: KLOR-CON PO ONE (08:10)
[2019-03-27 08:36] LABS: BANDS 2 % (0-1); HYPOCHROM 1+; LYMPHS 12 % (21-51); MONO 10 % (1-9); SEGS 76 % (42-75)
[2019-03-27] MEDS: MYCOSTATIN SUSP PO SCH ×4 (09:00→21:49)
[2019-03-27] MEDS: MS CONTIN PO SCH ×2 (09:00→21:49)
[2019-03-27] MEDS: COLACE PO SCH ×3 (09:02→21:50)
[2019-03-27] MEDS: CELEXA PO SCH (09:02)
[2019-03-27] MEDS: MIRALAX PO SCH (09:02)
--- NOTE | 2019-03-27 09:45 | PROGRESS NOTE ---
DATE: 03/27/2019 SUBJECTIVE: This patient is doing much better today. She is answering all my questions and she is still coughing but not that much. Her white blood cell count decreased from 38 to 17. She is hypokalemic and I will replace the potassium. I have requested physical therapy to evaluate this patient. OBJECTIVE: Vital Signs: Temperature 97.8 degrees, pulse 81, respiratory rate 15, blood pressure 129/64, oxygen saturation 97% on room air. HEENT: Head normocephalic, no trauma. PERRLA. Neck: Supple. No JVD. No masses. Central trachea. Chest: Decreased breath sounds at the bases with some crepitus. Abdomen: Soft, nontender, nondistended. No hepatosplenomegaly. Extremities: No edema. No clubbing. No cyanosis. Decreased muscle mass. Neurological: The patient is awake, alert. She is following commands. She is answering my questions. No focal deficits, but generalized weakness. LABORATORY: WBC 17.9, hemoglobin 8.7, hematocrit 28.2, platelets 344,000. Sodium 137, potassium 3.3, chloride 100, bicarbonate 25, BUN 4, creatinine 0.5, glucose 101, calcium 8.9. ASSESSMENT AND PLAN: 1. Healthcare-associated pneumonia. Continue with the same antibiotics including cefepime and vancomycin. She seems to be getting better. Infectious Disease Department on board. 2. Sepsis due to pneumonia. As above, leukocyte count trending down. 3. Acute hypoxemic respiratory failure due to pneumonia and underlying chronic obstructive pulmonary disease. Continue with oxygen. We will wean this as tolerated. 4. Chronic obstructive pulmonary disease, not in exacerbation. Continue to monitor. 5. Encephalopathy, likely related to medication and/or infection. 6. Profound leukocytosis, this is getting better. As per the ytxmvzct-ml-peu, yesterday her white blood cell count has been high before during the Hematology/Oncology consul. Probably, this is related to medication on top of a an infectious process. I think she used to be on steroids a little bit ago. 7. History of metastatic lung cancer with metastasis to the adrenal gland on the left side, followed by Dr. Molina. 8. Chronic pain syndrome. Aware. Continue with same management for now. 9. Anemia, normocytic. Hematology/Oncology Department on board. 10. Hyponatremia. Resolved. 11. Hypokalemia. I will replace the potassium. 12. Nutritional status. She is tolerating her diet really good. cc: Darin Bergman MD
[2019-03-27] MEDS: VANCOMYCIN 1,200 MG in NS 250 ML IV SCH (12:22)
[2019-03-28] MEDS: PERCOCET-10 PO PRN ×2 (00:14→07:05)
[2019-03-28] MEDS: DUONEB (A & A) INH SCH ×3 (05:10→11:45)
[2019-03-28] MEDS: VANCOMYCIN 1,200 MG in NS 250 ML IV SCH (07:00)
[2019-03-28] MEDS: LOVENOX SUBQ SCH (07:00)
[2019-03-28 07:28] LABS: BASO# 0.02 X1000 (0.0-0.2); BASO% 0.2 % (0.0-0.8); EOS# 0.07 X1000 (0.0-0.7); EOS% 0.6 % (0.0-10.0); HEMATOCRIT 30.7 % (37.0-47.0); HEMOGLOBIN 9.3 g/dL (12.0-16.0); IMM GRAN# 0.02 X1000 (0.0-0.04); IMM GRAN% 0.2 % (0.0-0.5); LYMPH# 2.02 X1000 (1.2-3.4); LYMPH% 18.7 % (20.5-51.1); MCH 28.3 PG (27-31); MCHC 30.3 g/dL (33-37); MCV 93.3 FL (81-99); MONO# 0.51 X1000 (0.11-0.59); MONO% 4.7 % (1.7-9.3); MPV 8.9 FL (7.4-10.4); NEUT# 8.19 X1000 (1.4-6.5); NEUT% 75.6 % (42.2-75.2); PLT 279 X1000 (130-400); RBC 3.29 XMIL (4.2-5.4); WBC 10.83 X1000 (4.8-10.8)
[2019-03-28 08:05] LABS: AGAP 6; ALB/GLOB RATIO 1.4; ALBUMIN 2.5 g/dL (3.5-5.0); ALKALINE PHOSPHATASE 150 U/L (32-104); BUN 3 mg/dL (8-22); CALCIUM 8.6 mg/dL (8.8-10.2); CHLORIDE 103 mmol/L (98-107); COSMO 276; CREATININE 0.4 mg/dL (0.5-0.9); ESTIMATED GFR > 60; GLUCOSE 70 mg/dL (70-104); GOT 10 U/L (10-30); GPT 13 U/L (10-36); POTASSIUM 3.9 mmol/L (3.5-5.1); SODIUM 141 mmol/L (136-145); TCO2 32 mmol/L (25-35); TOTAL BILIRUBIN 0.23 mg/dL (0.20-1.00); TOTAL PROTEIN 4.3 g/dL (6.3-8.3)
[2019-03-28] MEDS: PROTONIX IV SCH (08:14)
--- NOTE | 2019-03-28 08:30 | HEMO/ONC CONSULTATION ---
DATE: 03/25/2019 HISTORY OF PRESENT ILLNESS: Ms. Bella Georges is a pleasant 63-year-old female well known to Dr. Molina with a history of metastatic non-small cell lung cancer, status post multiple lines of treatment. She is currently on Opdivo. Her next dose is due 03/31/2019. She is due a PET scan at the end of March. The patient has been doing well on treatment with Opdivo; however, has had multiple episodes of pneumonia over the last few months. The patient was brought in to [facility] Emergency Department via EMS for dehydration and hypotension. She had been seen earlier that day by a home health nurse and was found to be lethargic and hypotensive. Additionally, the patient was complaining of lower abdominal pain. Chest x-ray in the emergency department did show an airspace consolidation on the right suggestive of mild pneumonia. The patient was started on antibiotics and admitted. We are consulted as the patient is well known to us. PAST MEDICAL HISTORY: 1. Metastatic non-small cell lung cancer. 2. Hemorrhagic stroke with seizure in April 2018. 3. Chronic obstructive pulmonary disease. 4. Hypertension. 5. Recurrent pneumonia. 6. Metabolic encephalopathy. 7. Chronic pain syndrome. 8. Anemia. 9. Serratia bacteremia in June 2018. PAST SURGICAL HISTORY: 1. Multiple lung biopsies. 2. History of placement of 2 ports with removal. 3. PICC line placement with removal. 4. Tubal ligation. SOCIAL HISTORY: The patient smokes 1 pack cigarettes daily since the age of 17. She does not use illicit drugs or alcohol. FAMILY HISTORY: Significant for prostate cancer in her father. MEDICATIONS ON ADMISSION: 1. Celexa. 2. Klonopin. 3. Dexamethasone. 4. Morphine ER. 5. Percocet. 6. Tenormin. ALLERGIES: The patient has no known drug allergies. REVIEW OF SYSTEMS: A 14-point review of systems was obtained and is negative except for mentioned in HPI. PHYSICAL EXAMINATION: General: Ms. Georges is a pleasant 63-year-old female lying supine in bed, somnolent, but otherwise in no apparent distress. Vital Signs: Temperature 98.5 degrees, blood pressure 103/54, heart rate 109, respirations 19, O2 saturation 100% on 2 L nasal cannula O2. HEENT: Normocephalic, atraumatic. Mucous membranes are pink and moist. Sclerae anicteric. Extraocular movements intact. Neck: Supple. Lungs: Clear to auscultation bilaterally. Chest expansion is equal bilaterally. CV: S1, S2 is heard without murmur, rub or gallop. Abdomen: Slightly distended, slightly tender to palpation. No rebound or guarding is noted. Extremities: Without clubbing, cyanosis, or edema. Dermatologic: No rashes, bruises or lesions. Neurologic: The patient is somnolent, oriented x3 and has no focal deficit. LABORATORY DATA: Hemoglobin 11.2, hematocrit 34.9, white blood cell count is 50.96, platelets 515,000. Sodium 135, potassium 4.1, chloride 100, CO2 is 13, BUN is 6, creatinine 0.5 and glucose is 133. On 03/24/2019, bilirubin 0.65, AST 14, ALT 6, and alkaline phosphatase is 212. IMAGING STUDIES: Chest x-ray reveals a vague airspace consolidation on the right suggesting mild pneumonia. Abdominal x-ray reveals a nonspecific abdomen. Chest x-ray on 03/25/2019 reveals no change. ASSESSMENT AND PLAN: 1. Metastatic non-small cell lung cancer status post multiple lines of treatment. The patient is currently on Opdivo and tolerating treatment well. Her next dose is due 03/31/2019. PET scan is due at the end of March. 2. Healthcare associated pneumonia (HCAP) on vancomycin and Zosyn. Blood cultures are pending. 3. Leukocytosis, likely due to HCAP plus or minus sepsis. 4. Chronic obstructive pulmonary disease. Using spirometry and DuoNeb treatments. Stable. 5. Chronic pain on MS Contin and Percocet. 6. We will follow along with you and make further recommendations pending outcomes. This is Jena Saavedra nurse practitioner, dictating a consult on Bella Georges for Dr. Bari Molina. The above reflects the history, exam, assessment, and plan of Dr. Molina. Dictated by RAMILA Caballero for Bari Molina MD cc: RAMILA Caballero MD Lloyd James, MD
[2019-03-28] MEDS: MS CONTIN PO SCH (09:02)
[2019-03-28] MEDS: CELEXA PO SCH (09:02)
[2019-03-28] MEDS: MYCOSTATIN SUSP PO SCH ×2 (09:02→13:21)
[2019-03-28] MEDS: MAXIPIME 1 GM in NS 50 ML IV SCH (09:03)
[2019-03-28] MEDS: COLACE PO SCH (09:03)
[2019-03-28] MEDS: MIRALAX PO SCH (09:04)
[2019-03-28 12:44] VITALS: BP 133/57
--- NOTE | 2019-03-29 16:11 | DISCHARGE SUMMARY ---
ADMISSION DATE: 03/23/2019 DISCHARGE DATE: 03/28/2019 DISPOSITION: Home with home health. FOLLOWUP: Would be with: 1. Dr. Robertson. 2. Dr. Molina. CONSULTATIONS DURING THIS ADMISSION: 1. Infectious Disease was consulted. The patient was seen by Dr. Robertson. 2. Hematology/Oncology was consulted. The patient was seen by Dr. Molina. INVASIVE PROCEDURES DONE DURING THIS ADMISSION: None. IMAGING STUDIES OF SIGNIFICANCE: 1. A chest x-ray did show vague airspace consolidation on the right suggesting mild pneumonia. 2. A KUB showed nonspecific abdomen. 3. A repeat chest x-ray showed no change from prior. 4. A CT scan of the chest showed residual alveolar opacities in the right, some of which have improved. Bilateral pleural effusions. 5. A head CT scan showed chronic ischemic changes. No acute intracranial pathology. 6. An MRI of the brain showed an improved T2 weighted abnormality in the posterior area, which was related to a reversible encephalopathy syndrome. ADMISSION DIAGNOSES: 1. Healthcare-associated pneumonia. 2. Possible sepsis. 3. Leukocytosis. 4. Chronic obstructive pulmonary disease. 5. 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 DIAGNOSES AT THE TIME OF DISCHARGE: 1. Healthcare-associated pneumonia. 2. Sepsis secondary to pneumonia. 3. Acute hypoxemic respiratory failure, improved. 4. Chronic obstructive pulmonary disease, not in exacerbation. 5. Global encephalopathy on presentation secondary to medication and/or infection. 6. History of metastatic lung cancer with metastasis to adrenal gland on the left. 7. Chronic pain syndrome. DISCHARGE MEDICATIONS: 1. Citalopram 40 mg p.o. daily. 2. Clonazepam 0.5 b.i.d. 3. Dexamethasone 4 mg p.o. every night at bedtime. 4. Morphine. 5. Zyvox 600 mg p.o. every 12 hours. 6. Levofloxacin 500 p.o. daily. PRESENTING COMPLAINT: Lethargy and hypotension. HISTORY OF PRESENTING COMPLAINT: Ms Georges is a 63-year-old female who is known to have lung cancer with metastasis to the left adrenal gland, follows up with Dr. Molina. She came to the emergency department because of confused and hypotension. Upon presenting to the emergency department, she was found to have a blood pressure of 91/77, pulse of 115, respirations 14. The patient was saturating about 97% on room air. She was evaluated, x-rays were done. She was admitted for possible healthcare-associated pneumonia. HOSPITAL COURSE: Ms. Georges was admitted to the medical floor, adequately fluid resuscitated. Pain was controlled. She was put on oxygen therapy and started on broad-spectrum IV antibiotics. ID was consulted. Changes were made to the antibiotics. Progressively, Ms Georges continues to improve. She continued to improve to where she was actually on room air for most part of the later stages of the hospital course. Ms. Georges's WBC also improved from 37.73 to 10.83 at the time of discharge. This morning, she refers to be feeling a whole lot better. Denies any new complaints. She has been afebrile. She is breathing well. Her current vital signs, blood pressure is 133/57, pulse of 87, respirations 18, temperature 98 degrees. The patient is saturating 96%. Her mentation has significantly improved. Her imaging studies did not show any acute pathology. At some point, we thought that her hypotension on presentation was related to both medication and possible sepsis and that the same medication side effect is what made her remarkably altered. All the discharge instructions have been discussed with Ms. Georges, especially medication doses and frequency of taking (the opioids, which she seems to be chronically on). TIME SPENT: The time spent for discharge is 38 minutes. cc: MD Arsalan Palmer MD Sammy Becdach, MD
== END 2019-03-28 13:59 | disposition home health service (06) | DRG 871 ==
LOC: SUPCPDRO → ED 14:56 → EDIPHOLD 22:47 → SUATTDRO 22:47 → 2N 03-24 00:47 → 3N 03-27 10:56
PROVIDERS: ATTEND Internal Medicine

== ENCOUNTER 2019-03-29 06:53 | Emergency (ER) ==
[2019-03-29] MEDS ORDERED: SOLU-MEDROL IV ONE (07:12)
[2019-03-29] MEDS ORDERED: NS 1,000 ML IV ONE ×2 (07:12)
[2019-03-29] MEDS ORDERED: DUONEB (A & A) INH ONE (07:12)
[2019-03-29] MEDS ORDERED: SOLU-CORTEF IV ONE (07:13)
[2019-03-29] MEDS ORDERED: VANCOMYCIN 1 GM/NS 1 GM/250 ML IVPB IV ONE (07:13)
[2019-03-29] MEDS ORDERED: ZOSYN 4.5 GM in NS 100 ML IV ONE (07:13)
--- NOTE | 2019-03-29 07:35 | Diag Imaging Result Doc PS360 ---
EXAM: CHEST-1 VIEW 03/29/2019 HISTORY: AMS, lung CA TECHNIQUE: AP portable supine at 0723 COMMENT: There is a catheter fragment in the left subclavian and innominate and superior vena cava. This was also present on previous studies. There is some blunting of the right costophrenic angle which was not present previously and may represent a small effusion. The heart size and pulmonary vascularity are within normal limits. IMPRESSION: Small right pleural effusion. Electronically signed by Uday Del Cid 03/29/2019 7:33 AM
[2019-03-29 07:40] LABS: ALLEN TEST YES; BE -0.9 mmoll (-3.0-3.0); BLOOD TYPE ARTERIAL; HCO3-(ACT) 24.2 mmoll (20.0-26.0); METHB 1.2 % (0.0-1.5); O2(CT) 18.9 mL/dL (15.0-23.0); O2HB 96.1 % (95.0-99.0); PCO2(98.6) 25 mmHg (35-45); PO2(98.6) 150 mmHg (60-100); SAMPLE BLOOD; SAO2 99.6 % (95.0-100.0); THB 13.8 g/dL (11.5-17.4); pH(98.6) 7.52 (7.35-7.45)
[2019-03-29 07:42] LABS: MODALITY CANNULA
[2019-03-29] MEDS ORDERED: D50W SYRINGE IV ONE ×2 (07:44→10:10)
[2019-03-29] MEDS ORDERED: ZOFRAN IM ONE (08:14)
[2019-03-29] MEDS ORDERED: FENTANYL IM ONE (08:14)
--- NOTE | 2019-03-29 08:49 | Diag Imaging Result Doc PS360 ---
EXAM: CHEST-1 VIEW 03/29/2019 HISTORY: POST PICC PLACEMENT TECHNIQUE: AP portable at 0840 COMMENT: There is a left-sided PICC line with its tip just above the right atrium. The appearance the chest has not changed otherwise since the previous study at 0722. IMPRESSION: Stable chest. Electronically signed by Uday Del Cid 03/29/2019 8:46 AM
--- NOTE | 2019-03-29 09:00 | PROVIDER DOCUMENTATION ---
HPI-Respiratory General - General Chief Complaint: SEPSIS ALERT - D Stated Complaint: SOB Time Seen by Provider: 03/29/19 07:01 Source: patient, family, EMS Allergies/Adverse Reactions: Patient Allergies Allergy/AdvReac Type Severity Reaction Status Date / Time No Known Allergies Allergy Verified 03/23/19 17:14 Home Medications: Home Medication List Medication Instructions Recorded Confirmed Last Taken Type Citalopram [Celexa] 40 mg PO DAILY MDD 40 08/02/14 03/23/19 03/22/19 History Clonazepam [Klonopin] 0.5 mg PO BID #0 07/12/18 03/23/19 03/22/19 Rx Dexamethasone 4 mg PO QHS 02/21/19 03/23/19 03/21/19 History Morphine E.r. [Ms Contin] 30 mg PO Q12HR 02/21/19 03/23/19 03/22/19 History Oxycodone HCl/Acetaminophen 1 tab PO BID 02/21/19 03/23/19 03/22/19 History [Oxycodon-Acetaminophen 7.5-325] Promethazine [Phenergan] 25 mg PO 3-4XDAY PRN PRN 02/21/19 03/23/19 03/22/19 History Levofloxacin 500 mg PO DAILY #5 tab 03/28/19 Unknown Rx Linezolid [Zyvox] 600 mg PO Q12HR #10 tab 03/28/19 Unknown Rx - History of Present Illness-Resp Nature of Presenting Problem: Brought by EMS for SOB, generalized pain, weakness, hypotension. Patient apparently d/c from hospital yesterday for lung cancer, sepsis/pneumonia. Has chronic indwellng catheter tip present from prior catheter malfunction and multiple bouts of sepsis since then. EMS reports significant hypotension/hypoxemia en route, placed on 4L by MD, unable to obtain IV access. Quality of Pain: reports: aching Severity in ED: reports: moderate Onset/Duration: reports: 4-6 hours ago Timing: reports: constant, getting worse Context: reports: recent URI Exposure: reports: illness exposure Cough Quality/Degree: reports: mild, dry cough Episode Frequency: frequent episodes Current Respiratory Medication Therapy: Initiated A/A nebulizer, Initiated prednisone Modifying Factors: improves with: lying down, other (morphine helps somewhat). worse with: exertion, coughing Associated Symptoms: reports: cough, muscle/bodyaches, short of breath, sore throat Similar Symptoms Previously?: Yes Recently seen or treated by another doctor?: Yes (Just admitted for sepsis/lung CA. Seecarmina Polanco) Review of Systems - Adult - REVIEW OF SYSTEMS - ADULT Constitutional: reports: see HPI, chills, fever, weight loss Eyes: reports: no symptoms reported Ears, Nose, Mouth & Throat: reports: no symptoms reported Cardiovascular: reports: no symptoms reported Respiratory: reports: see HPI, chronic cough, cough, dyspnea on exertion, shortness of breath, wheezing Gastrointestinal: reports: no symptoms reported Genitourinary: reports: no symptoms reported Musculoskeletal: reports: no symptoms reported Integumentary: reports: no symptoms reported Neurological: reports: no symptoms reported Psychiatric: reports: depression Endocrine: reports: no symptoms reported Hematologic/Lymphatic: reports: no symptoms reported Allergic/Immunologic: reports: no symptoms reported All Other Systems: Reviewed and Negative Past History - Adult - PAST MEDICAL HISTORY-ADULT Review of Records: reports: Old Records Reviewed, Nursing Assessment Review, Medications Reviewed, Social history reviewed & non-contributory. Major Childhood Illnesses: reports: denies history Cardiovascular: reports: HTN Respiratory: reports: asthma, COPD, cancer (Stage IV Lung ca) Gastrointestinal: reports: cancer (liver), liver disease (liver cancer) Obstetrical/Gynecological: reports: denies history Genitourinary: reports: denies history Musculoskeletal: reports: other (broken right knee) Neurological: reports: Seizures/Epilepsy Endocrine/Immune: reports: denies history, cancer (adrenal) Other Conditions: reports: other cancer (adrenal cancer) Additional History: non small cell lung ca 5 years out - PRIOR SURGERIES/PROCEDURES Surgical/Procedure History: reports: BTL, indwelling device (port insertion), other (lung biopsy) - IMMUNIZATION STATUS Childhood Immunizations: UTD Flu Vaccine: UTD - FAMILY HISTORY Family History: reviewed, not pertinent - SOCIAL HISTORY Smoking: cigarettes, less than 1 pack/day Provider spent 3-5 mins advising pt. on dangers of tobacco.: Discussed manners to quit use, and f/u contacts for add'l counseling. Substance Use: none/never Alcohol Use Frequency: never Living Situation: family Physical Exam-General - PHYSICAL EXAM-ADULT Initial Vital Signs Reviewed: Yes (tachycardic, hypotensive, hypothermic) - CONSTITUTIONAL General Appearance: severe distress, cachetic, lethargic, slow to respond - EYES Eyes: PERRL/EOMI, pink conjunctivae - HEAD, EARS, NOSE, MOUTH & THROAT HENMT: normocephalic/atraumatic, normal ENT inspection. negative: moist mucous membranes (dry) - NECK Neck: non-tender, full range of motion, supple, normal inspection - RESPIRATORY Respiratory: chest non-tender, no respiratory distress, no accessory muscle use, decreased breath sounds, crackles, rhonchi, wheezing, dull on percussion, increased rate - CARDIOVASCULAR Cardiovascular: regular rate, rhythm, no edema, no gallop, no JVD, no murmur, tachycardia, other (pulses diminished) - GASTROINTESTINAL (ABDOMEN) Abdominal Exam: normal bowel sounds, non tender, soft - LYMPHATIC Lymphatic: no adenopathy - MUSCULOSKELETAL Back Exam: normal inspection Extremity: normal range of motion, no calf tenderness, slow capillary refill Peripheral Pulses: radial (R): 1+, radial (L): 1+, dorsalis-pedis (R): 0, dorsalis-pedis (L): 0 - SKIN Integumentary: diaphoresis, mottled, pallor - NEUROLOGIC Neurologic: manager analysis II-XII nml as tested, no motor/sensory deficits, motor weakness (generalized) - PSYCHIATRIC Psych/Mental Status: disoriented x 3 (oriented to name only) Progress - PLAN OF CARE/RESULTS Progress/Plan/Lab Results: Vital Signs - 8 hr 03/29/19 06:57 03/29/19 07:03 03/29/19 07:05 Temperature 93.8 F L 93.8 F L Pulse Rate 120 H 120 H 128 H Respiratory Rate 18 22 22 Blood Pressure 56/31 83/58 56/31 O2 Sat by Pulse Oximetry 03/29/19 07:40 03/29/19 07:41 03/29/19 07:54 Temperature 99.1 F Pulse Rate 121 H 120 H 121 H Respiratory Rate 21 18 20 Blood Pressure 147/96 93/57 O2 Sat by Pulse Oximetry 93 L 89 L 03/29/19 08:05 03/29/19 08:36 03/29/19 08:40 Temperature 99.1 F 98.8 F 98.8 F Pulse Rate 122 H 117 H 115 H Respiratory Rate 21 24 26 H Blood Pressure 60/38 65/44 83/46 O2 Sat by Pulse Oximetry 03/29/19 08:45 03/29/19 08:50 03/29/19 08:56 Temperature 98.5 F 98.5 F 98.4 F Pulse Rate 114 H 114 H 114 H Respiratory Rate 25 H 25 H 16 Blood Pressure 80/52 78/51 68/49 O2 Sat by Pulse Oximetry 03/29/19 09:00 03/29/19 09:05 03/29/19 09:14 Temperature 98.3 F 98.1 F Pulse Rate 114 H 112 H 111 H Respiratory Rate 20 21 22 Blood Pressure 80/48 68/49 100/71 O2 Sat by Pulse Oximetry 100 100 100 03/29/19 09:22 03/29/19 09:34 03/29/19 09:42 Temperature 97.5 F L 97.5 F L Pulse Rate 111 H 109 H 104 H Respiratory Rate 20 23 19 Blood Pressure 76/48 74/54 73/54 O2 Sat by Pulse Oximetry 100 100 100 Laboratory Results - last 24 hr 03/29/19 03/29/19 03/29/19 07:32 07:43 08:40 WBC RBC Hgb Hct MCV MCH MCHC RDW Std Deviation Plt Count MPV Immature Gran % (Auto) Neut % (Auto) Lymph % (Auto) [place] % (Auto) Eos % (Auto) Baso % (Auto) Immature Gran # (Auto) Neut # (Auto) Lymph # (Auto) [place] # (Auto) Eos # (Auto) Baso # (Auto) Segmented Neutrophils Lymphocytes Monocytes Eosinophils Metamyelocytes Myelocytes Nucleated RBCs Pathologist Review PT INR PTT (Actin FS) Specimen Type ARTERIAL Sample Site L RADIAL pH 7.52 H pCO2 25 L pO2 150 H HCO3 24.2 Base Excess -0.9 Oxyhemoglobin 96.1 ABG O2 Sat (Calculated) 18.9 ABG O2 Saturation 99.6 ABG Carboxyhemoglobin 2.20 ABG Methemoglobin 1.2 Mehran Test YES A-a O2 Difference 75.0 Total Hemoglobin 13.8 Lactate 6.80 H* Liter Flow 4.0 Blood Gas Modality CANNULA FiO2 % 36.0 Sodium Potassium Chloride Carbon Dioxide Anion Gap BUN Creatinine Estimated GFR/1.73 m2 BUN/Creatinine Ratio Glucose POC Glucose 59 L D Calculated Osmolality Calcium Magnesium Total Bilirubin AST ALT Alkaline Phosphatase Creatine Kinase Troponin T Total Protein Albumin Globulin Albumin/Globulin Ratio Plasma Lactate Cortisol 0.1 03/29/19 03/29/19 03/29/19 08:40 08:40 08:40 WBC 37.58 H D RBC 4.50 Hgb 13.0 D Hct 41.2 D MCV 91.6 MCH 28.9 MCHC 31.6 L RDW Std Deviation 14.9 H Plt Count 356 MPV 9.8 Immature Gran % (Auto) 1.8 H Neut % (Auto) 79.5 H Lymph % (Auto) 15.3 L [place] % (Auto) 2.6 Eos % (Auto) 0.6 Baso % (Auto) 0.2 Immature Gran # (Auto) 0.69 H Neut # (Auto) 29.86 H Lymph # (Auto) 5.74 H [place] # (Auto) 0.99 H Eos # (Auto) 0.22 Baso # (Auto) 0.08 Segmented Neutrophils 85 H Lymphocytes 9 L Monocytes 2 Eosinophils 1 Metamyelocytes 1.0 Myelocytes 2.0 Nucleated RBCs 1 H Pathologist Review PT 15.5 INR 1.21 PTT (Actin FS) 40.6 Specimen Type Sample Site pH pCO2 pO2 HCO3 Base Excess Oxyhemoglobin ABG O2 Sat (Calculated) ABG O2 Saturation ABG Carboxyhemoglobin ABG Methemoglobin Mehran Test A-a O2 Difference Total Hemoglobin Lactate Liter Flow Blood Gas Modality FiO2 % Sodium 134 L Potassium 4.5 D Chloride 90 L Carbon Dioxide 20 L Anion Gap 24 BUN 6 L D Creatinine 0.8 Estimated GFR/1.73 m2 > 60 BUN/Creatinine Ratio 8 Glucose 30 L* D POC Glucose Calculated Osmolality 262 Calcium 9.1 Magnesium 1.8 Total Bilirubin 1.80 H AST 20 ALT 16 Alkaline Phosphatase 189 H Creatine Kinase 18 L Troponin T Total Protein 4.7 L Albumin 2.7 L Globulin 2.0 Albumin/Globulin Ratio 1.4 Plasma Lactate Cortisol 03/29/19 03/29/19 03/29/19 08:40 08:40 10:16 WBC RBC Hgb Hct MCV MCH MCHC RDW Std Deviation Plt Count MPV Immature Gran % (Auto) Neut % (Auto) Lymph % (Auto) [place] % (Auto) Eos % (Auto) Baso % (Auto) Immature Gran # (Auto) Neut # (Auto) Lymph # (Auto) [place] # (Auto) Eos # (Auto) Baso # (Auto) Segmented Neutrophils Lymphocytes Monocytes Eosinophils Metamyelocytes Myelocytes Nucleated RBCs Pathologist Review PT INR PTT (Actin FS) Specimen Type Sample Site pH pCO2 pO2 HCO3 Base Excess Oxyhemoglobin ABG O2 Sat (Calculated) ABG O2 Saturation ABG Carboxyhemoglobin ABG Methemoglobin Mehran Test A-a O2 Difference Total Hemoglobin Lactate Liter Flow Blood Gas Modality FiO2 % Sodium Potassium Chloride Carbon Dioxide Anion Gap BUN Creatinine Estimated GFR/1.73 m2 BUN/Creatinine Ratio Glucose POC Glucose 94 D Calculated Osmolality Calcium Magnesium Total Bilirubin AST ALT Alkaline Phosphatase Creatine Kinase Troponin T 0.014 Total Protein Albumin Globulin Albumin/Globulin Ratio Plasma Lactate 7.5 H* Cortisol Orders Category Date Time Status Cardiac Monitoring DIRECTED Care 03/29/19 07:11 Active IV Insertion ORDERED Care 03/29/19 07:11 Active Resuscitation Status Routine Care 03/29/19 09:22 Ordered Case Management Consult Routine Cons 03/29/19 08:49 Active Hospice Care Consult [OM.CSS] Routine Cons 03/29/19 09:16 Active PICC Line Consult Routine Cons 03/29/19 07:37 Active CHEST-1 VIEW [RAD] Stat Exams 03/29/19 07:11 Completed CHEST-1 VIEW [RAD] Stat Exams 03/29/19 08:24 Completed ABG [RESP] Routine Lab 03/29/19 07:32 Completed BLOOD CULTURE [BLDCUL] Stat Lab 03/29/19 08:40 Results CBC WITH DIFF [HEME] Stat Lab 03/29/19 08:40 Completed CK PROFILE [SP CHEM] Stat Lab 03/29/19 08:40 Completed COMPREHENSIVE METABOLIC PANEL [CHEM] Stat Lab 03/29/19 08:40 Completed CORTISOL Stat Lab 03/29/19 08:40 Completed LACTATE, PLASMA [CHEM] Q3H Lab 03/29/19 08:40 Completed MAGNESIUM [CHEM] Stat Lab 03/29/19 08:40 Completed PROTIME WITH INR [COAG] Stat Lab 03/29/19 08:40 Completed PTT [COAG] Stat Lab 03/29/19 08:40 Completed SPUTUM CULTURE WITH GRAM STAIN [RM] Stat Lab 03/29/19 07:13 Uncollected TROPONIN T Stat Lab 03/29/19 08:40 Completed URINALYSIS W/POSS RFLX CULT [URINALYSIS] Stat Lab 03/29/19 07:11 Uncollected 0.9% Sodium Chloride Inj [Ns] 1,000 ml Med 03/29/19 07:12 Discontinued IV 999 mls/hr 0.9% Sodium Chloride Inj [Ns] 1,000 ml Med 03/29/19 07:12 Discontinued IV 999 mls/hr Albuterol 2.5MG/Ipratrop 0.5MG [Duoneb (A & A)] Med 03/29/19 07:12 Discontinued 9 ml INH NOW ONE Dextrose 50% Syringe [D50w Syringe] Med 03/29/19 07:44 Discontinued 25 ml IV NOW ONE Dextrose 50% Syringe [D50w Syringe] Med 03/29/19 10:10 Discontinued 50 ml IV NOW ONE Fentanyl Med 03/29/19 08:49 Active 25 - 50 microgm IV Q1-3H PRN PRN Fentanyl Med 03/29/19 08:14 Discontinued 50 microgm IM NOW ONE Fentanyl Med 03/29/19 09:30 Discontinued 50 microgm IV NOW ONE Hydrocortisone Sod Succinate [Solu-Cortef] Med 03/29/19 07:13 Discontinued 100 mg IV NOW ONE Methylprednisolone Sod Succ [Solu-Medrol] Med 03/29/19 07:12 Discontinued 125 mg IV NOW ONE Ondansetron [Zofran] Med 03/29/19 08:14 Discontinued 4 mg IM NOW ONE Ondansetron [Zofran] Med 03/29/19 09:30 Discontinued 4 mg IV NOW ONE Piperacillin/Tazobactam [Zosyn] 4.5 gm Med 03/29/19 07:13 Discontinued 0.9% Sodium Chloride Inj [Ns] 100 ml IV NOW Vancomycin 1 gm/Ns Med 03/29/19 07:13 Discontinued 1 gm in 250 ml IV NOW Aerosol Treatments Routine Oth 03/29/19 07:13 Completed Aerosol Treatments Stat Oth 03/29/19 07:13 Completed Oxygen Device Stat Oth 03/29/19 07:11 Active Warming S[place] [OM.EQ] Stat Oth 03/29/19 09:06 Ordered Result Diagrams: 03/29/19 08:40 03/29/19 08:40 - REASSESSMENT Reassessment #1 Time Reassessed: 08:53 Status: improving (OLD CHART reviewed, patient given IV fentanyl/zofran for pain, solumedrol/hydrocodortisone/duoneb for COPD exacerbation, IV Vanco/zosyn for likely sepsis and IVF bolus. Patient required a PICC line in ED for IV access. Patient still hypotensvie. Son at bedside asks for no pressors, no CPR, no intubation. Long discussion at bedside wtih family and they want to make patient DNR. "We just don't want her to suffer and hurt." Family request consult for hospice care.) Reassessment #2 Time Reassessed: 10:11 Status: improving (decreased pain with fentanyl. Fluids resusictation done, IV abx done. Given D25 and then D50. Inocente Hugger applied for hypothermia. We will NOT begin levaphed as patient is DNR. visual supervisor at bedside, they are concerned with possible narcotic diversion at home and think patient should likely be admitted to hospitalist until home situation and hospice can develop a plan.) - XRAY 1 XRAY Study: Chest Impression: Abnormal, See EMR Report ( EXAM: CHEST-1 VIEW 03/29/2019 HISTORY: AMS, lung CA TECHNIQUE: AP portable supine at 0723 COMMENT: There is a catheter fragment in the left subclavian and innominate and superior vena cava. This was also present on previous studies. There is some blunting of the right costophrenic angle which was not present previously and may represent a small effusion. The heart size and pulmonary vascularity are within normal limits. IMPRESSION: Small right pleural effusion. Electronically signed by Uday Del Cid 03/29/2019 7:33 AM 03/29/19 0733 Interpreting Physician: Uday Del Cid MD Dictated Date/Time: 03/29/19 0731 cc: Anish Becker MD; None,PCP) 2 XRAY Study: Chest Impression: Abnormal, See EMR Report ( Signed EXAM: CHEST-1 VIEW 03/29/2019 HISTORY: POST PICC PLACEMENT TECHNIQUE: AP portable at 0840 COMMENT: There is a left-sided PICC line with its tip just above the right atrium. The appearance the chest has not changed otherwise since the previous study at 0722. IMPRESSION: Stable chest. Electronically signed by Uday Del Cid 03/29/2019 8:46 AM 03/29/19 0846 Interpreting Physician: Uday Del Cid MD Dictated Date/Time: 03/29/19 0846 cc: Anish Becker MD; None,PCP) - CONSULTS/PCP/HOSPITALIST Notification #1 *Consult/PCP/Hospitalist*: Case Management consulted at 0845 for possible HOSPICE #2 Consult: Sherri paged at 0812 #3 Consult: caryl Time Discussed: 11:06 Consult Disposition: Will see in ED, Admit Departure - Departure Date of Disposition Decision: 03/29/19 Time of Disposition Decision: 11:06 DIAGNOSIS: Septic shock due to undetermined organism, Tobacco use disorder, Do not resuscitate status with supporting documentation Lung cancer Qualifiers: Laterality: unspecified laterality Lung location: overlapping sites Qualified Code(s): C34.80 - Malignant neoplasm of overlapping sites of unspecified bronchus and lung Disposition: ADMITTED INPATIENT 09 Certified Medical Emergency: Emergent Condition: Critical Referrals and Follow-Ups: None,PCP [Primary Care Provider] - - Critical Care Note This patient required my direct & personal management of CC.: Yes Total Time (mins): 65 Critical Care Statement: This patient required my direct personal management to treat or rule out processes, the absence of which, could potentiallly result in sudden, clinically significant life or limb threatening deterioration. Attestation - Physician/ NUBIA Attestation Patient care was provided by Advanced Practice Provider:: No The physician spent face to face time with patient:: Yes Advanced Practice Provider documentation review:: Supervising physician onsite and consulted in the evaluation and care of this patient. The physician did have a face to face encounter with the patient.
[2019-03-29] MEDS ORDERED: FENTANYL IV ONE (09:30)
[2019-03-29] MEDS ORDERED: ZOFRAN IV ONE (09:30)
[2019-03-29] MEDS: FENTANYL IV PRN ×2 (09:30→10:47)
[2019-03-29 09:37] LABS: BASO# 0.08 X1000 (0.0-0.2); BASO% 0.2 % (0.0-0.8); EOS# 0.22 X1000 (0.0-0.7); EOS% 0.6 % (0.0-10.0); HEMATOCRIT 41.2 % (37.0-47.0); IMM GRAN# 0.69 X1000 (0.0-0.04); IMM GRAN% 1.8 % (0.0-0.5); LYMPH# 5.74 X1000 (1.2-3.4); LYMPH% 15.3 % (20.5-51.1); MCH 28.9 PG (27-31); MCHC 31.6 g/dL (33-37); MCV 91.6 FL (81-99); MONO# 0.99 X1000 (0.11-0.59); MONO% 2.6 % (1.7-9.3); MPV 9.8 FL (7.4-10.4); NEUT# 29.86 X1000 (1.4-6.5); NEUT% 79.5 % (42.2-75.2); PLT 356 X1000 (130-400); RDW 14.9 % (11.5-14.5); WBC 37.58 X1000 (4.8-10.8)
[2019-03-29 09:53] LABS: AGAP 24; ALB/GLOB RATIO 1.4; ALBUMIN 2.7 g/dL (3.5-5.0); ALKALINE PHOSPHATASE 189 U/L (32-104); BUN 6 mg/dL (8-22); CALCIUM 9.1 mg/dL (8.8-10.2); CHLORIDE 90 mmol/L (98-107); CK PROFILE 18 U/L (24-173); COSMO 262; CREATININE 0.8 mg/dL (0.5-0.9); ESTIMATED GFR > 60; GOT 20 U/L (10-30); GPT 16 U/L (10-36); MAGNESIUM 1.8 mg/dL (1.5-2.7); POTASSIUM 4.5 mmol/L (3.5-5.1); SODIUM 134 mmol/L (136-145); TCO2 20 mmol/L (25-35); TOTAL PROTEIN 4.7 g/dL (6.3-8.3)
[2019-03-29 10:05] LABS: GLUCOSE 30 mg/dL (70-104)
[2019-03-29 10:10] LABS: EOS 1 % (1-10); LYMPHS 9 % (21-51); MONO 2 % (1-9); NRBC 1 % (0-0); SEGS 85 % (42-75)
[2019-03-29 10:11] LABS: INR 1.21; PROTIME 15.5 Seconds (11.0-16.0)
[2019-03-29 10:12] LABS: PTT 40.6 Seconds (22.3-41.8)
[2019-03-29] MEDS ORDERED: NARCAN IV PRN (11:45)
[2019-03-29] MEDS ORDERED: DILAUDID PCA VIAL IV PRN (11:45)
[2019-03-29] MEDS ORDERED: ATROPINE 1 % OPHTH SOLN SL PRN (11:48)
[2019-03-29] MEDS ORDERED: ZOFRAN IV PRN (13:02)
[2019-03-29] MEDS ORDERED: TYLENOL PR PRN (13:02)
[2019-03-29] MEDS ORDERED: NS 1,000 ML ONE (13:23)
[2019-03-29 16:10] VITALS: BP 55/30
[2019-03-29] MEDS ORDERED: DILAUDID IV PRN (16:49)
[2019-03-29] MEDS ORDERED: ATIVAN IV PRN (16:50)
--- NOTE | 2019-03-29 18:57 | HISTORY AND PHYSICAL ---
PRIMARY CARE PROVIDER: Bari Molina MD. CHIEF COMPLAINT: GIP for intractable pain. HISTORY OF PRESENT ILLNESS: Ms. Georges is a 63-year-old female who was discharged home from our service yesterday. She is a patient of Dr. Molina with known metastatic [id number] lung cancer, status post multiple lines of treatment and has had multiple episodes of pneumonia over the last few months. She was brought in and treated for dehydration and hypotension and lethargy and treated for pneumonia again, for healthcare associated pneumonia on 03/24/2019 and was discharged back home on 03/28/2019 but came back to the ED on 03/29/2019 with complaints of pain, weakness, and hypotension. The family spoke to the ED physician. They wanted hospice called in. They were wanting to take her home with hospice. However, they were unable to get her pain under control so [facility] has worked with the family. They made her DNR level 1. They admitted her as a GIP to try to get her pain under control and then get her back home hopefully tomorrow, so she will continue on GIP status, palliative care, comfort measures only. PAST MEDICAL HISTORY: 1. Known metastatic [id number] lung cancer, status post multiple lines of treatment, followed by Dr. Molina. 2. Numerous episodes of pneumonia over the past few months. 3. COPD. 4. Chronic pain on MS Neri and Percocet at home. PAST SURGICAL HISTORY: 1. Multiple lung biopsies. 2. Port placement and removals. 3. PICC line placement and removal. 4. PICC line placement this a.m. 5. Tubal ligation. SOCIAL HISTORY: She has been a 1 pack per day smoker up until today. She started smoking at the age of 17. No illicit drug use or alcohol. She lives with a daughter. FAMILY HISTORY: Positive for a prostate in the father as well as diabetes and heart disease. ALLERGIES: No known drug allergies. MOST RECENT HOME MEDICATIONS: Celexa, Klonopin, dexamethasone, morphine extended release, Percocet, and Tenormin. REVIEW OF SYSTEMS: At the time of my interview, Ms. Georges has had 4 doses of 50 mcg of IV fentanyl. She continues to moan and just be restless in the bed, pulling in her gown, pulling at covers, not really answering any questions. Continues to grimace in pain, not really following any commands. PHYSICAL EXAMINATION: VITAL SIGNS: Temperature is 94.3 degrees, heart rate 101, respirations 18, blood pressure is 74/36, O2 is 79% on nasal cannula. GENERAL: Ms. Georges is a 63-year-old female who is lying in the bed, restless, moaning. HEENT: Atraumatic, normocephalic. Pupils are pinpoint. NECK: Supple. Trachea midline. CARDIOVASCULAR: S1, S2 appreciated. No murmurs, gallops, or rubs noted. RESPIRATORY: Lung sounds shallow, not really appreciate any rales, rhonchi or wheezes. GASTROINTESTINAL: Flat, soft, nontender, nondistended. Quiet bowel sounds. EXTREMITIES: She does have a mottled appearance. She is warm to the touch. NEUROLOGIC: She is awake. She is moaning, grimacing, does not appear to be comfortable in the bed. She does not really answer any questions or follow any commands, however, family member asks her family member should come up there and she did mumble no. However, she did not answer any of my questions. DIAGNOSTIC DATA: Initial chest x-ray, small right pleural effusion. LABORATORY DATA: White count 37, hemoglobin and hematocrit of 13 and 41, platelet count 356,000. Lactate on ABG 6.8. Sodium 134, potassium 4.5, BUN 6, creatinine 0.8, blood glucose initially 30 and now 94, magnesium 1.8. T bilirubin 1.8, alkaline phosphatase 189. Plasma lactate 7.5. Cortisol 0.1. ASSESSMENT AND PLAN: Intractable pain secondary to known metastatic non small cell lung cancer, status post multiple lines of treatment. Family has opted for hospice at this time. However, they were unable to control her pain. She did qualify for GIP and she will be admitted and placed on a Dilaudid [employer]. She has had over 100 mcg of fentanyl in the ED. The patient is still moaning, grimacing and uncomfortable in the bed. We will continue with palliative care and comfort measures only per family's request. Again, she is with [facility]. Further recommendation to follow physician evaluation, laboratory, and diagnostic data. Dictated by RAMILA Alvarez for Tarik Foote MD cc: Tarik Foote MD [facility]
--- NOTE | 2019-03-29 21:59 | HISTORY AND PHYSICAL ---
SUBJECTIVE: The patient came in unresponsive. Looked like there was sepsis. She had just been discharged. She had sepsis. I guess after much discussion with the family, they decided to make her comfort care and she is essentially being admitted by hospice for treatment. She has profound leukocytosis, thrombocytopenia and we are currently trying to manage her pain with a [employer]. Family would like to get her home. So once we get the [employer] regulated, then, we will see how she does. Now her blood pressure is very low and we are trying to get that under control. This is a face-to- face encounter note with Hillary Moreno. I will continue care and follow closely. cc: Tarik Foote MD
--- NOTE | 2019-04-30 23:25 | DISCHARGE SUMMARY ---
ADMISSION DATE: 03/29/2019 DISCHARGE DATE: 03/29/2019 The patient came in. She has a history of metastatic non-small lung cancer with multiple lines of treatments. She had just been admitted for sepsis and pneumonia and unintentional drug overdose. She had dehydration, hypotension. In any case, she was actually discharged the day before and was mentating well, doing okay. No problems. She came to the ER. She was hypotensive, generalized pain. She has had a chronic indwelling catheter. She was on 4 L of oxygen. Her initial vital signs showed a low blood pressure in the 68/49, initially pulse rate of 60/38, tachycardic, afebrile, hypoxic. The ER started to do a workup for recurrent sepsis and pneumonia. She was hypothermic with a temperature of 93.8 degrees. She had a low blood glucose of 59, bicarb of 20. All these consistent with new sepsis. She used chronic opiates. Her plasma lactate was also 7.5. After initial treatment, hydrocortisone, antibiotics, family at some point decided they just wanted to make her comfortable. That was even before we were called for admission and we admitted her for pain control. She was DNR, hospice was involved, however, the patient progressed very rapidly. She was placed on the Dilaudid [employer], a fentanyl patch, but her blood pressures continued to deteriorate. Family was aware and available. Last recorded blood pressure was 55/30. Saturations were 79%. Her chest x-ray really did not show any new infiltrates except for a small pleural effusion. Her urine was not obtained. White count though was 37,000, which was a big change. Her microbiology did not show anything in the blood. The patient presented essentially with sepsis and shock kind of, unclear what the source was. She was not bacteremic. There was not clearly pneumonia. Urine was not obtained. There was concern, when she was hospitalized at least when I saw her, that her family was giving her extra pain medications and possibly could have given her supplementary medications that may have caused a narcotic overdose, but it is really unclear. She did present with a sepsis kind of picture, but it is an unclear source at this point. In any case, she had metastatic non-small lung cancer and she was clearly having significant infection. The patient was a hospice patient, DNR, comfort care. cc: MD Dr. Jesse Vines
== END 2019-03-29 15:16 | disposition hospice, inpatient (51) ==
LOC: SUPCPDRO → ED 06:53 → 3N 12:38 → UNDODISIN 16:55
PROVIDERS: ATTEND Internal Medicine

== ENCOUNTER 2019-03-29 15:17 | Inpatient (IN) | END 2019-03-29 16:55 | disposition E | DRG 181 | LOC: DIRADM 15:17 | PROVIDERS: ATTEND Internal Medicine ==